=== PATIENT | female | born 1975 | race African-American/Black ===

== ENCOUNTER → 2017-01-02 | Day surgery (SDC) | payer OTHER ==
[2016-12-30 13:19] VITALS: BMI 48.7
[~2017-01-02] MED LIST: ALBUTEROL SO4 0.083% IH SOL 2.5 MG/3 ML VIAL.NEB. NEB ONE; DEXAMETHASONE SOD PHOSPHATE/PF 10 MG/ML SDV ONE; EPINEPHrine 1:1,000 1 MG/1 ML - 30ML VIAL (INJECTION) ONE; MIDAZOLAM HCL 2 MG/2 ML SINGLE DOSE VIAL ONE; ONDANSETRON 4 MG/2 ML VIAL IVPUSH PRN; PROPOFOL 20 ML ONE; ROPIVACAINE HCL 0.5% 30ML VIAL ONE
[2017-01-02 16:50] VITALS: BP 145/84; PULSE 85; TEMP 98.9
--- NOTE | 2017-01-04 23:04 | OP ---
DATE OF OPERATION: 01/02/2017 SURGEON: Jose Julien M.D. DEVELOPMENT DIRECTOR: Medhat Gómez PREOPERATIVE DIAGNOSIS: 1. Left shoulder impingement. 2. Left shoulder acromioclavicular joint disease. 3. Superior labral to anterior posterior synovitis. POSTOPERATIVE DIAGNOSIS: 1. Left shoulder impingement. 2. Left shoulder acromioclavicular joint disease. 3. Superior labral to anterior posterior synovitis. PROCEDURE: Attempted left shoulder arthroscopy cancelled due to medical complications. Patient had block performed in the preoperative area, and during the prepping and draping while patient was in the beach chair position, started having vomiting. Due to the amount of vomiting and the concern of medical complications, consultation with the anesthesiologist, it was determined that the surgery would have to be cancelled. Please note that no incision was made. Patient was in beach chair position and prepping was started when this occurred, but no incision was made. Patient was transferred to the recovery room and discharged the same day. JOSE JULIEN M.D. OZZIE/[id number]
== END | disposition home or self-care (01) ==
LOC: FASU 06:33
PROVIDERS: ATTEND Orthopaedic Surgery
PROC: 0RBK4ZZ Excision of Left Shoulder Joint, Percutaneous Endoscopic Approach (ICD-10-PCS; principal; 2017-01-02)
DX: M75.42 Impingement syndrome of left shoulder (principal); M65.812 Other synovitis and tenosynovitis, left shoulder; M19.019 Primary osteoarthritis, unspecified shoulder; Z53.09 Procedure and treatment not carried out because of other contraindication; R11.10 Vomiting, unspecified
CPT/HCPCS: 84703

== ENCOUNTER 2020-03-21 01:00 | Inpatient (IN) | payer OTHER ==
[2020-03-21 01:33] VITALS: BMI 42.1
--- NOTE | 2020-03-21 01:55 | PDOC ---
*Physical Exam - Vital Signs Last Vital Signs Temp Pulse Resp BP Pulse Ox 98.6 F 84 18 162/90 96 03/21/20 01:28 03/21/20 01:28 03/21/20 01:28 03/21/20 01:28 03/21/20 01:28 Medical Decision Making - Medical Decision Making 03/21/20 01:55 Patient seen by the advanced practice provider under my supervision. Ancillary testing reviewed as necessary. I agree with plan as outlined by the advanced practice provider. Discharge - Discharge Information Problems reviewed: Yes Clinical Impression/Diagnosis: Hyperglycemia Leg wound, left Qualifiers: Encounter type: initial encounter Qualified Code(s): S81.802A - Unspecified open wound, left lower leg, initial encounter Condition: Fair - Follow up/Referral Referrals: ON STAFF,NOT [Primary Care Provider] - - Patient Discharge Instructions - Post Discharge Activity
[2020-03-21] MEDS ORDERED: SODIUM CHLORIDE 1,000 ML IV STA (02:53)
[2020-03-21] MEDS ORDERED: morphine CARPU-JECT 2 MG/1 ML DISP.SYRIN IVPUSH ONE (02:55)
--- NOTE | 2020-03-21 03:09 | PDOC ---
History of Present Illness - General Chief Complaint: Weakness Stated Complaint: MUSCLE WEAKNESS Time Seen by Provider: 03/21/20 01:53 History Source: Patient - History of Present Illness Initial Comments: 03/21/20 03:00 44-year-old female reports that for the last 2 weeks she noticed a boil to the right lower leg which has become increasing Dariel painful with some pus drainage. Patient also reports that she has a she has been having generalized weakness and gets pain to her bilateral hands and feet. She has no incontinence of bowel or urine no saddle anesthesia. Patient was seen in [facility] last night and was treated for a UTI and hyperglycemia give one dose of macrobid. Patient reports that her pain and her weakness remain since discharge. Patient has a past medical history of insulin-dependent diabetes, Low back pain, sarcoidosis, left knee arthroscopy, asthma. 03/21/20 03:09 Past History - Medical History Allergies/Adverse Reactions: Allergies Allergy/AdvReac Type Severity Reaction Status Date / Time iodine Allergy Intermediate SWELLING Verified 03/21/20 01:33 INFLAMMATION OF MOUTH morphine Allergy Intermediate Verified 03/21/20 03:50 shellfish derived Allergy Intermediate SWELLING/INFLAMMATION Verified 03/21/20 01:33 MOUTH meperidine [From Demerol] Allergy Unknown Verified 03/21/20 03:50 nut Allergy Uncoded 03/24/20 13:59 Home Medications: Ambulatory Orders Insulin Lispro [Humalog] 18 unit SQ TID 12/30/16 Oxycodone HCl/Acetaminophen [Percocet 10-325 mg Tablet] 2 each PO Q8H PRN MDD 6 12/30/16 Albuterol Sulfate Inhaler - [Ventolin Hfa Inhaler -] 2 inh PO Q4H PRN 01/02/17 Alprazolam [Xanax] 0.25 mg PO DAILY 03/21/20 Atorvastatin Ca [Lipitor] 80 mg PO HS 03/21/20 Carvedilol [Coreg -] 25 mg PO BID 03/21/20 Clonidine HCl 0.1 mg PO BID 03/21/20 Cyclobenzaprine HCl [Flexeril -] 10 mg PO TID 03/21/20 Hydralazine HCl 100 mg PO TID 03/21/20 Insulin Glargine,Hum.rec.anlog [Basaglbigg Bravo U-100] 60 unit SQ DAILY 03/01 10/20 Insulin NPH Human Isophane [Humulin N] 14 unit SQ DAILY 03/21/20 Montelukast Sodium [Singulair] 10 mg PO HS 03/21/20 Prednisone 30 mg PO DAILY 03/21/20 Anemia: No (SICKLE CELL TRAIT) Asthma: Yes Cancer: No Cardiac Disorders: No CVA: No COPD: No CHF: No Dementia: No Diabetes: Yes (MAY 2000) GI Disorders: Yes (DIVERTICULITIS/GERD) Disorders: No HTN: Yes Hypercholesterolemia: Yes Liver Disease: No Seizures: No Thyroid Disease: No - Surgical History Abdominal Surgery: No Appendectomy: No Cardiac Surgery: No Cholecystectomy: No Lung Surgery: No Neurologic Surgery: No Orthopedic Surgery: Yes (LEFT THR 2003/LAMINECTOMY 2014) - Psycho-Social/Smoking History Smoking History: Never smoked Have you smoked in the past 12 months: Yes Number of Cigarettes Smoked Daily: 15 - Substance Abuse Hx (Audit-C & DAST Scrn) How often the patient has a drink containing alcohol: Never Score: In Men: 4 or > Positive; In Women: 3 or > Positive: 0 Screen Result (Pos requires Nsg. Audit-10AR): Negative In the last yr the pt used illegal drug/Rx for NonMed reason: No Score: Yes response is considered Positive: 0 Screen Result (Positive result requires Nsg. DAST-10): Negative Review of Systems - Review of Systems Able to Perform ROS?: Yes Is the patient limited Gambian proficient: No Constitutional: No: Symptoms Reported, See HPI, Chills, Diaphoresis, Fever, Loss of Appetite, Malaise, Night Sweats, Weakness, Weight Stable, Unintentional Wgt. Loss, Unexplained wgt Loss, Other Musculoskeletal: Yes: Muscle Weakness Integumentary: Yes: Erythema, Lesions *Physical Exam - Vital Signs Last Vital Signs Temp Pulse Resp BP Pulse Ox 98.6 F 84 18 162/90 96 03/21/20 01:03/21/20 01:28 03/21/20 01:03/21/20 01:03/21/20 01:28 - Physical Exam General Appearance: Yes: Appropriately Dressed Respiratory/Chest: positive: Lungs Clear, Normal Breath Sounds Gastrointestinal/Abdominal: positive: Normal Bowel Sounds, Soft. negative: Tender Musculoskeletal: positive: Normal Inspection Extremity: positive: Erythema, Other (orange sized to left paredes ulcerated wound with erythema , tender on palpation) Integumentary: positive: Normal Color, Dry, Warm, Erythema Neurologic: positive: care director rn II-XII NML intact, Fully Oriented, Alert, Normal Mood/Affect, Normal Response, Motor Strength 5/5. negative: Facial Droop, Sensory Deficit, Confused Heart Score/ECG Review - ECG Intrepretation Comment:: 03/21/20 06:41 sinus tachycardia with 1st degree AV block right BBB ED Treatment Course - LABORATORY CBC & Chemistry Diagram: 03/26/20 07:13 03/26/20 07:13 Medical Decision Making - Medical Decision Making A: hyperglycemia; UTI; infected leg wound P: cbc cmp beta hydroxy IVF insulin ceftriaxone 03/21/20 04:02 patient reports that she gets itchy with morphine not with dilaudid., patient is requesting dialudid or percocet for pain control. patient refused tylenol. will write for percocet. 03/21/20 06:17 patient admitted under hospitalist service 03/26/20 0700 patient pending official sign out to day team. Homa ramos PA to sign out to Day team. Discharge - Discharge Information Problems reviewed: Yes Clinical Impression/Diagnosis: Hyperglycemia Leg wound, left Qualifiers: Encounter type: initial encounter Qualified Code(s): S81.802A - Unspecified open wound, left lower leg, initial encounter UTI (urinary tract infection) Qualifiers: Urinary tract infection type: acute cystitis Hematuria presence: without hematuria Qualified Code(s): N30.00 - Acute cystitis without hematuria Condition: Fair - Admission Yes - Follow up/Referral - Patient Discharge Instructions - Post Discharge Activity
[2020-03-21] MEDS ORDERED: MORPHINE SULFATE 2 MG/ML VIAL ONE (03:15)
[2020-03-21 03:32] LABS: EPI CELLS >36 /uL (0-25.1); HYALINE CASTS 2 /uL (0-3.1); URINE APPEARANCE CLOUDY; URINE BACTERIA 1020 /uL (0-1359); URINE BILIRUBIN NEGATIVE (NEGATIVE); URINE COLOR YELLOW; URINE GLUCOSE (UA) 3+ (NEGATIVE); URINE KETONE NEGATIVE (NEGATIVE); URINE LEUK ESTERASE 1+ (NEGATIVE); URINE NITRITE NEGATIVE (NEGATIVE); URINE PROTEIN 3+ (NEGATIVE); URINE UROBILINOGEN 0.2 mg/dL (0.2-1.0); URINE WBC 183 /uL (0-25.8)
[2020-03-21] MEDS ORDERED: ACETAMINOPHEN 1000 MG/100 ML VIAL (NON FORMULARY) IVPB ONE (03:46)
[2020-03-21] MEDS ORDERED: ACETAMINOPHEN INJECTION 100 ML IVPB ONE (03:57)
[2020-03-21 04:00] LABS: VENOUS BASE EXCESS -3.4 mmol/L (-2-2); VENOUS O2 SATURATION 74.1 % (70-80); VENOUS PCO2 40.3 mmHg (38-52); VENOUS PH 7.352 (7.310-7.410)
[2020-03-21 04:07] LABS: INR 0.92 (0.83-1.09); PROTHROMBIN TIME (PATIENT) 10.8 SEC (9.7-13.0)
[2020-03-21 04:10] LABS: ACTIVATED PTT 27.8 SECONDS (25.2-36.5)
[2020-03-21 04:14] LABS: BASO % 0.5 % (0-2.0); EOS % 2.3 % (0-4.5); HEMATOCRIT 36.6 % (32.4-45.2); HEMOGLOBIN 11.9 GM/dL (10.7-15.3); LYMPH % 18.4 % (8-40); MCH 27.5 pg (25.7-33.7); MCHC 32.3 g/dl (32.0-36.0); MEAN CELL VOLUME 85.1 fl (80-96); MEAN PLT VOLUME 8.9 fl (7.5-11.1); MONO % 7.6 % (3.8-10.2); NEUT % 71.2 % (42.8-82.8); PLATELET COUNT 287 K/MM3 (134-434); WHITE BLOOD COUNT 9.1 K/mm3 (4.0-10.0)
[2020-03-21 04:25] LABS: ALBUMIN 2.2 g/dl (3.4-5.0); ALK PHOS 189 U/L (45-117); ANION GAP 9 MMOL/L (8-16); BILIRUBIN,TOTAL 0.3 mg/dL (0.2-1); BLOOD UREA NITROGEN 30.6 mg/dL (7-18); CALCIUM 9.1 mg/dL (8.5-10.1); CHLORIDE 102 mmol/L (98-107); CO2 24 mmol/L (21-32); CREATININE 2.4 mg/dL (0.55-1.3); SGOT/AST 19 U/L (15-37); SGPT/ALT 24 U/L (13-61); SODIUM 135 mmol/L (136-145); TOT PROT 6.5 g/dl (6.4-8.2)
[2020-03-21 04:44] LABS: URINE RBC 39.9 /uL (0-23.9)
[2020-03-21] MEDS ORDERED: CEFTRIAXONE 1,000 MG in DEXTROSE 5%-WATER - 50 ML IVPB ONE (04:50)
[2020-03-21 05:10] LABS: GLUCOSE,RANDOM 495 mg/dL (74-106)
[2020-03-21] MEDS ORDERED: INSULIN REGULAR HUMAN 100 UNITS/ML *VIAL IVPUSH ONE (05:11)
[2020-03-21] MEDS ORDERED: CEFTRIAXONE 1 GM/50 ML BAG ONE (05:25)
[2020-03-21] MEDS ORDERED: HEPARIN NA (PORCINE) 5,000 UNITS/ML 1ML VIAL SQ SCH (06:00)
--- NOTE | 2020-03-21 09:11 | HP ---
CHIEF COMPLAINT: left knee wound PCP: Dr. Norris HISTORY OF PRESENT ILLNESS: 44 y/o F, pmh of htn, IDDM, sarcoidosis (Lung, Liver) on prednisone, asthma, CKD, spinal surgery, left hip replacement and tibial surgery, presents to the ED after recent discharge from [facility] for uncontrolled and elevated hyperglycemia and increasing drainage of the left knee wound that has been persistent for the past two and has since worsened. Pt states that she has been compliant with her insulin and home meds, but recently her sugars have been elevated from her normal range which is around 130-160s. She was seen in [facility] 2 days ago for similar complaints and at the time treated for a UTI as well and sent home. She has history of sarcoidosis to the liver and lung, which she reports has been stable and she has not seen a physician since diagnosis in 09/19. Denies f/c/n/v/d/sob,chest pain, numbness or tingling. ER course was notable for: (1) UA 1+ LE, Terri >1000, one dose Rocephin (2) IVF (3) Recent Travel: none PAST MEDICAL HISTORY/PAST SURGICAL HISTORY: htn, IDDM, sarcoidosis (Lung, Liver) on prednisone, asthma, CKD, spinal surgery, left hip replacement and tibial surgery, Social History: Smoking: occasionally, once a week, 2 cigs Alcohol: denies Drugs: denies Allergies iodine Allergy (Intermediate, Verified 03/21/20 01:33) SWELLING INFLAMMATION OF MOUTH morphine Allergy (Intermediate, Verified 03/21/20 03:50) shellfish derived Allergy (Intermediate, Verified 03/21/20 01:33) SWELLING/INFLAMMATION MOUTH meperidine [From Demerol] Allergy (Unknown, Verified 03/21/20 03:50) HOME MEDICATIONS: Home Medications Medication Instructions Recorded Atorvastatin Calcium 20 mg PO HS 12/30/16 Insulin Glargine,Hum.rec.anlog 60 units SQ HS 12/30/16 [Lantus Solostar PEN (NF)] Insulin Lispro [Humalog] 18 unit SQ TID 12/30/16 Losartan/Hydrochlorothiazide 1 each PO DAILY 12/30/16 [Losartan-Hctz 50-12.5 mg Tab] Metoprolol Succinate [Toprol Xl] 50 mg PO DAILY 12/30/16 Oxycodone HCl/Acetaminophen 2 each PO Q8H PRN MDD 6 12/30/16 [Percocet 10-325 mg Tablet] Albuterol Sulfate Inhaler - 2 inh PO Q4H PRN 01/02/17 [Ventolin Hfa Inhaler -] Carvedilol [Coreg -] 25 mg PO BID 03/21/20 Hydralazine HCl 100 mg PO TID 03/21/20 Insulin Glargine,Hum.rec.anlog 60 unit SQ DAILY 03/21/20 [Basaglar Kwikpen U-100] Prednisone 30 mg PO DAILY 03/21/20 REVIEW OF SYSTEMS CONSTITUTIONAL: Absent: fever, chills, diaphoresis, generalized weakness HEENT: Absent: rhinorrhea, nasal congestion, throat pain, throat swelling CARDIOVASCULAR: Absent: chest pain, syncope, palpitations RESPIRATORY: Absent: cough, shortness of breath, dyspnea with exertion GASTROINTESTINAL: Absent: abdominal pain, abdominal distension, nausea, vomiting GENITOURINARY: Absent: dysuria, frequency, urgency, hesitancy PHYSICAL EXAMINATION Vital Signs - 24 hr 03/21/20 03/21/20 03/21/20 01:28 04:53 07:06 Temperature 98.6 F 99.2 F Pulse Rate 84 Pulse Rate [ 111 H Right Radial] Respiratory 18 18 Rate Blood Pressure 162/90 Blood Pressure 161/86 [Right Arm] O2 Sat by Pulse 96 97 97 Oximetry (%) GENERAL: Awake, alert, and fully oriented, in no acute distress. Obese female HEAD: Normal with no signs of trauma. Excessive hair growth under arm and under chin EYES: Pupils equal, round and reactive to light, extraocular movements intact EARS, NOSE, THROAT: Moist mucous membranes. LUNGS: Breath sounds equal, clear to auscultation bilaterally. No wheezes, and no crackles. HEART: Regular rate and rhythm, normal S1 and S2 without murmur, rub or gallop. ABDOMEN: Soft, nontender, not distended, normoactive bowel sounds, no guarding, no rebound, no masses. MUSCULOSKELETAL: Back pain but no tenderness LOWER EXTREMITIES: 2+ pulses, warm, well-perfused. No peripheral edema. Left leg externally rotated due to recent surgery, surgical scar 6 cm on the left inner tibial side. 4x4 left knee wound, with partial eschar and partially open, clean base, mild drainage, no surrounding erythema, no surrounding tenderness. NEUROLOGICAL: Normal speech. Normal gait. PSYCHIATRIC: Cooperative. Good eye contact. Appropriate mood and affect. SKIN: Warm, dry, normal turgor, Laboratory Results - last 24 hr 03/21/20 03/21/20 03/21/20 02:44 03:33 03:33 WBC RBC Hgb Hct MCV MCH MCHC RDW Plt Count MPV Absolute Neuts (auto) Neutrophils % Lymphocytes % Monocytes % Eosinophils % Basophils % Nucleated RBC % PT with INR 10.80 INR 0.92 PTT (Actin FS) 27.8 VBG pH POC VBG pCO2 POC VBG pO2 VBG HCO3 VBG O2 Sat (Jan) VBG Base Excess Sodium Potassium Chloride Carbon Dioxide Anion Gap BUN Creatinine Est GFR (CKD-EPI)AfAm Est GFR (CKD-EPI)NonAf POC Glucometer Random Glucose Calcium Total Bilirubin AST ALT Alkaline Phosphatase Creatine Kinase Troponin I Total Protein Albumin Beta-Hydroxybutyrate 1.6 Urine Color Yellow Urine Appearance Cloudy Urine pH 5.0 Ur Specific [place] 1.019 Urine Protein 3+ H Urine Glucose (UA) 3+ H Urine Ketones Negative Urine Blood Negative Urine Nitrite Negative Urine Bilirubin Negative Urine Urobilinogen 0.2 Ur Leukocyte Esterase 1+ H Urine WBC (Auto) 183 Urine RBC (Auto) 39.9 Urine Casts (Auto) 2 U Epithel Cells (Auto) >36 Urine Bacteria (Auto) 1020 ASSESSMENT/PLAN: 44 y/o F, pmh of htn, IDDM, sarcoidosis (Lung, Liver) on prednisone, asthma, CKD, spinal surgery, left hip replacement and tibial surgery, presents to the ED after recent discharge from [facility] for uncontrolled and elevated hyperglycemia and increasing drainage of the left knee wound that has been persistent for the past two and has since worsened admitted uncontrolled diabetes and new left knee wound likely 2/2 to diabetes #Uncontrolled Diabetes likely 2/2 to inadequate coverage vs chronic prednisone use on admission to ED Gluc>400 pt asymptomatic, no DKA now coming down Pt on 18 humalog, 14 humalin, [address] on ISS BGM- will monitor gluc Endo consulted for regimen adjustment for better control r/p EKG in morning to compare to todays EKG QTc 606, tachycardic #Left knee wound likely 2/2 to diabetic wound vs pressure ulcer does not appear infected, no surrounding tenderness or erythema will cont to monitor wbc and vitals left knee chronically externally rotated since surgery in december Will consult wound care pt has history of wounds on the foot, resolved #UTI 2/2 to incompletely tx UTI from [facility] discharge on bactrim UA positive LE +1, terri >1000 pt asymptomatic one dose rocephin given in ED pt took bactrim 2 days ago upon discharge from [facility] #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, since surgery stable sensation mildly reduced, strength 5/5 #Sarcoidosis to liver and lung, dx on an EGD/Colonoscopy at [facility] pt reports its stable and asymptomatic on Prednisone 30 since 09/19 r/p CXR in morning #HTN cont home [facility] of Hydralazine 100 TID Coreg 25 BID #Chronic back pain 2/2 to spinal surgery cont home pain regimen PT #DVT ppx Hep sq #FEN monitor lytes dm/sod diet Dispo: f/u endo, f/u wound care, pt can be followed up outpatient, will cont to monitor sugars Visit type - Emergency Visit Emergency Visit: Yes ED Registration Date: 03/21/20 Care time: The patient presented to the Emergency Department on the above date and was hospitalized for further evaluation of their emergent condition. - New Patient This patient is new to me today: Yes Date on this admission: 03/30/20 - Critical Care Critical Care patient: No ATTENDING PHYSICIAN STATEMENT I saw and evaluated the patient. I reviewed the resident's note and discussed the case with the resident. I agree with the resident's findings and plan as documented. SUBJECTIVE: OBJECTIVE: ASSESSMENT AND PLAN:
[2020-03-21] MEDS ORDERED: ALBUTEROL SO4 HFA INHALER IH PRN (09:15)
[2020-03-21] MEDS ORDERED: INSULIN SLIDING SCALE (NOVOLOG) 1 VIAL SQ SCH ×3 (11:00→22:00)
[2020-03-21] MEDS ORDERED: SODIUM CHLORIDE 0.45% 1,000 ML IV SCH (11:00)
[2020-03-21] MEDS: oxyCODONE HCL 5 MG TABLET PO PRN (11:03)
[2020-03-21] MEDS: ACETAMINOPHEN 325 MG TABLET (FP) PO PRN (11:04)
[2020-03-21] MEDS: CARVEDILOL 25 MG TABLET (FP) PO SCH ×2 (11:05→21:03)
[2020-03-21] MEDS: COLLAGENASE CLOSTRIDIUM HIST. 30 GRAMS TUBE TP SCH (11:12)
--- NOTE | 2020-03-21 11:39 | PN ---
Teaching Attending Note Name of Resident: Danny Redman ATTENDING PHYSICIAN STATEMENT I saw and evaluated the patient. I reviewed the resident's note and discussed the case with the resident. I agree with the resident's findings and plan as documented. SUBJECTIVE: 44 year old morbidly obese AAF with known history of sarcoidosis, insulin depe ndent diabetes mellitus, left knee arthroscopy, asthma, chronic low back pain, who was just at [facility] yesterday where she presented with UTI, hyperglycemia and left leg chronic wound, who again presents today with complaints of weakness and leg pains. She was found to have hyperglycemia, with an abnormal urinalysis. OBJECTIVE: General: morbidly obese AAF who appears appropriate for stated age; not in any distress HEENT: EOMI, no oral lesions, lip and tongue mucosa appear dry neck; short and thick no bruits to auscultation CVS: RRR, no murmurs abd; morbidly obese, soft hypoactive bowel sounds ext 3 x 4 cm wound at the distal third of the LLE. There is black eschar partially covering the wound; 1/3 of the wound is open with mild drainage. HEATING PLANT SUPERINTENDENT: no motor nor sensory deficit ASSESSMENT AND PLAN: 1. Leg pain secondary to chronic wound - surgery has seen patient and will unroof the wound (remove eschar) - will send wound culture 2. Uncontrolled DM 2 - SSI, long acting insulin; check A1c - lipid profile - will defer to nephrology re; CELINE/ARB as with AMBIKA on CKD 3. AMBIKA likely with underlying CKD in setting of IDDM, sarcodosis - volume management, further evaluation of AMBIKA per Dr Stern - requesting input re: steroid use, taper dose (if indicated) of prednisone 4. Chronic low back pain - will confirm/verify narcotic medications with pharmacy - cautious use of narcotics 5. Abnormal EKG - recheck in am - serial troponins - ASA DW Dr Danny Redman plans as above. Agree with his management and plans of care.
--- NOTE | 2020-03-21 11:47 | CONSULT ---
- Consultation REQUESTING PROVIDER: CONSULT REQUEST: We have been asked to surgically evaluate this patient for Left knee ulcer PCP:Tao Kyle MD HISTORY OF PRESENT ILLNESS: Vascular surgery was consulted to evaluate pt for Left knee ulcer. Pt states that the ulcer has been present for about 2 weeks. Pt does not see any wound doctors for the wound. Pt states she previously had a wound on her leg a couple years ago that she treated at home and healed on her own. Pt was just discharged from [facility] yesterday for her leg wound and uncontrolled DM. Pt currently admitted today for hyperglycemia. PMHx: htn, IDDM, sarcoidosis (Lung, Liver) on prednisone, asthma, CKD, PSHx: spinal surgery, left hip replacement and tibial surgery Home Medications Medication Instructions Recorded Insulin Lispro [Humalog] 18 unit SQ TID 12/30/16 Oxycodone HCl/Acetaminophen 2 each PO Q8H PRN MDD 6 12/30/16 [Percocet 10-325 mg Tablet] Albuterol Sulfate Inhaler - 2 inh PO Q4H PRN 01/02/17 [Ventolin Hfa Inhaler -] Atorvastatin Ca [Lipitor] 80 mg PO HS 03/21/20 Carvedilol [Coreg -] 25 mg PO BID 03/21/20 Clonidine HCl 0.1 mg PO BID 03/21/20 Cyclobenzaprine HCl [Flexeril -] 10 mg PO TID 03/21/20 Hydralazine HCl 100 mg PO TID 03/21/20 Insulin Glargine,Hum.rec.anlog 60 unit SQ DAILY 03/21/20 [Basaglar Kwikpen U-100] Insulin NPH Human Isophane 14 unit SQ DAILY 03/21/20 [Humulin N] Montelukast Sodium [Singulair] 10 mg PO HS 03/21/20 Prednisone 30 mg PO DAILY 03/21/20 Allergies Allergy/AdvReac Type Severity Reaction Status Date / Time iodine Allergy Intermediate SWELLING Verified 03/21/20 01:33 INFLAMMATION OF MOUTH morphine Allergy Intermediate Verified 03/21/20 03:50 shellfish derived Allergy Intermediate SWELLING/INFLAMMATION Verified 03/21/20 01:33 MOUTH meperidine [From Demerol] Allergy Unknown Verified 03/21/20 03:50 PHYSICAL EXAM: GENERAL: Awake, alert, and fully oriented, in no acute distress. HEAD: Normal with no signs of trauma. EYES: PERRL, sclera anicteric, conjunctiva clear. NECK: Normal ROM, supple without lymphadenopathy, JVD, or masses. LUNGS: breathing comfortably No accessory muscle use. HEART: Regular rate and rhythm. LOWER EXTREMITIES: warm, well-perfused. No calf tenderness. +1 edema, 4cm x 3 cm ulcer on Left lateral knee, with eschar present, no erythema, serous dischage. NEUROLOGICAL: Normal speech, gait not observed. PSYCH: Cooperative. Good eye contact. Appropriate mood and affect. SKIN: Warm, dry, normal turgor, no rashes or lesions noted. Vital Signs Temperature 98 F 03/21/20 09:07 Pulse Rate 94 H 03/21/20 09:07 Respiratory Rate 18 03/21/20 09:07 Blood Pressure 142/85 03/21/20 09:07 O2 Sat by Pulse Oximetry (%) 98 03/21/20 09:07 Lab Results WBC 9.1 K/mm3 (4.0-10.0) 03/21/20 03:33 RBC 4.30 M/mm3 (3.60-5.2) 03/21/20 03:33 Hgb 11.9 GM/dL (10.7-15.3) 03/21/20 03:33 Hct 36.6 % (32.4-45.2) 03/21/20 03:33 MCV 85.1 fl (80-96) 03/21/20 03:33 MCHC 32.3 g/dl (32.0-36.0) 03/21/20 03:33 RDW 15.0 % (11.6-15.6) 03/21/20 03:33 Plt Count 287 K/MM3 (134-434) 03/21/20 03:33 INR 0.92 (0.83-1.09) 03/21/20 03:33 Sodium 135 mmol/L (136-145) L 03/21/20 03:33 Potassium 4.0 mmol/L (3.5-5.1) 03/21/20 03:33 Chloride 102 mmol/L (98-107) 03/21/20 03:33 Carbon Dioxide 24 mmol/L (21-32) 03/21/20 03:33 Anion Gap 9 MMOL/L (8-16) 03/21/20 03:33 BUN 30.6 mg/dL (7-18) H 03/21/20 03:33 Creatinine 2.4 mg/dL (0.55-1.3) H 03/21/20 03:33 Random Glucose 495 mg/dL (74-106) H* 03/21/20 03:33 Calcium 9.1 mg/dL (8.5-10.1) 03/21/20 03:33 Problem List - Problems (1) Leg wound, left Assessment/Plan: Plan -eschar on Leg wound was debrided at bedside without incident -recommend compression dressing with Santyl -pt should follow up with Dr. Bingham in wound care clinic next week as outpatient Pt discussed with Dr. Bingham who agrees with plan. Code(s): S81.802A - UNSPECIFIED OPEN WOUND, LEFT LOWER LEG, INITIAL ENCOUNTER Qualifiers: Encounter type: initial encounter Qualified Code(s): S81.802A - Unspecified open wound, left lower leg, initial encounter Visit type - Case Type Case Type: ED Admission - Emergency Emergency Visit: Yes ED Registration Date: 03/21/20 Care time: The patient presented to the Emergency Department on the above date and was hospitalized for further evaluation of their emergent condition. - New patient This patient is new to me today: Yes Date on this admission: 03/21/20 - Critical Care Critical Care patient: No
--- NOTE | 2020-03-21 12:22 | CONSULT ---
Consult Consult Specialty:: Nephrology Reason for Consultation:: CKD - History of Present Illness Chief Complaint: hyperglycemia History of Present Illness: Pt is a 44 year old female with pmhx of ckd, sarcoid involving the lungs and liver, asthma, left hip replacement, hypercalcemia who persents to the ER with elevated blood sugar. She says she as in [facility] but did not get along with the doctors. She says that her quote clerk ranges between 1.9 and 2.4. She is on prednisone 30 mg daily since August and says she was started on it by endocrinology. She denies dysuria or hematuria. She has appetite. - History Source History Provided By: Patient, Medical Record - Past Medical History Cardio/Vascular: Yes: HTN, Hyperlipdemia Renal/: Yes: Renal Inusuff ...LMP: 12/25/16 Rheumatology: Yes: Sarcoidosis - Alcohol/Substance Use Hx Alcohol Use: No - Smoking History Smoking history: Never smoked Have you smoked in the past 12 months: Yes Aproximately how many cigarettes per day: 15 Home Medications - Allergies Allergies/Adverse Reactions: Allergies Allergy/AdvReac Type Severity Reaction Status Date / Time iodine Allergy Intermediate SWELLING Verified 03/21/20 01:33 INFLAMMATION OF MOUTH morphine Allergy Intermediate Verified 03/21/20 03:50 shellfish derived Allergy Intermediate SWELLING/INFLAMMATION Verified 03/21/20 01:33 MOUTH meperidine [From Demerol] Allergy Unknown Verified 03/21/20 03:50 - Home Medications Home Medications: Ambulatory Orders Insulin Lispro [Humalog] 18 unit SQ TID 12/30/16 Oxycodone HCl/Acetaminophen [Percocet 10-325 mg Tablet] 2 each PO Q8H PRN MDD 6 12/30/16 Albuterol Sulfate Inhaler - [Ventolin Hfa Inhaler -] 2 inh PO Q4H PRN 01/02/17 Atorvastatin Ca [Lipitor] 80 mg PO HS 03/21/20 Carvedilol [Coreg -] 25 mg PO BID 03/21/20 Clonidine HCl 0.1 mg PO BID 03/21/20 Cyclobenzaprine HCl [Flexeril -] 10 mg PO TID 03/21/20 Hydralazine HCl 100 mg PO TID 03/21/20 Insulin Glargine,Hum.rec.anlog [Basaglar Kwikpen U-100] 60 unit SQ DAILY 03/21/20 Insulin NPH Human Isophane [Humulin N] 14 unit SQ DAILY 03/21/20 Montelukast Sodium [Singulair] 10 mg PO HS 03/21/20 Prednisone 30 mg PO DAILY 03/21/20 Family Medical History Family History: Denies Review of Systems - Review of Systems Constitutional: reports: Malaise Eyes: reports: No Symptoms HENT: reports: No Symptoms Neck: reports: No Symptoms Cardiovascular: reports: No Symptoms Respiratory: reports: No Symptoms Gastrointestinal: reports: No Symptoms Genitourinary: reports: No Symptoms Musculoskeletal: reports: No Symptoms Integumentary: reports: No Symptoms Neurological: reports: No Symptoms Endocrine: reports: No Symptoms Hematology/Lymphatic: reports: No Symptoms Psychiatric: reports: No Symptoms Physical Exam Vital Signs: Vital Signs Temperature 98 F 03/21/20 09:07 Pulse Rate 94 H 03/21/20 09:07 Respiratory Rate 18 03/21/20 09:07 Blood Pressure 142/85 03/21/20 09:07 O2 Sat by Pulse Oximetry (%) 98 03/21/20 09:07 Constitutional: Yes: Calm Eyes: Yes: Conjunctiva Clear HENT: Yes: Atraumatic Neck: Yes: Supple Cardiovascular: Yes: S1, S2 Respiratory: Yes: CTA Bilaterally Gastrointestinal: Yes: Normal Bowel Sounds, Soft, Abdomen, Obese Renal/: Yes: WNL Musculoskeletal: Yes: WNL Edema: Yes Edema: LLE: Trace, RLE: Trace Neurological: Yes: Oriented Psychiatric: Yes: Oriented Labs: CBC, BMP 03/21/20 03:33 03/21/20 03:33 Imaging - Results Chest X-ray: Report Reviewed Problem List - Problems (1) CKD (chronic kidney disease) Code(s): N18.9 - CHRONIC KIDNEY DISEASE, UNSPECIFIED (2) Proteinuria Code(s): R80.9 - PROTEINURIA, UNSPECIFIED (3) Hyperglycemia Code(s): R73.9 - HYPERGLYCEMIA, UNSPECIFIED Assessment/Plan Current Medications Generic Name Dose Route Start Last Admin Trade Name Freq PRN Reason Stop Dose Admin Acetaminophen 325 mg 03/21/20 09:21 03/21/20 11:04 Tylenol - PO 325 mg Q8H PRN Administration PAIN 4-6 Albuterol Sulfate 2 puff 03/21/20 09:15 Ventolin Hfa Inhaler - IH Q4H PRN WHEEZING Atorvastatin Calcium 80 mg 03/21/20 22:00 Lipitor - PO HS MARIYA Carvedilol 25 mg 03/21/20 10:00 03/21/20 11:05 Coreg - PO 25 mg BID MARIYA Administration Collagenase 1 applic 03/21/20 10:45 03/21/20 11:12 Santyl - TP Not Given DAILY [facility] Protocol Cyclobenzaprine HCl 10 mg 03/21/20 14:00 Flexeril - PO TID MARIYA Heparin Sodium (Porcine) 5,000 unit 03/22/20 06:00 Heparin - SQ TID MARIYA Hydralazine HCl 100 mg 03/21/20 14:00 Apresoline - PO TID MARIYA Insulin Aspart 1 vial 03/21/20 16:30 Novolog Vial Sliding Scale - SQ ACHS [facility] Protocol Insulin Detemir 25 units 03/21/20 22:00 Levemir Vial SQ HS MARIYA Montelukast Sodium 10 mg 03/21/20 22:00 Singulair - PO HS MARIYA Oxycodone HCl 10 mg 03/21/20 09:19 03/21/20 11:03 Roxicodone - PO 10 mg Q8H PRN Administration PAIN 4-6 Prednisone 30 mg 03/21/20 10:00 Deltasone - PO DAILY [facility] Impression 1. CKD 2. sarcoidosis with lung and liver involvement 3. proteinuria 4. DM 5. hld 6. htn 7. hypercalcemia Plan - repeat labs in am - check prt to quote clerk ratio - check pth - endocrine eval, try to use lowest dose of steroids possible - can hold off fluids as she is tolerating diet - will need better glucose control - discussed with medical team - monitor calcium levels - check phos levels
[2020-03-21 12:42] LABS: CHOLESTEROL 276 mg/dL (50-200); HDL CHOLESTEROL 29 mg/dL (40-60); LDL CHOLESTEROL (ONLY SJRH) 199 mg/dL (5-100); TRIGLYCERIDES 326 mg/dL (0-150)
--- NOTE | 2020-03-21 12:52 | EKG ---
Test Reason : Blood Pressure : / mmHG Vent. Rate : 109 BPM Atrial Rate : 109 BPM P-R Int : 212 ms QRS Dur : 120 ms QT Int : 450 ms P-R-T Axes : 077 -69 072 degrees QTc Int : 606 ms POOR DATA QUALITY, INTERPRETATION MAY BE ADVERSELY AFFECTED SINUS TACHYCARDIA WITH 1ST DEGREE A-V BLOCK WITH FUSION COMPLEXES RIGHT BUNDLE BRANCH BLOCK LEFT ANTERIOR FASCICULAR BLOCK BIFASCICULAR BLOCK SEPTAL INFARCT , AGE UNDETERMINED ABNORMAL ECG NO PREVIOUS ECGS AVAILABLE Confirmed by MD JEANNETTE, ANDREA ([id number]) on 03/21/2020 12:51:56 PM Referred By: Confirmed By:ANDREA MACHADO MD
[2020-03-21] MEDS: predniSONE 10 MG TABLET (UD) PO SCH ×2 (13:04→14:04)
[2020-03-21] MEDS ORDERED: predniSONE 10 MG TABLET (UD) PO SCH (13:39)
[2020-03-21] MEDS: CYCLOBENZAPRINE HCL 10 MG TABLET (FP) PO SCH ×2 (14:05→21:03)
[2020-03-21] MEDS: hydrALAZINE HCL 50 MG TABLET (FP) PO SCH ×2 (14:05→21:02)
[2020-03-21] MEDS: INSULIN SLIDING SCALE (NOVOLOG) 1 VIAL SQ SCH ×3 (17:14→22:46)
[2020-03-21] MEDS ORDERED: ALPRAZolam 1 MG TABLET PO PRN (19:03)
[2020-03-21] MEDS ORDERED: ALPRAZolam 0.25 MG TABLET PO PRN (19:10)
[2020-03-21] MEDS: MONTELUKAST NA 10 MG TABLET PO SCH (21:02)
[2020-03-21] MEDS: ATORVASTATIN CA 80 MG TABLET (FP) PO SCH (21:03)
--- NOTE | 2020-03-21 21:59 | CONSULT ---
Consult Consult Specialty:: Endocrine Referred by:: Danny Redman Wreath Machine Operator Reason for Consultation:: dmt1 - History of Present Illness Chief Complaint: high sugars History of Present Illness: 44 y/o F, pmh of dmt1,, sarcoidosios (Lung, Liver) on prednisone, asthma, CKD, spinal surgery, left hip replacement and tibial surgery, presented with rle wound infection with high sugars weakness,pain and difficulty controlling blood sugars,with recurrent loss of sensation,pain and difficulty walking.she has been on prednisone 60mg in past yet this has changed since sugars have been elevated. - Past Medical History Cardio/Vascular: Yes: HTN, Hyperlipdemia Renal/: Yes: Renal Inusuff ...LMP: 12/25/16 ...: No Rheumatology: Yes: Sarcoidosis - Alcohol/Substance Use Hx Alcohol Use: No - Smoking History Smoking history: Former smoker Have you smoked in the past 12 months: Yes Aproximately how many cigarettes per day: 15 Home Medications - Allergies Allergies/Adverse Reactions: Allergies Allergy/AdvReac Type Severity Reaction Status Date / Time iodine Allergy Intermediate SWELLING Verified 03/21/20 01:33 INFLAMMATION OF MOUTH morphine Allergy Intermediate Verified 03/21/20 03:50 shellfish derived Allergy Intermediate SWELLING/INFLAMMATION Verified 03/21/20 01:33 MOUTH meperidine [From Demerol] Allergy Unknown Verified 03/21/20 03:50 - Home Medications Home Medications: Ambulatory Orders Insulin Lispro [Humalog] 18 unit SQ TID 12/30/16 Oxycodone HCl/Acetaminophen [Percocet 10-325 mg Tablet] 2 each PO Q8H PRN MDD 6 12/30/16 Albuterol Sulfate Inhaler - [Ventolin Hfa Inhaler -] 2 inh PO Q4H PRN 01/02/17 Alprazolam [Xanax] 0.25 mg PO DAILY 03/21/20 Atorvastatin Ca [Lipitor] 80 mg PO HS 03/21/20 Carvedilol [Coreg -] 25 mg PO BID 03/21/20 Clonidine HCl 0.1 mg PO BID 03/21/20 Cyclobenzaprine HCl [Flexeril -] 10 mg PO TID 03/21/20 Hydralazine HCl 100 mg PO TID 03/21/20 Insulin Glargine,Hum.rec.anlog [Basaglar Kwikpen U-100] 60 unit SQ DAILY 03/21/20 Insulin NPH Human Isophane [Humulin N] 14 unit SQ DAILY 03/21/20 Montelukast Sodium [Singulair] 10 mg PO HS 03/21/20 Prednisone 30 mg PO DAILY 03/21/20 Review of Systems - Review of Systems Constitutional: reports: Lethargy, Malaise Eyes: reports: Blurred Vision HENT: reports: No Symptoms Neck: reports: No Symptoms Cardiovascular: reports: Edema, Shortness of Breath Respiratory: reports: Exercise Intolerance, SOB, SOB on Exertion Gastrointestinal: reports: Bloating, Nausea Genitourinary: reports: Frequency, Incontinence Musculoskeletal: reports: Extremity Pain, Joint Swelling, Muscle Pain, Muscle Cramps, Muscle Weakness Integumentary: reports: Blister, Lesions Physical Exam Vital Signs: Vital Signs Temperature 98.8 F 03/21/20 18:20 Pulse Rate 91 H 03/21/20 18:20 Respiratory Rate 18 03/21/20 18:20 Blood Pressure 142/72 03/21/20 18:20 O2 Sat by Pulse Oximetry (%) 97 03/21/20 18:20 Labs: CBC, BMP 03/21/20 03:33 03/21/20 03:33 Problem List - Problems (1) 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 Code(s): E10.620 - TYPE 1 DIABETES MELLITUS WITH DIABETIC DERMATITIS (2) CKD (chronic kidney disease) Code(s): N18.9 - CHRONIC KIDNEY DISEASE, UNSPECIFIED (3) Hyperglycemia Code(s): R73.9 - HYPERGLYCEMIA, UNSPECIFIED (4) Leg wound, left Code(s): S81.802A - UNSPECIFIED OPEN WOUND, LEFT LOWER LEG, INITIAL ENCOUNTER Qualifiers: Encounter type: initial encounter Qualified Code(s): S81.802A - Unspecified open wound, left lower leg, initial encounter (5) Proteinuria Code(s): R80.9 - PROTEINURIA, UNSPECIFIED (6) UTI (urinary tract infection) Code(s): N39.0 - URINARY TRACT INFECTION, SITE NOT SPECIFIED Qualifiers: Urinary tract infection type: acute cystitis Hematuria presence: without hematuria Qualified Code(s): N30.00 - Acute cystitis without hematuria Assessment/Plan Current Active Problems CKD (chronic kidney disease) (Acute) Hyperglycemia (Acute) Leg wound, left (Acute) Proteinuria (Acute) UTI (urinary tract infection) (Acute) Abnormal Lab Results 03/21/20 03/21/20 03/21/20 02:44 03:33 03:33 VBG HCO3 21.8 L VBG Base Excess -3.4 L Sodium 135 L BUN 30.6 H Creatinine 2.4 H Random Glucose 495 H* Alkaline Phosphatase 189 H Albumin 2.2 L Triglycerides 326 H Cholesterol 276 H Total LDL Cholesterol 199 H HDL Cholesterol 29 L Urine Protein 3+ H Urine Glucose (UA) 3+ H Ur Leukocyte Esterase 1+ H Laboratory Results - last 24 hr 03/21/20 03/21/20 03/21/20 02:44 03:33 03:33 WBC RBC Hgb Hct MCV MCH MCHC RDW Plt Count MPV Absolute Neuts (auto) Neutrophils % Lymphocytes % Monocytes % Eosinophils % Basophils % Nucleated RBC % PT with INR 10.80 INR 0.92 PTT (Actin FS) 27.8 VBG pH POC VBG pCO2 POC VBG pO2 VBG HCO3 VBG O2 Sat (Jan) VBG Base Excess Sodium Potassium Chloride Carbon Dioxide Anion Gap BUN Creatinine Est GFR (CKD-EPI)AfAm Est GFR (CKD-EPI)NonAf POC Glucometer Random Glucose Calcium Total Bilirubin AST ALT Alkaline Phosphatase Creatine Kinase Troponin I Total Protein Albumin Triglycerides Cholesterol Total LDL Cholesterol HDL Cholesterol Beta-Hydroxybutyrate 1.6 Urine Color Yellow Urine Appearance Cloudy Urine pH 5.0 Ur Specific [place] 1.019 Urine Protein 3+ H Urine Glucose (UA) 3+ H Urine Ketones Negative Urine Blood Negative Urine Nitrite Negative Urine Bilirubin Negative Urine Urobilinogen 0.2 Ur Leukocyte Esterase 1+ H Urine WBC (Auto) 183 Urine RBC (Auto) 39.9 Urine Casts (Auto) 2 U Epithel Cells (Auto) >36 Urine Bacteria (Auto) 1020 03/21/20 03/21/20 03/21/20 03:33 03:33 03:33 WBC 9.1 RBC 4.30 Hgb 11.9 Hct 36.6 MCV 85.1 MCH 27.5 MCHC 32.3 RDW 15.0 Plt Count 287 MPV 8.9 Absolute Neuts (auto) 6.5 Neutrophils % 71.2 Lymphocytes % 18.4 Monocytes % 7.6 Eosinophils % 2.3 Basophils % 0.5 Nucleated RBC % 0 PT with INR INR PTT (Actin FS) VBG pH 7.352 POC VBG pCO2 40.3 POC VBG pO2 41.0 VBG HCO3 21.8 L VBG O2 Sat (Jan) 74.1 VBG Base Excess -3.4 L Sodium 135 L Potassium 4.0 Chloride 102 Carbon Dioxide 24 Anion Gap 9 BUN 30.6 H Creatinine 2.4 H Est GFR (CKD-EPI)AfAm 27.53 Est GFR (CKD-EPI)NonAf 23.76 POC Glucometer Random Glucose 495 H* Calcium 9.1 Total Bilirubin 0.3 AST 19 ALT 24 Alkaline Phosphatase 189 H Creatine Kinase 106 Troponin I < 0.02 Total Protein 6.5 Albumin 2.2 L Triglycerides 326 H Cholesterol 276 H Total LDL Cholesterol 199 H HDL Cholesterol 29 L Beta-Hydroxybutyrate Urine Color Urine Appearance Urine pH Ur Specific [place] Urine Protein Urine Glucose (UA) Urine Ketones Urine Blood Urine Nitrite Urine Bilirubin Urine Urobilinogen Ur Leukocyte Esterase Urine WBC (Auto) Urine RBC (Auto) Urine Casts (Auto) U Epithel Cells (Auto) Urine Bacteria (Auto) 03/21/20 03/21/20 03/21/20 08:02 11:28 16:36 WBC RBC Hgb Hct MCV MCH MCHC RDW Plt Count MPV Absolute Neuts (auto) Neutrophils % Lymphocytes % Monocytes % Eosinophils % Basophils % Nucleated RBC % PT with INR INR PTT (Actin FS) VBG pH POC VBG pCO2 POC VBG pO2 VBG HCO3 VBG O2 Sat (Jan) VBG Base Excess Sodium Potassium Chloride Carbon Dioxide Anion Gap BUN Creatinine Est GFR (CKD-EPI)AfAm Est GFR (CKD-EPI)NonAf POC Glucometer 396 407 333 Random Glucose Calcium Total Bilirubin AST ALT Alkaline Phosphatase Creatine Kinase Troponin I Total Protein Albumin Triglycerides Cholesterol Total LDL Cholesterol HDL Cholesterol Beta-Hydroxybutyrate Urine Color Urine Appearance Urine pH Ur Specific [place] Urine Protein Urine Glucose (UA) Urine Ketones Urine Blood Urine Nitrite Urine Bilirubin Urine Urobilinogen Ur Leukocyte Esterase Urine WBC (Auto) Urine RBC (Auto) Urine Casts (Auto) U Epithel Cells (Auto) Urine Bacteria (Auto) plan: bgm achs novolog scale levemir doses hb a1c titrate dose of prednisone per need for nephropathy
[2020-03-21] MEDS ORDERED: INSULIN (LEVEMIR) 100 UNITS/ML UNITS SQ SCH ×2 (22:00)
[2020-03-22] MEDS: hydrALAZINE HCL 50 MG TABLET (FP) PO SCH ×3 (05:51→21:54)
[2020-03-22] MEDS: CYCLOBENZAPRINE HCL 10 MG TABLET (FP) PO SCH ×3 (05:51→21:54)
[2020-03-22] MEDS: HEPARIN NA (PORCINE) 5,000 UNITS/ML 1ML VIAL SQ SCH ×3 (05:51→21:54)
[2020-03-22] MEDS: INSULIN SLIDING SCALE (NOVOLOG) 1 VIAL SQ SCH ×4 (06:18→21:55)
--- NOTE | 2020-03-22 06:44 | EKG ---
Test Reason : Blood Pressure : / mmHG Vent. Rate : 093 BPM Atrial Rate : 093 BPM P-R Int : 224 ms QRS Dur : 132 ms QT Int : 410 ms P-R-T Axes : 075 -57 075 degrees QTc Int : 509 ms SINUS RHYTHM WITH 1ST DEGREE A-V BLOCK POSSIBLE LEFT ATRIAL ENLARGEMENT LEFT AXIS DEVIATION RIGHT BUNDLE BRANCH BLOCK ANTEROSEPTAL INFARCT (CITED ON OR BEFORE 21-MAR-2020) ABNORMAL ECG Confirmed by MD LINDA, MELBA ([id number]) on 03/21/2020 2:38:25 PM Referred By: Confirmed By:MELBA MCKEON MD
[2020-03-22] MEDS ORDERED: INSULIN (LEVEMIR) 100 UNITS/ML UNITS SQ SCH (07:00)
[2020-03-22 08:30] LABS: HEMATOCRIT 33.6 % (32.4-45.2); MCH 27.3 pg (25.7-33.7); MCHC 32.6 g/dl (32.0-36.0); MEAN CELL VOLUME 83.9 fl (80-96); MEAN PLT VOLUME 8.5 fl (7.5-11.1); PLATELET COUNT 289 K/MM3 (134-434); RBC 4.01 M/mm3 (3.60-5.2); RDW 14.7 % (11.6-15.6)
--- NOTE | 2020-03-22 08:58 | PN ---
Progress Note (short form) - Note Progress Note: Pt seen and examined. States she is doing "okay". no issues overnight. Ambulating and tolerating po. Pain controlled. Denies n/v/d. Vital Signs Temp 98.4 F 03/22/20 06:00 Pulse 91 H 03/22/20 06:00 Resp 20 03/22/20 06:00 BP 125/83 03/22/20 06:00 Pulse Ox 99 03/22/20 06:00 Intake & Output 03/21/20 03/21/20 03/22/20 11:59 23:59 11:59 Intake Total 40 Balance 40 Weight 269 lb 269 lb Intake: IV 40 saline lock 40 Other: Voiding Method Toilet Toilet # Unmeasured Voids Void 1 1 Bowel Movement Yes # Bowel Movements 1 Height 5 ft 7 in 5 ft 7 in Body Mass Index (BMI) 42.1 42.1 Weight Measurement Method Stated by Caregiver Weight Measurement Method Est/Stated by Patient CBC, BMP 03/22/20 07:55 Gen: awake alert, nad Resp: unlabored on RA Ext: LLE with approx 3.5x3.5x1.5 cm ulcer at lateral aspect of knee, moderate fibrinous exudate, scant serous drainage no erythema. + ttp. No palpable fluid collection. A/P: 44 y/o F, w/ PMHx htn, IDDM, sarcoidosis (Lung, Liver) on prednisone, asthma, CKD, spinal surgery, left hip replacement and tibial surgery, a/w worsening left knee wound. afebrile, vss no leukocytosis -local wound care with santyl (cover with damp to dry 4x4s and kerlix), change bid -pain control -oob as tolerated dChanaw attending Dr Bingham
[2020-03-22 09:05] LABS: ALBUMIN 2.1 g/dl (3.4-5.0); BILIRUBIN,TOTAL 0.6 mg/dL (0.2-1); CALCIUM 9.3 mg/dL (8.5-10.1); CREATININE 2.4 mg/dL (0.55-1.3); POTASSIUM 3.8 mmol/L (3.5-5.1)
[2020-03-22] MEDS: CARVEDILOL 25 MG TABLET (FP) PO SCH ×2 (09:36→21:54)
[2020-03-22] MEDS: COLLAGENASE CLOSTRIDIUM HIST. 30 GRAMS TUBE TP SCH (09:37)
--- NOTE | 2020-03-22 11:13 | CON.ID ---
Consult Consult Specialty:: infectious diseases Referred by:: Reason for Consultation:: infected wounds - History of Present Illness Chief Complaint: non healing wounds of the legs History of Present Illness: 4 y/o F, pmh of htn, IDDM, sarcoidosis (Lung, Liver) on prednisone, asthma, CKD, spinal surgery, left hip replacement and tibial surgery, presents to the ED after recent discharge from [facility] for uncontrolled and elevated hyperglycemia and increasing drainage of the left knee wound that has been pe rsistent for the past two and has since worsened. Pt states that she has been compliant with her insulin and home meds, but recently her sugars have been elevated from her normal range which is around 130-160s. She was seen in [facility] 2 days ago for similar complaints and at the time treated for a UTI as well and sent home. She has history of sarcoidosis to the liver and lung, which she reports has been stable and she has not seen a physician since diagnosis in 09/19. patient was worked up and the wound was debrided and cx were send her cx are growing multiple organisms including mrsa patient not compliant wiht her medicine - History Source History Provided By: Patient Limitations to Obtaining History: No Limitations - Past Medical History Cardio/Vascular: Yes: HTN, Hyperlipdemia Renal/: Yes: Renal Inusuff ...LMP: 12/25/16 ...: No Rheumatology: Yes: Sarcoidosis - Alcohol/Substance Use Hx Alcohol Use: No - Smoking History Smoking history: Former smoker Have you smoked in the past 12 months: Yes Aproximately how many cigarettes per day: 15 Home Medications - Allergies Allergies/Adverse Reactions: Allergies Allergy/AdvReac Type Severity Reaction Status Date / Time iodine Allergy Intermediate SWELLING Verified 03/21/20 01:33 INFLAMMATION OF MOUTH morphine Allergy Intermediate Verified 03/21/20 03:50 shellfish derived Allergy Intermediate SWELLING/INFLAMMATION Verified 03/21/20 01:33 MOUTH meperidine [From Demerol] Allergy Unknown Verified 03/21/20 03:50 - Home Medications Home Medications: Ambulatory Orders Insulin Lispro [Humalog] 18 unit SQ TID 12/30/16 Oxycodone HCl/Acetaminophen [Percocet 10-325 mg Tablet] 2 each PO Q8H PRN MDD 6 12/30/16 Albuterol Sulfate Inhaler - [Ventolin Hfa Inhaler -] 2 inh PO Q4H PRN 01/02/17 Alprazolam [Xanax] 0.25 mg PO DAILY 03/21/20 Atorvastatin Ca [Lipitor] 80 mg PO HS 03/21/20 Carvedilol [Coreg -] 25 mg PO BID 03/21/20 Clonidine HCl 0.1 mg PO BID 03/21/20 Cyclobenzaprine HCl [Flexeril -] 10 mg PO TID 03/21/20 Hydralazine HCl 100 mg PO TID 03/21/20 Insulin Glargine,Hum.rec.anlog [Basaglar Kwikpen U-100] 60 unit SQ DAILY 0 Insulin NPH Human Isophane [Humulin N] 14 unit SQ DAILY 03/21/20 Montelukast Sodium [Singulair] 10 mg PO HS 03/21/20 Prednisone 30 mg PO DAILY 03/21/20 Review of Systems - Review of Systems Constitutional: reports: Other Eyes: reports: No Symptoms HENT: reports: No Symptoms Neck: reports: No Symptoms Cardiovascular: reports: No Symptoms Respiratory: reports: No Symptoms Gastrointestinal: reports: No Symptoms Genitourinary: reports: No Symptoms Musculoskeletal: reports: Other Integumentary: reports: Wound Neurological: reports: No Symptoms Endocrine: reports: No Symptoms Hematology/Lymphatic: reports: No Symptoms Psychiatric: reports: No Symptoms Physical Exam Vital Signs: Vital Signs Temperature 99.2 F 03/22/20 10:00 Pulse Rate 91 H 03/22/20 10:00 Respiratory Rate 03/22/20 10:00 Blood Pressure 126/59 L 03/22/20 10:00 O2 Sat by Pulse Oximetry (%) 99 03/22/20 10:00 Constitutional: Yes: Well Nourished, No Distress, Calm, Obese Eyes: Yes: Conjunctiva Clear, EOM Intact HENT: Yes: Atraumatic, Normocephalic Cardiovascular: Yes: Regular Rate and Rhythm Respiratory: Yes: Regular, CTA Bilaterally Gastrointestinal: Yes: Normal Bowel Sounds, Soft Musculoskeletal: Yes: WNL Extremities: Yes: Other Integumentary: Yes: Other Wound/Incision: Yes: Dressing Dry and Intact Neurological: Yes: Alert, Oriented Psychiatric: Yes: Alert, Oriented Labs: CBC, BMP 03/22/20 07:55 03/22/20 07:55 Imaging - Results Chest X-ray: Report Reviewed, Image Reviewed Ultrasound: Report Reviewed, Image Reviewed Assessment/Plan this patient with multiple medical issues comign wiht wounds which are infected will give her vanco one dose and start on zosyn await for finalization of cx wound care rest as per the team monitor kevin pruett
[2020-03-22] MEDS ORDERED: VANCOMYCIN 1 GRAM (PRE-DOCKED) 1,000 MG/250 ML BAG IVPB ONE (11:25)
[2020-03-22] MEDS ORDERED: NYSTATIN POWDER 100,000 UNITS/GM - 15 GM TOPICAL POWDER TP SCH (13:45)
[2020-03-22 14:34] LABS: EPI CELLS >36 /uL (0-25.1); HYALINE CASTS 2 /uL (0-3.1); URINE APPEARANCE CLOUDY; URINE BACTERIA 100 /uL (0-1359); URINE BILIRUBIN NEGATIVE (NEGATIVE); URINE COLOR YELLOW; URINE GLUCOSE (UA) 1+ (NEGATIVE); URINE KETONE NEGATIVE (NEGATIVE); URINE LEUK ESTERASE TRACE (NEGATIVE); URINE NITRITE NEGATIVE (NEGATIVE); URINE PROTEIN 3+ (NEGATIVE); URINE WBC 45 /uL (0-25.8)
--- NOTE | 2020-03-22 14:36 | PN ---
Teaching Attending Note Name of Resident: Tavon Lo ATTENDING PHYSICIAN STATEMENT I saw and evaluated the patient. I reviewed the resident's note and discussed the case with the resident. I agree with the resident's findings and plan as documented. SUBJECTIVE: Seen and examined at bedside. Patient is reporting itching and discharge a ssociated with a yeast infection. Blood sugar better controlled Current Medications Generic Name Dose Route Start Last Admin Trade Name Freq PRN Reason Stop Dose Admin Acetaminophen 325 mg 03/21/20 09:21 03/21/20 11:04 Tylenol - PO 325 mg Q8H PRN Administration PAIN 4-6 Albuterol Sulfate 2 puff 03/21/20 09:15 Ventolin Hfa Inhaler - IH Q4H PRN WHEEZING Alprazolam 0.25 mg 03/21/20 19:10 03/21/20 21:01 Xanax - PO 0.25 mg ONCE PRN Administration ANXIETY Atorvastatin Calcium 80 mg 03/21/20 22:00 03/21/20 21:03 Lipitor - PO 80 mg HS MARIYA Administration Carvedilol 25 mg 03/21/20 10:00 03/22/20 09:36 Coreg - PO 25 mg BID MARIYA Administration Collagenase 1 applic 03/21/20 10:45 03/22/20 09:37 Santyl - TP 1 applic DAILY MARIYA Administration Protocol Cyclobenzaprine HCl 10 mg 03/21/20 14:00 03/22/20 13:44 Flexeril - PO 10 mg TID MARIYA Administration Heparin Sodium (Porcine) 5,000 unit 03/22/20 06:00 03/22/20 13:45 Heparin - SQ 5,000 unit TID MARIYA Administration Hydralazine HCl 100 mg 03/21/20 14:00 03/22/20 13:44 Apresoline - PO 100 mg TID MARIYA Administration Piperacillin Sod/Tazobactam 50 mls @ 100 mls/hr 03/22/20 11:30 Sod 2.25 gm/ Dextrose IVPB Q8H-IV MARIYA Protocol Insulin Aspart 1 vial 03/21/20 22:00 03/22/20 11:58 Novolog Vial Sliding Scale - SQ 4 units ACHS MARIYA Administration Protocol Insulin Detemir 40 units 03/21/20 22:00 03/21/20 22:45 Levemir Vial SQ 40 units HS MARIYA Administration Insulin Detemir 30 units 03/22/20 07:00 03/22/20 06:20 Levemir Vial SQ 30 units AM MARIYA Administration Montelukast Sodium 10 mg 03/21/20 22:00 03/21/20 21:02 Singulair - PO 10 mg HS MARIYA Administration Nystatin 1 applic 03/22/20 13:45 Nystop Powder - TP DAILY MARIYA Oxycodone HCl 10 mg 03/21/20 09:19 03/21/20 11:03 Roxicodone - PO 10 mg Q8H PRN Administration PAIN 4-6 Prednisone 25 mg 03/21/20 13:39 03/22/20 09:37 Deltasone - PO 25 mg DAILY MARIYA Administration OBJECTIVE: Last Vital Signs Temp Pulse Resp BP Pulse Ox 99.2 F 91 H 20 126/59 L 99 03/22/20 10:00 03/22/20 10:00 03/22/20 10:00 03/22/20 10:00 03/22/20 10:00 PE: per resident note Labs/Imaging: reviewed ASSESSMENT AND PLAN: 44 y/o F, pmh of htn, IDDM, sarcoidosis (Lung, Liver) on prednisone, asthma, CKD, spinal surgery, left hip replacement and tibial surgery, presents to the ED after recent discharge from [facility] for uncontrolled DM and L knee wound #Uncontrolled Diabetes: improving A1C: 14.7 Endo on board; appreciate recs -Levemir 30U AM, 40U PM -trend surgars #Left knee wound: wound culture polymicrobial and + for MRSA Vascular on board: appreciate recs ID on board; Pending recs -wound care on board -currently on zosyn -start doxycycline for now #+ UA -UA at [facility] and here contaminated -repeat UA/urine cx with straight cath one dose rocephin given in ED pt took bactrim 2 days ago upon discharge from [facility] #Yeast infection -nystatin cream #Sarcoidosis to liver and lung, dx on an EGD/Colonoscopy at [facility] pt reports its stable and asymptomatic on Prednisone 30 since 09/19: currently on 25mg -will discuss case with PCP/it intern Dr. Saray Dickerson #HTN -cont home [facility] of Hydralazine 100 TID -Coreg 25 BID #DVT ppx Hep sq
--- NOTE | 2020-03-22 15:16 | PN ---
Physical Exam: SUBJECTIVE: Patient seen and examined at bedside. Patient was mildly irritated but cooperative. She does not endorse any acute events overnight. Patient does complain of intense itching in her groin and attributes the symptoms to an active yeast infection, right quadrant fullness and discomfort likely due to sarcoidosis, and mild constipation. Patient denies shortness of breath, chest pain, nausea, vomiting, or diarrhea. OBJECTIVE: Vital Signs Period Temp Pulse Resp BP Sys/Albert Pulse Ox Last 24 Hr 98 F-99.2 F 91-100 18-20 125-149/59-83 97-99 GENERAL: The patient is awake, alert, and fully oriented, in no acute distress. HEAD: Normal with no signs of trauma. LUNGS: Breath sounds diminished due to body habitus HEART: Regular rate and rhythm, S1, S2 without murmur, rub or gallop. ABDOMEN: Soft, normoactive bowel sounds, no guarding, no rebound, + hepatosplenomegaly. Laboratory Results - last 24 hr 03/21/20 03/21/20 03/21/20 03:33 16:36 22:44 WBC RBC Hgb Hct MCV MCH MCHC RDW Plt Count MPV Sodium Potassium Chloride Carbon Dioxide Anion Gap BUN Creatinine Est GFR (CKD-EPI)AfAm Est GFR (CKD-EPI)NonAf POC Glucometer 333 272 Random Glucose Hemoglobin A1c % Calcium Phosphorus Magnesium Total Bilirubin AST ALT Alkaline Phosphatase Troponin I Total Protein Albumin Urine Color Urine Appearance Urine pH Ur Specific Bradford Urine Protein Urine Glucose (UA) Urine Ketones Urine Blood Urine Nitrite Urine Bilirubin Urine Urobilinogen Ur Leukocyte Esterase Urine WBC (Auto) Urine Casts (Auto) U Epithel Cells (Auto) Urine Bacteria (Auto) Ur Random Creatinine U Random Total Protein Protein/Creatinin Ratio COVID-19 (LUCY) Not detected 03/22/20 03/22/20 03/22/20 05:55 07:55 07:55 WBC 10.0 RBC 4.01 Hgb 11.0 Hct 33.6 MCV 83.9 MCH 27.3 MCHC 32.6 RDW 14.7 Plt Count 289 MPV 8.5 Sodium 139 Potassium 3.8 Chloride 108 H Carbon Dioxide 24 Anion Gap 7 L BUN 40.0 H Creatinine 2.4 H Est GFR (CKD-EPI)AfAm 27.53 Est GFR (CKD-EPI)NonAf 23.76 POC Glucometer 164 Random Glucose 135 H Hemoglobin A1c % Calcium 9.3 Phosphorus 4.0 Magnesium 2.0 Total Bilirubin 0.6 AST 18 ALT 23 Alkaline Phosphatase 168 H Troponin I Total Protein 6.0 L Albumin 2.1 L Urine Color Urine Appearance Urine pH Ur Specific Bradford Urine Protein Urine Glucose (UA) Urine Ketones Urine Blood Urine Nitrite Urine Bilirubin Urine Urobilinogen Ur Leukocyte Esterase Urine WBC (Auto) Urine Casts (Auto) U Epithel Cells (Auto) Urine Bacteria (Auto) Ur Random Creatinine U Random Total Protein Protein/Creatinin Ratio COVID-19 (LUCY) 03/22/20 03/22/20 03/22/20 07:55 11:54 13:00 WBC RBC Hgb Hct MCV MCH MCHC RDW Plt Count MPV Sodium Potassium Chloride Carbon Dioxide Anion Gap BUN Creatinine Est GFR (CKD-EPI)AfAm Est GFR (CKD-EPI)NonAf POC Glucometer 186 Random Glucose Hemoglobin A1c % 14.7 H Calcium Phosphorus Magnesium Total Bilirubin AST ALT Alkaline Phosphatase Troponin I Total Protein Albumin Urine Color Urine Appearance Urine pH Ur Specific Bradford Urine Protein Urine Glucose (UA) Urine Ketones Urine Blood Urine Nitrite Urine Bilirubin Urine Urobilinogen Ur Leukocyte Esterase Urine WBC (Auto) Urine Casts (Auto) U Epithel Cells (Auto) Urine Bacteria (Auto) Ur Random Creatinine 107.0 U Random Total Protein 175.0 H Protein/Creatinin Ratio 1.6 COVID-19 (LUCY) 03/22/20 03/22/20 13:00 13:30 WBC RBC Hgb Hct MCV MCH MCHC RDW Plt Count MPV Sodium Potassium Chloride Carbon Dioxide Anion Gap BUN Creatinine Est GFR (CKD-EPI)AfAm Est GFR (CKD-EPI)NonAf POC Glucometer Random Glucose Hemoglobin A1c % Calcium Phosphorus Magnesium Total Bilirubin AST ALT Alkaline Phosphatase Troponin I < 0.02 Total Protein Albumin Urine Color Yellow Urine Appearance Cloudy Urine pH 5.0 Ur Specific Bradford 1.013 Urine Protein 3+ H Urine Glucose (UA) 1+ H Urine Ketones Negative Urine Blood Negative Urine Nitrite Negative Urine Bilirubin Negative Urine Urobilinogen 1.0 Ur Leukocyte Esterase Trace Urine WBC (Auto) 45 Urine Casts (Auto) 2 U Epithel Cells (Auto) >36 Urine Bacteria (Auto) 100 Ur Random Creatinine U Random Total Protein Protein/Creatinin Ratio COVID-19 (LUCY) Active Medications Generic Name Dose Route Start Last Admin Trade Name Freq PRN Reason Stop Dose Admin Acetaminophen 325 mg 07/22/20 09:21 03/21/20 11:04 Tylenol - PO 325 mg Q8H PRN Administration PAIN 4-6 Albuterol Sulfate 2 puff 03/21/20 09:15 Ventolin Hfa Inhaler - IH Q4H PRN WHEEZING Alprazolam 0.25 mg 03/21/20 19:10 03/21/20 21:01 Xanax - PO 0.25 mg ONCE PRN Administration ANXIETY Atorvastatin Calcium 80 mg 03/21/20 22:00 03/21/20 21:03 Lipitor - PO 80 mg HS MARIYA Administration Carvedilol 25 mg 03/21/20 10:00 03/22/20 09:36 Coreg - PO 25 mg BID MARIYA Administration Collagenase 1 applic 03/21/20 10:45 03/22/20 09:37 Santyl - TP 1 applic DAILY MARIYA Administration Protocol Cyclobenzaprine HCl 10 mg 03/21/20 14:00 03/22/20 13:44 Flexeril - PO 10 mg TID MARIYA Administration Heparin Sodium (Porcine) 5,000 unit 03/22/20 06:00 03/22/20 13:45 Heparin - SQ 5,000 unit TID MARIYA Administration Hydralazine HCl 100 mg 03/21/20 14:00 03/22/20 13:44 Apresoline - PO 100 mg TID MARIYA Administration Piperacillin Sod/Tazobactam 50 mls @ 100 mls/hr 03/22/20 11:30 Sod 2.25 gm/ Dextrose IVPB Q8H-IV MARIYA Protocol Insulin Aspart 1 vial 03/21/20 22:00 03/22/20 11:58 Novolog Vial Sliding Scale - SQ 4 units ACHS MARIYA Administration Protocol Insulin Detemir 40 units 03/21/20 22:00 03/21/20 22:45 Levemir Vial SQ 40 units HS MARIYA Administration Insulin Detemir 30 units 03/22/20 07:00 03/22/20 06:20 Levemir Vial SQ 30 units AM MARIYA Administration Montelukast Sodium 10 mg 03/21/20 22:00 03/21/20 21:02 Singulair - PO 10 mg HS MARIYA Administration Nystatin 1 applic 03/22/20 13:45 Nystop Powder - TP DAILY MARIYA Oxycodone HCl 10 mg 03/21/20 09:19 03/21/20 11:03 Roxicodone - PO 10 mg Q8H PRN Administration PAIN 4-6 Prednisone 25 mg 03/21/20 13:39 03/22/20 09:37 Deltasone - PO 25 mg DAILY MARIYA Administration ASSESSMENT/PLAN: Jamaal is a 44 year old AA female with a h/o sarcoidosis stage 4 (liver, lung, and lymph nodes) on 30mg of prednisone, CKD, asthma, IDDM, HTN, with an extensive surgical history of spinal, tibial, and hip replacement. Patient presented to the ED for elevated blood glucose and L lateral leg wound. # DM2 - patient placed on 70 units of levamir due to insulin resistance from predn isone - Blood glucose - 186 down from 450 - Dr. Lo (endo) - morning dose will be changed to 40 in AM and 30 PM - A1C - 14.7 #MRSA probable Leg wound - Vascular surgery PA debrided wound at bedside - Cultures positive for MRSA - ID consulted (Dr. Cannon) - will see patient in AM - Started on zosyn and doxycycline #skin fold - fungal infection - Nystatin cream #sarcoidosis of liver, lungs, and lymphnodes - prednisone taper down to 25 - pulmonolgy at [facility] consulted #HTN - continue home dose #DVT prophylaxis - Heparin sub q 5000 #COVID-19 LUCY - undetected Visit type - Emergency Visit Emergency Visit: Yes ED Registration Date: 03/21/20 Care time: The patient presented to the Emergency Department on the above date and was hospitalized for further evaluation of their emergent condition. - New Patient This patient is new to me today: Yes Date on this admission: 03/22/20 - Critical Care Critical Care patient: No - Discharge Referral Referred to [facility] Med P.C.: No ATTENDING PHYSICIAN STATEMENT I saw and evaluated the patient. I reviewed the resident's note and discussed the case with the resident. I agree with the resident's findings and plan as documented. SUBJECTIVE: OBJECTIVE: ASSESSMENT AND PLAN:
--- NOTE | 2020-03-22 15:17 | PN ---
Progress Note, Physician History of Present Illness: Pt seen and examined at bedside. She feels a little better than yesterday. - Current Medication List Current Medications: Active Medications Acetaminophen (Tylenol -) 325 mg PO Q8H PRN PRN Reason: PAIN 4-6 Last Admin: 03/21/20 11:04 Dose: 325 mg Documented by: Albuterol Sulfate (Ventolin Hfa Inhaler -) 2 puff IH Q4H PRN PRN Reason: WHEEZING Alprazolam (Xanax -) 0.25 mg PO ONCE PRN PRN Reason: ANXIETY Last Admin: 03/21/20 21:01 Dose: 0.25 mg Documented by: Atorvastatin Calcium (Lipitor -) 80 mg PO [facility] Last Admin: 03/21/20 21:03 Dose: 80 mg Documented by: Carvedilol (Coreg -) 25 mg PO BID [facility] Last Admin: 03/22/20 09:36 Dose: 25 mg Documented by: Collagenase (Santyl -) 1 applic TP DAILY [facility]; Protocol Last Admin: 03/22/20 09:37 Dose: 1 applic Documented by: Cyclobenzaprine HCl (Flexeril -) 10 mg PO TID [facility] Last Admin: 03/22/20 13:44 Dose: 10 mg Documented by: Heparin Sodium (Porcine) (Heparin -) 5,000 unit SQ TID [facility] Last Admin: 03/22/20 13:45 Dose: 5,000 unit Documented by: Hydralazine HCl (Apresoline -) 100 mg PO TID [facility] Last Admin: 03/22/20 13:44 Dose: 100 mg Documented by: Piperacillin Sod/Tazobactam (Sod 2.25 gm/ Dextrose) 50 mls @ 100 mls/hr IVPB Q8H-IV [facility]; Protocol Insulin Aspart (Novolog Vial Sliding Scale -) 1 vial SQ [facility]; Protocol Last Admin: 03/22/20 11:58 Dose: 4 units Documented by: Insulin Detemir (Levemir Vial) 40 units SQ [facility] Last Admin: 03/21/20 22:45 Dose: 40 units Documented by: Insulin Detemir (Levemir Vial) 30 units SQ AM [facility] Last Admin: 03/22/20 06:20 Dose: 30 units Documented by: Montelukast Sodium (Singulair -) 10 mg PO [facility] Last Admin: 03/21/20 21:02 Dose: 10 mg Documented by: Nystatin (Nystop Powder -) 1 applic TP DAILY [facility] Oxycodone HCl (Roxicodone -) 10 mg PO Q8H PRN PRN Reason: PAIN 4-6 Last Admin: 03/21/20 11:03 Dose: 10 mg Documented by: Prednisone (Deltasone -) 25 mg PO DAILY [facility] Last Admin: 03/22/20 09:37 Dose: 25 mg Documented by: - Objective Vital Signs: Vital Signs Temperature 98.4 F 03/22/20 15:05 Pulse Rate 91 H 03/22/20 15:05 Respiratory Rate 19 03/22/20 15:05 Blood Pressure 134/63 03/22/20 15:05 O2 Sat by Pulse Oximetry (%) 99 03/22/20 15:05 Constitutional: Yes: Calm Eyes: Yes: Conjunctiva Clear HENT: Yes: Atraumatic Neck: Yes: Supple Cardiovascular: Yes: S1, S2 Respiratory: Yes: CTA Bilaterally Gastrointestinal: Yes: Normal Bowel Sounds, Soft Genitourinary: Yes: WNL Musculoskeletal: Yes: WNL Edema: Yes Edema: LLE: Trace, RLE: Trace Wound/Incision: Yes: Dressing Dry and Intact Neurological: Yes: Oriented Psychiatric: Yes: Oriented Labs: CBC, BMP 03/22/20 07:55 03/22/20 07:55 INR, PTT INR 0.92 (0.83-1.09) 03/21/20 03:33 Problem List - Problems (1) CKD (chronic kidney disease) Code(s): N18.9 - CHRONIC KIDNEY DISEASE, UNSPECIFIED (2) Proteinuria Code(s): R80.9 - PROTEINURIA, UNSPECIFIED (3) Hyperglycemia Code(s): R73.9 - HYPERGLYCEMIA, UNSPECIFIED Assessment/Plan Current Medications Generic Name Dose Route Start Last Admin Trade Name Freq PRN Reason Stop Dose Admin Acetaminophen 325 mg 03/21/20 09:21 03/21/20 11:04 Tylenol - PO 325 mg Q8H PRN Administration PAIN 4-6 Albuterol Sulfate 2 puff 03/21/20 09:15 Ventolin Hfa Inhaler - IH Q4H PRN WHEEZING Alprazolam 0.25 mg 03/21/20 19:10 03/21/20 21:01 Xanax - PO 0.25 mg ONCE PRN Administration ANXIETY Atorvastatin Calcium 80 mg 03/21/20 22:00 03/21/20 21:03 Lipitor - PO 80 mg HS MARIYA Administration Carvedilol 25 mg 03/21/20 10:00 03/22/20 09:36 Coreg - PO 25 mg BID MARIYA Administration Collagenase 1 applic 03/21/20 10:45 03/22/20 09:37 Santyl - TP 1 applic DAILY MARIYA Administration Protocol Cyclobenzaprine HCl 10 mg 03/21/20 14:00 03/22/20 13:44 Flexeril - PO 10 mg TID MARIYA Administration Heparin Sodium (Porcine) 5,000 unit 03/22/20 06:00 03/22/20 13:45 Heparin - SQ 5,000 unit TID MARIYA Administration Hydralazine HCl 100 mg 03/21/20 14:00 03/22/20 13:44 Apresoline - PO 100 mg TID MARIYA Administration Piperacillin Sod/Tazobactam 50 mls @ 100 mls/hr 03/22/20 11:30 Sod 2.25 gm/ Dextrose IVPB Q8H-IV [facility] Protocol Insulin Aspart 1 vial 03/21/20 22:00 03/22/20 11:58 Novolog Vial Sliding Scale - SQ 4 units ACHS [facility] Administration Protocol Insulin Detemir 40 units 03/21/20 22:00 03/21/20 22:45 Levemir Vial SQ 40 units HS [facility] Administration Insulin Detemir 30 units 03/22/20 07:00 03/22/20 06:20 Levemir Vial SQ 30 units AM MARIYA Administration Montelukast Sodium 10 mg 03/21/20 22:00 03/21/20 21:02 Singulair - PO 10 mg HS MARIYA Administration Nystatin 1 applic 03/22/20 13:45 Nystop Powder - TP DAILY MARIYA Oxycodone HCl 10 mg 03/21/20 09:19 03/21/20 11:03 Roxicodone - PO 10 mg Q8H PRN Administration PAIN 4-6 Prednisone 25 mg 03/21/20 13:39 03/22/20 09:37 Deltasone - PO 25 mg DAILY MARIYA Administration Laboratory Tests 03/21/20 03/21/20 03/21/20 02:44 03:33 03:33 WBC Sodium 135 L Potassium 4.0 Chloride 102 Carbon Dioxide 24 Anion Gap 9 BUN 30.6 H Creatinine 2.4 H POC Glucometer Random Glucose 495 H* Hemoglobin A1c % Calcium 9.1 AST ALT Albumin 2.2 L Urine Protein 3+ H Urine Blood Negative Protein/Creatinin Ratio COVID-19 (LUCY) Pending 03/21/20 03/21/20 03/21/20 03:33 08:02 11:28 WBC 9.1 Sodium Potassium Chloride Carbon Dioxide Anion Gap BUN Creatinine POC Glucometer 396 407 Random Glucose Hemoglobin A1c % Calcium AST ALT Albumin Urine Protein Urine Blood Protein/Creatinin Ratio COVID-19 (LUCY) 03/22/20 03/22/20 03/22/20 07:55 07:55 07:55 WBC Sodium Potassium Chloride Carbon Dioxide Anion Gap BUN Creatinine 2.4 H POC Glucometer Random Glucose Hemoglobin A1c % 14.7 H Calcium 9.3 Pending AST 18 ALT 23 Albumin Urine Protein Urine Blood Protein/Creatinin Ratio COVID-19 (LUCY) 03/22/20 03/22/20 13:00 13:00 WBC Sodium Potassium Chloride Carbon Dioxide Anion Gap BUN Creatinine POC Glucometer Random Glucose Hemoglobin A1c % Calcium AST ALT Albumin Urine Protein 3+ H Urine Blood Protein/Creatinin Ratio 1.6 COVID-19 (LUCY) Impression 1. CKD 2. sarcoidosis with lung and liver involvement 3. proteinuria 4. DM 5. hld 6. htn 7. hypercalcemia Plan - cont to monitor renal function, no change from yesterday - monitor calcium, was 14 in the past per pt - pt was on prednisone 30 mg, dose decreased to 25, pulmarquez eval - pt says she was not on methotrexate as she had liver disease - follow pth - monitor calcium level
[2020-03-22] MEDS ORDERED: VANCOMYCIN 500 MG in DEXTROSE 5%-WATER - 100 ML IVPB ONE (15:54)
[2020-03-22] MEDS: PIPERACILLIN/TAZOB 2.25 GM 2.25 GM in DEXTROSE 5%-WATER - 50 ML IVPB SCH ×2 (15:57→17:06)
[2020-03-22] MEDS: ATORVASTATIN CA 80 MG TABLET (FP) PO SCH (21:54)
[2020-03-22] MEDS: MONTELUKAST NA 10 MG TABLET PO SCH (21:54)
[2020-03-22] MEDS: INSULIN (LEVEMIR) 100 UNITS/ML UNITS SQ SCH (21:55)
[2020-03-22] MEDS: NYSTATIN POWDER 100,000 UNITS/GM - 15 GM TOPICAL POWDER TP SCH (21:56)
[2020-03-22] MEDS ORDERED: MICONAZOLE NITRATE 2% VAGINAL CREAM 45 GM TUBE PV SCH (22:00)
[2020-03-22] MEDS ORDERED: MICONAZOLE NITRATE 100 MG SUPP SUPP.VAG PV SCH (22:00)
[2020-03-22] MEDS ORDERED: INSULIN (NOVOLOG) ASPART 100 UNITS/ML 10ML VIAL SQ ONE (23:42)
[2020-03-23] MEDS: PIPERACILLIN/TAZOB 2.25 GM 2.25 GM in DEXTROSE 5%-WATER - 50 ML IVPB SCH ×3 (01:28→18:32)
[2020-03-23] MEDS: hydrALAZINE HCL 50 MG TABLET (FP) PO SCH ×3 (06:49→21:02)
[2020-03-23] MEDS: HEPARIN NA (PORCINE) 5,000 UNITS/ML 1ML VIAL SQ SCH ×3 (06:49→21:03)
[2020-03-23] MEDS: CYCLOBENZAPRINE HCL 10 MG TABLET (FP) PO SCH ×3 (06:49→21:03)
[2020-03-23] MEDS: INSULIN (LEVEMIR) 100 UNITS/ML UNITS SQ SCH ×2 (06:50→21:14)
[2020-03-23] MEDS: INSULIN SLIDING SCALE (NOVOLOG) 1 VIAL SQ SCH ×4 (06:51→21:12)
[2020-03-23 07:51] LABS: BASO % 0.4 % (0-2.0); EOS % 1.4 % (0-4.5); HEMATOCRIT 33.8 % (32.4-45.2); HEMOGLOBIN 10.9 GM/dL (10.7-15.3); LYMPH % 19.5 % (8-40); MCHC 32.3 g/dl (32.0-36.0); MEAN CELL VOLUME 83.4 fl (80-96); MEAN PLT VOLUME 8.3 fl (7.5-11.1); MONO % 8.1 % (3.8-10.2); NEUT % 70.6 % (42.8-82.8); PLATELET COUNT 294 K/MM3 (134-434); RBC 4.06 M/mm3 (3.60-5.2); WHITE BLOOD COUNT 9.5 K/mm3 (4.0-10.0)
[2020-03-23 08:14] LABS: BILIRUBIN,TOTAL 0.4 mg/dL (0.2-1); BLOOD UREA NITROGEN 42.3 mg/dL (7-18); CALCIUM 9.4 mg/dL (8.5-10.1); CREATININE 2.6 mg/dL (0.55-1.3); MAGNESIUM 2.2 mg/dL (1.8-2.4); PHOSPHOROUS 4.3 mg/dL (2.5-4.9); POTASSIUM 4.2 mmol/L (3.5-5.1); TOT PROT 6.2 g/dl (6.4-8.2)
[2020-03-23] MEDS ORDERED: PIPERACILLIN/TAZOBACTAM 2.25 GM VIAL IVPB ONE (08:52)
[2020-03-23] MEDS ORDERED: DEXTROSE 5%-WATER - 50 ML IVPB ONE (08:52)
[2020-03-23] MEDS ORDERED: NYSTATIN POWDER 100,000 UNITS/GM - 15 GM TOPICAL POWDER TP SCH (10:00)
[2020-03-23] MEDS: CARVEDILOL 25 MG TABLET (FP) PO SCH ×2 (10:05→21:03)
[2020-03-23] MEDS: NYSTATIN POWDER 100,000 UNITS/GM - 15 GM TOPICAL POWDER TP SCH ×3 (10:14→22:40)
[2020-03-23] MEDS: COLLAGENASE CLOSTRIDIUM HIST. 30 GRAMS TUBE TP SCH (10:55)
--- NOTE | 2020-03-23 11:01 | CON.PULM ---
Consult Consult Specialty:: PULMONARY Referred by:: MANI Reason for Consultation:: SARCOID - History of Present Illness Chief Complaint: SARCOID ON STEROIDS History of Present Illness: ASKED TO EVAL SARCOID ON CHRONIC STEROIDS WITH LIVER INVOLVEMENT BIOPSY POVEN IN 2017. PATIENT HAS BEEN OFF AND ON STEROIDS. PATIENT HAS HYPERCALCEMIA LIKELY FROM SARCOIDOSIS. HER DIABETES IS POORLY CONTROLLED ON STEROIDS. SHE STATES SHE IS AT HER BASELINE FAR BREATHING IS CONCERNED. I HAVE BEEN ASKED TO EVALUATE HER STEROID DOSE. HER LOCATE TECHNICIAN WAS DR REINA BREWER [phone] - History Source History Provided By: Patient, Medical Record Limitations to Obtaining History: No Limitations - Past Medical History CHANGE MANAGEMENT SPECIALIST: No: Alzheimer's Cardio/Vascular: Yes: HTN, Hyperlipdemia. No: AFIB Pulmonary: Yes: Asthma, Other (SARCOID) Gastrointestinal: No: Ascites Hepatobiliary: No: Cirrhosis Renal/: Yes: Renal Inusuff ...LMP: 12/25/16 ...: No Heme/Onc: Yes: Other (HYPERCALCEMIA) Rheumatology: Yes: Sarcoidosis Endocrine: Yes: Diabetes Mellitus - Past Surgical History Past Surgical History: Yes: Joint Replacement (SPINAL SURG DETAILS NOT CLEAR) - Alcohol/Substance Use Hx Alcohol Use: No - Smoking History Smoking history: Former smoker Have you smoked in the past 12 months: Yes Aproximately how many cigarettes per day: 15 Home Medications - Allergies Allergies/Adverse Reactions: Allergies Allergy/AdvReac Type Severity Reaction Status Date / Time iodine Allergy Intermediate SWELLING Verified 03/21/20 01:33 INFLAMMATION OF MOUTH morphine Allergy Intermediate Verified 03/21/20 03:50 shellfish derived Allergy Intermediate SWELLING/INFLAMMATION Verified 03/21/20 01:33 MOUTH meperidine [From Demerol] Allergy Unknown Verified 03/21/20 03:50 - Home Medications Home Medications: Ambulatory Orders Insulin Lispro [Humalog] 18 unit SQ TID 12/30/16 Oxycodone HCl/Acetaminophen [Percocet 10-325 mg Tablet] 2 each PO Q8H PRN MDD 6 12/30/16 Albuterol Sulfate Inhaler - [Ventolin Hfa Inhaler -] 2 inh PO Q4H PRN 01/02/17 Alprazolam [Xanax] 0.25 mg PO DAILY 03/21/20 Atorvastatin Ca [Lipitor] 80 mg PO HS 03/21/20 Carvedilol [Coreg -] 25 mg PO BID 03/21/20 Clonidine HCl 0.1 mg PO BID 03/21/20 Cyclobenzaprine HCl [Flexeril -] 10 mg PO TID 03/21/20 Hydralazine HCl 100 mg PO TID 03/21/20 Insulin Glargine,Hum.rec.anlog [Basaglar Kwikpen U-100] 60 unit SQ DAILY 03/21 Insulin NPH Human Isophane [Humulin N] 14 unit SQ DAILY 03/21/20 Montelukast Sodium [Singulair] 10 mg PO HS 03/21/20 Prednisone 30 mg PO DAILY 03/21/20 Family Medical History Family History: Unremarkable Review of Systems - Review of Systems Constitutional: denies: Fever Eyes: denies: Blurred Vision HENT: denies: Difficult Swallowing Neck: denies: Decreased ROM Cardiovascular: denies: Chest Pain Respiratory: reports: Exercise Intolerance, SOB on Exertion Gastrointestinal: denies: Abdominal Pain Genitourinary: reports: Burning, Discharge Breasts: reports: No Symptoms Reported Musculoskeletal: reports: No Symptoms Integumentary: reports: Wound Neurological: reports: No Symptoms Endocrine: reports: Unexplained Weight Gain Psychiatric: reports: No Symptoms Physical Exam Vital Sings: Vital Signs Temperature 98.0 F 03/23/20 09:45 Pulse Rate 73 03/23/20 09:45 Respiratory Rate 18 03/23/20 09:45 Blood Pressure 161/84 03/23/20 09:45 O2 Sat by Pulse Oximetry (%) 98 03/23/20 10:02 Constitutional: Yes: Calm Eyes: Yes: EOM Intact HENT: Yes: Normocephalic Neck: Yes: Trachea Midline Cardiovascular: Yes: Regular Rate and Rhythm, S1, S2 Respiratory: Yes: Diminished Gastrointestinal: Yes: Abdomen, Obese, Hepatomegaly Renal/: Yes: WNL Extremities: Yes: Other (LEFT KNEE WOUND) Labs: CBC, BMP 03/23/20 07:30 03/23/20 07:30 REST REVIEWED Imaging - Results Chest X-ray: Report Reviewed, Image Reviewed Problem List - Problems (1) Sarcoidosis with granulomatous hepatitis Code(s): D86.9 - SARCOIDOSIS, UNSPECIFIED (2) Sarcoidosis of lymph nodes Code(s): D86.1 - SARCOIDOSIS OF LYMPH NODES (3) CKD (chronic kidney disease) Code(s): N18.9 - CHRONIC KIDNEY DISEASE, UNSPECIFIED (4) Hyperglycemia Code(s): R73.9 - HYPERGLYCEMIA, UNSPECIFIED (5) Leg wound, left Code(s): S81.802A - UNSPECIFIED OPEN WOUND, LEFT LOWER LEG, INITIAL ENCOUNTER Qualifiers: Encounter type: initial encounter Qualified Code(s): S81.802A - Unspecified open wound, left lower leg, initial encounter (6) 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 HER DIABETES IS POORLY CONTROLLED LIKELY DUE TO STEROIDS WOULD BE RELUCTANT TO START TAPERING UNTIL WE CAN TOUCH BASE WITH HER LOCATE TECHNICIAN HOWEVER, TAPERING WOULD HAVE TO BE IN SMALL INCREMENTS OVER A PERIOD OF TIME WITH CLOSE FOLLOW UP OF HER CALCIUM LEVEL AND HER RESP SYMPTOMS ALONG WITH LFT'S. WILL FOLLOW Prakash MOYER MD
--- NOTE | 2020-03-23 11:07 | PN ---
Progress Note (short form) - Note Progress Note: ID consult dictated 44 yo female with dm, sarcoid on chronic steroids, s/p fracture of patella and left tibial plateau fracture 01/16 after fall admitted with two week history of blister on LLE prior history of left hip replacement, back surgery (lumbar) she has had multiple prior imples on her forehead and gron in the past she was seen in ER at [facility] before she came to [facility] ED on 03/21 and given a dose of macrobid for UTI she apparently had an eschar along the lateral aspect of the left LLE that was debrided yesterday no fevers or chills wound culture is polymicrobial with MRSA-sensitivities have been requested on exam has an wound 3 by 3 cm along the incision of her LLE-fibrinous base no exposed bone noted full ROM of her left knee noted suggest continue zosyn, add vanco until cultures are back-would follow vanco levels given ckd, given vancomycin overnight and yesterday check level in am before redosing xray the left leg as well- no signs of deep tissue/bone involvement will d/w pumonary whether she needs PCP prophylaxis given chronic steroid use - poorly controlled DM- hgb a1c CKD Problem List - Problems (1) Leg wound, left Code(s): S81.802A - UNSPECIFIED OPEN WOUND, LEFT LOWER LEG, INITIAL ENCOUNTER Qualifiers: Encounter type: initial encounter Qualified Code(s): S81.802A - Unspecified open wound, left lower leg, initial encounter (2) Sarcoidosis with granulomatous hepatitis Code(s): D86.9 - SARCOIDOSIS, UNSPECIFIED (3) Diabetes Code(s): E11.9 - TYPE 2 DIABETES MELLITUS WITHOUT COMPLICATIONS (4) CKD (chronic kidney disease) Code(s): N18.9 - CHRONIC KIDNEY DISEASE, UNSPECIFIED
--- NOTE | 2020-03-23 14:01 | PN ---
Teaching Attending Note Name of Resident: Tavon Lo ATTENDING PHYSICIAN STATEMENT I saw and evaluated the patient. I reviewed the resident's note and discussed the case with the resident. I agree with the resident's findings and plan as documented. SUBJECTIVE:Seen and examined at bedside. Blood sugars remain very elevated. Nursing informed me that family has been bringing in cakes and other sweets for the patient to eat. OBJECTIVE Last Vital Signs Temp Pulse Resp BP Pulse Ox 98.0 F 86 18 142/97 98 03/23/20 09:45 03/23/20 13:30 03/23/20 09:45 03/23/20 13:30 03/23/20 10:02 PE: per resident note Labs/Imaging: reviewed ASSESSMENT AND PLAN: 44 y/o F, pmh of htn, IDDM, sarcoidosis (Lung, Liver) on prednisone, asthma, CKD, spinal surgery, left hip replacement and tibial surgery, presents to the ED after recent [facility] for uncontrolled DM and L knee wound #Uncontrolled Diabetes: improving A1C: 14.7 Endo on board; appreciate recs -Levemir 30U AM, 40U PM -trend surgars #Left knee wound: wound culture polymicrobial and + for MRSA Vascular on board: appreciate recs ID on board; appreciate recs -f/u vanc trough levels in AM -xray images of leg: pt has hardware near area of wound -wound care on board -currently on zosyn #UTI -on vanc/zosyn -f/u urine cx #Yeast infection -nystatin cream #Sarcoidosis to liver and lung, dx on an EGD/Colonoscopy at [facility] pt reports its stable and asymptomatic on Prednisone 30 since 09/19: currently on 25mg -will discuss case with PCP/principal examiner Dr. Saray Dickerson #HTN -cont home [facility] of Hydralazine 100 TID -Coreg 25 BID #DVT ppx Hep sq
--- NOTE | 2020-03-23 14:51 | PN ---
Physical Exam: SUBJECTIVE: Patient seen and examined Patient seen and examined at bedside. Patient was mildly irritated but cooperative. She does not endorse any acute events overnight. OBJECTIVE: Vital Signs Period Temp Pulse Resp BP Sys/Albert Pulse Ox Last 24 Hr 98.0 F-98.4 F 73-94 18-20 134-162/63-98 95-99 GENERAL: The patient is awake, alert, and fully oriented, in no acute distress. HEAD: Normal with no signs of trauma. LUNGS: Breath sounds diminished due to body habitus HEART: Regular rate and rhythm, S1, S2 without murmur, rub or gallop. ABDOMEN: Soft, normoactive bowel sounds, no guarding, no rebound, + hepatomegaly. Laboratory Results - last 24 hr 03/22/20 03/22/20 03/22/20 16:57 19:30 21:50 WBC RBC Hgb Hct MCV MCH MCHC RDW Plt Count MPV Absolute Neuts (auto) Neutrophils % Lymphocytes % Monocytes % Eosinophils % Basophils % Nucleated RBC % Sodium Potassium Chloride Carbon Dioxide Anion Gap BUN Creatinine Est GFR (CKD-EPI)AfAm Est GFR (CKD-EPI)NonAf POC Glucometer 363 458 Random Glucose Calcium Phosphorus Magnesium Total Bilirubin AST ALT Alkaline Phosphatase Troponin I < 0.02 Total Protein Albumin 03/22/20 03/23/20 03/23/20 23:29 06:47 07:30 WBC 9.5 RBC 4.06 Hgb 10.9 Hct 33.8 MCV 83.4 MCH 27.0 MCHC 32.3 RDW 15.0 Plt Count 294 MPV 8.3 Absolute Neuts (auto) 6.7 Neutrophils % 70.6 Lymphocytes % 19.5 Monocytes % 8.1 Eosinophils % 1.4 Basophils % 0.4 Nucleated RBC % 0 Sodium Potassium Chloride Carbon Dioxide Anion Gap BUN Creatinine Est GFR (CKD-EPI)AfAm Est GFR (CKD-EPI)NonAf POC Glucometer 466 378 Random Glucose Calcium Phosphorus Magnesium Total Bilirubin AST ALT Alkaline Phosphatase Troponin I Total Protein Albumin 03/23/20 03/23/20 07:30 11:35 WBC RBC Hgb Hct MCV MCH MCHC RDW Plt Count MPV Absolute Neuts (auto) Neutrophils % Lymphocytes % Monocytes % Eosinophils % Basophils % Nucleated RBC % Sodium 140 Potassium 4.2 Chloride 107 Carbon Dioxide 22 Anion Gap 11 BUN 42.3 H Creatinine 2.6 H Est GFR (CKD-EPI)AfAm 24.99 Est GFR (CKD-EPI)NonAf 21.56 POC Glucometer 243 Random Glucose 411 H* Calcium 9.4 Phosphorus 4.3 Magnesium 2.2 Total Bilirubin 0.4 AST 16 ALT 27 Alkaline Phosphatase 212 H Troponin I Total Protein 6.2 L Albumin 2.0 L Active Medications Generic Name Dose Route Start Last Admin Trade Name Freq PRN Reason Stop Dose Admin Acetaminophen 325 mg 03/21/20 09:21 03/21/20 11:04 Tylenol - PO 325 mg Q8H PRN Administration PAIN 4-6 Albuterol Sulfate 2 puff 03/21/20 09:15 Ventolin Hfa Inhaler - IH Q4H PRN WHEEZING Alprazolam 0.25 mg 03/21/20 19:10 03/21/20 21:01 Xanax - PO 0.25 mg ONCE PRN Administration ANXIETY Atorvastatin Calcium 80 mg 03/21/20 22:00 03/22/20 21:54 Lipitor - PO 80 mg HS MARIYA Administration Carvedilol 25 mg 03/21/20 10:00 03/23/20 10:05 Coreg - PO 25 mg BID MRAIYA Administration Collagenase 1 applic 03/21/20 10:45 03/23/20 10:55 Santyl - TP 1 applic DAILY MARIYA Administration Protocol Cyclobenzaprine HCl 10 mg 03/21/20 14:00 03/23/20 13:35 Flexeril - PO 10 mg TID MARIYA Administration Heparin Sodium (Porcine) 5,000 unit 03/22/20 06:00 03/23/20 13:35 Heparin - SQ 5,000 unit TID MARIYA Administration Hydralazine HCl 100 mg 03/21/20 14:00 03/23/20 13:34 Apresoline - PO 100 mg TID MARIYA Administration Piperacillin Sod/Tazobactam 50 mls @ 100 mls/hr 03/22/20 11:30 03/23/20 10:05 Sod 2.25 gm/ Dextrose IVPB 100 mls/hr Q8H-IV MARIYA Administration Protocol Insulin Aspart 1 vial 03/21/20 22:00 03/23/20 12:12 Novolog Vial Sliding Scale - SQ 5 units ACHS MARIYA Administration Protocol Insulin Detemir 40 units 03/23/20 07:00 03/23/20 06:50 Levemir Vial SQ 40 units AM MARIYA Administration Insulin Detemir 30 units 03/22/20 22:00 03/22/20 21:55 Levemir Vial SQ 30 units HS MARIYA Administration Montelukast Sodium 10 mg 03/21/20 22:00 03/22/20 21:54 Singulair - PO 10 mg HS MARIYA Administration Nystatin 1 applic 03/22/20 22:00 03/23/20 11:00 Nystop Powder - TP 1 applic BID MARIAY Administration Oxycodone HCl 10 mg 03/21/20 09:19 03/21/20 11:03 Roxicodone - PO 10 mg Q8H PRN Administration PAIN 4-6 Prednisone 20 mg/ Prednisone 5 25 mg 03/23/20 10:00 03/23/20 10:04 mg PO 25 mg DAILY MARIYA Administration ASSESSMENT/PLAN: Jamaal is a 44 year old AA female with a h/o sarcoidosis stage 4 (liver, lung, and lymph nodes) on 30mg of prednisone, CKD, asthma, IDDM, HTN, with an extensive surgical history of spinal, tibial, and hip replacement. Patient presented to the ED for elevated blood glucose and L lateral leg wound. # DM2 - patient placed on 70 units of levamir due to insulin resistance from prednisone - Blood glucose - 186 down from 450 - Dr. Lo (endo) - morning dose will be changed to 50 in AM and 30 PM - Endo suggests 70 % NPH 30% short acting - A1C - 14.7 #MRSA probable Leg wound - ID consulted (Dr. Cannon) - suggests to continue the zosyn with vanco. -Follow vancomycin levels in the setting of CKD #skin fold - fungal infection - Nystatin cream #sarcoidosis of liver, lungs, and lymphnodes - prednisone taper down to 25 - pulmonolgy at [facility] consulted #HTN - continue home dose #DVT prophylaxis - Heparin sub q 5000 #COVID-19 LUCY - undetected Visit type - Emergency Visit Emergency Visit: Yes ED Registration Date: 03/21/20 Care time: The patient presented to the Emergency Department on the above date and was hospitalized for further evaluation of their emergent condition. - New Patient This patient is new to me today: No - Critical Care Critical Care patient: No - Discharge Referral Referred to [facility] No ATTENDING PHYSICIAN STATEMENT I saw and evaluated the patient. I reviewed the resident's note and discussed the case with the resident. I agree with the resident's findings and plan as documented. SUBJECTIVE: OBJECTIVE: ASSESSMENT AND PLAN:
--- NOTE | 2020-03-23 15:48 | PN ---
Progress Note, Physician History of Present Illness: Pt seen and examined at bedside. She is awake and alert. She denies shortness of breath. - Current Medication List Current Medications: Active Medications Acetaminophen (Tylenol -) 325 mg PO Q8H PRN PRN Reason: PAIN 4-6 Last Admin: 03/21/20 11:04 Dose: 325 mg Documented by: Albuterol Sulfate (Ventolin Hfa Inhaler -) 2 puff IH Q4H PRN PRN Reason: WHEEZING Alprazolam (Xanax -) 0.25 mg PO ONCE PRN PRN Reason: ANXIETY Last Admin: 03/21/20 21:01 Dose: 0.25 mg Documented by: Atorvastatin Calcium (Lipitor -) 80 mg PO HS [facility] Last Admin: 03/22/20 21:54 Dose: 80 mg Documented by: Carvedilol (Coreg -) 25 mg PO BID [facility] Last Admin: 03/23/20 10:05 Dose: 25 mg Documented by: Collagenase (Santyl -) 1 applic TP DAILY [facility]; Protocol Last Admin: 03/23/20 10:55 Dose: 1 applic Documented by: Cyclobenzaprine HCl (Flexeril -) 10 mg PO TID [facility] Last Admin: 03/23/20 13:35 Dose: 10 mg Documented by: Heparin Sodium (Porcine) (Heparin -) 5,000 unit SQ TID [facility] Last Admin: 03/23/20 13:35 Dose: 5,000 unit Documented by: Hydralazine HCl (Apresoline -) 100 mg PO TID [facility] Last Admin: 03/23/20 13:34 Dose: 100 mg Documented by: Piperacillin Sod/Tazobactam (Sod 2.25 gm/ Dextrose) 50 mls @ 100 mls/hr IVPB Q8H-IV MARIYA; Protocol Last Admin: 03/23/20 10:05 Dose: 100 mls/hr Documented by: Insulin Aspart (Novolog Vial Sliding Scale -) 1 vial SQ ACHS [facility]; Protocol Last Admin: 03/23/20 12:12 Dose: 5 units Documented by: Insulin Detemir (Levemir Vial) 40 units SQ AM [facility] Last Admin: 03/23/20 06:50 Dose: 40 units Documented by: Insulin Detemir (Levemir Vial) 30 units SQ HS [facility] Last Admin: 03/22/20 21:55 Dose: 30 units Documented by: Montelukast Sodium (Singulair -) 10 mg PO HS [facility] Last Admin: 03/22/20 21:54 Dose: 10 mg Documented by: Nystatin (Nystop Powder -) 1 applic TP BID [facility] Last Admin: 03/23/20 11:00 Dose: 1 applic Documented by: Oxycodone HCl (Roxicodone -) 10 mg PO Q8H PRN PRN Reason: PAIN 4-6 Last Admin: 03/21/20 11:03 Dose: 10 mg Documented by: Prednisone 20 mg/ Prednisone 5 (mg) 25 mg PO DAILY [facility] Last Admin: 03/23/20 10:04 Dose: 25 mg Documented by: - Objective Vital Signs: Vital Signs Temperature 98.0 F 03/23/20 09:45 Pulse Rate 86 03/23/20 13:30 Respiratory Rate 18 03/23/20 09:45 Blood Pressure 142/97 03/23/20 13:30 O2 Sat by Pulse Oximetry (%) 98 03/23/20 10:02 Constitutional: Yes: Calm Eyes: Yes: Conjunctiva Clear HENT: Yes: Atraumatic Neck: Yes: Supple Cardiovascular: Yes: S1, S2 Respiratory: Yes: CTA Bilaterally Gastrointestinal: Yes: Soft Genitourinary: Yes: WNL Musculoskeletal: Yes: WNL Edema: No Neurological: Yes: Oriented Psychiatric: Yes: Oriented Labs: CBC, BMP 03/23/20 07:30 03/23/20 07:30 INR, PTT INR 0.92 (0.83-1.09) 03/21/20 03:33 Problem List - Problems (1) CKD (chronic kidney disease) Code(s): N18.9 - CHRONIC KIDNEY DISEASE, UNSPECIFIED (2) Proteinuria Code(s): R80.9 - PROTEINURIA, UNSPECIFIED (3) Hyperglycemia Code(s): R73.9 - HYPERGLYCEMIA, UNSPECIFIED Assessment/Plan Current Medications Generic Name Dose Route Start Last Admin Trade Name Freq PRN Reason Stop Dose Admin Acetaminophen 325 mg 03/21/20 09:21 03/21/20 11:04 Tylenol - PO 325 mg Q8H PRN Administration PAIN 4-6 Albuterol Sulfate 2 puff 03/21/20 09:15 Ventolin Hfa Inhaler - IH Q4H PRN WHEEZING Alprazolam 0.25 mg 03/21/20 19:10 03/21/20 21:01 Xanax - PO 0.25 mg ONCE PRN Administration ANXIETY Atorvastatin Calcium 80 mg 03/21/20 22:00 03/22/20 21:54 Lipitor - PO 80 mg HS MARIYA Administration Carvedilol 25 mg 03/21/20 10:00 03/23/20 10:05 Coreg - PO 25 mg BID MARIYA Administration Collagenase 1 applic 03/21/20 10:45 03/23/20 10:55 Santyl - TP 1 applic DAILY MARIYA Administration Protocol Cyclobenzaprine HCl 10 mg 03/21/20 14:00 03/23/20 13:35 Flexeril - PO 10 mg TID MARIYA Administration Heparin Sodium (Porcine) 5,000 unit 03/22/20 06:00 03/23/20 13:35 Heparin - SQ 5,000 unit TID MARIYA Administration Hydralazine HCl 100 mg 03/21/20 14:00 03/23/20 13:34 Apresoline - PO 100 mg TID MARIYA Administration Piperacillin Sod/Tazobactam 50 mls @ 100 mls/hr 03/22/20 11:30 03/23/20 10:05 Sod 2.25 gm/ Dextrose IVPB 100 mls/hr Q8H-IV MARIYA Administration Protocol Insulin Aspart 1 vial 03/21/20 22:00 03/23/20 12:12 Novolog Vial Sliding Scale - SQ 5 units ACHS MARIYA Administration Protocol Insulin Detemir 40 units 03/23/20 07:00 03/23/20 06:50 Levemir Vial SQ 40 units AM MARIYA Administration Insulin Detemir 30 units 03/22/20 22:00 03/22/20 21:55 Levemir Vial SQ 30 units HS MARIYA Administration Montelukast Sodium 10 mg 03/21/20 22:00 03/22/20 21:54 Singulair - PO 10 mg HS MARIYA Administration Nystatin 1 applic 03/22/20 22:00 03/23/20 11:00 Nystop Powder - TP 1 applic BID MARIYA Administration Oxycodone HCl 10 mg 03/21/20 09:19 03/21/20 11:03 Roxicodone - PO 10 mg Q8H PRN Administration PAIN 4-6 Prednisone 20 mg/ Prednisone 5 25 mg 03/23/20 10:00 03/23/20 10:04 mg PO 25 mg DAILY MARIYA Administration Impression 1. CKD 2. sarcoidosis with lung and liver involvement 3. proteinuria 4. DM 5. hld 6. htn 7. hypercalcemia Plan - cont to monitor renal function - tire classifier is rising - will need better glucose control - cont to monitor calcium - follow pth
[2020-03-23] MEDS: INSULIN (NOVOLOG MIX 70/30) 100 UNITS/ML MDV SQ SCH (17:48)
[2020-03-23] MEDS: ATORVASTATIN CA 80 MG TABLET (FP) PO SCH (21:03)
[2020-03-23] MEDS: MONTELUKAST NA 10 MG TABLET PO SCH (21:04)
[2020-03-23] MEDS ORDERED: Insulin (LOG) Aspart 100 UNITS/ML VIAL SQ ONE (23:35)
[2020-03-24] MEDS: oxyCODONE HCL 5 MG TABLET PO PRN (00:07)
[2020-03-24] MEDS: PIPERACILLIN/TAZOB 2.25 GM 2.25 GM in DEXTROSE 5%-WATER - 50 ML IVPB SCH ×2 (02:37→10:11)
[2020-03-24] MEDS: CYCLOBENZAPRINE HCL 10 MG TABLET (FP) PO SCH ×3 (05:46→21:10)
[2020-03-24] MEDS: hydrALAZINE HCL 50 MG TABLET (FP) PO SCH ×3 (05:46→21:10)
[2020-03-24] MEDS: HEPARIN NA (PORCINE) 5,000 UNITS/ML 1ML VIAL SQ SCH ×3 (05:46→21:09)
[2020-03-24] MEDS: ACETAMINOPHEN 325 MG TABLET (FP) PO PRN ×2 (05:54→21:21)
[2020-03-24] MEDS: INSULIN (LEVEMIR) 100 UNITS/ML UNITS SQ SCH (06:11)
[2020-03-24] MEDS: INSULIN SLIDING SCALE (NOVOLOG) 1 VIAL SQ SCH ×4 (06:12→21:18)
[2020-03-24] MEDS: INSULIN (NOVOLOG MIX 70/30) 100 UNITS/ML MDV SQ SCH ×2 (08:05→16:58)
[2020-03-24 08:06] LABS: HEMATOCRIT 31.8 % (32.4-45.2); HEMOGLOBIN 10.3 GM/dL (10.7-15.3); MCH 26.9 pg (25.7-33.7); MCHC 32.3 g/dl (32.0-36.0); MEAN CELL VOLUME 83.2 fl (80-96); MEAN PLT VOLUME 8.4 fl (7.5-11.1); PLATELET COUNT 310 K/MM3 (134-434); RBC 3.82 M/mm3 (3.60-5.2); RDW 14.9 % (11.6-15.6); WHITE BLOOD COUNT 10.8 K/mm3 (4.0-10.0)
[2020-03-24] MEDS ORDERED: INSULIN (LEVEMIR) 100 UNITS/ML UNITS SQ SCH (08:38)
[2020-03-24 08:51] LABS: BLOOD UREA NITROGEN 46.7 mg/dL (7-18); CALCIUM 9.3 mg/dL (8.5-10.1); CREATININE 2.3 mg/dL (0.55-1.3); MAGNESIUM 2.2 mg/dL (1.8-2.4); PHOSPHOROUS 4.2 mg/dL (2.5-4.9); POTASSIUM 4.1 mmol/L (3.5-5.1)
[2020-03-24] MEDS: COLLAGENASE CLOSTRIDIUM HIST. 30 GRAMS TUBE TP SCH (10:12)
[2020-03-24] MEDS: NYSTATIN POWDER 100,000 UNITS/GM - 15 GM TOPICAL POWDER TP SCH ×2 (10:12→21:11)
[2020-03-24] MEDS: CARVEDILOL 25 MG TABLET (FP) PO SCH ×2 (10:12→21:10)
--- NOTE | 2020-03-24 11:53 | PN ---
Progress Note (short form) - Note Progress Note: PULMONARY NO SIGNIFICANT CHANGE IN EXAM VSS/AFEBRILE ANICTERIC DIMINISHED BREATH SOUNDS S1S2 OBESE SOFT NONTENDER KNEE WOUND LABS/MEDS/NOTES/IMAGES REVIEWED WILL REDUCE PREDNISONE TO 20 MG CONTINUE TO MONITOR CALCIUM/LFTS CXR HAVE DISCUSSED CASE WITH DR JOHAN MOYER MD Problem List - Problems (1) Sarcoidosis with granulomatous hepatitis Code(s): D86.9 - SARCOIDOSIS, UNSPECIFIED (2) Sarcoidosis of lymph nodes Code(s): D86.1 - SARCOIDOSIS OF LYMPH NODES (3) CKD (chronic kidney disease) Code(s): N18.9 - CHRONIC KIDNEY DISEASE, UNSPECIFIED (4) Hyperglycemia Code(s): R73.9 - HYPERGLYCEMIA, UNSPECIFIED (5) Leg wound, left Code(s): S81.802A - UNSPECIFIED OPEN WOUND, LEFT LOWER LEG, INITIAL ENCOUNTER Qualifiers: Encounter type: initial encounter Qualified Code(s): S81.802A - Unspecified open wound, left lower leg, initial encounter (6) 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
--- NOTE | 2020-03-24 12:27 | PN ---
Progress Note (short form) - Note Progress Note: SUBJECTIVE:Seen and examined at bedside. Blood sugar control improving. Prednisone decreased to 20mg by pulmononology. Vanc level low. Pt given 1 dose of 1.5g vancomycin pending ID for half-way dosing. OBJECTIVE Last Vital Signs Temp Pulse Resp BP Pulse Ox 97.7 F 85 20 139/72 98 03/24/20 10:00 03/24/20 10:00 03/24/20 10:00 03/24/20 10:00 03/24/20 10:00 PE: per resident note Labs/Imaging: reviewed ASSESSMENT AND PLAN: 44 y/o F, pmh of htn, IDDM, sarcoidosis (Lung, Liver) on prednisone, asthma, CKD, spinal surgery, left hip replacement and tibial surgery, presents to the ED after recent discharge from [facility] for uncontrolled DM and L knee wound #Uncontrolled Diabetes: improving A1C: 14.7 Endo on board; appreciate recs -Levemir 30U AM, 40U PM -trend surgars #Left knee wound: wound culture polymicrobial and + for MRSA Vascular on board: appreciate recs ID on board; appreciate recs -Vanc level low. Pt given 1 dose of 1.5g vancomycin pending ID for half-way dosing. -xray images of leg: pt has hardware near area of wound -wound care on board -currently on zosyn #UTI -on vanc/zosyn -f/u urine cx #Yeast infection -nystatin cream #Sarcoidosis to liver and lung, dx on an EGD/Colonoscopy at [facility] pt reports its stable and asymptomatic on Prednisone 30 since 09/19: currently on 20mg -will discuss case with PCP/director of employee development Dr. Saray Dickerson #HTN -cont home [facility] of Hydralazine 100 TID -Coreg 25 BID #DVT ppx Hep sq Visit type - Emergency Visit Emergency Visit: Yes ED Registration Date: 03/21/20 Care time: The patient presented to the Emergency Department on the above date and was hospitalized for further evaluation of their emergent condition. - New Patient This patient is new to me today: No - Critical Care Critical Care patient: No - Discharge Referral Referred to [facility] No
[2020-03-24] MEDS ORDERED: VANCOMYCIN HCL 1,500 MG in DEXTROSE 5%-WATER - 500 ML IVPB ONE (13:00)
--- NOTE | 2020-03-24 13:47 | PN ---
Progress Note (short form) - Note Progress Note: doing well no compaints Vital Signs Period Temp Pulse Resp BP Sys/Albert Pulse Ox Last 24 Hr 97.7 F-98.3 F 79-87 20-20 118-160/72-103 97-98 wund on lateral aspect of LLE with some yellow exudate, no erythema noted CBC, BMP 03/24/20 07:41 03/24/20 07:41 Microbiology 03/22/20 13:00 Urine - Urine Clean Catch Urine Culture - Final Enterococcus Faecalis 03/21/20 04:32 Leg - Left Knee Gram Stain - Final 03/21/20 04:32 Leg - Left Knee Wound Culture - Preliminary Proteus Species Enterobacter Cloacae Klebsiella Pneumoniae Mr S Aureus a/p LLE wound- no signs of deep tissue/bone involvement-continue vanco/zosyn with her poorly controlled diabetes would consider further imaging of her leg- either MRI or CT scan- hardware was placed one year ago at [facility] will d/w josr whether she needs PCP prophylaxis given chronic steroid use for her sarcoid poorly controlled DM- hgb a1c CKD-improving
--- NOTE | 2020-03-24 14:29 | PN ---
Progress Note, Physician History of Present Illness: Pt seen and examined at bedside. She denies shortness of breath. SHe denies chest pain. She denies dysuria. - Current Medication List Current Medications: Active Medications Acetaminophen (Tylenol -) 325 mg PO Q8H PRN PRN Reason: PAIN 4-6 Last Admin: 03/24/20 05:54 Dose: 325 mg Documented by: Albuterol Sulfate (Ventolin Hfa Inhaler -) 2 puff IH Q4H PRN PRN Reason: WHEEZING Alprazolam (Xanax -) 0.25 mg PO ONCE PRN PRN Reason: ANXIETY Last Admin: 03/21/20 21:01 Dose: 0.25 mg Documented by: Atorvastatin Calcium (Lipitor -) 80 mg PO HS [facility] Last Admin: 03/23/20 21:03 Dose: 80 mg Documented by: Carvedilol (Coreg -) 25 mg PO BID [facility] Last Admin: 03/24/20 10:12 Dose: 25 mg Documented by: Collagenase (Santyl -) 1 applic TP DAILY [facility]; Protocol Last Admin: 03/24/20 10:12 Dose: 1 applic Documented by: Cyclobenzaprine HCl (Flexeril -) 10 mg PO TID [facility] Last Admin: 03/24/20 05:46 Dose: 10 mg Documented by: Heparin Sodium (Porcine) (Heparin -) 5,000 unit SQ TID [facility]IYA Last Admin: 03/24/20 05:46 Dose: 5,000 unit Documented by: Hydralazine HCl (Apresoline -) 100 mg PO TID [facility] Last Admin: 03/24/20 05:46 Dose: 100 mg Documented by: Vancomycin HCl 1,500 mg/ (Dextrose) 500 mls @ 250 mls/hr IVPB ONCE ONE; Protoco l Stop: 03/24/20 14:59 Last Admin: 03/24/20 13:38 Dose: 250 mls/hr Documented by: Piperacillin Sod/Tazobactam (Sod 3.375 gm/ Dextrose) 50 mls @ 100 mls/hr IVPB Q8H-IV MARIYA; Protocol Insulin Aspart (Novolog Vial Sliding Scale -) 1 vial SQ ACHS [facility]; Protocol Last Admin: 03/24/20 11:38 Dose: 7 unit Documented by: Insulin Aspart (Novolog Mix 70/30 Vial) 15 units SQ BIDAC [facility] Last Admin: 03/24/20 08:05 Dose: 15 unit Documented by: Insulin Detemir (Levemir Vial) 40 units SQ AM [facility] Last Admin: 03/24/20 06:11 Dose: 40 units Documented by: Insulin Detemir (Levemir Vial) 40 units SQ HS [facility] Montelukast Sodium (Singulair -) 10 mg PO HS [facility] Last Admin: 03/23/20 21:04 Dose: 10 mg Documented by: Nystatin (Nystop Powder -) 1 applic TP BID [facility] Last Admin: 03/24/20 10:12 Dose: 1 applic Documented by: Prednisone (Deltasone -) 20 mg PO DAILY [facility] - Objective Vital Signs: Vital Signs Temperature 97.7 F 03/24/20 10:00 Pulse Rate 85 03/24/20 10:00 Respiratory Rate 20 03/24/20 10:00 Blood Pressure 139/72 03/24/20 10:00 O2 Sat by Pulse Oximetry (%) 98 03/24/20 10:00 Constitutional: Yes: Calm Eyes: Yes: Conjunctiva Clear HENT: Yes: Atraumatic Neck: Yes: Supple Cardiovascular: Yes: S1, S2 Respiratory: Yes: CTA Bilaterally Gastrointestinal: Yes: Soft, Abdomen, Obese Genitourinary: Yes: WNL Musculoskeletal: Yes: WNL Edema: Yes Edema: LLE: Trace, RLE: Trace Wound/Incision: Yes: Dressing Dry and Intact Neurological: Yes: Oriented Psychiatric: Yes: Oriented Labs: CBC, BMP 03/24/20 07:41 03/24/20 07:41 INR, PTT INR 0.92 (0.83-1.09) 03/21/20 03:33 Problem List - Problems (1) CKD (chronic kidney disease) Code(s): N18.9 - CHRONIC KIDNEY DISEASE, UNSPECIFIED (2) Proteinuria Code(s): R80.9 - PROTEINURIA, UNSPECIFIED (3) Hyperglycemia Code(s): R73.9 - HYPERGLYCEMIA, UNSPECIFIED Assessment/Plan Current Medications Generic Name Dose Route Start Last Admin Trade Name Freq PRN Reason Stop Dose Admin Acetaminophen 325 mg 03/21/20 09:21 03/24/20 05:54 Tylenol - PO 325 mg Q8H PRN Administration PAIN 4-6 Albuterol Sulfate 2 puff 03/21/20 09:15 Ventolin Hfa Inhaler - IH Q4H PRN WHEEZING Alprazolam 0.25 mg 03/21/20 19:10 03/21/20 21:01 Xanax - PO 0.25 mg ONCE PRN Administration ANXIETY Atorvastatin Calcium 80 mg 03/21/20 22:00 03/23/20 21:03 Lipitor - PO 80 mg HS MARIYA Administration Carvedilol 25 mg 03/21/20 10:00 03/24/20 10:12 Coreg - PO 25 mg BID MARIYA Administration Collagenase 1 applic 03/21/20 10:45 03/24/20 10:12 Santyl - TP 1 applic DAILY MARIYA Administration Protocol Cyclobenzaprine HCl 10 mg 03/21/20 14:00 03/24/20 05:46 Flexeril - PO 10 mg TID MARIYA Administration Heparin Sodium (Porcine) 5,000 unit 03/22/20 06:00 03/24/20 05:46 Heparin - SQ 5,000 unit TID MARIYA Administration Hydralazine HCl 100 mg 03/21/20 14:00 03/24/20 05:46 Apresoline - PO 100 mg TID MARIYA Administration Vancomycin HCl 1,500 mg/ 500 mls @ 250 mls/hr 03/24/20 13:00 03/24/20 13:38 Dextrose IVPB 03/24/20 14:59 250 mls/hr ONCE ONE Administration Protocol Piperacillin Sod/Tazobactam 50 mls @ 100 mls/hr 03/24/20 18:00 Sod 3.375 gm/ Dextrose IVPB Q8H-IV MARIYA Protocol Insulin Aspart 1 vial 03/23/20 16:30 03/24/20 11:38 Novolog Vial Sliding Scale - SQ 7 unit ACHS [facility] Administration Protocol Insulin Aspart 15 units 03/23/20 16:30 03/24/20 08:05 Novolog Mix 70/30 Vial SQ 15 unit BIDAC MARIYA Administration Insulin Detemir 40 units 03/23/20 07:00 03/24/20 06:11 Levemir Vial SQ 40 units AM MARIYA Administration Insulin Detemir 40 units 03/24/20 08:38 Levemir Vial SQ HS [facility] Montelukast Sodium 10 mg 03/21/20 22:00 03/23/20 21:04 Singulair - PO 10 mg HS MARIYA Administration Nystatin 1 applic 03/22/20 22:00 03/24/20 10:12 Nystop Powder - TP 1 applic BID MARIYA Administration Prednisone 20 mg 03/24/20 11:49 Deltasone - PO DAILY [facility] Laboratory Tests 03/22/20 07:55 PTH Intact 20 Impression 1. CKD 2. sarcoidosis with lung and liver involvement 3. proteinuria 4. DM 5. hld 6. htn 7. hypercalcemia Plan - supervisor mails improved today - monitor blood sugar, improving - monitor calcium - pt on 25 of prednisone - cont wound care - pth appropriately on the low side
[2020-03-24] MEDS ORDERED: predniSONE 20 MG TABLET (UD) PO ONE (14:52)
[2020-03-24] MEDS: PIPERACILLIN/TAZOB 3.375 GM 3.375 GM in DEXTROSE 5%-WATER - 50 ML IVPB SCH (17:37)
[2020-03-24] MEDS: ATORVASTATIN CA 80 MG TABLET (FP) PO SCH (21:10)
[2020-03-24] MEDS: MONTELUKAST NA 10 MG TABLET PO SCH (21:11)
[2020-03-25] MEDS: PIPERACILLIN/TAZOB 3.375 GM 3.375 GM in DEXTROSE 5%-WATER - 50 ML IVPB SCH ×3 (01:31→17:55)
[2020-03-25] MEDS: HEPARIN NA (PORCINE) 5,000 UNITS/ML 1ML VIAL SQ SCH ×3 (06:32→21:01)
[2020-03-25] MEDS: hydrALAZINE HCL 50 MG TABLET (FP) PO SCH ×3 (06:33→21:01)
[2020-03-25] MEDS: INSULIN (LEVEMIR) 100 UNITS/ML UNITS SQ SCH ×2 (06:33→21:03)
[2020-03-25] MEDS: CYCLOBENZAPRINE HCL 10 MG TABLET (FP) PO SCH ×3 (06:33→21:00)
[2020-03-25] MEDS: INSULIN SLIDING SCALE (NOVOLOG) 1 VIAL SQ SCH ×4 (06:34→21:02)
[2020-03-25] MEDS: INSULIN (NOVOLOG MIX 70/30) 100 UNITS/ML MDV SQ SCH ×2 (06:38→16:49)
[2020-03-25 07:51] LABS: BLOOD UREA NITROGEN 48.9 mg/dL (7-18); CALCIUM 9.2 mg/dL (8.5-10.1); CREATININE 2.3 mg/dL (0.55-1.3); POTASSIUM 4.4 mmol/L (3.5-5.1)
[2020-03-25 07:54] LABS: BASO % 0.4 % (0-2.0); EOS % 0.2 % (0-4.5); HEMATOCRIT 32.5 % (32.4-45.2); HEMOGLOBIN 10.7 GM/dL (10.7-15.3); LYMPH % 13.5 % (8-40); MCH 27.4 pg (25.7-33.7); MCHC 32.9 g/dl (32.0-36.0); MEAN CELL VOLUME 83.6 fl (80-96); MEAN PLT VOLUME 8.7 fl (7.5-11.1); MONO % 7.6 % (3.8-10.2); NEUT % 78.3 % (42.8-82.8); PLATELET COUNT 315 K/MM3 (134-434); RBC 3.89 M/mm3 (3.60-5.2); RDW 15.3 % (11.6-15.6)
[2020-03-25] MEDS ORDERED: INSULIN (LEVEMIR) 100 UNITS/ML UNITS SQ SCH (08:31)
[2020-03-25] MEDS: CARVEDILOL 25 MG TABLET (FP) PO SCH ×2 (09:32→21:01)
[2020-03-25] MEDS: predniSONE 20 MG TABLET (UD) PO SCH (09:32)
[2020-03-25] MEDS: COLLAGENASE CLOSTRIDIUM HIST. 30 GRAMS TUBE TP SCH (09:33)
[2020-03-25] MEDS: NYSTATIN POWDER 100,000 UNITS/GM - 15 GM TOPICAL POWDER TP SCH ×2 (09:33→21:04)
[2020-03-25] MEDS ORDERED: VANCOMYCIN 1 GRAM (PRE-DOCKED) 1,000 MG/250 ML BAG IVPB ONE (09:45)
[2020-03-25] MEDS ORDERED: VANCOMYCIN 1 GM in D5W (PRE-DOCKED) 1,000 MG/250 ML IVPB ONE (11:21)
--- NOTE | 2020-03-25 11:31 | PN ---
Progress Note (short form) - Note Progress Note: PULMONARY NO SIGNIFICANT CHANGE IN EXAM VSS/AFEBRILE ANICTERIC DIMINISHED BREATH SOUNDS S1S2 OBESE SOFT NONTENDER KNEE WOUND WRAPPED ID EVAL REVIEWED LABS/MEDS/NOTES/IMAGES REVIEWED HAVE REDUCED PREDNISONE TO 20 MG CONTINUE TO MONITOR CALCIUM/LFTS CXR/GLUCOSE HOPEFULLY WE CAN FOLLOW AN OUTPATIENT/MAY CONSIDER ALTERNATE TREATMENTS FOR SARCOID HER MAINTENANCE DOSE OF PRENISONE AN OUTPATIENT WAS APPROX 10 MG Prakash MOYER MD Problem List - Problems (1) Sarcoidosis with granulomatous hepatitis Code(s): D86.9 - SARCOIDOSIS, UNSPECIFIED (2) Sarcoidosis of lymph nodes Code(s): D86.1 - SARCOIDOSIS OF LYMPH NODES (3) CKD (chronic kidney disease) Code(s): N18.9 - CHRONIC KIDNEY DISEASE, UNSPECIFIED (4) Hyperglycemia Code(s): R73.9 - HYPERGLYCEMIA, UNSPECIFIED (5) Leg wound, left Code(s): S81.802A - UNSPECIFIED OPEN WOUND, LEFT LOWER LEG, INITIAL ENCOUNTER Qualifiers: Encounter type: initial encounter Qualified Code(s): S81.802A - Unspecified open wound, left lower leg, initial encounter (6) 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
--- NOTE | 2020-03-25 12:22 | PN ---
Physical Exam: SUBJECTIVE: Patient seen and examined OBJECTIVE: Vital Signs Period Temp Pulse Resp BP Sys/Albert Pulse Ox Last 24 Hr 97.8 F-98.5 F 86-87 18-20 144-176/81-92 97-99 GENERAL: Awake, alert, and fully oriented, in no acute distress. Obese female HEAD: Normal with no signs of trauma. Excessive hair growth under arm and under chin EYES: Pupils equal, round and reactive to light, extraocular movements intact EARS, NOSE, THROAT: Moist mucous membranes. LUNGS: Breath sounds equal, clear to auscultation bilaterally. No wheezes, and no crackles. HEART: Regular rate and rhythm, normal S1 and S2 without murmur, rub or gallop. ABDOMEN: Soft, nontender, not distended, normoactive bowel sounds, no guarding, no rebound, no masses. MUSCULOSKELETAL: Back pain but no tenderness LOWER EXTREMITIES: 2+ pulses, warm, well-perfused. No peripheral edema. Left leg externally rotated due to recent surgery, wound wrapped and dressed. Clean and intact NEUROLOGICAL: Normal speech. Normal gait. PSYCHIATRIC: Cooperative. Good eye contact. Appropriate mood and affect. SKIN: Warm, dry, normal turgor, Laboratory Results - last 24 hr 03/24/20 03/24/20 03/24/20 16:56 21:06 22:11 WBC RBC Hgb Hct MCV MCH MCHC RDW Plt Count MPV Absolute Neuts (auto) Neutrophils % Lymphocytes % Monocytes % Eosinophils % Basophils % Nucleated RBC % Sodium Potassium Chloride Carbon Dioxide Anion Gap BUN Creatinine Est GFR (CKD-EPI)AfAm Est GFR (CKD-EPI)NonAf POC Glucometer 207 408 417 Random Glucose Calcium 03/25/20 03/25/20 03/25/20 06:31 07:00 07:00 WBC 12.0 H RBC 3.89 Hgb 10.7 Hct 32.5 MCV 83.6 MCH 27.4 MCHC 32.9 RDW 15.3 Plt Count 315 MPV 8.7 Absolute Neuts (auto) 9.4 H Neutrophils % 78.3 Lymphocytes % 13.5 D Monocytes % 7.6 Eosinophils % 0.2 D Basophils % 0.4 Nucleated RBC % 0 Sodium 140 Potassium 4.4 Chloride 109 H Carbon Dioxide 22 Anion Gap 10 BUN 48.9 H Creatinine 2.3 H Est GFR (CKD-EPI)AfAm 28.99 Est GFR (CKD-EPI)NonAf 25.01 POC Glucometer 239 Random Glucose 244 H Calcium 9.2 03/25/20 11:37 WBC RBC Hgb Hct MCV MCH MCHC RDW Plt Count MPV Absolute Neuts (auto) Neutrophils % Lymphocytes % Monocytes % Eosinophils % Basophils % Nucleated RBC % Sodium Potassium Chloride Carbon Dioxide Anion Gap BUN Creatinine Est GFR (CKD-EPI)AfAm Est GFR (CKD-EPI)NonAf POC Glucometer 191 Random Glucose Calcium Active Medications Generic Name Dose Route Start Last Admin Trade Name Freq PRN Reason Stop Dose Admin Acetaminophen 325 mg 03/21/20 09:21 03/24/20 21:21 Tylenol - PO 325 mg Q8H PRN Administration PAIN 4-6 Albuterol Sulfate 2 puff 03/21/20 09:15 Ventolin Hfa Inhaler - IH Q4H PRN WHEEZING Alprazolam 0.25 mg 03/21/20 19:10 03/21/20 21:01 Xanax - PO 0.25 mg ONCE PRN Administration ANXIETY Atorvastatin Calcium 80 mg 03/21/20 22:00 03/24/20 21:10 Lipitor - PO 80 mg HS MARIYA Administration Carvedilol 25 mg 03/21/20 10:00 03/25/20 09:32 Coreg - PO 25 mg BID MARIYA Administration Collagenase 1 applic 03/21/20 10:45 03/25/20 09:33 Santyl - TP 1 applic DAILY MARIYA Administration Protocol Cyclobenzaprine HCl 10 mg 03/21/20 14:00 03/25/20 06:33 Flexeril - PO 10 mg TID MARIYA Administration Heparin Sodium (Porcine) 5,000 unit 03/22/20 06:00 03/25/20 06:32 Heparin - SQ 5,000 unit TID MARIYA Administration Hydralazine HCl 100 mg 03/21/20 14:00 03/25/20 06:33 Apresoline - PO 100 mg TID MARIYA Administration Piperacillin Sod/Tazobactam 50 mls @ 100 mls/hr 03/24/20 18:00 03/25/20 09:33 Sod 3.375 gm/ Dextrose IVPB 100 mls/hr Q8H-IV MARIAY Administration Protocol Insulin Aspart 1 vial 03/23/20 16:30 03/25/20 11:43 Novolog Vial Sliding Scale - SQ 7 unit ACHS MARIYA Administration Protocol Insulin Aspart 25 units 03/25/20 08:31 Novolog Mix 70/30 Vial SQ BIDAC MARIYA Insulin Detemir 50 units 03/25/20 08:31 Levemir Vial SQ AM MARIYA Insulin Detemir 50 units 03/25/20 08:32 Levemir Vial SQ HS MARIYA Montelukast Sodium 10 mg 03/21/20 22:00 03/24/20 21:11 Singulair - PO 10 mg HS MARIYA Administration Nystatin 1 applic 03/22/20 22:00 03/25/20 09:33 Nystop Powder - TP 1 applic BID MARIYA Administration Prednisone 20 mg 03/24/20 11:49 03/25/20 09:32 Deltasone - PO 20 mg DAILY MARIYA Administration ASSESSMENT/PLAN: 44 y/o F, pmh of htn, IDDM, sarcoidosis (Lung, Liver) on prednisone, asthma, CKD, spinal surgery, left hip replacement and tibial surgery, presents to the ED after recent discharge from [facility] for uncontrolled and elevated hyperglycemia and increasing drainage of the left knee wound that has been persistent for the past two and has since worsened admitted uncontrolled diabetes and new left knee wound likely 2/2 to diabetes #Uncontrolled Diabetes likely 2/2 to inadequate coverage vs chronic prednisone use Pt on 18 humalog, 14 humalin, 60 basaglar at home Insulin regimen inpatient: Levemir 50PM and 50PM Novolog 70/30 25 U BID standing ISS BGM- will monitor gluc QTc 606> 509 #Left knee wound likely 2/2 to diabetic wound vs pressure ulcer s/p debridement vascular following left knee chronically externally rotated since surgery in december Will consult wound care pt has history of wounds on the foot, resolved Cont Vanc and Zosyn ID following #UTI 2/2 to incompletely tx UTI from [facility] discharge on bactrim UA positive LE +1, suzan >1000 pt asymptomatic UCx growing enterococcus fecalis Vanc/Zosyn mild leukocytosis noted #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, since surgery stable sensation mildly reduced, strength 5/5 #Sarcoidosis to liver and lung, dx on an EGD/Colonoscopy at [place] pt reports its stable and asymptomatic on Prednisone 30 since 09/19, reduced to Pred 20mg as per pulm, will need to titrate down over weeks/months Will will need maintenance dose of 10 mg pred as per pulm #HTN cont home blackwell of Hydralazine 100 TID Coreg 25 BID #Chronic back pain 2/2 to spinal surgery cont home pain regimen PT #DVT ppx Hep sq #FEN monitor lytes dm/sod diet Dispo: pt needs coordinated care from physicians upon discharge, patient will need to be educated on the importance of follow up Visit type - Emergency Visit Emergency Visit: Yes ED Registration Date: 03/21/20 Care time: The patient presented to the Emergency Department on the above date and was hospitalized for further evaluation of their emergent condition. - New Patient This patient is new to me today: Yes Date on this admission: 03/29/20 - Critical Care Critical Care patient: No - Discharge Referral Referred to [facility] No ATTENDING PHYSICIAN STATEMENT I saw and evaluated the patient. I reviewed the resident's note and discussed the case with the resident. I agree with the resident's findings and plan as documented. SUBJECTIVE: OBJECTIVE: ASSESSMENT AND PLAN:
--- NOTE | 2020-03-25 13:33 | PN ---
Teaching Attending Note Name of Resident: Danny Redman ATTENDING PHYSICIAN STATEMENT I saw and evaluated the patient. I reviewed the resident's note and discussed the case with the resident. I agree with the resident's findings and plan as documented. SUBJECTIVE:Seen and examined at bedside. Remains hyperglycemic. Insulin dosing increased. OBJECTIVE Last Vital Signs Temp Pulse Resp BP Pulse Ox 97.8 F 87 20 176/92 H 99 03/25/20 09:40 03/25/20 09:40 03/25/20 09:40 03/25/20 09:40 03/25/20 09:40 PE: per resident note Labs/Imaging: reviewed ASSESSMENT AND PLAN: 44 y/o F, pmh of htn, IDDM, sarcoidosis (Lung, Liver) on prednisone, asthma, CKD, spinal surgery, left hip replacement and tibial surgery, presents to the ED after recent discharge from [facility] for uncontrolled DM and L knee wound #Uncontrolled Diabetes: improving A1C: 14.7 Endo on board; appreciate recs -Levemir 30U AM, 40U PM -trend surgars #Left knee wound: wound culture polymicrobial and + for MRSA Vascular on board: appreciate recs ID on board; appreciate recs -give 1g vanc today -f/u vanc levol tomorrow -pt has hardware near area of wound: CT LLE ordered -wound care on board -currently on zosyn #UTI -on vanc/zosyn -f/u urine cx #Yeast infection -nystatin cream #Sarcoidosis to liver and lung, dx on an EGD/Colonoscopy at [place] pt reports its stable and asymptomatic on Prednisone 30 since 09/19: currently on 20mg -will discuss case with PCP/veterinary technician assistant Dr. Saray Dickerson #HTN -cont home blackwell of Hydralazine 100 TID -Coreg 25 BID #DVT ppx Hep sq
--- NOTE | 2020-03-25 15:21 | PN ---
Progress Note, Physician History of Present Illness: Pt seen and examined at bedside. SHe is awake and alert. - Current Medication List Current Medications: Active Medications Acetaminophen (Tylenol -) 325 mg PO Q8H PRN PRN Reason: PAIN 4-6 Last Admin: 03/24/20 21:21 Dose: 325 mg Documented by: Albuterol Sulfate (Ventolin Hfa Inhaler -) 2 puff IH Q4H PRN PRN Reason: WHEEZING Alprazolam (Xanax -) 0.25 mg PO ONCE PRN PRN Reason: ANXIETY Last Admin: 03/21/20 21:01 Dose: 0.25 mg Documented by: Atorvastatin Calcium (Lipitor -) 80 mg PO HS [facility] Last Admin: 03/24/20 21:10 Dose: 80 mg Documented by: Carvedilol (Coreg -) 25 mg PO BID [facility] Last Admin: 03/25/20 09:32 Dose: 25 mg Documented by: Collagenase (Santyl -) 1 applic TP DAILY [facility]; Protocol Last Admin: 03/25/20 09:33 Dose: 1 applic Documented by: Cyclobenzaprine HCl (Flexeril -) 10 mg PO TID [facility] Last Admin: 03/25/20 14:11 Dose: 10 mg Documented by: Heparin Sodium (Porcine) (Heparin -) 5,000 unit SQ TID [facility] Last Admin: 03/25/20 14:10 Dose: 5,000 unit Documented by: Hydralazine HCl (Apresoline -) 100 mg PO TID [facility] Last Admin: 03/25/20 14:10 Dose: 100 mg Documented by: Piperacillin Sod/Tazobactam (Sod 3.375 gm/ Dextrose) 50 mls @ 100 mls/hr IVPB Q8H-IV [facility]; Protocol Last Admin: 03/25/20 09:33 Dose: 100 mls/hr Documented by: Insulin Aspart (Novolog Vial Sliding Scale -) 1 vial SQ ACHS [facility]; Protocol Last Admin: 03/25/20 11:43 Dose: 7 unit Documented by: Insulin Aspart (Novolog Mix 70/30 Vial) 25 units SQ BIDAC MARIYA Insulin Detemir (Levemir Vial) 50 units SQ AM MARIYA Insulin Detemir (Levemir Vial) 50 units SQ HS MARIYA Montelukast Sodium (Singulair -) 10 mg PO HS [facility] Last Admin: 03/24/20 21:11 Dose: 10 mg Documented by: Nystatin (Nystop Powder -) 1 applic TP BID [facility] Last Admin: 03/25/20 09:33 Dose: 1 applic Documented by: Prednisone (Deltasone -) 20 mg PO DAILY [facility] Last Admin: 03/25/20 09:32 Dose: 20 mg Documented by: - Objective Vital Signs: Vital Signs Temperature 98.2 F 03/25/20 14:00 Pulse Rate 81 03/25/20 14:00 Respiratory Rate 20 03/25/20 14:00 Blood Pressure 150/93 03/25/20 14:00 O2 Sat by Pulse Oximetry (%) 98 03/25/20 14:00 Constitutional: Yes: Calm Eyes: Yes: Conjunctiva Clear HENT: Yes: Atraumatic Neck: Yes: Supple Cardiovascular: Yes: S1, S2 Respiratory: Yes: CTA Bilaterally Gastrointestinal: Yes: Soft, Abdomen, Obese Musculoskeletal: Yes: WNL Edema: No Wound/Incision: Yes: Dressing Dry and Intact Neurological: Yes: Oriented Psychiatric: Yes: Oriented Labs: CBC, BMP 03/25/20 07:00 03/25/20 07:00 INR, PTT INR 0.92 (0.83-1.09) 03/21/20 03:33 Problem List - Problems (1) CKD (chronic kidney disease) Code(s): N18.9 - CHRONIC KIDNEY DISEASE, UNSPECIFIED (2) Proteinuria Code(s): R80.9 - PROTEINURIA, UNSPECIFIED (3) Hyperglycemia Code(s): R73.9 - HYPERGLYCEMIA, UNSPECIFIED Assessment/Plan Current Medications Generic Name Dose Route Start Last Admin Trade Name Courtney PRN Reason Stop Dose Admin Acetaminophen 325 mg 03/21/20 09:21 03/24/20 21:21 Tylenol - PO 325 mg Q8H PRN Administration PAIN 4-6 Albuterol Sulfate 2 puff 03/21/20 09:15 Ventolin Hfa Inhaler - IH Q4H PRN WHEEZING Alprazolam 0.25 mg 03/21/20 19:10 03/21/20 21:01 Xanax - PO 0.25 mg ONCE PRN Administration ANXIETY Atorvastatin Calcium 80 mg 03/21/20 22:00 03/24/20 21:10 Lipitor - PO 80 mg HS MARIYA Administration Carvedilol 25 mg 03/21/20 10:00 03/25/20 09:32 Coreg - PO 25 mg BID MARIYA Administration Collagenase 1 applic 03/21/20 10:45 03/25/20 09:33 Santyl - TP 1 applic DAILY MARIYA Administration Protocol Cyclobenzaprine HCl 10 mg 03/21/20 14:00 03/25/20 14:11 Flexeril - PO 10 mg TID MARIYA Administration Heparin Sodium (Porcine) 5,000 unit 03/22/20 06:00 03/25/20 14:10 Heparin - SQ 5,000 unit TID MARIYA Administration Hydralazine HCl 100 mg 03/21/20 14:00 03/25/20 14:10 Apresoline - PO 100 mg TID MARIYA Administration Piperacillin Sod/Tazobactam 50 mls @ 100 mls/hr 03/24/20 18:00 03/25/20 09:33 Sod 3.375 gm/ Dextrose IVPB 100 mls/hr Q8H-IV MARIYA Administration Protocol Insulin Aspart 1 vial 03/23/20 16:30 03/25/20 11:43 Novolog Vial Sliding Scale - SQ 7 unit ACHS MARIYA Administration Protocol Insulin Aspart 25 units 03/25/20 08:31 Novolog Mix 70/30 Vial SQ BIDAC MARIYA Insulin Detemir 50 units 03/25/20 08:31 Levemir Vial SQ AM MARIYA Insulin Detemir 50 units 03/25/20 08:32 Levemir Vial SQ HS MAIRYA Montelukast Sodium 10 mg 03/21/20 22:00 03/24/20 21:11 Singulair - PO 10 mg HS MARIYA Administration Nystatin 1 applic 03/22/20 22:00 03/25/20 09:33 Nystop Powder - TP 1 applic BID MARIYA Administration Prednisone 20 mg 03/24/20 11:49 03/25/20 09:32 Deltasone - PO 20 mg DAILY MARIYA Administration Impression 1. CKD 2. sarcoidosis with lung and liver involvement 3. proteinuria 4. DM 5. hld 6. htn 7. hypercalcemia Plan - cont to monitor renal function - will need better glucose control - pt on prednisone - wound care to leg - ID input appreciated - monitor calcium
[2020-03-25] MEDS: ACETAMINOPHEN 325 MG TABLET (FP) PO PRN (21:00)
[2020-03-25] MEDS: MONTELUKAST NA 10 MG TABLET PO SCH (21:01)
[2020-03-25] MEDS: ATORVASTATIN CA 80 MG TABLET (FP) PO SCH (21:01)
[2020-03-26] MEDS: PIPERACILLIN/TAZOB 3.375 GM 3.375 GM in DEXTROSE 5%-WATER - 50 ML IVPB SCH ×3 (01:52→17:05)
[2020-03-26] MEDS: hydrALAZINE HCL 50 MG TABLET (FP) PO SCH ×3 (06:11→22:01)
[2020-03-26] MEDS: HEPARIN NA (PORCINE) 5,000 UNITS/ML 1ML VIAL SQ SCH ×3 (06:11→22:01)
[2020-03-26] MEDS: CYCLOBENZAPRINE HCL 10 MG TABLET (FP) PO SCH ×3 (06:11→22:01)
[2020-03-26] MEDS: INSULIN (NOVOLOG MIX 70/30) 100 UNITS/ML MDV SQ SCH (06:15)
[2020-03-26] MEDS: INSULIN SLIDING SCALE (NOVOLOG) 1 VIAL SQ SCH ×4 (06:15→22:07)
[2020-03-26] MEDS ORDERED: SIMETHICONE 80 MG TAB.CHEW (FP) PO ONE (06:50)
[2020-03-26 07:43] LABS: HEMATOCRIT 33.9 % (32.4-45.2); HEMOGLOBIN 10.9 GM/dL (10.7-15.3); MCHC 32.2 g/dl (32.0-36.0); MEAN PLT VOLUME 9.4 fl (7.5-11.1); PLATELET COUNT 262 K/MM3 (134-434); RBC 4.03 M/mm3 (3.60-5.2); RDW 15.3 % (11.6-15.6); WHITE BLOOD COUNT 11.7 K/mm3 (4.0-10.0)
[2020-03-26 07:59] LABS: BLOOD UREA NITROGEN 50.1 mg/dL (7-18); CALCIUM 9.7 mg/dL (8.5-10.1); CREATININE 2.4 mg/dL (0.55-1.3); POTASSIUM 3.9 mmol/L (3.5-5.1)
[2020-03-26] MEDS: ACETAMINOPHEN 325 MG TABLET (FP) PO PRN (10:13)
[2020-03-26] MEDS: NYSTATIN POWDER 100,000 UNITS/GM - 15 GM TOPICAL POWDER TP SCH ×2 (10:15→22:07)
[2020-03-26] MEDS: predniSONE 20 MG TABLET (UD) PO SCH (10:15)
[2020-03-26] MEDS: CARVEDILOL 25 MG TABLET (FP) PO SCH ×2 (10:15→22:00)
--- NOTE | 2020-03-26 10:27 | PN ---
Progress Note (short form) - Note Progress Note: PULMONARY Denies shortness of breath, cough or wheezing. No fevers. Vital Signs Period Temp Pulse Resp BP Sys/Albert Pulse Ox Last 24 Hr 98.0 F-98.4 F 81-97 19-20 129-164/60-94 97-100 Gen: NAD at rest Heart: RRR Lung: distant breath sounds Abd: soft, nontender Ext: no edema CBC, BMP 03/26/20 07:13 03/26/20 07:13 Active Medications Acetaminophen (Tylenol -) 325 mg PO Q8H PRN PRN Reason: PAIN 4-6 Last Admin: 03/26/20 10:13 Dose: 325 mg Documented by: Albuterol Sulfate (Ventolin Hfa Inhaler -) 2 puff IH Q4H PRN PRN Reason: WHEEZING Alprazolam (Xanax -) 0.25 mg PO ONCE PRN PRN Reason: ANXIETY Last Admin: 03/21/20 21:01 Dose: 0.25 mg Documented by: Atorvastatin Calcium (Lipitor -) 80 mg PO HS [facility] Last Admin: 03/25/20 21:01 Dose: 80 mg Documented by: Carvedilol (Coreg -) 25 mg PO BID [facility] Last Admin: 03/26/20 10:15 Dose: 25 mg Documented by: Collagenase (Santyl -) 1 applic TP DAILY [facility]; Protocol Last Admin: 03/25/20 09:33 Dose: 1 applic Documented by: Cyclobenzaprine HCl (Flexeril -) 10 mg PO TID [facility] Last Admin: 03/26/20 06:11 Dose: 10 mg Documented by: Heparin Sodium (Porcine) (Heparin -) 5,000 unit SQ TID [facility] Last Admin: 03/26/20 06:11 Dose: 5,000 unit Documented by: Hydralazine HCl (Apresoline -) 100 mg PO TID [facility] Last Admin: 03/26/20 06:11 Dose: 100 mg Documented by: Piperacillin Sod/Tazobactam (Sod 3.375 gm/ Dextrose) 50 mls @ 100 mls/hr IVPB Q8H-IV [facility]; Protocol Last Admin: 03/26/20 10:13 Dose: 100 mls/hr Documented by: Insulin Aspart (Novolog Vial Sliding Scale -) 1 vial SQ ACHS [facility]; Protocol Last Admin: 03/26/20 06:15 Dose: 9 unit Documented by: Insulin Aspart (Novolog Mix 70/30 Vial) 25 units SQ BIDAC [facility] Last Admin: 03/26/20 06:15 Dose: 25 units Documented by: Insulin Detemir (Levemir Vial) 50 units SQ AM [facility] Last Admin: 03/26/20 06:14 Dose: 50 units Documented by: Insulin Detemir (Levemir Vial) 50 units SQ HS [facility] Last Admin: 03/25/20 21:03 Dose: 50 units Documented by: Montelukast Sodium (Singulair -) 10 mg PO HS [facility] Last Admin: 03/25/20 21:01 Dose: 10 mg Documented by: Nystatin (Nystop Powder -) 1 applic TP BID [facility] Last Admin: 03/26/20 10:15 Dose: 1 applic Documented by: Prednisone (Deltasone -) 20 mg PO DAILY [facility] Last Admin: 03/26/20 10:15 Dose: 20 mg Documented by: A/P L Knee Wound Infection UTI Uncontrolled DM Sarcoidosis Asthma CKD - continue antibiotics per ID - can taper prednisone down to 10mg for better glucose control - outpt PFTs - DVT prophylaxis
[2020-03-26] MEDS ORDERED: INSULIN SLIDING SCALE (NOVOLOG) 1 VIAL SQ ONE (12:09)
[2020-03-26] MEDS: COLLAGENASE CLOSTRIDIUM HIST. 30 GRAMS TUBE TP SCH (12:17)
--- NOTE | 2020-03-26 12:25 | PN ---
Progress Note (short form) - Note Progress Note: doing well prednisone being tapered Vital Signs Period Temp Pulse Resp BP Sys/Albert Pulse Ox Last 24 Hr 98.0 F-98.4 F 81-97 19-20 129-164/60-94 97-100 cor-rrr lungs clear abd soft,nt ext wound unchanged, some slough at the base, no erythema noted ct scan no signs absces CBC, BMP 03/26/20 07:13 03/26/20 07:13 vanco trough 18 Microbiology 03/22/20 13:00 Urine - Urine Clean Catch Urine Culture - Final Enterococcus Faecalis 03/21/20 04:32 Leg - Left Knee Gram Stain - Final 03/21/20 04:32 Leg - Left Knee Wound Culture - Preliminary Proteus Species Enterobacter Cloacae Klebsiella Pneumoniae Mr S Aureus a/p LLE wound- no signs of deep tissue/bone involvement-continue vanco/zosyn-redose vanco 500mg today, check level in am with her poorly controlled diabetes would consider further imaging of her leg- either MRI or CT scan- hardware was placed one year ago at [facility] suggest finishing 7 days iv antibiotics- now day #5, then home on po she should f/u with her ortho at [place]-she is aware also with wound care- I can see her at wound care as well when she schedules f/u appt there not sure how to use inflammatory markers in this case given sarcoid and DM-but will get baseline to follow as outpt-will be difficult in the setting of steroid taper as well sarcoid- will d/w pulmonary pcp prophylaxis -will add mepron, can check g6pd if negative can switch to dapsone, would not use bactrim due to her CKD poorly controlled DM- hgb a1c elevated at 14.7- eating cake and ordering out CKD-noted ct scan reviewed with radiologist d/w hospitalist
[2020-03-26] MEDS ORDERED: VANCOMYCIN 500 MG in DEXTROSE 5%-WATER - 100 ML IVPB ONE (13:00)
--- NOTE | 2020-03-26 13:10 | PN ---
Teaching Attending Note Name of Resident: Tavon Lo ATTENDING PHYSICIAN STATEMENT I saw and evaluated the patient. I reviewed the resident's note and discussed the case with the resident. I agree with the resident's findings and plan as documented. SUBJECTIVE:Seen and examined at bedside. Remains hyperglycemic. Insulin dosing increased. OBJECTIVE Last Vital Signs Temp Pulse Resp BP Pulse Ox 98.4 F 91 H 19 129/60 100 03/26/20 10:12 03/26/20 10:12 03/26/20 10:12 03/26/20 10:12 03/26/20 10:12 PE: per resident note Labs/Imaging: reviewed ASSESSMENT AND PLAN: 44 y/o F, pmh of htn, IDDM, sarcoidosis (Lung, Liver) on prednisone, asthma, CKD, spinal surgery, left hip replacement and tibial surgery, presents to the ED after recent discharge from [facility] for uncontrolled DM and L knee wound #Uncontrolled Diabetes with hyperglycemia: improving A1C: 14.7 Endo on board; appreciate recs -Levemir 50U BID -novolog 70/30 25 BID -trend surgars -pt will f/u with Dr. Lo for endocrine as an outpatient ##Sarcoidosis to liver and lung, dx on an EGD/Colonoscopy at [place] pt reports its stable and asymptomatic Has been on high dose prednisone for 1-3 years. On prednisone 30 on admission now on prednisone 20mg -given [employer] steroid use should not be tapered at a greater rate than 5mg per week -Pt will f/u as outpatient with Dr. Gilbert #complications of [employer] steroid use -pt has cushingoid appearance, severe insulin resistance w/hyperglycemia, obesity, pathologic fractures, skin thinning -pt must be slowly tapered off steroids ~5mg/week #Left knee wound: wound culture polymicrobial and + for MRSA Vascular on board: appreciate recs --wound care on board -currently on vanc/zosyn -CT does not show osteo or deep infection (near site of hardware from prior fx) -will f/u with Dr. Cannon as outpatient #UTI: enterococcus fecalis -on vanc/zosyn #Yeast infection -nystatin cream #HTN -cont home blackwell of Hydralazine 100 TID -Coreg 25 BID Dispo:Patient has been doctor shopping for over a year leading to repeated prescriptions for steroids resulting in numerous complications. Patient needs to be discharged with a coordinated care team who can manage her tapering of steroids and resultant complications, as well as her sarcoidosis. She should be referred to Dr. Yee for pulmonology, Dr. Lo for endocrine, Dr. Cannon her on for wound care/ID, and will need a new PCP who can coordinate with these doctors. She has agreed to this plan.
--- NOTE | 2020-03-26 13:24 | PN ---
Physical Exam: SUBJECTIVE: Patient seen and examined at bedside. Home food was seen at bedside. Patient does not endorse acute overnight events. OBJECTIVE: Vital Signs Period Temp Pulse Resp BP Sys/Albert Pulse Ox Last 24 Hr 98.0 F-98.4 F 81-97 19-20 129-164/60-94 97-100 GENERAL: The patient is awake, alert, and fully oriented, in no acute distress. LUNGS: Breath sounds equal, clear to auscultation bilaterally, no wheezes, no crackles, no accessory muscle use. HEART: Regular rate and rhythm, S1, S2 without murmur, rub or gallop. EXTREMITIES: 2+ pulses, warm, well-perfused, no edema. PSYCH: Normal mood, normal affect. Laboratory Results - last 24 hr 03/25/20 03/25/20 03/26/20 16:45 20:54 06:00 WBC RBC Hgb Hct MCV MCH MCHC RDW Plt Count MPV Sodium Potassium Chloride Carbon Dioxide Anion Gap BUN Creatinine Est GFR (CKD-EPI)AfAm Est GFR (CKD-EPI)NonAf POC Glucometer 298 411 Random Glucose Calcium Random Vancomycin 18.3 03/26/20 03/26/20 03/26/20 06:07 07:13 07:13 WBC 11.7 H RBC 4.03 Hgb 10.9 Hct 33.9 MCV 84.0 MCH 27.0 MCHC 32.2 RDW 15.3 Plt Count 262 MPV 9.4 Sodium 139 Potassium 3.9 Chloride 109 H Carbon Dioxide 21 Anion Gap 9 BUN 50.1 H Creatinine 2.4 H Est GFR (CKD-EPI)AfAm 27.53 Est GFR (CKD-EPI)NonAf 23.76 POC Glucometer 285 Random Glucose 244 H Calcium 9.7 Random Vancomycin 03/26/20 12:13 WBC RBC Hgb Hct MCV MCH MCHC RDW Plt Count MPV Sodium Potassium Chloride Carbon Dioxide Anion Gap BUN Creatinine Est GFR (CKD-EPI)AfAm Est GFR (CKD-EPI)NonAf POC Glucometer 161 Random Glucose Calcium Random Vancomycin Active Medications Generic Name Dose Route Start Last Admin Trade Name Freq PRN Reason Stop Dose Admin Acetaminophen 325 mg 03/21/20 09:21 03/26/20 10:13 Tylenol - PO 325 mg Q8H PRN Administration PAIN 4-6 Albuterol Sulfate 2 puff 03/21/20 09:15 Ventolin Hfa Inhaler - IH Q4H PRN WHEEZING Alprazolam 0.25 mg 03/21/20 19:10 03/21/20 21:01 Xanax - PO 0.25 mg ONCE PRN Administration ANXIETY Atorvastatin Calcium 80 mg 03/21/20 22:00 03/25/20 21:01 Lipitor - PO 80 mg HS MARIYA Administration Carvedilol 25 mg 03/21/20 10:00 03/26/20 10:15 Coreg - PO 25 mg BID MARIYA Administration Collagenase 1 applic 03/21/20 10:45 03/26/20 12:17 Santyl - TP 1 applic DAILY MARIYA Administration Protocol Cyclobenzaprine HCl 10 mg 03/21/20 14:00 03/26/20 06:11 Flexeril - PO 10 mg TID MARIYA Administration Heparin Sodium (Porcine) 5,000 unit 03/22/20 06:00 03/26/20 06:11 Heparin - SQ 5,000 unit TID MARIYA Administration Hydralazine HCl 100 mg 03/21/20 14:00 03/26/20 06:11 Apresoline - PO 100 mg TID MARIYA Administration Piperacillin Sod/Tazobactam 50 mls @ 100 mls/hr 03/24/20 18:00 03/26/20 10:13 Sod 3.375 gm/ Dextrose IVPB 100 mls/hr Q8H-IV MARIYA Administration Protocol Vancomycin HCl 500 mg/ 100 mls @ 100 mls/hr 03/26/20 13:00 Dextrose IVPB 03/26/20 13:59 ONCE ONE Protocol Insulin Aspart 1 vial 03/23/20 16:30 03/26/20 12:17 Novolog Vial Sliding Scale - SQ 7 unit ACHS MARIYA Administration Protocol Insulin Aspart 25 units 03/25/20 08:31 03/26/20 06:15 Novolog Mix 70/30 Vial SQ 25 units BIDAC MARIYA Administration Insulin Detemir 50 units 03/25/20 08:31 03/26/20 06:14 Levemir Vial SQ 50 units AM MARIYA Administration Insulin Detemir 50 units 03/25/20 08:32 03/25/20 21:03 Levemir Vial SQ 50 units HS MARIYA Administration Montelukast Sodium 10 mg 03/21/20 22:00 03/25/20 21:01 Singulair - PO 10 mg HS MARIYA Administration Nystatin 1 applic 03/22/20 22:00 03/26/20 10:15 Nystop Powder - TP 1 applic BID MARIYA Administration Prednisone 20 mg 03/24/20 11:49 03/26/20 10:15 Deltasone - PO 20 mg DAILY MARIYA Administration ASSESSMENT/PLAN: Ms. Hinton is a 44F w a h/o sarcoidosis stage 4 (lymph lungs liver) was on 30mg PO prednisone, IDDM, cks, asthma, htn, with an extensive surgical hixtory of hip replacement, spinal and tibial repair. Patient presented to the ED for abnormally elevated blood glucose levels, and a LEFT LATERAL LEG wound found to be positive for klebsiella and MRSA. #Left Lateral Leg wound - MRSA, Klebsiella, Providencia, Enterobacter positive - patient is day 5 of IV abx - Random vancomycin level of - 18.3% (normal theraputic values range from 17- 21%) #Poorly controlled IDDM - A1C - 14 - Random glucose 244 - Dr. Lo consulted - Levemir 2x a day (60am and 50pm) with converage of novolog; DC 70/30 novolog #Sarcoidosis Stage 4 - Prednisone taper currently on 20mg - Will follow up with Dr. Chase outpatient for Pulmonary Function tests #HTN - Home dose of antihypertensive medication #DVT - Heparin Sq Visit type - Emergency Visit Emergency Visit: Yes ED Registration Date: 03/21/20 Care time: The patient presented to the Emergency Department on the above date and was hospitalized for further evaluation of their emergent condition. - New Patient This patient is new to me today: No - Critical Care Critical Care patient: No - Discharge Referral Referred to [facility] No ATTENDING PHYSICIAN STATEMENT I saw and evaluated the patient. I reviewed the resident's note and discussed the case with the resident. I agree with the resident's findings and plan as documented. SUBJECTIVE: OBJECTIVE: ASSESSMENT AND PLAN:
--- NOTE | 2020-03-26 13:59 | PN ---
Progress Note, Physician Chief Complaint: as discussed will need dose titration insulin for resistant diabetic illness steroids as well infection and lack of activity Abnormal Lab Results 03/26/20 03/26/20 07:13 07:13 WBC 11.7 H Chloride 109 H BUN 50.1 H Creatinine 2.4 H Random Glucose 244 H - Current Medication List Current Medications: Active Medications Acetaminophen (Tylenol -) 325 mg PO Q8H PRN PRN Reason: PAIN 4-6 Last Admin: 03/26/20 10:13 Dose: 325 mg Documented by: Albuterol Sulfate (Ventolin Hfa Inhaler -) 2 puff IH Q4H PRN PRN Reason: WHEEZING Alprazolam (Xanax -) 0.25 mg PO ONCE PRN PRN Reason: ANXIETY Last Admin: 03/21/20 21:01 Dose: 0.25 mg Documented by: Atorvastatin Calcium (Lipitor -) 80 mg PO HS [facility] Last Admin: 03/25/20 21:01 Dose: 80 mg Documented by: Carvedilol (Coreg -) 25 mg PO BID [facility] Last Admin: 03/26/20 10:15 Dose: 25 mg Documented by: Collagenase (Santyl -) 1 applic TP DAILY [facility]; Protocol Last Admin: 03/26/20 12:17 Dose: 1 applic Documented by: Cyclobenzaprine HCl (Flexeril -) 10 mg PO TID [facility] Last Admin: 03/26/20 06:11 Dose: 10 mg Documented by: Heparin Sodium (Porcine) (Heparin -) 5,000 unit SQ TID [facility] Last Admin: 03/26/20 06:11 Dose: 5,000 unit Documented by: Hydralazine HCl (Apresoline -) 100 mg PO TID [facility] Last Admin: 03/26/20 06:11 Dose: 100 mg Documented by: Piperacillin Sod/Tazobactam (Sod 3.375 gm/ Dextrose) 50 mls @ 100 mls/hr IVPB Q8H-IV [facility]; Protocol Last Admin: 03/26/20 10:13 Dose: 100 mls/hr Documented by: Vancomycin HCl 500 mg/ (Dextrose) 100 mls @ 100 mls/hr IVPB ONCE ONE; Protocol Stop: 03/26/20 13:59 Insulin Aspart (Novolog Vial Sliding Scale -) 1 vial SQ ACHS [facility]; Protocol Last Admin: 03/26/20 12:17 Dose: 7 unit Documented by: Insulin Detemir (Levemir Vial) 50 units SQ AM [facility] Last Admin: 03/26/20 06:14 Dose: 50 units Documented by: Insulin Detemir (Levemir Vial) 50 units SQ HS [facility] Last Admin: 03/25/20 21:03 Dose: 50 units Documented by: Montelukast Sodium (Singulair -) 10 mg PO HS [facility] Last Admin: 03/25/20 21:01 Dose: 10 mg Documented by: Nystatin (Nystop Powder -) 1 applic TP BID [facility] Last Admin: 03/26/20 10:15 Dose: 1 applic Documented by: Prednisone (Deltasone -) 20 mg PO DAILY [facility] Last Admin: 03/26/20 10:15 Dose: 20 mg Documented by: - Objective Vital Signs: Vital Signs Temperature 98.4 F 03/26/20 10:12 Pulse Rate 91 H 03/26/20 10:12 Respiratory Rate 19 03/26/20 10:12 Blood Pressure 129/60 03/26/20 10:12 O2 Sat by Pulse Oximetry (%) 100 03/26/20 10:12 Constitutional: Yes: Anxious Labs: CBC, BMP 03/26/20 07:13 03/26/20 07:13 INR, PTT INR 0.92 (0.83-1.09) 03/21/20 03:33 Problem List - Problems (1) 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 Code(s): E10.620 - TYPE 1 DIABETES MELLITUS WITH DIABETIC DERMATITIS (2) CKD (chronic kidney disease) Code(s): N18.9 - CHRONIC KIDNEY DISEASE, UNSPECIFIED (3) Hyperglycemia Code(s): R73.9 - HYPERGLYCEMIA, UNSPECIFIED (4) Leg wound, left Code(s): S81.802A - UNSPECIFIED OPEN WOUND, LEFT LOWER LEG, INITIAL ENCOUNTER Qualifiers: Encounter type: initial encounter Qualified Code(s): S81.802A - Unspecified open wound, left lower leg, initial encounter (5) Proteinuria Code(s): R80.9 - PROTEINURIA, UNSPECIFIED (6) UTI (urinary tract infection) Code(s): N39.0 - URINARY TRACT INFECTION, SITE NOT SPECIFIED Qualifiers: Urinary tract infection type: acute cystitis Hematuria presence: without hematuria Qualified Code(s): N30.00 - Acute cystitis without hematuria Assessment/Plan Current Active Problems CKD (chronic kidney disease) (Acute) Hypercalcemia due to sarcoidosis (Acute) Hyperglycemia (Acute) Leg wound, left (Acute) Proteinuria (Acute) Sarcoidosis of lymph nodes (Acute) Sarcoidosis with granulomatous hepatitis (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
--- NOTE | 2020-03-26 15:42 | PN ---
Progress Note (short form) - Note Progress Note: VASCULAR 44yo F h/o LLE knee wound, pt denies worsening pain. Denies fever, chills, n/v. Last Vital Signs Temp Pulse Resp BP Pulse Ox 98.1 F 85 19 126/60 97 03/26/20 13:41 03/26/20 13:41 03/26/20 13:41 03/26/20 13:41 03/26/20 13:41 CBC, BMP 03/26/20 07:13 03/26/20 07:13 PE: Gen: A&O x3 Resp: breathing comfortably LLE: 3cm x 3cm ulcer with clean base, serous drainage. No erythema. Problem List - Problems (1) Leg wound, left Assessment/Plan: Plan -Continue antibiotics per ID/medical team -Elevate the lower extremity above the level of the heart at all times while at rest -LLE compression with jermaine wraps (wrap from metacarpal heads to below knee) -Domeboro soaks QD (astringent for pruritus) -Apply Lac hydrin daily (for dry scaly skin) -recommend compression dressing with Santyl -pt should follow up with Dr. Bingham in wound care clinic next week as outpatient Pt discussed with Dr. Bingham who agrees with plan. Code(s): S81.802A - UNSPECIFIED OPEN WOUND, LEFT LOWER LEG, INITIAL ENCOUNTER Qualifiers: Encounter type: initial encounter Qualified Code(s): S81.802A - Unspecified open wound, left lower leg, initial encounter
[2020-03-26] MEDS ORDERED: DEXTROSE 5%-WATER - 50 ML IVPB ONE (16:57)
[2020-03-26] MEDS ORDERED: PIPERACILLIN/TAZOBACTAM 3.375 GM VIAL IVPB ONE (16:57)
--- NOTE | 2020-03-26 17:34 | PN ---
Progress Note, Physician History of Present Illness: Pt seen and examined at bedside. She is awake and alert. - Current Medication List Current Medications: Active Medications Acetaminophen (Tylenol -) 325 mg PO Q8H PRN PRN Reason: PAIN 4-6 Last Admin: 03/26/20 10:13 Dose: 325 mg Documented by: Albuterol Sulfate (Ventolin Hfa Inhaler -) 2 puff IH Q4H PRN PRN Reason: WHEEZING Alprazolam (Xanax -) 0.25 mg PO ONCE PRN PRN Reason: ANXIETY Last Admin: 03/21/20 21:01 Dose: 0.25 mg Documented by: Atorvastatin Calcium (Lipitor -) 80 mg PO HS [facility] Last Admin: 03/25/20 21:01 Dose: 80 mg Documented by: Carvedilol (Coreg -) 25 mg PO BID [facility] Last Admin: 03/26/20 10:15 Dose: 25 mg Documented by: Collagenase (Santyl -) 1 applic TP DAILY [facility]; Protocol Last Admin: 03/26/20 12:17 Dose: 1 applic Documented by: Cyclobenzaprine HCl (Flexeril -) 10 mg PO TID [facility] Last Admin: 03/26/20 14:01 Dose: 10 mg Documented by: Heparin Sodium (Porcine) (Heparin -) 5,000 unit SQ TID [facility] Last Admin: 03/26/20 14:01 Dose: 5,000 unit Documented by: Hydralazine HCl (Apresoline -) 100 mg PO TID [facility] Last Admin: 03/26/20 14:01 Dose: 100 mg Documented by: Piperacillin Sod/Tazobactam (Sod 3.375 gm/ Dextrose) 50 mls @ 100 mls/hr IVPB Q8H-IV [facility]; Protocol Last Admin: 03/26/20 17:05 Dose: 100 mls/hr Documented by: Insulin Aspart (Novolog Vial Sliding Scale -) 1 vial SQ [facility]; Protocol Last Admin: 03/26/20 17:05 Dose: 10 unit Documented by: Insulin Detemir (Levemir Vial) 50 units SQ [facility] Last Admin: 03/25/20 21:03 Dose: 50 units Documented by: Insulin Detemir (Levemir Vial) 60 units SQ AM [facility] Montelukast Sodium (Singulair -) 10 mg PO [facility] Last Admin: 03/25/20 21:01 Dose: 10 mg Documented by: Nystatin (Nystop Powder -) 1 applic TP BID [facility] Last Admin: 03/26/20 10:15 Dose: 1 applic Documented by: Prednisone (Deltasone -) 20 mg PO DAILY [facility] Last Admin: 03/26/20 10:15 Dose: 20 mg Documented by: - Objective Vital Signs: Vital Signs Temperature 98.1 F 03/26/20 13:41 Pulse Rate 85 03/26/20 13:41 Respiratory Rate 19 03/26/20 13:41 Blood Pressure 126/60 03/26/20 13:41 O2 Sat by Pulse Oximetry (%) 97 03/26/20 13:41 Constitutional: Yes: Calm Eyes: Yes: Conjunctiva Clear HENT: Yes: Atraumatic Neck: Yes: Supple Cardiovascular: Yes: S1, S2 Respiratory: Yes: CTA Bilaterally Gastrointestinal: Yes: Soft Genitourinary: Yes: WNL Musculoskeletal: Yes: WNL Edema: No Neurological: Yes: Oriented Psychiatric: Yes: Oriented Labs: CBC, BMP 03/26/20 07:13 03/26/20 07:13 INR, PTT INR 0.92 (0.83-1.09) 03/21/20 03:33 Problem List - Problems (1) CKD (chronic kidney disease) Code(s): N18.9 - CHRONIC KIDNEY DISEASE, UNSPECIFIED (2) Proteinuria Code(s): R80.9 - PROTEINURIA, UNSPECIFIED (3) Hyperglycemia Code(s): R73.9 - HYPERGLYCEMIA, UNSPECIFIED Assessment/Plan Current Medications Generic Name Dose Route Start Last Admin Trade Name Robertoq PRN Reason Stop Dose Admin Acetaminophen 325 mg 03/21/20 09:21 03/26/20 10:13 Tylenol - PO 325 mg Q8H PRN Administration PAIN 4-6 Albuterol Sulfate 2 puff 03/21/20 09:15 Ventolin Hfa Inhaler - IH Q4H PRN WHEEZING Alprazolam 0.25 mg 03/21/20 19:10 03/21/20 21:01 Xanax - PO 0.25 mg ONCE PRN Administration ANXIETY Atorvastatin Calcium 80 mg 03/21/20 22:00 03/25/20 21:01 Lipitor - PO 80 mg HS MARIYA Administration Carvedilol 25 mg 03/21/20 10:00 03/26/20 10:15 Coreg - PO 25 mg BID MARIYA Administration Collagenase 1 applic 03/21/20 10:45 03/26/20 12:17 Santyl - TP 1 applic DAILY MARIYA Administration Protocol Cyclobenzaprine HCl 10 mg 03/21/20 14:00 03/26/20 14:01 Flexeril - PO 10 mg TID MARIYA Administration Heparin Sodium (Porcine) 5,000 unit 03/22/20 06:00 03/26/20 14:01 Heparin - SQ 5,000 unit TID MARIYA Administration Hydralazine HCl 100 mg 03/21/20 14:00 03/26/20 14:01 Apresoline - PO 100 mg TID MARIYA Administration Piperacillin Sod/Tazobactam 50 mls @ 100 mls/hr 03/24/20 18:00 03/26/20 17:05 Sod 3.375 gm/ Dextrose IVPB 100 mls/hr Q8H-IV MARIYA Administration Protocol Insulin Aspart 1 vial 03/26/20 16:30 03/26/20 17:05 Novolog Vial Sliding Scale - SQ 10 unit ACHS MARIYA Administration Protocol Insulin Detemir 50 units 03/25/20 08:32 03/25/20 21:03 Levemir Vial SQ 50 units HS MARIYA Administration Insulin Detemir 60 units 03/26/20 15:16 Levemir Vial SQ AM MARIYA Montelukast Sodium 10 mg 03/21/20 22:00 03/25/20 21:01 Singulair - PO 10 mg HS MARIYA Administration Nystatin 1 applic 03/22/20 22:00 03/26/20 10:15 Nystop Powder - TP 1 applic BID MARIYA Administration Prednisone 20 mg 03/24/20 11:49 03/26/20 10:15 Deltasone - PO 20 mg DAILY MARIYA Administration Impression 1. CKD 2. sarcoidosis with lung and liver involvement 3. proteinuria 4. DM 5. hld 6. htn 7. 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
[2020-03-26] MEDS ORDERED: INSULIN (NOVOLOG) ASPART 100 UNITS/ML 10ML VIAL ONE ×2 (17:37→22:04)
[2020-03-26] MEDS: INSULIN (LEVEMIR) 100 UNITS/ML UNITS SQ SCH (22:00)
[2020-03-26] MEDS: MONTELUKAST NA 10 MG TABLET PO SCH (22:00)
[2020-03-26] MEDS: ATORVASTATIN CA 80 MG TABLET (FP) PO SCH (22:02)
[2020-03-27] MEDS ORDERED: PIPERACILLIN/TAZOBACTAM 3.375 GM VIAL IVPB ONE ×3 (00:42→16:33)
[2020-03-27] MEDS ORDERED: DEXTROSE 5%-WATER - 50 ML IVPB ONE ×3 (00:42→16:33)
[2020-03-27] MEDS: PIPERACILLIN/TAZOB 3.375 GM 3.375 GM in DEXTROSE 5%-WATER - 50 ML IVPB SCH ×3 (01:05→16:59)
[2020-03-27] MEDS: HEPARIN NA (PORCINE) 5,000 UNITS/ML 1ML VIAL SQ SCH ×3 (06:05→21:44)
[2020-03-27] MEDS: INSULIN SLIDING SCALE (NOVOLOG) 1 VIAL SQ SCH ×4 (06:05→21:50)
[2020-03-27] MEDS: hydrALAZINE HCL 50 MG TABLET (FP) PO SCH ×3 (06:05→21:44)
[2020-03-27] MEDS: CYCLOBENZAPRINE HCL 10 MG TABLET (FP) PO SCH ×3 (06:05→21:44)
[2020-03-27] MEDS ORDERED: INSULIN (NOVOLOG) ASPART 100 UNITS/ML 10ML VIAL ONE ×3 (06:12→22:04)
[2020-03-27 07:24] LABS: HEMATOCRIT 32.6 % (32.4-45.2); HEMOGLOBIN 10.5 GM/dL (10.7-15.3); MCH 26.8 pg (25.7-33.7); MCHC 32.1 g/dl (32.0-36.0); MEAN CELL VOLUME 83.3 fl (80-96); MEAN PLT VOLUME 8.9 fl (7.5-11.1); PLATELET COUNT 315 K/MM3 (134-434); RBC 3.91 M/mm3 (3.60-5.2); RDW 15.4 % (11.6-15.6); WHITE BLOOD COUNT 12.4 K/mm3 (4.0-10.0)
[2020-03-27 07:56] LABS: CALCIUM 9.3 mg/dL (8.5-10.1); CREATININE 2.2 mg/dL (0.55-1.3); PHOSPHOROUS 4.2 mg/dL (2.5-4.9); POTASSIUM 4.2 mmol/L (3.5-5.1)
[2020-03-27] MEDS: CARVEDILOL 25 MG TABLET (FP) PO SCH ×2 (09:05→21:44)
[2020-03-27] MEDS: predniSONE 20 MG TABLET (UD) PO SCH (09:05)
[2020-03-27] MEDS: COLLAGENASE CLOSTRIDIUM HIST. 30 GRAMS TUBE TP SCH (09:09)
[2020-03-27] MEDS: NYSTATIN POWDER 100,000 UNITS/GM - 15 GM TOPICAL POWDER TP SCH ×2 (09:09→21:55)
--- NOTE | 2020-03-27 10:04 | PN ---
Progress Note (short form) - Note Progress Note: PULMONARY No overnight events. Denies shortness of breath, cough or wheezing. No fevers. Vital Signs Period Temp Pulse Resp BP Sys/Albert Pulse Ox Last 24 Hr 98.1 F-99.1 F 85-102 19-20 126-151/60-88 97-100 Gen: NAD at rest Heart: RRR Lung: distant breath sounds Abd: soft, nontender Ext: no edema CBC, BMP 03/27/20 06:45 03/27/20 06:45 Active Medications Acetaminophen (Tylenol -) 325 mg PO Q8H PRN PRN Reason: PAIN 4-6 Last Admin: 03/26/20 10:13 Dose: 325 mg Documented by: Albuterol Sulfate (Ventolin Hfa Inhaler -) 2 puff IH Q4H PRN PRN Reason: WHEEZING Alprazolam (Xanax -) 0.25 mg PO ONCE PRN PRN Reason: ANXIETY Last Admin: 03/21/20 21:01 Dose: 0.25 mg Documented by: Atorvastatin Calcium (Lipitor -) 80 mg PO HS [facility] Last Admin: 03/26/20 22:02 Dose: 80 mg Documented by: Carvedilol (Coreg -) 25 mg PO BID [facility] Last Admin: 03/27/20 09:05 Dose: 25 mg Documented by: Collagenase (Santyl -) 1 applic TP DAILY [facility]; Protocol Last Admin: 03/27/20 09:09 Dose: 1 applic Documented by: Cyclobenzaprine HCl (Flexeril -) 10 mg PO TID [facility] Last Admin: 03/27/20 06:05 Dose: 10 mg Documented by: Heparin Sodium (Porcine) (Heparin -) 5,000 unit SQ TID [facility] Last Admin: 03/27/20 06:05 Dose: 5,000 unit Documented by: Hydralazine HCl (Apresoline -) 100 mg PO TID [facility] Last Admin: 03/27/20 06:05 Dose: 100 mg Documented by: Piperacillin Sod/Tazobactam (Sod 3.375 gm/ Dextrose) 50 mls @ 100 mls/hr IVPB Q8H-IV [facility]; Protocol Last Admin: 03/27/20 09:05 Dose: 100 mls/hr Documented by: Insulin Aspart (Novolog Vial Sliding Scale -) 1 vial SQ ACHS [facility]; Protocol Last Admin: 03/27/20 06:05 Dose: 9 unit Documented by: Insulin Detemir (Levemir Vial) 50 units SQ HS [facility] Last Admin: 03/26/20 22:00 Dose: 50 units Documented by: Insulin Detemir (Levemir Vial) 60 units SQ AM [facility] Montelukast Sodium (Singulair -) 10 mg PO HS [facility] Last Admin: 03/26/20 22:00 Dose: 10 mg Documented by: Nystatin (Nystop Powder -) 1 applic TP BID [facility] Last Admin: 03/27/20 09:09 Dose: 1 applic Documented by: Prednisone (Deltasone -) 20 mg PO DAILY [facility] Last Admin: 03/27/20 09:05 Dose: 20 mg Documented by: A/P L Knee Wound Infection UTI Uncontrolled DM Sarcoidosis Asthma CKD - continue antibiotics per ID - taper off prednisone - outpt PFTs and f/u - DVT prophylaxis
[2020-03-27] MEDS ORDERED: VANCOMYCIN 500 MG in DEXTROSE 5%-WATER - 100 ML IVPB ONE (15:51)
--- NOTE | 2020-03-27 15:52 | PN ---
Progress Note (short form) - Note Progress Note: doing well prednisone being tapered Vital Signs Period Temp Pulse Resp BP Sys/Albert Pulse Ox Last 24 Hr 98.2 F-99.1 F 86-102 20-20 126-151/67-88 97-99 cor-rrr lungs clear wound is much waste cotton cleaner Microbiology 03/21/20 04:32 Leg - Left Knee Gram Stain - Final 03/21/20 04:32 Leg - Left Knee Wound Culture - Final Providencia Rettgeri Enterobacter Cloacae Klebsiella Pneumoniae Mr S Aureus 03/22/20 13:00 Urine - Urine Clean Catch Urine Culture - Final Enterococcus Faecalis ct scan no signs abscess CBC, BMP 03/27/20 06:45 03/27/20 06:45 vanco trough 16 Microbiology 03/22/20 13:00 Urine - Urine Clean Catch Urine Culture - Final Enterococcus Faecalis 03/21/20 04:32 Leg - Left Knee Gram Stain - Final 03/21/20 04:32 Leg - Left Knee Wound Culture - Preliminary Proteus Species Enterobacter Cloacae Klebsiella Pneumoniae Mr S Aureus crp 1.1 a/p LLE wound- no signs of deep tissue/bone involvement-continue vanco/zosyn-redose vanco 500mg today, check level in am with her poorly controlled diabetes would consider further imaging of her leg- either MRI or CT scan- hardware was placed one year ago at [facility] suggest finishing 7 days iv antibiotics- now day #6, then home on po clindamycin 300 tid for another week she should f/u with her ortho at [place]-she is aware also with wound care- I can see her at wound care as well when she schedules f/u appt there sarcoid- -will add mepron, can check g6pd if negative can switch to dapsone, would not use bactrim due to her CKD poorly controlled DM- hgb a1c elevated at 14.7- llikes white bread! diet discussed and need for glucose control reviewed CKD-noted
--- NOTE | 2020-03-27 17:22 | PN ---
Progress Note, Physician History of Present Illness: Pt seen and examined at bedside. She is awake and appears comfortable. She denies dysuria or hematuria. - Current Medication List Current Medications: Active Medications Acetaminophen (Tylenol -) 325 mg PO Q8H PRN PRN Reason: PAIN 4-6 Last Admin: 03/26/20 10:13 Dose: 325 mg Documented by: Albuterol Sulfate (Ventolin Hfa Inhaler -) 2 puff IH Q4H PRN PRN Reason: WHEEZING Alprazolam (Xanax -) 0.25 mg PO ONCE PRN PRN Reason: ANXIETY Last Admin: 03/21/20 21:01 Dose: 0.25 mg Documented by: Atorvastatin Calcium (Lipitor -) 80 mg PO HS [facility] Last Admin: 03/26/20 22:02 Dose: 80 mg Documented by: Atovaquone (Mepron -) 1,500 mg PO DAILY@0800 [facility] Carvedilol (Coreg -) 25 mg PO BID [facility] Last Admin: 03/27/20 09:05 Dose: 25 mg Documented by: Collagenase (Santyl -) 1 applic TP DAILY [facility]; Protocol Last Admin: 03/27/20 09:09 Dose: 1 applic Documented by: Cyclobenzaprine HCl (Flexeril -) 10 mg PO TID [facility] Last Admin: 03/27/20 13:07 Dose: 10 mg Documented by: Heparin Sodium (Porcine) (Heparin -) 5,000 unit SQ TID [facility] Last Admin: 03/27/20 13:07 Dose: 5,000 unit Documented by: Hydralazine HCl (Apresoline -) 100 mg PO TID [facility] Last Admin: 03/27/20 13:07 Dose: 100 mg Documented by: Piperacillin Sod/Tazobactam (Sod 3.375 gm/ Dextrose) 50 mls @ 100 mls/hr IVPB Q8H-IV [facility]; Protocol Last Admin: 03/27/20 16:59 Dose: 100 mls/hr Documented by: Insulin Aspart (Novolog Vial Sliding Scale -) 1 vial SQ [facility]; Protocol Last Admin: 03/27/20 16:19 Dose: 10 unit Documented by: Insulin Detemir (Levemir Vial) 50 units SQ [facility] Last Admin: 03/26/20 22:00 Dose: 50 units Documented by: Insulin Detemir (Levemir Vial) 60 units SQ AM [facility] Montelukast Sodium (Singulair -) 10 mg PO HS [facility] Last Admin: 03/26/20 22:00 Dose: 10 mg Documented by: Nystatin (Nystop Powder -) 1 applic TP BID [facility] Last Admin: 03/27/20 09:09 Dose: 1 applic Documented by: Prednisone (Deltasone -) 20 mg PO DAILY [facility] Last Admin: 03/27/20 09:05 Dose: 20 mg Documented by: - Objective Vital Signs: Vital Signs Temperature 98.7 F 03/27/20 14:16 Pulse Rate 89 03/27/20 14:16 Respiratory Rate 03/27/20 14:16 Blood Pressure 126/67 03/27/20 14:16 O2 Sat by Pulse Oximetry (%) 97 03/27/20 09:00 Constitutional: Yes: Calm Eyes: Yes: Conjunctiva Clear HENT: Yes: Atraumatic Neck: Yes: Supple Cardiovascular: Yes: S1, S2 Respiratory: Yes: CTA Bilaterally Gastrointestinal: Yes: Soft, Abdomen, Obese Genitourinary: Yes: WNL Musculoskeletal: Yes: WNL Edema: No Wound/Incision: Yes: Dressing Dry and Intact Neurological: Yes: Oriented Psychiatric: Yes: Oriented Labs: CBC, BMP 03/27/20 06:45 03/27/20 06:45 INR, PTT INR 0.92 (0.83-1.09) 03/21/20 03:33 Problem List - Problems (1) CKD (chronic kidney disease) Code(s): N18.9 - CHRONIC KIDNEY DISEASE, UNSPECIFIED (2) Proteinuria Code(s): R80.9 - PROTEINURIA, UNSPECIFIED (3) Hyperglycemia Code(s): R73.9 - HYPERGLYCEMIA, UNSPECIFIED Assessment/Plan Current Medications Generic Name Dose Route Start Last Admin Trade Name Freq PRN Reason Stop Dose Admin Acetaminophen 325 mg 03/21/20 09:21 03/26/20 10:13 Tylenol - PO 325 mg Q8H PRN Administration PAIN 4-6 Albuterol Sulfate 2 puff 03/21/20 09:15 Ventolin Hfa Inhaler - IH Q4H PRN WHEEZING Alprazolam 0.25 mg 03/21/20 19:10 03/21/20 21:01 Xanax - PO 0.25 mg ONCE PRN Administration ANXIETY Atorvastatin Calcium 80 mg 03/21/20 22:00 03/25/20 21:01 Lipitor - PO 80 mg HS [facility] Administration Carvedilol 25 mg 03/21/20 10:00 03/26/20 10:15 Coreg - PO 25 mg BID [facility] Administration Collagenase 1 applic 03/21/20 10:45 03/26/20 12:17 Santyl - TP 1 applic DAILY [facility] Administration Protocol Cyclobenzaprine HCl 10 mg 03/21/20 14:00 03/26/20 14:01 Flexeril - PO 10 mg TID [facility] Administration Heparin Sodium (Porcine) 5,000 unit 03/22/20 06:00 03/26/20 14:01 Heparin - SQ 5,000 unit TID [facility] Administration Hydralazine HCl 100 mg 03/21/20 14:00 03/26/20 14:01 Apresoline - PO 100 mg TID [facility] Administration Piperacillin Sod/Tazobactam 50 mls @ 100 mls/hr 03/24/20 18:00 03/26/20 17:05 Sod 3.375 gm/ Dextrose IVPB 100 mls/hr Q8H-IV [facility] Administration Protocol Insulin Aspart 1 vial 03/26/20 16:30 03/26/20 17:05 Novolog Vial Sliding Scale - SQ 10 unit ACHS [facility] Administration Protocol Insulin Detemir 50 units 03/25/20 08:32 03/25/20 21:03 Levemir Vial SQ 50 units HS [facility] Administration Insulin Detemir 60 units 03/26/20 15:16 Levemir Vial SQ AM [facility] Montelukast Sodium 10 mg 03/21/20 22:00 03/25/20 21:01 Singulair - PO 10 mg HS [facility] Administration Nystatin 1 applic 03/22/20 22:00 03/26/20 10:15 Nystop Powder - TP 1 applic BID [facility] Administration Prednisone 20 mg 03/24/20 11:49 03/26/20 10:15 Deltasone - PO 20 mg DAILY [facility] Administration Impression 1. CKD 2. sarcoidosis with lung and liver involvement 3. proteinuria 4. DM 5. hld 6. htn 7. hypercalcemia Plan - renal function close to baseline - monitor calcium - prednisone dose per pulm - cont wound care - monitor glucose
--- NOTE | 2020-03-27 17:34 | PN ---
Physical Exam: SUBJECTIVE: Patient seen and examined at bedside. Patient does not endorse acute events overnight. OBJECTIVE: Vital Signs Period Temp Pulse Resp BP Sys/Albert Pulse Ox Last 24 Hr 98.2 F-99.1 F 86-102 20-20 126-151/67-88 97-99 GENERAL: The patient is awake, alert, and fully oriented, in no acute distress. HEAD: Normal with no signs of trauma. LUNGS: Breath sounds equal, clear to auscultation bilaterally, no wheezes, no crackles, no accessory muscle use. HEART: Regular rate and rhythm, S1, S2 without murmur, rub or gallop. EXTREMITIES: 2+ pulses, warm, well-perfused, no edema. Laboratory Results - last 24 hr 03/26/20 03/27/20 03/27/20 21:59 06:02 06:45 WBC RBC Hgb Hct MCV MCH MCHC RDW Plt Count MPV ESR Sodium Potassium Chloride Carbon Dioxide Anion Gap BUN Creatinine Est GFR (CKD-EPI)AfAm Est GFR (CKD-EPI)NonAf POC Glucometer 270 215 Random Glucose Calcium Phosphorus Magnesium C-Reactive Protein Random Vancomycin 16.2 03/27/20 03/27/20 03/27/20 06:45 06:45 06:45 WBC 12.4 H RBC 3.91 Hgb 10.5 L Hct 32.6 MCV 83.3 MCH 26.8 MCHC 32.1 RDW 15.4 Plt Count 315 D MPV 8.9 ESR 79 H Sodium 141 Potassium 4.2 Chloride 110 H Carbon Dioxide 21 Anion Gap 9 BUN 48.0 H Creatinine 2.2 H Est GFR (CKD-EPI)AfAm 30.59 Est GFR (CKD-EPI)NonAf 26.39 POC Glucometer Random Glucose 195 H Calcium 9.3 Phosphorus 4.2 Magnesium 2.0 C-Reactive Protein 1.1 H Random Vancomycin 03/27/20 03/27/20 11:18 16:14 WBC RBC Hgb Hct MCV MCH MCHC RDW Plt Count MPV ESR Sodium Potassium Chloride Carbon Dioxide Anion Gap BUN Creatinine Est GFR (CKD-EPI)AfAm Est GFR (CKD-EPI)NonAf POC Glucometer 157 300 Random Glucose Calcium Phosphorus Magnesium C-Reactive Protein Random Vancomycin Active Medications Generic Name Dose Route Start Last Admin Trade Name Freq PRN Reason Stop Dose Admin Acetaminophen 325 mg 03/21/20 09:21 03/26/20 10:13 Tylenol - PO 325 mg Q8H PRN Administration PAIN 4-6 Albuterol Sulfate 2 puff 03/21/20 09:15 Ventolin Hfa Inhaler - IH Q4H PRN WHEEZING Alprazolam 0.25 mg 03/21/20 19:10 03/21/20 21:01 Xanax - PO 0.25 mg ONCE PRN Administration ANXIETY Atorvastatin Calcium 80 mg 03/21/20 22:00 03/26/20 22:02 Lipitor - PO 80 mg HS [facility] Administration Atovaquone 1,500 mg 03/28/20 08:00 Mepron - PO DAILY@0800 [facility] Carvedilol 25 mg 03/21/20 10:00 03/27/20 09:05 Coreg - PO 25 mg BID [facility] Administration Collagenase 1 applic 03/21/20 10:45 03/27/20 09:09 Santyl - TP 1 applic DAILY [facility] Administration Protocol Cyclobenzaprine HCl 10 mg 03/21/20 14:00 03/27/20 13:07 Flexeril - PO 10 mg TID [facility] Administration Heparin Sodium (Porcine) 5,000 unit 03/22/20 06:00 03/27/20 13:07 Heparin - SQ 5,000 unit TID [facility] Administration Hydralazine HCl 100 mg 03/21/20 14:00 03/27/20 13:07 Apresoline - PO 100 mg TID [facility] Administration Piperacillin Sod/Tazobactam 50 mls @ 100 mls/hr 03/24/20 18:00 03/27/20 16:59 Sod 3.375 gm/ Dextrose IVPB 100 mls/hr Q8H-IV [facility] Administration Protocol Insulin Aspart 1 vial 03/26/20 16:30 03/27/20 16:19 Novolog Vial Sliding Scale - SQ 10 unit ACHS [facility] Administration Protocol Insulin Detemir 50 units 03/25/20 08:32 03/26/20 22:00 Levemir Vial SQ 50 units HS [facility] Administration Insulin Detemir 60 units 03/26/20 15:16 Levemir Vial SQ AM [facility] Montelukast Sodium 10 mg 03/21/20 22:00 03/26/20 22:00 Singulair - PO 10 mg HS [facility] Administration Nystatin 1 applic 03/22/20 22:00 03/27/20 09:09 Nystop Powder - TP 1 applic BID [facility] Administration Prednisone 20 mg 03/24/20 11:49 03/27/20 09:05 Deltasone - PO 20 mg DAILY [facility] Administration ASSESSMENT/PLAN: Ms. Hinton is a 44F w a h/o sarcoidosis stage 4 (lymph lungs liver) was on 30mg PO prednisone, IDDM, cks, asthma, htn, with an extensive surgical hixtory of hip replacement, spinal and tibial repair. Patient presented to the ED for abnormally elevated blood glucose levels, and a LEFT LATERAL LEG wound found to be positive for klebsiella and MRSA. #Left Lateral Leg wound - MRSA, Klebsiella, Providencia, Enterobacter positive - patient is day 6/ of IV abx - Random vancomycin level of - 16% - CT scan of leg negative for bone involvement #AMBIKA - Cr trending down 2.2 - Spoke to Dr. Dickerson from [facility] - reports bl Cr circa 2019 was ~1.4 - Urine Na - Kidney ultrasound - Nephro consulted #Poorly controlled IDDM - A1C - 14 - Random glucose 244 - Dr. Lo consulted - Levemir 2x a day (60am and 50pm) with converage of novolog; DC 70/30 novolog #Sarcoidosis Stage 4 - Prednisone taper currently on 20mg - Will follow up with Dr. Chase outpatient for Pulmonary Function tests #HTN - Home dose of antihypertensive medication #DVT - Heparin Sq Visit type - Emergency Visit Emergency Visit: Yes ED Registration Date: 03/21/20 Care time: The patient presented to the Emergency Department on the above date and was hospitalized for further evaluation of their emergent condition. - New Patient This patient is new to me today: No - Critical Care Critical Care patient: No - Discharge Referral Referred to [facility] Med P.C.: No ATTENDING PHYSICIAN STATEMENT I saw and evaluated the patient. I reviewed the resident's note and discussed the case with the resident. I agree with the resident's findings and plan as documented. SUBJECTIVE: OBJECTIVE: ASSESSMENT AND PLAN:
--- NOTE | 2020-03-27 18:52 | PN ---
Teaching Attending Note Name of Resident: Tavon Lo ATTENDING PHYSICIAN STATEMENT I saw and evaluated the patient. I reviewed the resident's note and discussed the case with the resident. I agree with the resident's findings and plan as documented. SUBJECTIVE: Feeling well, no complaints. LLE discomfort improving. OBJECTIVE: Afebrile, Hemodynamically Stable. Last Vital Signs Temp Pulse Resp BP Pulse Ox 98.7 F 89 20 126/67 97 03/27/20 14:16 03/27/20 14:16 03/27/20 14:16 03/27/20 14:16 03/27/20 09:00 HEENT - Atraumatic, normocephalic. Heart - S1, S2, RRR Lungs - clear to auscultation Abdomen - High BMI, soft, non-tender. Bowel Sounds normal. Extremities - LLE lateral ulcer distal to knee with purulence. No calf tenderness. Neuro - AAO x 3. Tone/Power normal all extremities. Laboratory Results - last 24 hr 03/26/20 03/27/20 03/27/20 21:59 06:02 06:45 WBC RBC Hgb Hct MCV MCH MCHC RDW Plt Count MPV ESR Sodium Potassium Chloride Carbon Dioxide Anion Gap BUN Creatinine Est GFR (CKD-EPI)AfAm Est GFR (CKD-EPI)NonAf POC Glucometer 270 215 Random Glucose Calcium Phosphorus Magnesium C-Reactive Protein Random Vancomycin 16.2 03/27/20 03/27/20 03/27/20 06:45 06:45 06:45 WBC 12.4 H RBC 3.91 Hgb 10.5 L Hct 32.6 MCV 83.3 MCH 26.8 MCHC 32.1 RDW 15.4 Plt Count 315 D MPV 8.9 ESR 79 H Sodium 141 Potassium 4.2 Chloride 110 H Carbon Dioxide 21 Anion Gap 9 BUN 48.0 H Creatinine 2.2 H Est GFR (CKD-EPI)AfAm 30.59 Est GFR (CKD-EPI)NonAf 26.39 POC Glucometer Random Glucose 195 H Calcium 9.3 Phosphorus 4.2 Magnesium 2.0 C-Reactive Protein 1.1 H Random Vancomycin 03/27/20 03/27/20 11:18 16:14 WBC RBC Hgb Hct MCV MCH MCHC RDW Plt Count MPV ESR Sodium Potassium Chloride Carbon Dioxide Anion Gap BUN Creatinine Est GFR (CKD-EPI)AfAm Est GFR (CKD-EPI)NonAf POC Glucometer 157 300 Random Glucose Calcium Phosphorus Magnesium C-Reactive Protein Random Vancomycin Current Medications Generic Name Dose Route Start Last Admin Trade Name Courtney PRN Reason Stop Dose Admin Acetaminophen 325 mg 03/21/20 09:21 03/26/20 10:13 Tylenol - PO 325 mg Q8H PRN Administration PAIN 4-6 Albuterol Sulfate 2 puff 03/21/20 09:15 Ventolin Hfa Inhaler - IH Q4H PRN WHEEZING Alprazolam 0.25 mg 03/21/20 19:10 03/21/20 21:01 Xanax - PO 0.25 mg ONCE PRN Administration ANXIETY Atorvastatin Calcium 80 mg 03/21/20 22:00 03/26/20 22:02 Lipitor - PO 80 mg HS [facility] Administration Atovaquone 1,500 mg 03/28/20 08:00 Mepron - PO DAILY@0800 [facility] Carvedilol 25 mg 03/21/20 10:00 03/27/20 09:05 Coreg - PO 25 mg BID [facility] Administration Collagenase 1 applic 03/21/20 10:45 03/27/20 09:09 Santyl - TP 1 applic DAILY [facility] Administration Protocol Cyclobenzaprine HCl 10 mg 03/21/20 14:00 03/27/20 13:07 Flexeril - PO 10 mg TID [facility] Administration Heparin Sodium (Porcine) 5,000 unit 03/22/20 06:00 03/27/20 13:07 Heparin - SQ 5,000 unit TID [facility] Administration Hydralazine HCl 100 mg 03/21/20 14:00 03/27/20 13:07 Apresoline - PO 100 mg TID [facility] Administration Piperacillin Sod/Tazobactam 50 mls @ 100 mls/hr 03/24/20 18:00 03/27/20 16:59 Sod 3.375 gm/ Dextrose IVPB 100 mls/hr Q8H-IV [facility] Administration Protocol Insulin Aspart 1 vial 03/26/20 16:30 03/27/20 16:19 Novolog Vial Sliding Scale - SQ 10 unit ACHS [facility] Administration Protocol Insulin Detemir 50 units 03/25/20 08:32 03/26/20 22:00 Levemir Vial SQ 50 units HS [facility] Administration Insulin Detemir 60 units 03/28/20 07:00 Levemir Vial SQ AM [facility] Montelukast Sodium 10 mg 03/21/20 22:00 03/26/20 22:00 Singulair - PO 10 mg HS [facility] Administration Nystatin 1 applic 03/22/20 22:00 03/27/20 09:09 Nystop Powder - TP 1 applic BID [facility] Administration Prednisone 20 mg 03/24/20 11:49 03/27/20 09:05 Deltasone - PO 20 mg DAILY [facility] Administration Home Medications Medication Instructions Recorded Insulin Lispro [Humalog] 18 unit SQ TID 12/30/16 Oxycodone HCl/Acetaminophen 2 each PO Q8H PRN MDD 6 12/30/16 [Percocet 10-325 mg Tablet] Albuterol Sulfate Inhaler - 2 inh PO Q4H PRN 01/02/17 [Ventolin Hfa Inhaler -] Alprazolam [Xanax] 0.25 mg PO DAILY 03/21/20 Atorvastatin Ca [Lipitor] 80 mg PO HS 03/21/20 Carvedilol [Coreg -] 25 mg PO BID 03/21/20 Clonidine HCl 0.1 mg PO BID 03/21/20 Cyclobenzaprine HCl [Flexeril -] 10 mg PO TID 03/21/20 Hydralazine HCl 100 mg PO TID 03/21/20 Insulin Glargine,Hum.rec.anlog 60 unit SQ DAILY 03/21/20 [Basaglar Kwikpen U-100] Insulin NPH Human Isophane 14 unit SQ DAILY 03/21/20 [Humulin N] Montelukast Sodium [Singulair] 10 mg PO HS 03/21/20 Prednisone 30 mg PO DAILY 03/21/20 ASSESSMENT AND PLAN: 44 year old female with history of HTN, DM 2, Sarcoidosis (Lung, Liver) on chronic prednisone, Asthma, Anxiety, CKD 3, s/p spinal surgery, s/p left hip replacement, s/p ORIF for tibial plateau fracture, presents with L lateral knee ulcer. 1. L Lateral Knee Ulcer infection/cellulitis - MRSA +ve Polymicrobial - Klebsiella, MRSA, Enterococcus, Providencia. IV Zosyn/Vanco as per ID for 7 days with transition to PO Clindamycin CT LLE - shows superficial 3x3cm ulcer, cellulitis, no hardware involvement/abscess. For follow up with patient's Orthopedic Surgeon as out-patient. Wound Care recommendations appreciated - CELINE-I, Lac Hydrin, Santyl dressings. 2. DM 2 - uncontrolled. A1C 14.7 Evaluated by Endocrinology - recommend Levemir 60AM/50PM For out-patient follow up and transition to Insulin Pump. 3. Sarcoidosis, stable Evaluated by Pulm For slow Prednisone taper and out-patient Pulm follow up for PFTs. Mepron recommended by ID. For G6PD level and change to Dapsone depending on result. 4. UTI - entrococcus Continue Zosayn (Day 6) 5. HTN - Continue Hydralazine, Coreg. Clonidine held. 6. CKD 3 - Stable. Nephrology following. 7. HLD - continue Lipitor. 8. Anxiety - continue Xanax PRN. DVT Px - Heparin SQ
[2020-03-27] MEDS: ATORVASTATIN CA 80 MG TABLET (FP) PO SCH (21:44)
[2020-03-27] MEDS: MONTELUKAST NA 10 MG TABLET PO SCH (21:44)
[2020-03-27] MEDS: INSULIN (LEVEMIR) 100 UNITS/ML UNITS SQ SCH (21:49)
[2020-03-27] MEDS ORDERED: PT OWN MED DRAWER 7, Y5N ONE (22:04)
[2020-03-27] MEDS ORDERED: INSULIN (LEVEMIR) 100 UNITS/ML UNITS SQ ONE (22:04)
[2020-03-28] MEDS ORDERED: DEXTROSE 5%-WATER - 50 ML IVPB ONE ×2 (01:12→09:56)
[2020-03-28] MEDS ORDERED: PIPERACILLIN/TAZOBACTAM 3.375 GM VIAL IVPB ONE ×2 (01:12→09:56)
[2020-03-28] MEDS: PIPERACILLIN/TAZOB 3.375 GM 3.375 GM in DEXTROSE 5%-WATER - 50 ML IVPB SCH ×2 (01:36→10:10)
[2020-03-28] MEDS ORDERED: INSULIN (NOVOLOG) ASPART 100 UNITS/ML 10ML VIAL ONE ×4 (05:44→17:46)
[2020-03-28] MEDS ORDERED: INSULIN (LEVEMIR) 100 UNITS/ML UNITS SQ ONE ×2 (05:47→06:08)
[2020-03-28] MEDS: HEPARIN NA (PORCINE) 5,000 UNITS/ML 1ML VIAL SQ SCH ×2 (05:52→14:30)
[2020-03-28] MEDS: hydrALAZINE HCL 50 MG TABLET (FP) PO SCH ×2 (05:52→14:30)
[2020-03-28] MEDS: CYCLOBENZAPRINE HCL 10 MG TABLET (FP) PO SCH ×2 (05:52→14:30)
[2020-03-28] MEDS: INSULIN SLIDING SCALE (NOVOLOG) 1 VIAL SQ SCH ×3 (06:05→16:57)
[2020-03-28] MEDS ORDERED: INSULIN (LEVEMIR) 100 UNITS/ML UNITS SQ SCH ×4 (07:00→22:00)
[2020-03-28 07:24] LABS: HEMATOCRIT 31.2 % (32.4-45.2); HEMOGLOBIN 10.3 GM/dL (10.7-15.3); MCH 27.7 pg (25.7-33.7); MCHC 33.1 g/dl (32.0-36.0); MEAN CELL VOLUME 83.7 fl (80-96); MEAN PLT VOLUME 8.9 fl (7.5-11.1); PLATELET COUNT 291 K/MM3 (134-434); RBC 3.73 M/mm3 (3.60-5.2); RDW 15.2 % (11.6-15.6); WHITE BLOOD COUNT 11.2 K/mm3 (4.0-10.0)
[2020-03-28 07:35] LABS: CALCIUM 8.9 mg/dL (8.5-10.1); CREATININE 2.4 mg/dL (0.55-1.3); MAGNESIUM 1.9 mg/dL (1.8-2.4); PHOSPHOROUS 4.6 mg/dL (2.5-4.9); POTASSIUM 4.3 mmol/L (3.5-5.1)
[2020-03-28] MEDS ORDERED: ATOVAQUONE 750 MG/5 ML (UNIT-DOSE PACKAGING) PO SCH (08:00)
[2020-03-28] MEDS: predniSONE 20 MG TABLET (UD) PO SCH (10:10)
[2020-03-28] MEDS: CARVEDILOL 25 MG TABLET (FP) PO SCH (10:10)
[2020-03-28] MEDS: NYSTATIN POWDER 100,000 UNITS/GM - 15 GM TOPICAL POWDER TP SCH (10:11)
--- NOTE | 2020-03-28 10:39 | PN ---
Progress Note, Physician History of Present Illness: pulmonary alert,comfortable at rest ,+ blackwell,-cp,-cough - Current Medication List Current Medications: Active Medications Acetaminophen (Tylenol -) 325 mg PO Q8H PRN PRN Reason: PAIN 4-6 Last Admin: 03/26/20 10:13 Dose: 325 mg Documented by: Albuterol Sulfate (Ventolin Hfa Inhaler -) 2 puff IH Q4H PRN PRN Reason: WHEEZING Alprazolam (Xanax -) 0.25 mg PO ONCE PRN PRN Reason: ANXIETY Last Admin: 03/21/20 21:01 Dose: 0.25 mg Documented by: Atorvastatin Calcium (Lipitor -) 80 mg PO HS [facility] Last Admin: 03/27/20 21:44 Dose: 80 mg Documented by: Atovaquone (Mepron -) 1,500 mg PO DAILY@0800 [facility] Carvedilol (Coreg -) 25 mg PO BID [facility] Last Admin: 03/28/20 10:10 Dose: 25 mg Documented by: Collagenase (Santyl -) 1 applic TP DAILY [facility]; Protocol Last Admin: 03/27/20 09:09 Dose: 1 applic Documented by: Cyclobenzaprine HCl (Flexeril -) 10 mg PO TID [facility] Last Admin: 03/28/20 05:52 Dose: 10 mg Documented by: Heparin Sodium (Porcine) (Heparin -) 5,000 unit SQ TID [facility] Last Admin: 03/28/20 05:52 Dose: 5,000 unit Documented by: Hydralazine HCl (Apresoline -) 100 mg PO TID [facility] Last Admin: 03/28/20 05:52 Dose: 100 mg Documented by: Piperacillin Sod/Tazobactam (Sod 3.375 gm/ Dextrose) 50 mls @ 100 mls/hr IVPB Q8H-IV [facility]; Protocol Last Admin: 03/28/20 10:10 Dose: 100 mls/hr Documented by: Insulin Aspart (Novolog Vial Sliding Scale -) 1 vial SQ [facility]; Protocol Last Admin: 03/28/20 06:05 Dose: 9 unit Documented by: Insulin Detemir (Levemir Vial) 50 units SQ [facility] Last Admin: 03/27/20 21:49 Dose: 50 units Documented by: Insulin Detemir (Levemir Vial) 60 units SQ AM [facility] Last Admin: 03/28/20 06:06 Dose: 60 units Documented by: Montelukast Sodium (Singulair -) 10 mg PO HS [facility] Last Admin: 03/27/20 21:44 Dose: 10 mg Documented by: Nystatin (Nystop Powder -) 1 applic TP BID [facility] Last Admin: 03/28/20 10:11 Dose: 1 applic Documented by: Prednisone (Deltasone -) 20 mg PO DAILY [facility] Last Admin: 03/28/20 10:10 Dose: 20 mg Documented by: - Objective Vital Signs: Vital Signs Temperature 98.4 F 03/28/20 10:00 Pulse Rate 96 H 03/28/20 10:00 Respiratory Rate 18 03/28/20 10:00 Blood Pressure 144/82 03/28/20 10:00 O2 Sat by Pulse Oximetry (%) 100 03/28/20 10:00 Constitutional: Yes: Calm, Obese Eyes: Yes: WNL HENT: Yes: WNL Neck: Yes: WNL Cardiovascular: Yes: Regular Rate and Rhythm, S1, S2 Respiratory: Yes: Diminished Gastrointestinal: Yes: Normal Bowel Sounds, Soft Extremities: Yes: WNL Edema: No Labs: CBC, BMP 03/28/20 06:26 03/28/20 06:26 INR, PTT INR 0.92 (0.83-1.09) 03/21/20 03:33 Problem List - Problems (1) CKD (chronic kidney disease) Code(s): N18.9 - CHRONIC KIDNEY DISEASE, UNSPECIFIED (2) Sarcoidosis of lymph nodes Code(s): D86.1 - SARCOIDOSIS OF LYMPH NODES (3) Hyperglycemia Code(s): R73.9 - HYPERGLYCEMIA, UNSPECIFIED (4) Sarcoidosis with granulomatous hepatitis Code(s): D86.9 - SARCOIDOSIS, UNSPECIFIED Assessment/Plan A/P L Knee Wound Infection UTI Uncontrolled DM Sarcoidosis Asthma CKD Suspected concha - antibiotics per ID - taper prednisone - outpt PFTs and f/u - DVT prophylaxis - sleep screen DR BUSTILLOS
--- NOTE | 2020-03-28 12:37 | PN ---
Progress Note, Physician History of Present Illness: Pt seen and examined at bedside. She is awake and alert. - Current Medication List Current Medications: Active Medications Acetaminophen (Tylenol -) 325 mg PO Q8H PRN PRN Reason: PAIN 4-6 Last Admin: 03/26/20 10:13 Dose: 325 mg Documented by: Albuterol Sulfate (Ventolin Hfa Inhaler -) 2 puff IH Q4H PRN PRN Reason: WHEEZING Alprazolam (Xanax -) 0.25 mg PO ONCE PRN PRN Reason: ANXIETY Last Admin: 03/21/20 21:01 Dose: 0.25 mg Documented by: Atorvastatin Calcium (Lipitor -) 80 mg PO HS [facility] Last Admin: 03/27/20 21:44 Dose: 80 mg Documented by: Atovaquone (Mepron -) 1,500 mg PO DAILY@0800 [facility] Last Admin: 03/28/20 12:02 Dose: 1,500 mg Documented by: Carvedilol (Coreg -) 25 mg PO BID [facility] Last Admin: 03/28/20 10:10 Dose: 25 mg Documented by: Collagenase (Santyl -) 1 applic TP DAILY [facility]; Protocol Last Admin: 03/27/20 09:09 Dose: 1 applic Documented by: Cyclobenzaprine HCl (Flexeril -) 10 mg PO TID [facility] Last Admin: 03/28/20 05:52 Dose: 10 mg Documented by: Heparin Sodium (Porcine) (Heparin -) 5,000 unit SQ TID [facility] Last Admin: 03/28/20 05:52 Dose: 5,000 unit Documented by: Hydralazine HCl (Apresoline -) 100 mg PO TID [facility] Last Admin: 03/28/20 05:52 Dose: 100 mg Documented by: Piperacillin Sod/Tazobactam (Sod 3.375 gm/ Dextrose) 50 mls @ 100 mls/hr IVPB Q8H-IV [facility]; Protocol Last Admin: 03/28/20 10:10 Dose: 100 mls/hr Documented by: Vancomycin HCl 500 mg/ (Dextrose) 100 mls @ 100 mls/hr IVPB ONCE ONE; Protocol Stop: 03/28/20 17:59 Insulin Aspart (Novolog Vial Sliding Scale -) 1 vial SQ ACHS [facility]; Protocol Last Admin: 03/28/20 11:04 Dose: 9 unit Documented by: Insulin Detemir (Levemir Vial) 50 units SQ HS [facility] Last Admin: 03/27/20 21:49 Dose: 50 units Documented by: Insulin Detemir (Levemir Vial) 60 units SQ AM [facility] Last Admin: 03/28/20 06:06 Dose: 60 units Documented by: Montelukast Sodium (Singulair -) 10 mg PO HS [facility] Last Admin: 03/27/20 21:44 Dose: 10 mg Documented by: Nystatin (Nystop Powder -) 1 applic TP BID [facility] Last Admin: 03/28/20 10:11 Dose: 1 applic Documented by: Prednisone (Deltasone -) 20 mg PO DAILY [facility] Last Admin: 03/28/20 10:10 Dose: 20 mg Documented by: - Objective Vital Signs: Vital Signs Temperature 98.4 F 03/28/20 10:00 Pulse Rate 96 H 03/28/20 10:00 Respiratory Rate 18 03/28/20 10:00 Blood Pressure 144/82 03/28/20 10:00 O2 Sat by Pulse Oximetry (%) 100 03/28/20 10:00 Constitutional: Yes: Calm Eyes: Yes: Conjunctiva Clear HENT: Yes: Atraumatic Neck: Yes: Supple Cardiovascular: Yes: S1, S2 Respiratory: Yes: CTA Bilaterally Gastrointestinal: Yes: Soft, Abdomen, Obese Genitourinary: Yes: WNL Musculoskeletal: Yes: WNL Edema: No Wound/Incision: Yes: Dressing Dry and Intact Neurological: Yes: Oriented Psychiatric: Yes: Oriented Labs: CBC, BMP 03/28/20 06:26 03/28/20 06:26 INR, PTT INR 0.92 (0.83-1.09) 03/21/20 03:33 Problem List - Problems (1) CKD (chronic kidney disease) Code(s): N18.9 - CHRONIC KIDNEY DISEASE, UNSPECIFIED (2) Proteinuria Code(s): R80.9 - PROTEINURIA, UNSPECIFIED (3) Hyperglycemia Code(s): R73.9 - HYPERGLYCEMIA, UNSPECIFIED Assessment/Plan Current Medications Generic Name Dose Route Start Last Admin Trade Name Freq PRN Reason Stop Dose Admin Acetaminophen 325 mg 03/21/20 09:21 03/26/20 10:13 Tylenol - PO 325 mg Q8H PRN Administration PAIN 4-6 Albuterol Sulfate 2 puff 03/21/20 09:15 Ventolin Hfa Inhaler - IH Q4H PRN WHEEZING Alprazolam 0.25 mg 03/21/20 19:10 03/21/20 21:01 Xanax - PO 0.25 mg ONCE PRN Administration ANXIETY Atorvastatin Calcium 80 mg 03/21/20 22:00 03/27/20 21:44 Lipitor - PO 80 mg HS MARIYA Administration Atovaquone 1,500 mg 03/28/20 08:00 03/28/20 12:02 Mepron - PO 1,500 mg DAILY@0800 MARIYA Administration Carvedilol 25 mg 03/21/20 10:00 03/28/20 10:10 Coreg - PO 25 mg BID MARIYA Administration Collagenase 1 applic 03/21/20 10:45 03/27/20 09:09 Santyl - TP 1 applic DAILY MARIYA Administration Protocol Cyclobenzaprine HCl 10 mg 03/21/20 14:00 03/28/20 05:52 Flexeril - PO 10 mg TID MARIYA Administration Heparin Sodium (Porcine) 5,000 unit 03/22/20 06:00 03/28/20 05:52 Heparin - SQ 5,000 unit TID MARIYA Administration Hydralazine HCl 100 mg 03/21/20 14:00 03/28/20 05:52 Apresoline - PO 100 mg TID MARIYA Administration Piperacillin Sod/Tazobactam 50 mls @ 100 mls/hr 03/24/20 18:00 03/28/20 10:10 Sod 3.375 gm/ Dextrose IVPB 100 mls/hr Q8H-IV MARIYA Administration Protocol Vancomycin HCl 500 mg/ 100 mls @ 100 mls/hr 03/28/20 17:00 Dextrose IVPB 03/28/20 17:59 ONCE ONE Protocol Insulin Aspart 1 vial 03/26/20 16:30 03/28/20 11:04 Novolog Vial Sliding Scale - SQ 9 unit ACHS MARIYA Administration Protocol Insulin Detemir 50 units 03/25/20 08:32 03/27/20 21:49 Levemir Vial SQ 50 units HS MARIYA Administration Insulin Detemir 60 units 03/28/20 07:00 03/28/20 06:06 Levemir Vial SQ 60 units AM MARIYA Administration Montelukast Sodium 10 mg 03/21/20 22:00 03/27/20 21:44 Singulair - PO 10 mg HS MARIYA Administration Nystatin 1 applic 03/22/20 22:00 03/28/20 10:11 Nystop Powder - TP 1 applic BID MARIYA Administration Prednisone 20 mg 03/24/20 11:49 03/28/20 10:10 Deltasone - PO 20 mg DAILY MARIYA Administration Impression 1. CKD 2. sarcoidosis with lung and liver involvement 3. proteinuria 4. DM 5. hld 6. htn 7. hypercalcemia Plan - cont to monitor renal function - monitor calcum - prednisone dose per pulm - cont wound care - monitor glucose
[2020-03-28] MEDS: COLLAGENASE CLOSTRIDIUM HIST. 30 GRAMS TUBE TP SCH (14:30)
--- NOTE | 2020-03-28 14:54 | PN ---
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) Abnormal Lab Results 03/28/20 03/28/20 06:26 06:26 WBC 11.2 H Hgb 10.3 L Hct 31.2 L Chloride 108 H BUN 48.0 H Creatinine 2.4 H Random Glucose 230 H ckd diabetic nephropathy insulin resistant steroid sensitive diet required follow up with nutrition at [facility] plan: levemir 60iu am and @hs hold ifsugar below 150mg/dl Problem List - Problems (1) 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 Code(s): E10.620 - TYPE 1 DIABETES MELLITUS WITH DIABETIC DERMATITIS (2) CKD (chronic kidney disease) Code(s): N18.9 - CHRONIC KIDNEY DISEASE, UNSPECIFIED (3) Hyperglycemia Code(s): R73.9 - HYPERGLYCEMIA, UNSPECIFIED (4) Leg wound, left Code(s): S81.802A - UNSPECIFIED OPEN WOUND, LEFT LOWER LEG, INITIAL ENCOUNTER Qualifiers: Encounter type: initial encounter Qualified Code(s): S81.802A - Unspecified open wound, left lower leg, initial encounter (5) Proteinuria Code(s): R80.9 - PROTEINURIA, UNSPECIFIED (6) UTI (urinary tract infection) Code(s): N39.0 - URINARY TRACT INFECTION, SITE NOT SPECIFIED Qualifiers: Urinary tract infection type: acute cystitis Hematuria presence: without hematuria Qualified Code(s): N30.00 - Acute cystitis without hematuria
[2020-03-28 15:19] VITALS: BP 148/79; PULSE 95; TEMP 98.3
--- NOTE | 2020-03-28 16:34 | PN ---
Teaching Attending Note Name of Resident: Tavon Lo ATTENDING PHYSICIAN STATEMENT I saw and evaluated the patient. I reviewed the resident's note and discussed the case with the resident. I agree with the resident's findings and plan as documented. SUBJECTIVE: Feeling well, no complaints. LLE discomfort improving. OBJECTIVE: Afebrile, Hemodynamically Stable. Last Vital Signs Temp Pulse Resp BP Pulse Ox 98.3 F 95 H 18 148/79 100 03/28/20 15:17 03/28/20 15:17 03/28/20 15:17 03/28/20 15:17 03/28/20 10:00 Heart - S1, S2, RRR Lungs - clear to auscultation Abdomen - High BMI, soft, non-tender. Bowel Sounds normal. Extremities - LLE lateral ulcer distal to knee with purulence. No calf tenderness. Neuro - AAO x 3. Tone/Power normal all extremities. Laboratory Results - last 24 hr 03/27/20 03/28/20 03/28/20 21:41 05:39 06:26 WBC 11.2 H RBC 3.73 Hgb 10.3 L Hct 31.2 L MCV 83.7 MCH 27.7 MCHC 33.1 RDW 15.2 Plt Count 291 MPV 8.9 Sodium Potassium Chloride Carbon Dioxide Anion Gap BUN Creatinine Est GFR (CKD-EPI)AfAm Est GFR (CKD-EPI)NonAf POC Glucometer 398 228 Random Glucose Calcium Phosphorus Magnesium 03/28/20 03/28/20 03/28/20 06:26 10:53 16:14 WBC RBC Hgb Hct MCV MCH MCHC RDW Plt Count MPV Sodium 140 Potassium 4.3 Chloride 108 H Carbon Dioxide 22 Anion Gap 9 BUN 48.0 H Creatinine 2.4 H Est GFR (CKD-EPI)AfAm 27.53 Est GFR (CKD-EPI)NonAf 23.76 POC Glucometer 207 301 Random Glucose 230 H Calcium 8.9 Phosphorus 4.6 Magnesium 1.9 Current Medications Generic Name Dose Route Start Last Admin Trade Name Freq PRN Reason Stop Dose Admin Acetaminophen 325 mg 03/21/20 09:21 03/26/20 10:13 Tylenol - PO 325 mg Q8H PRN Administration PAIN 4-6 Albuterol Sulfate 2 puff 03/21/20 09:15 Ventolin Hfa Inhaler - IH Q4H PRN WHEEZING Alprazolam 0.25 mg 03/21/20 19:10 03/21/20 21:01 Xanax - PO 0.25 mg ONCE PRN Administration ANXIETY Atorvastatin Calcium 80 mg 03/21/20 22:00 03/27/20 21:44 Lipitor - PO 80 mg HS MARIYA Administration Atovaquone 1,500 mg 03/28/20 08:00 03/28/20 12:02 Mepron - PO 1,500 mg DAILY@0800 MARIYA Administration Carvedilol 25 mg 03/21/20 10:00 03/28/20 10:10 Coreg - PO 25 mg BID MARIYA Administration Collagenase 1 applic 03/21/20 10:45 03/28/20 14:30 Santyl - TP 1 applic DAILY MARIYA Administration Protocol Cyclobenzaprine HCl 10 mg 03/21/20 14:00 03/28/20 14:30 Flexeril - PO 10 mg TID MARIYA Administration Heparin Sodium (Porcine) 5,000 unit 03/22/20 06:00 03/28/20 14:30 Heparin - SQ 5,000 unit TID MARIYA Administration Hydralazine HCl 100 mg 03/21/20 14:00 03/28/20 14:30 Apresoline - PO 100 mg TID MARIYA Administration Piperacillin Sod/Tazobactam 50 mls @ 100 mls/hr 03/24/20 18:00 03/28/20 10:10 Sod 3.375 gm/ Dextrose IVPB 100 mls/hr Q8H-IV MARIYA Administration Protocol Vancomycin HCl 500 mg/ 100 mls @ 100 mls/hr 03/28/20 17:00 Dextrose IVPB 03/28/20 17:59 ONCE ONE Protocol Insulin Aspart 1 vial 03/26/20 16:30 03/28/20 11:04 Novolog Vial Sliding Scale - SQ 9 unit ACHS MARIYA Administration Protocol Insulin Detemir 60 units 03/28/20 14:47 Levemir Vial SQ AM [facility]IYA Insulin Detemir 60 units 03/28/20 22:00 Levemir Vial SQ HS MARIYA Montelukast Sodium 10 mg 03/21/20 22:00 03/27/20 21:44 Singulair - PO 10 mg HS MARIYA Administration Nystatin 1 applic 03/22/20 22:00 03/28/20 10:11 Nystop Powder - TP 1 applic BID MARIYA Administration Prednisone 20 mg 03/24/20 11:49 03/28/20 10:10 Deltasone - PO 20 mg DAILY MARIYA Administration Home Medications Medication Instructions Recorded Insulin Lispro [Humalog] 15 unit SQ TID 12/30/16 Oxycodone HCl/Acetaminophen 2 each PO Q8H PRN MDD 6 12/30/16 [Percocet 10-325 mg Tablet] Albuterol Sulfate Inhaler - 2 inh PO Q4H PRN 01/02/17 [Ventolin Hfa Inhaler -] Alprazolam [Xanax] 0.25 mg PO DAILY 03/21/20 Atorvastatin Ca [Lipitor] 80 mg PO HS 03/21/20 Carvedilol [Coreg -] 25 mg PO BID 03/21/20 Clonidine HCl 0.1 mg PO BID 03/21/20 Cyclobenzaprine HCl [Flexeril -] 10 mg PO TID 03/21/20 Hydralazine HCl 100 mg PO TID 03/21/20 Insulin Glargine,Hum.rec.anlog 60 unit SQ DAILY 03/21/20 [Basaglar Kwikpen U-100] Montelukast Sodium [Singulair] 10 mg PO HS 03/21/20 Prednisone 30 mg PO DAILY 03/21/20 ASSESSMENT AND PLAN: 44 year old female with history of HTN, DM 2, Sarcoidosis (Lung, Liver) on chronic prednisone, Asthma, Anxiety, CKD 3, s/p spinal surgery, s/p left hip replacement, s/p ORIF for tibial plateau fracture, presents with L lateral knee ulcer. 1. L Lateral Knee Ulcer infection/cellulitis - MRSA +ve Polymicrobial - Klebsiella, MRSA, Enterococcus, Providencia. Completed IV Zosyn/Vanco as per ID for 7 days - for transition to PO Doxycycline for another week (choice of Doxy due to adverse reaction to Clindamycin) CT LLE - shows superficial 3x3cm ulcer, cellulitis, no hardware involvement/abscess. For follow up with patient's Orthopedic Surgeon as out-patient - Dr. Amanda. Wound Care recommendations appreciated - CELINE-I, Lac Hydrin, Santyl dressings. 2. DM 2 - uncontrolled. A1C 14.7 Evaluated by Endocrinology - recommend Levemir 60AM/60PM, Novolog sliding scale For out-patient follow up and transition to Insulin Pump. 3. Sarcoidosis, stable Evaluated by Pulm For slow Prednisone taper and out-patient Pulm follow up for PFTs. Will discharge on 20mg daily - Pulm to taper as out-patient. Mepron recommended by ID. G6PD level pending - change to Dapsone by ID or Pulm as out-patient depending on result. 4. UTI - entrococcus Completed 7 days IV Zosyn 5. HTN - Continue Hydralazine, Coreg, Clonidine. 6. CKD 3 - Stable. Nephrology follow up. 7. HLD - continue Lipitor. 8. Anxiety - continue Xanax PRN. Medically stable for discharge to SNF.
[2020-03-28] MEDS ORDERED: PT OWN MED DRAWER 7, Y5N ONE (16:52)
--- NOTE | 2020-03-28 16:54 | DS ---
Physical Exam: SUBJECTIVE: Patient seen and examined at bedside. Patient does not endorse any acute overnight events. OBJECTIVE: Vital Signs Period Temp Pulse Resp BP Sys/Albert Pulse Ox Last 24 Hr 98.2 F-98.8 F 95-96 18-20 144-148/79-85 97-100 PHYSICAL EXAM GENERAL: The patient is awake, alert, and fully oriented, in no acute distress. LUNGS: Breath sounds equal, clear to auscultation bilaterally, no wheezes, no crackles, no accessory muscle use. HEART: Regular rate and rhythm, S1, S2 without murmur, rub or gallop. ABDOMEN: Soft, nontender, EXTREMITIES: 2+ pulses, warm, well-perfused, no edema. PSYCH: Normal mood, normal affect. LABS Laboratory Results - last 24 hr 03/27/20 03/28/20 03/28/20 21:41 05:39 06:26 WBC 11.2 H RBC 3.73 Hgb 10.3 L Hct 31.2 L MCV 83.7 MCH 27.7 MCHC 33.1 RDW 15.2 Plt Count 291 MPV 8.9 Sodium Potassium Chloride Carbon Dioxide Anion Gap BUN Creatinine Est GFR (CKD-EPI)AfAm Est GFR (CKD-EPI)NonAf POC Glucometer 398 228 Random Glucose Calcium Phosphorus Magnesium 03/28/20 03/28/20 03/28/20 06:26 10:53 16:14 WBC RBC Hgb Hct MCV MCH MCHC RDW Plt Count MPV Sodium 140 Potassium 4.3 Chloride 108 H Carbon Dioxide 22 Anion Gap 9 BUN 48.0 H Creatinine 2.4 H Est GFR (CKD-EPI)AfAm 27.53 Est GFR (CKD-EPI)NonAf 23.76 POC Glucometer 207 301 Random Glucose 230 H Calcium 8.9 Phosphorus 4.6 Magnesium 1.9 HOSPITAL COURSE: Date of Admission:03/21/20 Jamaal is a 44 year old AA female with a h/o sarcoidosis stage 4 (liver, lung, and lymph nodes) on 30mg of prednisone, CKD, asthma, IDDM, HTN, with an extensive surgical history of spinal, tibial, and hip replacement. Patient presented to the ED for elevated blood glucose and L lateral leg wound that has been persistently draining. She was admitted to med/surg and was treated for her uncontrolled diabetes (A1C 14.7) left knee wound, and tapering her dose of home prednisone (30mg) that she has been on for 1-3 years. She was seen by endocrinology for her uncontrolled sugars. Infectious disease had come on board to treat her infected left leg wound. Pulmonology was consulted for prednisone taper of 5mg decrease per week. CT and X-ray imaging had been ordered for wound infection. Imaging revealed revealed proximal hardware near the site of infection. CT scan revealed no involvement of osteomelitis or deep infection. The wound culture was positive for MRSA, Klebsiella, and enterococcus. The patient was treated with vancomycin and her vancomycin levels were monitored for 7 days. Wound care was consulted for CELINE-I, Lac Hydrin, and santyl dressings. The patient was discharged on PO Doxy for continued management of the leg wound and will follow up with the orthopedic surgeon for left leg hardware evaluation (Dr. Amanda). The patient will continue to follow up outpatient for endocrinology (Dr. Lo) for her insulin pump and with pulmonology (Dr. Phelan) for prednisone taper. 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 A CT scan of your leg was preformed and it was determined that your wound was less likely to be a deep infection. While you were here you were found to have superficial yeast infection that was treated with ointment. During your stay you were evaluated with: - lab work - blood work - urine analysis and urine culture - wound culture - x-ray of your chest, and knee - ultrasound of your kidneys - CAT scan of your lower extremities You were evaluated by a Trail[employer] Maintenance Worker for your impaired kidney function. We found that your kidney labwork was near your baseline. Your electrolytes were monitored on a daily basis. Likely your steroid medication and diet has contributed to your elevated blood sugars. We have decided to slowly lower your steroid medication on a weekly basis. An reserve officer (Dr. Lo) was consulted to manage your blood sugar levels. You will need to follow up with the nursing consultant at his office to make sure you are taking the proper dosage of prednisone for the week. We cultured your wound and you were found to have an infection. You were visited by wound care team to look at your leg wound. They applied dressings to your wound and will follow up with you after discharge. Wound care suggests to elevate the lower extremity above the level of the heart at all times while at rest. We also analyzed and cultured your urine and it was found that you had an active infection. You should follow up with the infectious disease specialist Dr. Cannon who treated you with antibiotics for your UTI, and leg infection. She will evaluate you in the Wound Clinic. You were treated with fluids and nutrients to help you recover. We also are giving you antibiotics to take while you are home for your left leg wound. CARE: We advise you to maintain hydration, diet, and proper hygiene. MEDICATIONS: Please STOP taking Lantus Please STOP taking Glargine Please START taking levemir 60 units in the morning and 60 units before bed. Do not continue taking insulin if your sugars are below 150 Please START taking NOVOLOG with meals, the dosing will depend on your fingerstick glucose measurement SUGAR UNITS OF INSULIN 150-200 - 8 units 201-250 - 9 units 251-300 - 10 units 301-350 - 14 units 351-400 - 15 units > 400 - 16 units AND CALL MD Please START 100mg of doxycycline twice a day for 7 days. Please continue to take 20mg of prednisone for 1 week. Please START taking [place] soaks four times a day for itching near your wound. Please START applying lac Hydrin every day for dry scaly skin near your wound. Please START wearing compression dressings with santyl Please START taking MEPRON until follow up with Dr. Cannon Please continue taking all of your medications as prescribed WOUND CARE: -Elevate the lower extremity above the level of the heart at all times while at rest -Leg Lower Leg compression with celine wraps(wrap from metacarpal heads to below knee) -[place] soaks QD (astringent for pruritus) -Apply Lac Hydrin daily (for dry scaly skin) -Recommend compression dressing with Santyl -Follow up with Dr. Bingham in wound care clinic next week as outpatient FOLLOW UP: Please follow up with your primary care physician Please follow up with your infectious disease physician (Dr. Cannon) within 1 week of discharge Please follow up with wound care (Dr. Bingham) within 1-2 week of discharge Please follow up with pulmonology () within 1-2 week of discharge Please follow up with Dr. Kervin Amanda within 1-2 week of discharge to examine your previous leg surgery. Please follow up with your reserve officer (Dr. Alex Lo) within 1 week of discharge to manage your insulin regimen. Dr. Lo is currently taking phone/video calls for visits to ADDITIONAL INFORMATION: You are being discharged to [facility] nursing [facility]. Please return to the emergency department if you are experiencing any leg pain, fatigue, numbness or tingling in your legs or feet, fever, chills, shortness of breath, chest pain, new or concerning symptoms. Referrals: Cisco Phelan MD [Staff Physician] - (Evaluation of inpatient admission for sarcoidosis with mets to lung. Tapering predinsone dose originally 30mg currently taking 20mg.) Kervin Amanda MD [Non Staff, Medical] - 1 Week (Follow up of recent left tibial plateu fracture surgery with superficial ulcer at surgical site. ) Aracelis Cannon MD [Staff Physician] - 1 Week (Recent inpatient consult for infected ulcer of LLE. Patient placed on mepron on your rec, G6PD levels pending. ) Adonis Lo MD [Staff Physician] - 1 Week (Referring for uncontrolled diabetes melitus and proper glucose management. S/p inpatient consult) ON STAFF,NOT [Primary Care Provider] - 1 Week Salvador Bingham DO [Staff Physician] - 1 Week (Wound care dressing evaluation after recent admission or infected cellulitis. ) Disposition: LONG-TERM FACILITY - Home Medications Comprehensive Discharge Medication List: Ambulatory Orders Oxycodone HCl/Acetaminophen [Percocet 10-325 mg Tablet] 2 each PO Q8H PRN MDD 6 12/30/16 Albuterol Sulfate Inhaler - [Ventolin HFA Inhaler -] 2 inh PO Q4H PRN 01/02/17 Alprazolam [Xanax] 0.25 mg PO DAILY PRN 03/21/20 Atorvastatin Ca [Lipitor] 80 mg PO HS 03/21/20 Carvedilol [Coreg -] 25 mg PO BID 03/21/20 Clonidine HCl 0.1 mg PO BID 03/21/20 Cyclobenzaprine HCl [Flexeril -] 10 mg PO TID 03/21/20 Hydralazine HCl 100 mg PO TID 03/21/20 Montelukast Sodium [Singulair] 10 mg PO HS 03/21/20 Atovaquone [Mepron Oral Solution -] 1,500 mg PO DAILY@0800 ud 03/28/20 Collagenase Clostridium Hist. [Santyl -] 1 applic TP DAILY tube 03/28/20 Insulin (Levemir) [Levemir Vial] 60 units SQ AM units 03/28/20 Insulin (Levemir) [Levemir Vial] 60 units SQ HS units 03/28/20 Insulin Sliding Scale [Novolog Vial Sliding Scale -] 1 vial SQ ACHS units 03/28/20 predniSONE [Deltasone -] 20 mg PO DAILY tablet 03/28/20 This patient is new to me today: No Emergency Visit: Yes ED Registration Date: 03/21/20 Care time: The patient presented to the Emergency Department on the above date and was hospitalized for further evaluation of their emergent condition. Critical Care patient: No - Discharge Referral Referred to [facility] No ATTENDING PHYSICIAN STATEMENT I saw and evaluated the patient. I reviewed the resident's note and discussed the case with the resident. I agree with the resident's findings and plan as documented. SUBJECTIVE: OBJECTIVE: ASSESSMENT AND PLAN:
[2020-03-28] MEDS ORDERED: VANCOMYCIN 500 MG in DEXTROSE 5%-WATER - 100 ML IVPB ONE (17:00)
--- NOTE | 2020-06-08 16:32 | CONS ---
DATE OF CONSULTATION: 03/23/2020 INFECTIOUS DISEASE CONSULTATION REQUESTING PHYSICIAN: Hospitalist Service CONSULTING PHYSICIAN: Zach Mccauley MD. HISTORY OF PRESENT ILLNESS: This is a 44-year-old woman with diabetes, sarcoid, on chronic steroids. She is status post fracture of her patella and left tibial plateau in December 2018 after a fall. She is admitted with a 2-week history of a blister on her left lower extremity. She has a past medical history as well for multiple pimples on her forehead and groin in the past. She was seen in the ER [facility] on March 21 and given a dose of Macrobid for UTI. She has had an eschar along the lateral aspect of the left lower extremity that was debrided yesterday. I am asked to see her for further evaluation. She denies any fevers or chills. She is on chronic steroids for her sarcoid. Wound culture is polymicrobial with MRSA sensitivities have been requested. PAST MEDICAL HISTORY: Extensive. As stated before, she has a history of hypertension, diabetes, sarcoid of the lung and liver. She is on chronic prednisone, asthma, chronic kidney disease. She has a history of left hip replacement. She has had back surgery, and most recently with the fracture of her tibia in December 2018. She has not seen a physician for several months now. She was in rehabilitation and then she was finally discharged home. ALLERGIES: She is allergic to IODINE, MORPHINE, SHELLFISH, and DEMEROL. MEDICATIONS AT HOME: Include: 1. Insulin. 2. Losartan. 3. Hydrochlorothiazide. 4. Metoprolol. 5. Coreg. 6. Hydralazine. 7. Insulin. 8. Prednisone 30 mg a day. 9. She is on Coreg as well. SOCIAL HISTORY: Occasional cigarettes, 2 a week. No alcohol or substance use. REVIEW OF SYSTEMS: As per HPI. PHYSICAL EXAMINATION: General: She is awake and alert. She has no fevers. Vital Signs: Her temperature is 98, pulse is 73, blood pressure 161/84, respiratory rate 18. She is saturating 98%. HEENT: Normocephalic. Eyes are anicteric. She has no thrush. Heart: Regular rate and rhythm. Lungs: Diminished breath sounds at the bases. Abdomen: Obese. Extremities: Notable for a wound 3 x 3 cm along the incision of her left lower extremity. Prior wound has a fibrinous base. There is no exposed bone. She has full range of motion of her left knee. LABORATORY: Notable for a white count of 9.5, hemoglobin 10.9, platelets 294. Her chemistries are notable for BUN and creatinine of 42 and 2.6 with a glucose of 411. Alkaline phosphatase of 212, and a calcium of 9.4. Wound cultures polymicrobial including MRSA . She had x-rays of her chest that are notable for a large heart, fullness of the right paratracheal soft tissue, prominent hilar markings. IMPRESSION: In summary, this is a 44-year-old woman with history of sarcoid on chronic steroids with a left lower extremity wound. It looks quite shallow. No signs of deep tissue or bone involvement. Wound continue Zosyn that has been ordered. Would add vancomycin until the cultures are back. Would follow vancomycin levels, given her CKD. She was given vancomycin yesterday overnight, so would check a level before resuming. Will discuss with pulmonary whether she needs PCP prophylaxis given the chronic steroid use. Lastly, poorly controlled diabetes, most likely due to diet and prednisone. Hemoglobin A1c has been requested. She has chronic kidney disease as well. Further recommendations to follow. ZACH MCCAULEY M.D. [facility]/[id number]
== END 2020-03-28 20:29 | DRG 361 ==
LOC: JER 01:00 → JERBED 05:26 → J6WEST-2 09:45 → J7W 03-26 13:02
PROVIDERS: ADMIT Internal Medicine
PROC: 0HBLXZZ Excision of Left Lower Leg Skin, External Approach (ICD-10-PCS; principal; 2020-03-21)
DX: E11.622 Type 2 diabetes mellitus with other skin ulcer (principal); E11.65 Type 2 diabetes mellitus with hyperglycemia; D57.3 Sickle-cell trait; K21.9 Gastro-esophageal reflux disease without esophagitis; Z96.641 Presence of right artificial hip joint; D86.0 Sarcoidosis of lung; D86.89 Sarcoidosis of other sites; E78.5 Hyperlipidemia, unspecified; E83.52 Hypercalcemia; R80.9 Proteinuria, unspecified; R00.0 Tachycardia, unspecified; L03.116 Cellulitis of left lower limb; E66.9 Obesity, unspecified; Z68.41 Body mass index [BMI] 40.0-44.9, adult; E11.620 Type 2 diabetes mellitus with diabetic dermatitis; I12.9 Hypertensive chronic kidney disease with stage 1 through stage 4 chronic kidney disease, or unspecified chronic kidney disease; E11.22 Type 2 diabetes mellitus with diabetic chronic kidney disease; N18.3 Chronic kidney disease, stage 3 (moderate); M21.372 Foot drop, left foot; B37.9 Candidiasis, unspecified; N39.0 Urinary tract infection, site not specified; N17.9 Acute kidney failure, unspecified; M54.5 Low back pain; R94.31 Abnormal electrocardiogram [ECG] [EKG]; J45.909 Unspecified asthma, uncomplicated; S81.802A Unspecified open wound, left lower leg, initial encounter; B95.2 Enterococcus as the cause of diseases classified elsewhere; F41.9 Anxiety disorder, unspecified; L97.828 Non-pressure chronic ulcer of other part of left lower leg with other specified severity; B96.1 Klebsiella pneumoniae [K. pneumoniae] as the cause of diseases classified elsewhere; B95.62 Methicillin resistant Staphylococcus aureus infection as the cause of diseases classified elsewhere
CPT/HCPCS: 36415; 71045-TC-FY; 73560-TC-LT-FY; 73700-TC-RT; 76775-TC; 80048; 80053; 80061; 81003; 82010; 82310; 82550; 82565; 82803; 82955; 82962; 83036; 83721; 83735; 83970; 84100; 84156; 84484; 85025; 85027; 85041; 85610; 85651; 85730; 86140; 87070; 87086; 87186; 87205; 93005; 93010; 97116-GP; 97162-GP; 99285-25; G0480; J0131; J1644; U0003

== ENCOUNTER 2020-11-14 14:45 | Inpatient (IN) | payer OTHER ==
[2020-11-14] MEDS ORDERED: MAG HYDROX/AL HYDROX/SIMETH -MYLANTA- ORAL SUSPENSION PO ONE (15:50)
[2020-11-14] MEDS ORDERED: FAMOTIDINE 20 MG/50 ML IVPB 20 MG/50 ML MG IVPB ONE ×2 (15:50→15:59)
[2020-11-14] MEDS ORDERED: SODIUM CHLORIDE 0.9% 500 ML INFUS.BAG IV ONE ×2 (15:50→16:59)
[2020-11-14] MEDS ORDERED: ONDANSETRON 4 MG/2 ML VIAL IVPUSH ONE (15:53)
[2020-11-14] MEDS ORDERED: ONDANSETRON 4 MG/2 ML VIAL ONE (15:59)
[2020-11-14 16:26] LABS: BASO % 0.2 % (0-2.0); EOS % 1.3 % (0-4.5); HEMATOCRIT 28.1 % (32.4-45.2); HEMOGLOBIN 8.8 GM/dL (10.7-15.3); LYMPH % 6.6 % (8-40); MCH 25.4 pg (25.7-33.7); MCHC 31.2 g/dl (32.0-36.0); MEAN CELL VOLUME 81.4 fl (80-96); MEAN PLT VOLUME 6.9 fl (7.5-11.1); MONO % 7.3 % (3.8-10.2); NEUT % 84.6 % (42.8-82.8); PLATELET COUNT 281 K/MM3 (134-434); RBC 3.45 M/mm3 (3.60-5.2); RDW 21.4 % (11.6-15.6); WHITE BLOOD COUNT 12.6 K/mm3 (4.0-10.0)
[2020-11-14] MEDS ORDERED: HYDROmorphone HCL CARPU-JECT 2 MG/1 ML DISP.SYRIN IVPUSH ONE (16:42)
[2020-11-14 16:43] LABS: ALBUMIN 2.3 g/dl (3.4-5.0); BLOOD UREA NITROGEN 61.5 mg/dL (7-18); CALCIUM 12.2 mg/dL (8.5-10.1)
[2020-11-14 16:46] LABS: CREATININE 3.7 mg/dL (0.55-1.3)
[2020-11-14] MEDS ORDERED: HYDROmorphone HCl 2 MG/ML VIAL ONE ×2 (16:46→21:51)
[2020-11-14 16:48] LABS: BILIRUBIN,TOTAL 0.3 mg/dL (0.2-1); TOT PROT 6.8 g/dl (6.4-8.2)
[2020-11-14 18:15] LABS: CHOLESTEROL 150 mg/dL (50-200); TRIGLYCERIDES 156 mg/dL (0-150)
[2020-11-14 18:16] LABS: LDL CHOLESTEROL (ONLY SJRH) 84 mg/dL (5-100)
[2020-11-14 18:18] LABS: HDL CHOLESTEROL 34 mg/dL (40-60)
[2020-11-14] MEDS ORDERED: LACTATED RINGERS SOLUTION 1,000 ML/1,000 ML INFUS.BAG IV SCH (18:30)
[2020-11-14] MEDS: HYDROmorphone HCL CARPU-JECT 2 MG/1 ML DISP.SYRIN IVPB PRN (22:01)
[2020-11-14 23:23] LABS: ANISOCYTOSIS 1+; MACROCYTOSIS 0; OVALOCYTE 1+; PLATELET ESTIMATE NORMAL; TEAR DROP CELLS 1+
[2020-11-15] MEDS ORDERED: ACETAMINOPHEN INJECTION 100 ML IVPB ONE (02:03)
[2020-11-15] MEDS: ACETAMINOPHEN 1000 MG/100 ML VIAL (NON FORMULARY) IVPB PRN ×2 (02:08→08:41)
[2020-11-15] MEDS ORDERED: ALPRAZolam 0.25 MG TABLET PO PRN (05:20)
[2020-11-15] MEDS ORDERED: HYDROmorphone HCl 2 MG/ML VIAL ONE (05:40)
[2020-11-15] MEDS: HYDROmorphone HCL CARPU-JECT 2 MG/1 ML DISP.SYRIN IVPB PRN (05:43)
[2020-11-15 06:19] LABS: BASO % 0.4 % (0-2.0); HEMATOCRIT 26.7 % (32.4-45.2); HEMOGLOBIN 8.7 GM/dL (10.7-15.3); LYMPH % 5.2 % (8-40); MCH 26.2 pg (25.7-33.7); MCHC 32.5 g/dl (32.0-36.0); MEAN CELL VOLUME 80.5 fl (80-96); MEAN PLT VOLUME 7.2 fl (7.5-11.1); MONO % 5.2 % (3.8-10.2); NEUT % 88.2 % (42.8-82.8); PLATELET COUNT 241 K/MM3 (134-434); RBC 3.32 M/mm3 (3.60-5.2); RDW 21.1 % (11.6-15.6); WHITE BLOOD COUNT 14.5 K/mm3 (4.0-10.0)
[2020-11-15] MEDS ORDERED: ALBUTEROL SO4 2.5/IPRATROPIUM 0.5 INH SOL 3 ML VIAL.NEB. NEB PRN (06:21)
[2020-11-15] MEDS: hydrALAZINE HCL 50 MG TABLET (FP) PO SCH ×4 (06:37→23:42)
[2020-11-15 06:43] LABS: CHLORIDE 111 mmol/L (98-107); SODIUM 141 mmol/L (136-145)
[2020-11-15 06:45] LABS: CALCIUM 11.9 mg/dL (8.5-10.1)
[2020-11-15 06:46] LABS: ALBUMIN 2.4 g/dl (3.4-5.0); ANION GAP 5 MMOL/L (8-16); BLOOD UREA NITROGEN 61.1 mg/dL (7-18); CO2 25 mmol/L (21-32)
[2020-11-15 06:49] LABS: CREATININE 3.6 mg/dL (0.55-1.3); SGOT/AST 13 U/L (15-37); SGPT/ALT 22 U/L (13-61)
[2020-11-15 06:51] LABS: BILIRUBIN,TOTAL 0.3 mg/dL (0.2-1); TOT PROT 6.8 g/dl (6.4-8.2)
[2020-11-15 06:52] LABS: ALK PHOS 227 U/L (45-117)
[2020-11-15 06:59] LABS: GLUCOSE,RANDOM 49 mg/dL (74-106)
[2020-11-15] MEDS ORDERED: DEXTROSE 50%-WATER - 25 GM/50 ML VIAL IVPUSH ONE (07:08)
[2020-11-15] MEDS ORDERED: DEXTROSE 50%-WATER 25 GM/50 ML DISP.SYRIN ONE (07:11)
[2020-11-15] MEDS ORDERED: D5-LR+20 MEQ KCL - 20 MEQ/1,000 ML INFUS.BAG IV SCH ×2 (09:45→13:55)
[2020-11-15] MEDS ORDERED: predniSONE 20 MG TABLET (UD) PO SCH (10:00)
[2020-11-15] MEDS ORDERED: predniSONE 20 MG, predniSONE 10 MG PO SCH (10:00)
[2020-11-15] MEDS ORDERED: CARVEDILOL 25 MG TABLET (FP) PO SCH (10:00)
[2020-11-15 10:12] LABS: URINE APPEARANCE CLOUDY; URINE BILIRUBIN NEGATIVE (NEGATIVE); URINE COLOR YELLOW; URINE GLUCOSE (UA) NEGATIVE (NEGATIVE)
[2020-11-15 10:13] LABS: EPI CELLS 13.8 /uL (0-25.1); HYALINE CASTS 1.6 /uL (0-3.1); PH,URINE 5.5 (5.0-8.0); URINE BACTERIA 55102.4 /uL (0-1359); URINE KETONE NEGATIVE (NEGATIVE); URINE LEUK ESTERASE 2+ (NEGATIVE); URINE NITRITE NEGATIVE (NEGATIVE); URINE PROTEIN TRACE (NEGATIVE); URINE RBC 16.1 /uL (0-23.9); URINE UROBILINOGEN 0.2 mg/dL (0.2-1.0); URINE WBC 299.6 /uL (0-25.8)
[2020-11-15 10:14] LABS: URINE CRYSTALS NON SEEN /hpf
[2020-11-15] MEDS ORDERED: CARVEDILOL 12.5 MG TABLET (FP) ONE ×2 (10:45→20:38)
[2020-11-15] MEDS ORDERED: CARVEDILOL 25 MG TABLET (FP) ONE ×2 (10:45→20:38)
[2020-11-15] MEDS ORDERED: PT OWN MED DRAWER 7, Y5N ONE (10:46)
[2020-11-15] MEDS: CARVEDILOL 25 MG, CARVEDILOL 12.5 MG PO SCH ×2 (10:50→21:06)
[2020-11-15] MEDS: NIFEdipine E.R. 90 MG TABLET PO SCH (10:51)
[2020-11-15] MEDS: PANTOPRAZOLE SODIUM 40 MG VIAL IVPUSH SCH (11:12)
[2020-11-15] MEDS ORDERED: HYDROmorphone HCl 2 MG/ML VIAL IVPB PRN (11:15)
[2020-11-15] MEDS ORDERED: ACETAMINOPHEN 1000 MG/100 ML VIAL (NON FORMULARY) IVPB PRN (12:06)
[2020-11-15] MEDS: DOXAZOSIN MESYLATE 2 MG TABLET PO SCH (12:06)
[2020-11-15 12:59] LABS: IRON SERUM 12 ug/dL (50-175); TOTAL IRON BINDING CAPACITY 227 ug/dL (250-450)
[2020-11-15] MEDS: D5-LR+20 MEQ KCL - 20 MEQ/1,000 ML INFUS.BAG IV SCH ×2 (15:40→21:02)
[2020-11-15] MEDS: HYDROmorphone HCl 2 MG/ML VIAL IVPB PRN ×2 (16:59→21:04)
[2020-11-15] MEDS ORDERED: INSULIN (NOVOLOG) ASPART 100 UNITS/ML 10ML VIAL ONE (19:38)
[2020-11-15] MEDS ORDERED: ATORVASTATIN CA 80 MG TABLET (FP) PO SCH (22:00)
[2020-11-15 22:12] LABS: EPI CELLS >36 /uL (0-25.1); HYALINE CASTS 23 /uL (0-3.1); PH,URINE 6.5 (5.0-8.0); URINE APPEARANCE TURBID; URINE BACTERIA >9,000 /uL (0-1359); URINE BILIRUBIN NEGATIVE (NEGATIVE); URINE COLOR YELLOW; URINE GLUCOSE (UA) 1+ (NEGATIVE); URINE KETONE NEGATIVE (NEGATIVE); URINE LEUK ESTERASE 3+ (NEGATIVE); URINE NITRITE NEGATIVE (NEGATIVE); URINE PROTEIN 2+ (NEGATIVE); URINE RBC 240 /uL (0-23.9); URINE UROBILINOGEN 0.2 mg/dL (0.2-1.0); URINE WBC 5750 /uL (0-25.8)
[2020-11-16] MEDS: HYDROmorphone HCl 2 MG/ML VIAL IVPB PRN ×5 (01:08→22:23)
[2020-11-16] MEDS: DEXTROSE 5%-LACTATED RINGERS 1,000 ML IV SCH ×4 (02:00→18:51)
[2020-11-16] MEDS ORDERED: TIZANIDINE HCL 2 MG TABLET PO ONE (02:15)
[2020-11-16] MEDS: hydrALAZINE HCL 50 MG TABLET (FP) PO SCH ×4 (05:23→23:27)
[2020-11-16 08:34] LABS: BASO % 0.2 % (0-2.0); EOS % 4.7 % (0-4.5); HEMATOCRIT 24.3 % (32.4-45.2); HEMOGLOBIN 7.9 GM/dL (10.7-15.3); LYMPH % 12.2 % (8-40); MCH 26.5 pg (25.7-33.7); MCHC 32.3 g/dl (32.0-36.0); MEAN PLT VOLUME 7.2 fl (7.5-11.1); MONO % 7.1 % (3.8-10.2); NEUT % 75.8 % (42.8-82.8); PLATELET COUNT 220 K/MM3 (134-434); RBC 2.97 M/mm3 (3.60-5.2); RDW 21.3 % (11.6-15.6); WHITE BLOOD COUNT 9.8 K/mm3 (4.0-10.0)
[2020-11-16 09:05] LABS: BLOOD UREA NITROGEN 50.1 mg/dL (7-18); CALCIUM 11.2 mg/dL (8.5-10.1)
[2020-11-16 09:08] LABS: CREATININE 3.3 mg/dL (0.55-1.3)
[2020-11-16 09:09] LABS: BILIRUBIN,TOTAL 0.3 mg/dL (0.2-1)
[2020-11-16] MEDS ORDERED: CARVEDILOL 25 MG TABLET (FP) ONE ×2 (09:51→20:27)
[2020-11-16] MEDS ORDERED: CARVEDILOL 12.5 MG TABLET (FP) ONE ×2 (09:52→20:28)
[2020-11-16] MEDS: CARVEDILOL 25 MG, CARVEDILOL 12.5 MG PO SCH ×2 (11:31→21:04)
[2020-11-16] MEDS: NIFEdipine E.R. 90 MG TABLET PO SCH (11:32)
[2020-11-16] MEDS: PANTOPRAZOLE SODIUM 40 MG VIAL IVPUSH SCH (11:32)
[2020-11-16] MEDS: DOXAZOSIN MESYLATE 2 MG TABLET PO SCH (13:22)
[2020-11-16] MEDS: LACTATED RINGERS SOLUTION 1,000 ML/1,000 ML INFUS.BAG IV SCH (18:21)
[2020-11-16] MEDS: MELATONIN 5 MG TABLETS PO PRN (22:24)
[2020-11-17] MEDS ORDERED: VANCOMYCIN 1 GRAM (PRE-DOCKED) 1,000 MG/250 ML BAG IVPB ONE (01:31)
[2020-11-17] MEDS: hydrALAZINE HCL 50 MG TABLET (FP) PO SCH ×4 (06:28→23:30)
[2020-11-17] MEDS ORDERED: PT OWN MED DRAWER 7, Y5N ONE (10:26)
[2020-11-17] MEDS ORDERED: CARVEDILOL 12.5 MG TABLET (FP) ONE ×2 (10:26→20:20)
[2020-11-17] MEDS ORDERED: CARVEDILOL 25 MG TABLET (FP) ONE ×2 (10:26→20:20)
[2020-11-17] MEDS: DOXAZOSIN MESYLATE 2 MG TABLET PO SCH (10:33)
[2020-11-17] MEDS: CARVEDILOL 25 MG, CARVEDILOL 12.5 MG PO SCH ×2 (10:33→21:14)
[2020-11-17] MEDS: NIFEdipine E.R. 90 MG TABLET PO SCH (10:33)
[2020-11-17] MEDS: PANTOPRAZOLE SODIUM 40 MG VIAL IVPUSH SCH (10:34)
[2020-11-17] MEDS: HYDROmorphone HCl 2 MG/ML VIAL IVPB PRN ×2 (10:44→21:13)
[2020-11-17] MEDS: LACTATED RINGERS SOLUTION 1,000 ML/1,000 ML INFUS.BAG IV SCH ×2 (13:53→21:14)
[2020-11-17 18:40] LABS: ALBUMIN 2.1 g/dl (3.4-5.0); BLOOD UREA NITROGEN 41.6 mg/dL (7-18); CALCIUM 10.9 mg/dL (8.5-10.1)
[2020-11-17 18:43] LABS: CREATININE 3.2 mg/dL (0.55-1.3)
[2020-11-17 18:45] LABS: BILIRUBIN,TOTAL 0.2 mg/dL (0.2-1); TOT PROT 6.2 g/dl (6.4-8.2)
[2020-11-17] MEDS: ACETAMINOPHEN 325 MG TABLET (FP) PO PRN (20:36)
[2020-11-17] MEDS: INSULIN SLIDING SCALE (NOVOLOG) 1 VIAL SQ SCH (21:20)
[2020-11-18] MEDS: LACTATED RINGERS SOLUTION 1,000 ML/1,000 ML INFUS.BAG IV SCH ×4 (00:31→20:20)
[2020-11-18] MEDS: ACETAMINOPHEN 325 MG TABLET (FP) PO PRN (03:50)
[2020-11-18] MEDS: hydrALAZINE HCL 50 MG TABLET (FP) PO SCH ×3 (05:54→17:47)
[2020-11-18] MEDS: HYDROmorphone HCl 2 MG/ML VIAL IVPB PRN ×2 (05:59→11:53)
[2020-11-18] MEDS: INSULIN SLIDING SCALE (NOVOLOG) 1 VIAL SQ SCH ×4 (06:04→21:54)
[2020-11-18 08:27] LABS: BASO % 0.5 % (0-2.0); EOS % 5.2 % (0-4.5); HEMATOCRIT 23.7 % (32.4-45.2); HEMOGLOBIN 7.8 GM/dL (10.7-15.3); LYMPH % 19.2 % (8-40); MCH 26.7 pg (25.7-33.7); MCHC 32.9 g/dl (32.0-36.0); MEAN CELL VOLUME 81.1 fl (80-96); MEAN PLT VOLUME 8.2 fl (7.5-11.1); NEUT % 64.1 % (42.8-82.8); PLATELET COUNT 202 K/MM3 (134-434); RBC 2.92 M/mm3 (3.60-5.2); RDW 20.3 % (11.6-15.6); WHITE BLOOD COUNT 7.6 K/mm3 (4.0-10.0)
[2020-11-18 08:55] LABS: ALBUMIN 2.1 g/dl (3.4-5.0); BLOOD UREA NITROGEN 38.4 mg/dL (7-18); CALCIUM 10.7 mg/dL (8.5-10.1)
[2020-11-18 08:58] LABS: CREATININE 3.1 mg/dL (0.55-1.3); MAGNESIUM 1.9 mg/dL (1.8-2.4)
[2020-11-18 08:59] LABS: PHOSPHOROUS 3.4 mg/dL (2.5-4.9)
[2020-11-18 09:00] LABS: BILIRUBIN,TOTAL 0.4 mg/dL (0.2-1); TOT PROT 6.1 g/dl (6.4-8.2)
[2020-11-18] MEDS ORDERED: CARVEDILOL 25 MG TABLET (FP) ONE ×2 (10:19→21:34)
[2020-11-18] MEDS ORDERED: CARVEDILOL 12.5 MG TABLET (FP) ONE ×2 (10:20→21:34)
[2020-11-18] MEDS ORDERED: PT OWN MED DRAWER 7, Y5N ONE (10:20)
[2020-11-18] MEDS: DOXAZOSIN MESYLATE 2 MG TABLET PO SCH (10:53)
[2020-11-18] MEDS: PANTOPRAZOLE SODIUM 40 MG VIAL IVPUSH SCH (10:53)
[2020-11-18] MEDS: CARVEDILOL 25 MG, CARVEDILOL 12.5 MG PO SCH ×2 (10:53→21:42)
[2020-11-18] MEDS: NIFEdipine E.R. 90 MG TABLET PO SCH (10:53)
[2020-11-18] MEDS ORDERED: VANCOMYCIN 500 MG in DEXTROSE 5%-WATER - 100 ML IVPB ONE (11:53)
[2020-11-18] MEDS ORDERED: HYDROmorphone HCl 2 MG/ML VIAL IVPB PRN (20:44)
[2020-11-19 00:06] LABS: PARATHYROID HORM INTACT 4 pg/mL (15-65)
[2020-11-19] MEDS: hydrALAZINE HCL 50 MG TABLET (FP) PO SCH ×5 (00:56→23:45)
[2020-11-19] MEDS: ACETAMINOPHEN 325 MG TABLET (FP) PO PRN ×2 (05:36→23:46)
[2020-11-19] MEDS: INSULIN SLIDING SCALE (NOVOLOG) 1 VIAL SQ SCH ×4 (06:16→22:36)
[2020-11-19] MEDS: LACTATED RINGERS SOLUTION 1,000 ML/1,000 ML INFUS.BAG IV SCH (07:14)
[2020-11-19 08:07] LABS: HEMATOCRIT 22.2 % (32.4-45.2); HEMOGLOBIN 7.4 GM/dL (10.7-15.3); MCH 26.8 pg (25.7-33.7); MCHC 33.3 g/dl (32.0-36.0); MEAN CELL VOLUME 80.4 fl (80-96); PLATELET COUNT 252 K/MM3 (134-434); RBC 2.76 M/mm3 (3.60-5.2); RDW 20.7 % (11.6-15.6); WHITE BLOOD COUNT 6.8 K/mm3 (4.0-10.0)
[2020-11-19 08:46] LABS: CALCIUM 10.1 mg/dL (8.5-10.1)
[2020-11-19 08:47] LABS: BLOOD UREA NITROGEN 32.6 mg/dL (7-18); MAGNESIUM 1.9 mg/dL (1.8-2.4)
[2020-11-19 08:50] LABS: CREATININE 3.2 mg/dL (0.55-1.3); PHOSPHOROUS 3.1 mg/dL (2.5-4.9)
[2020-11-19 08:51] LABS: BILIRUBIN,TOTAL 0.3 mg/dL (0.2-1)
[2020-11-19] MEDS ORDERED: CARVEDILOL 12.5 MG TABLET (FP) ONE ×2 (09:45→21:44)
[2020-11-19] MEDS ORDERED: CARVEDILOL 25 MG TABLET (FP) ONE ×2 (09:45→21:44)
[2020-11-19] MEDS: LIPASE/PROTEASE/AMYLASE 36,000 UNIT CAPSULE PO SCH ×3 (09:54→17:42)
[2020-11-19] MEDS: CARVEDILOL 25 MG, CARVEDILOL 12.5 MG PO SCH ×2 (09:55→22:38)
[2020-11-19] MEDS: NIFEdipine E.R. 90 MG TABLET PO SCH (09:56)
[2020-11-19] MEDS: PANTOPRAZOLE 40 MG TABLET PO SCH (09:56)
[2020-11-19] MEDS: DOXAZOSIN MESYLATE 2 MG TABLET PO SCH (12:33)
[2020-11-19 14:09] LABS: HEP B CORE AB, TOT Negative (Negative)
[2020-11-19] MEDS ORDERED: VANCOMYCIN 500 MG in DEXTROSE 5%-WATER 100 ML IVPB ONE (15:00)
[2020-11-19] MEDS ORDERED: PT OWN MED DRAWER 7, Y5N ONE ×2 (17:19→17:32)
[2020-11-19] MEDS: HYDROmorphone HCL 2 MG TABLET PO PRN (17:24)
[2020-11-19] MEDS: CYCLOBENZAPRINE HCL 5 MG TABLET PO SCH ×2 (17:24→22:38)
[2020-11-19] MEDS: FERROUS SO4 325 MG TABLET (FP) PO SCH (18:31)
[2020-11-19] MEDS: DOCUSATE SODIUM 100 MG CAPSULE (FP) PO SCH (22:38)
[2020-11-20] MEDS: hydrALAZINE HCL 50 MG TABLET (FP) PO SCH ×3 (06:48→17:25)
[2020-11-20] MEDS: INSULIN SLIDING SCALE (NOVOLOG) 1 VIAL SQ SCH ×4 (07:05→22:32)
[2020-11-20] MEDS: CYCLOBENZAPRINE HCL 5 MG TABLET PO SCH ×3 (07:40→22:33)
[2020-11-20 08:04] LABS: BASO % 0.6 % (0-2.0); EOS % 4.5 % (0-4.5); HEMATOCRIT 23.5 % (32.4-45.2); HEMOGLOBIN 7.6 GM/dL (10.7-15.3); LYMPH % 20.1 % (8-40); MCH 26.1 pg (25.7-33.7); MCHC 32.3 g/dl (32.0-36.0); MEAN CELL VOLUME 80.7 fl (80-96); MEAN PLT VOLUME 8.3 fl (7.5-11.1); MONO % 11.7 % (3.8-10.2); NEUT % 63.1 % (42.8-82.8); PLATELET COUNT 274 K/MM3 (134-434); RBC 2.91 M/mm3 (3.60-5.2); RDW 20.2 % (11.6-15.6); WHITE BLOOD COUNT 6.9 K/mm3 (4.0-10.0)
[2020-11-20] MEDS ORDERED: PT OWN MED DRAWER 7, Y5N ONE ×2 (08:37→08:57)
[2020-11-20] MEDS ORDERED: CARVEDILOL 25 MG TABLET (FP) ONE ×2 (08:56→20:45)
[2020-11-20] MEDS ORDERED: CARVEDILOL 12.5 MG TABLET (FP) ONE ×2 (08:56→20:45)
[2020-11-20] MEDS: LIPASE/PROTEASE/AMYLASE 36,000 UNIT CAPSULE PO SCH ×3 (09:02→17:19)
[2020-11-20] MEDS: CARVEDILOL 25 MG, CARVEDILOL 12.5 MG PO SCH ×2 (09:04→22:33)
[2020-11-20] MEDS: ESCITALOPRAM OXALATE 10 MG TABLET PO SCH (09:04)
[2020-11-20] MEDS: FERROUS SO4 325 MG TABLET (FP) PO SCH (09:04)
[2020-11-20] MEDS: PANTOPRAZOLE 40 MG TABLET PO SCH (09:04)
[2020-11-20] MEDS: NIFEdipine E.R. 90 MG TABLET PO SCH (09:04)
[2020-11-20] MEDS: HYDROmorphone HCL 2 MG TABLET PO PRN (09:06)
[2020-11-20] MEDS: DOXAZOSIN MESYLATE 2 MG TABLET PO SCH (11:52)
[2020-11-20 17:07] LABS: ATYPICAL pANCA <1:20 titer (Neg:<1:20); C-ANCA <1:20 titer (Neg:<1:20)
[2020-11-20 17:07] LABS: TOTAL PROTEIN, URINE 31.9 mg/dL (Not Estab.)
[2020-11-20] MEDS: SODIUM CHLORIDE IVPB SCH (17:25)
[2020-11-20] MEDS: DAPTOMYCIN IVPB SCH (17:25)
[2020-11-20] MEDS: DOCUSATE SODIUM 100 MG CAPSULE (FP) PO SCH (22:33)
[2020-11-20] MEDS: MELATONIN 5 MG TABLETS PO PRN (22:34)
[2020-11-21] MEDS: HYDROmorphone HCL 2 MG TABLET PO PRN ×2 (00:34→16:21)
[2020-11-21] MEDS: hydrALAZINE HCL 50 MG TABLET (FP) PO SCH ×5 (00:35→23:40)
[2020-11-21] MEDS ORDERED: ALPRAZolam 1 MG TABLET PO PRN (02:54)
[2020-11-21] MEDS ORDERED: ALPRAZolam 0.25 MG TABLET PO ONE (04:31)
[2020-11-21] MEDS: CYCLOBENZAPRINE HCL 5 MG TABLET PO SCH ×3 (06:25→21:26)
[2020-11-21] MEDS: INSULIN SLIDING SCALE (NOVOLOG) 1 VIAL SQ SCH ×4 (06:25→21:26)
[2020-11-21] MEDS ORDERED: LIDOCAINE VISCOUS 2% ORAL/TOP 20 ML UNIT-DOSE CUP ONE ×2 (09:57→10:34)
[2020-11-21] MEDS ORDERED: CARVEDILOL 12.5 MG TABLET (FP) ONE ×2 (10:09→20:11)
[2020-11-21] MEDS ORDERED: CARVEDILOL 25 MG TABLET (FP) ONE ×2 (10:09→20:10)
[2020-11-21] MEDS: CARVEDILOL 25 MG, CARVEDILOL 12.5 MG PO SCH ×2 (10:21→22:56)
[2020-11-21] MEDS: NIFEdipine E.R. 90 MG TABLET PO SCH (10:21)
[2020-11-21] MEDS: LIPASE/PROTEASE/AMYLASE 36,000 UNIT CAPSULE PO SCH ×3 (10:23→17:47)
[2020-11-21] MEDS: ESCITALOPRAM OXALATE 10 MG TABLET PO SCH (10:23)
[2020-11-21] MEDS: FERROUS SO4 325 MG TABLET (FP) PO SCH (10:23)
[2020-11-21] MEDS: DOXAZOSIN MESYLATE 2 MG TABLET PO SCH (10:24)
[2020-11-21] MEDS: PANTOPRAZOLE 40 MG TABLET PO SCH (10:24)
[2020-11-21] MEDS ORDERED: MIDAZOLAM HCL 2 MG/2 ML SINGLE DOSE VIAL ONE (11:13)
[2020-11-21] MEDS ORDERED: LIDOCAINE VISCOUS 2% ORAL/TOP 20 ML UNIT-DOSE CUP MM ONE (11:23)
[2020-11-21 12:08] LABS: BLOOD UREA NITROGEN 26.5 mg/dL (7-18); CALCIUM 10.6 mg/dL (8.5-10.1)
[2020-11-21 12:12] LABS: CREATININE 3.2 mg/dL (0.55-1.3)
[2020-11-21 12:13] LABS: BILIRUBIN,TOTAL 0.3 mg/dL (0.2-1); TOT PROT 6.2 g/dl (6.4-8.2)
[2020-11-21 14:18] VITALS: BMI 42.8
[2020-11-21 14:38] LABS: HEMATOCRIT 23.7 % (32.4-45.2); HEMOGLOBIN 7.8 GM/dL (10.7-15.3); MCH 26.4 pg (25.7-33.7); MCHC 32.7 g/dl (32.0-36.0); MEAN CELL VOLUME 80.5 fl (80-96); PLATELET COUNT 314 K/MM3 (134-434); RBC 2.94 M/mm3 (3.60-5.2); RDW 20.5 % (11.6-15.6); WHITE BLOOD COUNT 7.5 K/mm3 (4.0-10.0)
[2020-11-21 14:49] LABS: CALCIUM 10.3 mg/dL (8.5-10.1)
[2020-11-21 14:50] LABS: BLOOD UREA NITROGEN 24.6 mg/dL (7-18)
[2020-11-21 14:53] LABS: CREATININE 3.1 mg/dL (0.55-1.3)
[2020-11-21] MEDS ORDERED: PT OWN MED DRAWER 7, Y5N ONE ×2 (16:19→16:56)
[2020-11-21] MEDS ORDERED: FERRIC CARBOXYMALTOSE 750 MG in SODIUM CHLORIDE 250 ML IVPB ONE (16:30)
[2020-11-21] MEDS: SODIUM CHLORIDE IVPB SCH (18:00)
[2020-11-21] MEDS: DAPTOMYCIN IVPB SCH (18:00)
[2020-11-21] MEDS: DOCUSATE SODIUM 100 MG CAPSULE (FP) PO SCH (21:26)
[2020-11-21] MEDS: MELATONIN 5 MG TABLETS PO PRN (23:40)
[2020-11-21] MEDS: ACETAMINOPHEN 325 MG TABLET (FP) PO PRN (23:43)
[2020-11-22] MEDS: hydrALAZINE HCL 50 MG TABLET (FP) PO SCH ×4 (05:50→23:07)
[2020-11-22] MEDS: CYCLOBENZAPRINE HCL 5 MG TABLET PO SCH ×3 (05:50→21:47)
[2020-11-22] MEDS: INSULIN SLIDING SCALE (NOVOLOG) 1 VIAL SQ SCH ×4 (06:13→21:51)
[2020-11-22] MEDS ORDERED: PT OWN MED DRAWER 7, Y5N ONE ×6 (08:30→20:05)
[2020-11-22 08:34] LABS: BLOOD UREA NITROGEN 26.1 mg/dL (7-18); CALCIUM 10.7 mg/dL (8.5-10.1)
[2020-11-22] MEDS: LIPASE/PROTEASE/AMYLASE 36,000 UNIT CAPSULE PO SCH ×3 (08:37→17:23)
[2020-11-22 08:38] LABS: CREATININE 3.3 mg/dL (0.55-1.3)
[2020-11-22 09:08] LABS: HEMATOCRIT 22.5 % (32.4-45.2); HEMOGLOBIN 7.5 GM/dL (10.7-15.3); MCH 26.8 pg (25.7-33.7); MCHC 33.4 g/dl (32.0-36.0); MEAN CELL VOLUME 80.2 fl (80-96); MEAN PLT VOLUME 7.8 fl (7.5-11.1); PLATELET COUNT 208 K/MM3 (134-434); RBC 2.81 M/mm3 (3.60-5.2); RDW 20.4 % (11.6-15.6); WHITE BLOOD COUNT 7.5 K/mm3 (4.0-10.0)
[2020-11-22] MEDS ORDERED: CARVEDILOL 25 MG TABLET (FP) ONE ×2 (10:45→20:51)
[2020-11-22] MEDS ORDERED: CARVEDILOL 12.5 MG TABLET (FP) ONE ×2 (10:45→20:51)
[2020-11-22] MEDS: FERROUS SO4 325 MG TABLET (FP) PO SCH (10:49)
[2020-11-22] MEDS: CARVEDILOL 25 MG, CARVEDILOL 12.5 MG PO SCH ×2 (10:49→21:47)
[2020-11-22] MEDS: ESCITALOPRAM OXALATE 10 MG TABLET PO SCH (10:50)
[2020-11-22] MEDS: PANTOPRAZOLE 40 MG TABLET PO SCH (10:50)
[2020-11-22] MEDS: NIFEdipine E.R. 90 MG TABLET PO SCH (10:50)
[2020-11-22] MEDS: DOXAZOSIN MESYLATE 2 MG TABLET PO SCH (10:55)
[2020-11-22] MEDS: ONDANSETRON 4 MG/2 ML VIAL IVPUSH PRN (12:41)
[2020-11-22] MEDS: HYDROmorphone HCL 2 MG TABLET PO PRN (13:28)
[2020-11-22] MEDS: DAPTOMYCIN IVPB SCH (20:06)
[2020-11-22] MEDS: SODIUM CHLORIDE IVPB SCH (20:06)
[2020-11-22] MEDS: DOCUSATE SODIUM 100 MG CAPSULE (FP) PO SCH (21:47)
[2020-11-23] MEDS: HYDROmorphone HCL 2 MG TABLET PO PRN (01:03)
[2020-11-23] MEDS: MELATONIN 5 MG TABLETS PO PRN (01:03)
[2020-11-23] MEDS: CYCLOBENZAPRINE HCL 5 MG TABLET PO SCH ×3 (05:21→21:39)
[2020-11-23] MEDS: hydrALAZINE HCL 50 MG TABLET (FP) PO SCH ×3 (05:26→18:13)
[2020-11-23 05:38] LABS: BASO % 0.9 % (0-2.0); EOS % 4.1 % (0-4.5); HEMOGLOBIN 9.6 GM/dL (10.7-15.3); LYMPH % 21.3 % (8-40); MCH 28.2 pg (25.7-33.7); MCHC 34.4 g/dl (32.0-36.0); MEAN PLT VOLUME 7.7 fl (7.5-11.1); MONO % 9.9 % (3.8-10.2); NEUT % 63.8 % (42.8-82.8); PLATELET COUNT 262 K/MM3 (134-434); RBC 3.42 M/mm3 (3.60-5.2); RDW 18.9 % (11.6-15.6); WHITE BLOOD COUNT 9.1 K/mm3 (4.0-10.0)
[2020-11-23] MEDS: INSULIN SLIDING SCALE (NOVOLOG) 1 VIAL SQ SCH ×4 (06:25→21:41)
[2020-11-23] MEDS ORDERED: PT OWN MED DRAWER 7, Y5N ONE ×4 (08:50→18:10)
[2020-11-23] MEDS ORDERED: CARVEDILOL 25 MG TABLET (FP) ONE ×2 (09:20→21:09)
[2020-11-23] MEDS ORDERED: CARVEDILOL 12.5 MG TABLET (FP) ONE ×2 (09:21→21:09)
[2020-11-23] MEDS: LIPASE/PROTEASE/AMYLASE 36,000 UNIT CAPSULE PO SCH ×3 (09:28→18:13)
[2020-11-23] MEDS: FERROUS SO4 325 MG TABLET (FP) PO SCH (09:29)
[2020-11-23] MEDS: ESCITALOPRAM OXALATE 10 MG TABLET PO SCH (09:29)
[2020-11-23] MEDS: CARVEDILOL 25 MG, CARVEDILOL 12.5 MG PO SCH ×2 (09:29→21:39)
[2020-11-23] MEDS: PANTOPRAZOLE 40 MG TABLET PO SCH (09:29)
[2020-11-23] MEDS: NIFEdipine E.R. 90 MG TABLET PO SCH (09:29)
[2020-11-23] MEDS: DOXAZOSIN MESYLATE 2 MG TABLET PO SCH (09:29)
[2020-11-23] MEDS ORDERED: INSULIN (NOVOLOG) ASPART 100 UNITS/ML 10ML VIAL ONE (13:21)
[2020-11-23] MEDS: ACETAMINOPHEN 325 MG TABLET (FP) PO PRN ×2 (14:44→23:39)
[2020-11-23] MEDS: DAPTOMYCIN IVPB SCH (18:13)
[2020-11-23] MEDS: SODIUM CHLORIDE IVPB SCH (18:13)
[2020-11-23] MEDS: DOCUSATE SODIUM 100 MG CAPSULE (FP) PO SCH (21:39)
[2020-11-24] MEDS: hydrALAZINE HCL 50 MG TABLET (FP) PO SCH ×4 (00:09→18:05)
[2020-11-24] MEDS ORDERED: HYDROmorphone HCL 2 MG TABLET PO ONE (02:56)
[2020-11-24] MEDS: CYCLOBENZAPRINE HCL 5 MG TABLET PO SCH ×3 (05:30→22:14)
[2020-11-24] MEDS: INSULIN SLIDING SCALE (NOVOLOG) 1 VIAL SQ SCH ×4 (06:07→22:14)
[2020-11-24] MEDS ORDERED: CARVEDILOL 25 MG TABLET (FP) ONE ×2 (09:47→22:08)
[2020-11-24] MEDS ORDERED: CARVEDILOL 12.5 MG TABLET (FP) ONE ×2 (09:47→22:08)
[2020-11-24] MEDS ORDERED: PT OWN MED DRAWER 7, Y5N ONE ×3 (09:49→18:01)
[2020-11-24] MEDS: DOXAZOSIN MESYLATE 2 MG TABLET PO SCH (09:51)
[2020-11-24] MEDS: FERROUS SO4 325 MG TABLET (FP) PO SCH (09:51)
[2020-11-24] MEDS: PANTOPRAZOLE 40 MG TABLET PO SCH (09:51)
[2020-11-24] MEDS: ESCITALOPRAM OXALATE 10 MG TABLET PO SCH (09:51)
[2020-11-24] MEDS: CARVEDILOL 25 MG, CARVEDILOL 12.5 MG PO SCH ×2 (09:51→22:13)
[2020-11-24] MEDS: LIPASE/PROTEASE/AMYLASE 36,000 UNIT CAPSULE PO SCH ×3 (09:51→18:05)
[2020-11-24] MEDS: NIFEdipine E.R. 90 MG TABLET PO SCH (09:51)
[2020-11-24] MEDS: DAPTOMYCIN IVPB SCH (18:05)
[2020-11-24] MEDS: SODIUM CHLORIDE IVPB SCH (18:05)
[2020-11-24] MEDS ORDERED: diphenhydrAMINE HCL 25 MG CAPSULE (FP) PO ONE (19:25)
[2020-11-24] MEDS: DOCUSATE SODIUM 100 MG CAPSULE (FP) PO SCH (22:14)
[2020-11-24] MEDS: ACETAMINOPHEN 325 MG TABLET (FP) PO PRN (22:14)
[2020-11-25] MEDS: hydrALAZINE HCL 50 MG TABLET (FP) PO SCH ×4 (01:37→17:08)
[2020-11-25] MEDS: MELATONIN 5 MG TABLETS PO PRN (03:34)
[2020-11-25] MEDS: INSULIN SLIDING SCALE (NOVOLOG) 1 VIAL SQ SCH ×4 (06:50→22:03)
[2020-11-25] MEDS: CYCLOBENZAPRINE HCL 5 MG TABLET PO SCH ×3 (06:54→22:03)
[2020-11-25] MEDS ORDERED: PT OWN MED DRAWER 7, Y5N ONE ×4 (08:39→17:36)
[2020-11-25] MEDS ORDERED: CARVEDILOL 25 MG TABLET (FP) ONE ×2 (09:36→22:01)
[2020-11-25] MEDS ORDERED: CARVEDILOL 12.5 MG TABLET (FP) ONE ×2 (09:36→22:01)
[2020-11-25] MEDS: LIPASE/PROTEASE/AMYLASE 36,000 UNIT CAPSULE PO SCH ×3 (10:04→17:08)
[2020-11-25] MEDS: CARVEDILOL 25 MG, CARVEDILOL 12.5 MG PO SCH ×2 (10:04→22:03)
[2020-11-25] MEDS: DOXAZOSIN MESYLATE 2 MG TABLET PO SCH (10:04)
[2020-11-25] MEDS: FERROUS SO4 325 MG TABLET (FP) PO SCH (10:05)
[2020-11-25] MEDS: NIFEdipine E.R. 90 MG TABLET PO SCH (10:05)
[2020-11-25] MEDS: PANTOPRAZOLE 40 MG TABLET PO SCH (10:05)
[2020-11-25] MEDS: ESCITALOPRAM OXALATE 10 MG TABLET PO SCH (10:05)
[2020-11-25 10:23] LABS: BLOOD UREA NITROGEN 23.5 mg/dL (7-18); CALCIUM 10.7 mg/dL (8.5-10.1)
[2020-11-25 10:26] LABS: CREATININE 3.2 mg/dL (0.55-1.3)
[2020-11-25 10:27] LABS: BILIRUBIN,TOTAL 0.4 mg/dL (0.2-1); TOT PROT 6.3 g/dl (6.4-8.2)
[2020-11-25] MEDS: ONDANSETRON 4 MG/2 ML VIAL IVPUSH PRN (12:30)
[2020-11-25] MEDS ORDERED: POTASSIUM CHLORIDE TABS 20 MEQ TABLET.ER (FP) PO ONE (14:41)
[2020-11-25] MEDS: SODIUM CHLORIDE IVPB SCH (17:13)
[2020-11-25] MEDS: DAPTOMYCIN IVPB SCH (17:13)
[2020-11-25] MEDS: ACETAMINOPHEN 325 MG TABLET (FP) PO PRN (20:09)
[2020-11-25] MEDS: DOCUSATE SODIUM 100 MG CAPSULE (FP) PO SCH (22:02)
[2020-11-26] MEDS: hydrALAZINE HCL 50 MG TABLET (FP) PO SCH ×4 (00:45→18:21)
[2020-11-26] MEDS: MELATONIN 5 MG TABLETS PO PRN (00:47)
[2020-11-26] MEDS ORDERED: diphenhydrAMINE HCL 25 MG CAPSULE (FP) PO ONE (03:05)
[2020-11-26] MEDS: CYCLOBENZAPRINE HCL 5 MG TABLET PO SCH ×3 (05:26→23:00)
[2020-11-26] MEDS: ACETAMINOPHEN 325 MG TABLET (FP) PO PRN (05:26)
[2020-11-26] MEDS: INSULIN SLIDING SCALE (NOVOLOG) 1 VIAL SQ SCH ×4 (06:50→22:59)
[2020-11-26 09:13] LABS: EPI CELLS 15 /uL (0-25.1); HYALINE CASTS 0 /uL (0-3.1); URINE APPEARANCE TURBID; URINE BACTERIA >9,000 /uL (0-1359); URINE BILIRUBIN NEGATIVE (NEGATIVE); URINE COLOR YELLOW; URINE GLUCOSE (UA) TRACE (NEGATIVE); URINE KETONE NEGATIVE (NEGATIVE); URINE LEUK ESTERASE 3+ (NEGATIVE); URINE NITRITE NEGATIVE (NEGATIVE); URINE PROTEIN 2+ (NEGATIVE); URINE RBC 105 /uL (0-23.9); URINE UROBILINOGEN 0.2 mg/dL (0.2-1.0); URINE WBC 1534 /uL (0-25.8)
[2020-11-26 09:29] LABS: CALCIUM 10.7 mg/dL (8.5-10.1)
[2020-11-26 09:30] LABS: BLOOD UREA NITROGEN 20.4 mg/dL (7-18)
[2020-11-26 09:33] LABS: CREATININE 3.2 mg/dL (0.55-1.3)
[2020-11-26 09:39] LABS: HEMATOCRIT 30.3 % (32.4-45.2); HEMOGLOBIN 10.2 GM/dL (10.7-15.3); MCH 27.8 pg (25.7-33.7); MCHC 33.8 g/dl (32.0-36.0); MEAN CELL VOLUME 82.4 fl (80-96); MEAN PLT VOLUME 7.8 fl (7.5-11.1); PLATELET COUNT 168 K/MM3 (134-434); RBC 3.67 M/mm3 (3.60-5.2); WHITE BLOOD COUNT 8.3 K/mm3 (4.0-10.0)
[2020-11-26] MEDS ORDERED: CARVEDILOL 25 MG TABLET (FP) ONE ×2 (10:29→22:52)
[2020-11-26] MEDS ORDERED: CARVEDILOL 12.5 MG TABLET (FP) ONE ×2 (10:29→22:52)
[2020-11-26] MEDS ORDERED: PT OWN MED DRAWER 7, Y5N ONE ×2 (10:30→12:30)
[2020-11-26] MEDS: ESCITALOPRAM OXALATE 10 MG TABLET PO SCH (10:35)
[2020-11-26] MEDS: DOXAZOSIN MESYLATE 2 MG TABLET PO SCH (10:35)
[2020-11-26] MEDS: CARVEDILOL 25 MG, CARVEDILOL 12.5 MG PO SCH ×2 (10:35→23:00)
[2020-11-26] MEDS: FERROUS SO4 325 MG TABLET (FP) PO SCH (10:35)
[2020-11-26] MEDS: LIPASE/PROTEASE/AMYLASE 36,000 UNIT CAPSULE PO SCH ×3 (10:36→18:21)
[2020-11-26] MEDS: PANTOPRAZOLE 40 MG TABLET PO SCH (10:36)
[2020-11-26] MEDS: NIFEdipine E.R. 90 MG TABLET PO SCH (10:36)
[2020-11-26] MEDS ORDERED: traMADol HCL 50 MG TABLET PO ONE (11:45)
[2020-11-26] MEDS: SODIUM CHLORIDE IVPB SCH (15:57)
[2020-11-26] MEDS: DAPTOMYCIN IVPB SCH (15:57)
[2020-11-26] MEDS ORDERED: INSULIN (NOVOLOG) ASPART 100 UNITS/ML 10ML VIAL ONE ×2 (17:39→17:49)
[2020-11-26] MEDS: DOCUSATE SODIUM 100 MG CAPSULE (FP) PO SCH (23:00)
[2020-11-27] MEDS: hydrALAZINE HCL 50 MG TABLET (FP) PO SCH ×5 (00:03→23:15)
[2020-11-27] MEDS: ACETAMINOPHEN 325 MG TABLET (FP) PO PRN ×2 (04:34→21:13)
[2020-11-27] MEDS: CYCLOBENZAPRINE HCL 5 MG TABLET PO SCH ×3 (06:58→21:13)
[2020-11-27] MEDS: INSULIN SLIDING SCALE (NOVOLOG) 1 VIAL SQ SCH ×4 (06:58→22:02)
[2020-11-27] MEDS ORDERED: CARVEDILOL 25 MG TABLET (FP) ONE ×2 (09:52→20:27)
[2020-11-27] MEDS ORDERED: CARVEDILOL 12.5 MG TABLET (FP) ONE ×2 (09:52→20:27)
[2020-11-27] MEDS ORDERED: PT OWN MED DRAWER 7, Y5N ONE ×3 (09:53→17:38)
[2020-11-27] MEDS: ESCITALOPRAM OXALATE 10 MG TABLET PO SCH (10:00)
[2020-11-27] MEDS: NIFEdipine E.R. 90 MG TABLET PO SCH (10:00)
[2020-11-27] MEDS: PANTOPRAZOLE 40 MG TABLET PO SCH (10:00)
[2020-11-27] MEDS: CARVEDILOL 25 MG, CARVEDILOL 12.5 MG PO SCH ×2 (10:00→21:13)
[2020-11-27] MEDS: FERROUS SO4 325 MG TABLET (FP) PO SCH (10:00)
[2020-11-27] MEDS: LIPASE/PROTEASE/AMYLASE 36,000 UNIT CAPSULE PO SCH ×3 (10:00→17:52)
[2020-11-27] MEDS: DOXAZOSIN MESYLATE 2 MG TABLET PO SCH (13:17)
[2020-11-27] MEDS: traMADol HCL 50 MG TABLET PO PRN ×2 (13:26→22:53)
[2020-11-27] MEDS: ONDANSETRON 4 MG/2 ML VIAL IVPUSH PRN (13:26)
[2020-11-27 16:08] LABS: ATYPICAL pANCA <1:20 titer (Neg:<1:20); C-ANCA <1:20 titer (Neg:<1:20)
[2020-11-27] MEDS: SODIUM CHLORIDE IVPB SCH (18:58)
[2020-11-27] MEDS: DAPTOMYCIN IVPB SCH (18:58)
[2020-11-27] MEDS: DOCUSATE SODIUM 100 MG CAPSULE (FP) PO SCH (21:13)
[2020-11-28] MEDS ORDERED: LIDOCAINE 5% TOPICAL PATCH TP ONE (01:24)
[2020-11-28] MEDS: CYCLOBENZAPRINE HCL 5 MG TABLET PO SCH ×3 (06:08→21:11)
[2020-11-28] MEDS: hydrALAZINE HCL 50 MG TABLET (FP) PO SCH ×4 (06:08→23:17)
[2020-11-28] MEDS: INSULIN SLIDING SCALE (NOVOLOG) 1 VIAL SQ SCH ×4 (06:19→21:10)
[2020-11-28] MEDS ORDERED: PT OWN MED DRAWER 7, Y5N ONE ×4 (08:22→17:30)
[2020-11-28] MEDS: LIPASE/PROTEASE/AMYLASE 36,000 UNIT CAPSULE PO SCH ×3 (08:41→17:35)
[2020-11-28] MEDS ORDERED: CARVEDILOL 25 MG TABLET (FP) ONE ×2 (10:12→20:57)
[2020-11-28] MEDS ORDERED: CARVEDILOL 12.5 MG TABLET (FP) ONE ×2 (10:13→20:57)
[2020-11-28] MEDS: CARVEDILOL 25 MG, CARVEDILOL 12.5 MG PO SCH ×2 (10:17→21:10)
[2020-11-28] MEDS: FERROUS SO4 325 MG TABLET (FP) PO SCH (10:17)
[2020-11-28] MEDS: DOXAZOSIN MESYLATE 2 MG TABLET PO SCH (10:17)
[2020-11-28] MEDS: ESCITALOPRAM OXALATE 10 MG TABLET PO SCH (10:17)
[2020-11-28] MEDS: NIFEdipine E.R. 90 MG TABLET PO SCH (10:17)
[2020-11-28] MEDS: traMADol HCL 50 MG TABLET PO PRN (10:18)
[2020-11-28] MEDS: PANTOPRAZOLE 40 MG TABLET PO SCH (10:18)
[2020-11-28 11:30] LABS: INR 1.03 (0.83-1.09); PROTHROMBIN TIME (PATIENT) 12.7 SEC (9.7-13.0)
[2020-11-28 15:21] LABS: EPI CELLS 12 /uL (0-25.1); HYALINE CASTS 2 /uL (0-3.1); URINE APPEARANCE CLOUDY; URINE BACTERIA >9,000 /uL (0-1359); URINE BILIRUBIN NEGATIVE (NEGATIVE); URINE COLOR YELLOW; URINE GLUCOSE (UA) 2+ (NEGATIVE); URINE KETONE NEGATIVE (NEGATIVE); URINE LEUK ESTERASE 2+ (NEGATIVE); URINE NITRITE NEGATIVE (NEGATIVE); URINE PROTEIN 2+ (NEGATIVE); URINE UROBILINOGEN 0.2 mg/dL (0.2-1.0); URINE WBC 515 /uL (0-25.8)
[2020-11-28 15:42] LABS: URINE CRYSTALS NON SEEN /hpf; URINE RBC 45.3 /uL (0-23.9); YEAST NON SEEN (NEGATIVE)
[2020-11-28] MEDS: DAPTOMYCIN IVPB SCH (16:02)
[2020-11-28] MEDS: SODIUM CHLORIDE IVPB SCH (16:02)
[2020-11-28] MEDS ORDERED: INSULIN (NOVOLOG) ASPART 100 UNITS/ML 10ML VIAL ONE (19:07)
[2020-11-28] MEDS ORDERED: LIDOCAINE 5% TOPICAL PATCH TP SCH (20:30)
[2020-11-28] MEDS: LIDOCAINE 5% TOPICAL PATCH TP SCH (21:04)
[2020-11-28] MEDS: DOCUSATE SODIUM 100 MG CAPSULE (FP) PO SCH (21:10)
[2020-11-28] MEDS: MELATONIN 5 MG TABLETS PO PRN ×2 (21:11→23:22)
[2020-11-28 21:42] LABS: HEMATOCRIT 33.1 % (32.4-45.2); HEMOGLOBIN 10.9 GM/dL (10.7-15.3); MCH 27.4 pg (25.7-33.7); MCHC 33.1 g/dl (32.0-36.0); MEAN CELL VOLUME 82.9 fl (80-96); MEAN PLT VOLUME 7.2 fl (7.5-11.1); PLATELET COUNT 231 K/MM3 (134-434); RBC 3.99 M/mm3 (3.60-5.2); RDW 19.5 % (11.6-15.6); WHITE BLOOD COUNT 8.2 K/mm3 (4.0-10.0)
[2020-11-28] MEDS ORDERED: LIDOCAINE PATCH REMOVAL MC SCH (22:00)
[2020-11-28 22:09] LABS: BLOOD UREA NITROGEN 22.5 mg/dL (7-18); CALCIUM 11.1 mg/dL (8.5-10.1)
[2020-11-28 22:13] LABS: CREATININE 3.4 mg/dL (0.55-1.3)
[2020-11-28 22:14] LABS: BILIRUBIN,TOTAL 0.3 mg/dL (0.2-1); TOT PROT 6.5 g/dl (6.4-8.2)
[2020-11-28] MEDS: METHYL SALICYLATE/MENTHOL OINT 30 GM TUBE TP SCH (23:18)
[2020-11-28] MEDS: ACETAMINOPHEN 325 MG TABLET (FP) PO PRN (23:22)
[2020-11-29] MEDS: traMADol HCL 50 MG TABLET PO PRN ×2 (01:29→21:06)
[2020-11-29] MEDS: ONDANSETRON 4 MG/2 ML VIAL IVPUSH PRN (02:30)
[2020-11-29] MEDS: ACETAMINOPHEN 325 MG TABLET (FP) PO PRN (06:06)
[2020-11-29] MEDS: CYCLOBENZAPRINE HCL 5 MG TABLET PO SCH ×3 (06:06→21:04)
[2020-11-29] MEDS: hydrALAZINE HCL 50 MG TABLET (FP) PO SCH ×3 (06:06→17:43)
[2020-11-29] MEDS: INSULIN SLIDING SCALE (NOVOLOG) 1 VIAL SQ SCH ×4 (06:06→21:04)
[2020-11-29] MEDS ORDERED: LIDOCAINE PATCH REMOVAL MC SCH (08:30)
[2020-11-29] MEDS ORDERED: CARVEDILOL 25 MG TABLET (FP) ONE ×2 (11:38→20:14)
[2020-11-29] MEDS ORDERED: CARVEDILOL 12.5 MG TABLET (FP) ONE ×2 (11:39→20:14)
[2020-11-29] MEDS ORDERED: PT OWN MED DRAWER 7, Y5N ONE ×4 (11:40→21:14)
[2020-11-29] MEDS: CARVEDILOL 25 MG, CARVEDILOL 12.5 MG PO SCH ×2 (11:43→21:04)
[2020-11-29] MEDS: FERROUS SO4 325 MG TABLET (FP) PO SCH (11:44)
[2020-11-29] MEDS: ESCITALOPRAM OXALATE 10 MG TABLET PO SCH (11:44)
[2020-11-29] MEDS: NIFEdipine E.R. 90 MG TABLET PO SCH (11:44)
[2020-11-29] MEDS: PANTOPRAZOLE 40 MG TABLET PO SCH (11:44)
[2020-11-29] MEDS: LIDOCAINE PATCH REMOVAL MC SCH (11:45)
[2020-11-29] MEDS: LIPASE/PROTEASE/AMYLASE 36,000 UNIT CAPSULE PO SCH ×3 (11:49→17:45)
[2020-11-29] MEDS: METHYL SALICYLATE/MENTHOL OINT 30 GM TUBE TP SCH ×2 (11:49→21:04)
[2020-11-29] MEDS: DOXAZOSIN MESYLATE 2 MG TABLET PO SCH (11:50)
[2020-11-29 13:47] LABS: HEMATOCRIT 34.9 % (32.4-45.2); HEMOGLOBIN 11.7 GM/dL (10.7-15.3); MCH 27.6 pg (25.7-33.7); MCHC 33.5 g/dl (32.0-36.0); MEAN CELL VOLUME 82.5 fl (80-96); MEAN PLT VOLUME 7.6 fl (7.5-11.1); RBC 4.23 M/mm3 (3.60-5.2); RDW 19.5 % (11.6-15.6); WHITE BLOOD COUNT 8.3 K/mm3 (4.0-10.0)
[2020-11-29 14:07] LABS: CALCIUM 11.4 mg/dL (8.5-10.1)
[2020-11-29 14:08] LABS: BLOOD UREA NITROGEN 27.8 mg/dL (7-18)
[2020-11-29 14:11] LABS: CREATININE 3.6 mg/dL (0.55-1.3)
[2020-11-29] MEDS ORDERED: HYDROmorphone HCl 2 MG/ML VIAL IVPB ONE (15:15)
[2020-11-29] MEDS ORDERED: VANCOMYCIN 1 GRAM (PRE-DOCKED) 1,000 MG/250 ML BAG IVPB ONE (15:48)
[2020-11-29] MEDS: LIDOCAINE 5% TOPICAL PATCH TP SCH (21:04)
[2020-11-29] MEDS: DOCUSATE SODIUM 100 MG CAPSULE (FP) PO SCH (21:04)
[2020-11-29] MEDS: MELATONIN 5 MG TABLETS PO PRN (21:06)
[2020-11-29] MEDS: HYDROmorphone HCl 2 MG/ML VIAL IVPB PRN (23:55)
[2020-11-30] MEDS: hydrALAZINE HCL 50 MG TABLET (FP) PO SCH ×4 (00:21→18:11)
[2020-11-30] MEDS: SODIUM CHLORIDE 1,000 ML IV SCH ×4 (04:43→21:14)
[2020-11-30] MEDS ORDERED: PT OWN MED DRAWER 7, Y5N ONE ×5 (05:35→18:16)
[2020-11-30] MEDS: CYCLOBENZAPRINE HCL 5 MG TABLET PO SCH ×3 (05:48→21:16)
[2020-11-30] MEDS: INSULIN SLIDING SCALE (NOVOLOG) 1 VIAL SQ SCH ×4 (06:01→21:46)
[2020-11-30] MEDS: HYDROmorphone HCl 2 MG/ML VIAL IVPB PRN ×2 (06:58→14:56)
[2020-11-30] MEDS: LIPASE/PROTEASE/AMYLASE 36,000 UNIT CAPSULE PO SCH ×3 (08:44→18:11)
[2020-11-30 09:28] LABS: HEMATOCRIT 32.8 % (32.4-45.2); MCHC 33.5 g/dl (32.0-36.0); MEAN CELL VOLUME 83.4 fl (80-96); MEAN PLT VOLUME 7.7 fl (7.5-11.1); PLATELET COUNT 153 K/MM3 (134-434); RBC 3.94 M/mm3 (3.60-5.2); RDW 19.7 % (11.6-15.6); WHITE BLOOD COUNT 10.3 K/mm3 (4.0-10.0)
[2020-11-30 10:02] LABS: IRON SERUM 43 ug/dL (50-175)
[2020-11-30 10:05] LABS: TOTAL IRON BINDING CAPACITY 165 ug/dL (250-450)
[2020-11-30 10:18] LABS: ALBUMIN 1.9 g/dl (3.4-5.0)
[2020-11-30 10:19] LABS: BLOOD UREA NITROGEN 38.8 mg/dL (7-18); CALCIUM 11.5 mg/dL (8.5-10.1)
[2020-11-30 10:21] LABS: CREATININE 4.6 mg/dL (0.55-1.3)
[2020-11-30 10:22] LABS: BILIRUBIN,TOTAL 0.4 mg/dL (0.2-1); TOT PROT 6.5 g/dl (6.4-8.2)
[2020-11-30] MEDS ORDERED: CARVEDILOL 25 MG TABLET (FP) ONE ×2 (11:15→21:05)
[2020-11-30] MEDS ORDERED: CARVEDILOL 12.5 MG TABLET (FP) ONE ×2 (11:16→21:06)
[2020-11-30] MEDS: DOXAZOSIN MESYLATE 2 MG TABLET PO SCH (11:23)
[2020-11-30] MEDS: CARVEDILOL 25 MG, CARVEDILOL 12.5 MG PO SCH ×2 (11:23→21:16)
[2020-11-30] MEDS: ESCITALOPRAM OXALATE 10 MG TABLET PO SCH (11:24)
[2020-11-30] MEDS: FERROUS SO4 325 MG TABLET (FP) PO SCH (11:24)
[2020-11-30] MEDS: METHYL SALICYLATE/MENTHOL OINT 30 GM TUBE TP SCH ×2 (11:25→21:43)
[2020-11-30] MEDS: NIFEdipine E.R. 90 MG TABLET PO SCH (11:25)
[2020-11-30] MEDS: PANTOPRAZOLE 40 MG TABLET PO SCH (11:25)
[2020-11-30] MEDS: LIDOCAINE PATCH REMOVAL MC SCH (11:33)
[2020-11-30] MEDS: DOCUSATE SODIUM 100 MG CAPSULE (FP) PO SCH (21:15)
[2020-11-30] MEDS: traMADol HCL 50 MG TABLET PO PRN (21:16)
[2020-11-30] MEDS: ACETAMINOPHEN 325 MG TABLET (FP) PO PRN (21:20)
[2020-11-30] MEDS: LIDOCAINE 5% TOPICAL PATCH TP SCH (21:46)
[2020-12-01] MEDS: HYDROmorphone HCl 2 MG/ML VIAL IVPB PRN ×3 (00:22→18:13)
[2020-12-01] MEDS: hydrALAZINE HCL 50 MG TABLET (FP) PO SCH ×4 (00:24→17:53)
[2020-12-01] MEDS: SODIUM CHLORIDE 1,000 ML IV SCH ×2 (04:19→22:31)
[2020-12-01] MEDS: CYCLOBENZAPRINE HCL 5 MG TABLET PO SCH ×3 (06:00→22:30)
[2020-12-01] MEDS: INSULIN SLIDING SCALE (NOVOLOG) 1 VIAL SQ SCH ×4 (06:02→22:33)
[2020-12-01] MEDS ORDERED: PT OWN MED DRAWER 7, Y5N ONE ×5 (08:02→17:46)
[2020-12-01] MEDS ORDERED: CARVEDILOL 25 MG TABLET (FP) ONE ×2 (09:06→22:21)
[2020-12-01] MEDS ORDERED: CARVEDILOL 12.5 MG TABLET (FP) ONE ×2 (09:07→22:21)
[2020-12-01] MEDS: NIFEdipine E.R. 90 MG TABLET PO SCH (09:19)
[2020-12-01] MEDS: LIPASE/PROTEASE/AMYLASE 36,000 UNIT CAPSULE PO SCH ×4 (09:20→17:53)
[2020-12-01] MEDS: CARVEDILOL 25 MG, CARVEDILOL 12.5 MG PO SCH ×2 (09:20→22:30)
[2020-12-01] MEDS: FERROUS SO4 325 MG TABLET (FP) PO SCH (09:20)
[2020-12-01] MEDS: PANTOPRAZOLE 40 MG TABLET PO SCH (09:20)
[2020-12-01] MEDS: ESCITALOPRAM OXALATE 10 MG TABLET PO SCH (09:20)
[2020-12-01] MEDS: METHYL SALICYLATE/MENTHOL OINT 30 GM TUBE TP SCH ×2 (09:23→22:32)
[2020-12-01] MEDS: LIDOCAINE PATCH REMOVAL MC SCH (09:24)
[2020-12-01] MEDS: DOXAZOSIN MESYLATE 2 MG TABLET PO SCH (09:29)
[2020-12-01 09:54] LABS: BASO % 0.3 % (0-2.0); EOS % 3.1 % (0-4.5); HEMATOCRIT 30.5 % (32.4-45.2); HEMOGLOBIN 10.1 GM/dL (10.7-15.3); LYMPH % 10.4 % (8-40); MCH 27.9 pg (25.7-33.7); MCHC 33.2 g/dl (32.0-36.0); MEAN CELL VOLUME 83.9 fl (80-96); MEAN PLT VOLUME 7.6 fl (7.5-11.1); MONO % 5.4 % (3.8-10.2); NEUT % 80.8 % (42.8-82.8); PLATELET COUNT 166 K/MM3 (134-434); RBC 3.64 M/mm3 (3.60-5.2); RDW 19.3 % (11.6-15.6); WHITE BLOOD COUNT 9.5 K/mm3 (4.0-10.0)
[2020-12-01 10:11] LABS: CHLORIDE 101 mmol/L (98-107); SODIUM 133 mmol/L (136-145)
[2020-12-01 10:12] LABS: ANION GAP 9 MMOL/L (8-16); CO2 23 mmol/L (21-32)
[2020-12-01 10:13] LABS: CALCIUM 10.5 mg/dL (8.5-10.1)
[2020-12-01 10:14] LABS: ALBUMIN 1.7 g/dl (3.4-5.0); BLOOD UREA NITROGEN 48.3 mg/dL (7-18); GLUCOSE,RANDOM 131 mg/dL (74-106)
[2020-12-01 10:17] LABS: CREATININE 5.3 mg/dL (0.55-1.3); SGOT/AST 502 U/L (15-37); SGPT/ALT 196 U/L (13-61)
[2020-12-01 10:18] LABS: BILIRUBIN,TOTAL 0.5 mg/dL (0.2-1)
[2020-12-01 10:20] LABS: ALK PHOS 260 U/L (45-117)
[2020-12-01] MEDS ORDERED: INSULIN (NOVOLOG) ASPART 100 UNITS/ML 10ML VIAL ONE (22:21)
[2020-12-01] MEDS: DOCUSATE SODIUM 100 MG CAPSULE (FP) PO SCH (22:30)
[2020-12-01] MEDS: ACETAMINOPHEN 325 MG TABLET (FP) PO PRN (22:30)
[2020-12-01] MEDS: LIDOCAINE 5% TOPICAL PATCH TP SCH (22:32)
[2020-12-02] MEDS: HYDROmorphone HCl 2 MG/ML VIAL IVPB PRN ×4 (00:07→23:40)
[2020-12-02] MEDS: hydrALAZINE HCL 50 MG TABLET (FP) PO SCH ×5 (00:10→23:42)
[2020-12-02] MEDS: SODIUM CHLORIDE 1,000 ML IV SCH ×3 (01:47→21:23)
[2020-12-02] MEDS: INSULIN SLIDING SCALE (NOVOLOG) 1 VIAL SQ SCH ×4 (06:05→21:29)
[2020-12-02] MEDS: CYCLOBENZAPRINE HCL 5 MG TABLET PO SCH ×3 (06:18→21:29)
[2020-12-02] MEDS: ACETAMINOPHEN 325 MG TABLET (FP) PO PRN ×2 (06:22→21:27)
[2020-12-02] MEDS: LIPASE/PROTEASE/AMYLASE 36,000 UNIT CAPSULE PO SCH ×3 (08:00→17:12)
[2020-12-02] MEDS ORDERED: PT OWN MED DRAWER 7, Y5N ONE ×2 (08:01→10:42)
[2020-12-02 08:34] LABS: BASO % 0.3 % (0-2.0); EOS % 3.4 % (0-4.5); HEMATOCRIT 29.7 % (32.4-45.2); HEMOGLOBIN 9.9 GM/dL (10.7-15.3); LYMPH % 12.1 % (8-40); MCH 27.9 pg (25.7-33.7); MCHC 33.4 g/dl (32.0-36.0); MEAN CELL VOLUME 83.5 fl (80-96); MEAN PLT VOLUME 7.7 fl (7.5-11.1); MONO % 5.9 % (3.8-10.2); NEUT % 78.3 % (42.8-82.8); PLATELET COUNT 160 K/MM3 (134-434); RBC 3.56 M/mm3 (3.60-5.2); RDW 19.3 % (11.6-15.6)
[2020-12-02 08:53] LABS: CHLORIDE 103 mmol/L (98-107); SODIUM 131 mmol/L (136-145)
[2020-12-02 08:55] LABS: ANION GAP 11 MMOL/L (8-16); CO2 18 mmol/L (21-32)
[2020-12-02 09:09] LABS: ALBUMIN 1.6 g/dl (3.4-5.0); BLOOD UREA NITROGEN 60.3 mg/dL (7-18); CALCIUM 10.1 mg/dL (8.5-10.1); GLUCOSE,RANDOM 108 mg/dL (74-106)
[2020-12-02 09:12] LABS: CREATININE 6.1 mg/dL (0.55-1.3); SGOT/AST 447 U/L (15-37); SGPT/ALT 224 U/L (13-61)
[2020-12-02 09:13] LABS: LDH 639 U/L (84-246); TOT PROT 5.8 g/dl (6.4-8.2)
[2020-12-02 09:15] LABS: ALK PHOS 257 U/L (45-117); BILIRUBIN,TOTAL 0.4 mg/dL (0.2-1)
[2020-12-02] MEDS ORDERED: CARVEDILOL 25 MG TABLET (FP) ONE ×2 (10:40→20:48)
[2020-12-02] MEDS ORDERED: CARVEDILOL 12.5 MG TABLET (FP) ONE ×2 (10:40→20:48)
[2020-12-02] MEDS: FERROUS SO4 325 MG TABLET (FP) PO SCH (10:47)
[2020-12-02] MEDS: NIFEdipine E.R. 90 MG TABLET PO SCH (10:47)
[2020-12-02] MEDS: CARVEDILOL 25 MG, CARVEDILOL 12.5 MG PO SCH ×2 (10:47→21:28)
[2020-12-02] MEDS: PANTOPRAZOLE 40 MG TABLET PO SCH (10:48)
[2020-12-02] MEDS: DOXAZOSIN MESYLATE 2 MG TABLET PO SCH (10:48)
[2020-12-02] MEDS: ESCITALOPRAM OXALATE 10 MG TABLET PO SCH (10:48)
[2020-12-02] MEDS: METHYL SALICYLATE/MENTHOL OINT 30 GM TUBE TP SCH ×2 (10:49→21:57)
[2020-12-02] MEDS: LIDOCAINE PATCH REMOVAL MC SCH (11:22)
[2020-12-02] MEDS: DOCUSATE SODIUM 100 MG CAPSULE (FP) PO SCH (21:28)
[2020-12-02] MEDS: LIDOCAINE 5% TOPICAL PATCH TP SCH (21:29)
[2020-12-03] MEDS: CYCLOBENZAPRINE HCL 5 MG TABLET PO SCH ×3 (05:42→21:29)
[2020-12-03] MEDS: hydrALAZINE HCL 50 MG TABLET (FP) PO SCH ×3 (05:42→17:20)
[2020-12-03] MEDS: INSULIN SLIDING SCALE (NOVOLOG) 1 VIAL SQ SCH ×4 (06:40→21:43)
[2020-12-03] MEDS ORDERED: CARVEDILOL 12.5 MG TABLET (FP) ONE ×2 (08:34→21:08)
[2020-12-03] MEDS ORDERED: CARVEDILOL 25 MG TABLET (FP) ONE ×2 (08:34→21:08)
[2020-12-03] MEDS ORDERED: PT OWN MED DRAWER 7, Y5N ONE (08:35)
[2020-12-03] MEDS: CARVEDILOL 25 MG, CARVEDILOL 12.5 MG PO SCH ×2 (09:49→21:29)
[2020-12-03] MEDS: SODIUM CHLORIDE 1,000 ML IV SCH ×2 (09:49→12:54)
[2020-12-03] MEDS: NIFEdipine E.R. 90 MG TABLET PO SCH (09:49)
[2020-12-03] MEDS: LIPASE/PROTEASE/AMYLASE 36,000 UNIT CAPSULE PO SCH ×3 (09:49→17:21)
[2020-12-03] MEDS: PANTOPRAZOLE 40 MG TABLET PO SCH (09:49)
[2020-12-03] MEDS: FERROUS SO4 325 MG TABLET (FP) PO SCH (09:50)
[2020-12-03] MEDS: ESCITALOPRAM OXALATE 10 MG TABLET PO SCH (09:50)
[2020-12-03] MEDS: ACETAMINOPHEN 325 MG TABLET (FP) PO PRN (09:50)
[2020-12-03] MEDS: DOXAZOSIN MESYLATE 2 MG TABLET PO SCH (09:50)
[2020-12-03] MEDS: LIDOCAINE PATCH REMOVAL MC SCH (09:52)
[2020-12-03] MEDS: METHYL SALICYLATE/MENTHOL OINT 30 GM TUBE TP SCH ×2 (09:52→21:32)
[2020-12-03] MEDS ORDERED: INSULIN (NOVOLOG) ASPART 100 UNITS/ML 10ML VIAL ONE (11:49)
[2020-12-03 13:00] LABS: BASO % 0.5 % (0-2.0); EOS % 3.9 % (0-4.5); HEMATOCRIT 29.3 % (32.4-45.2); HEMOGLOBIN 9.8 GM/dL (10.7-15.3); LYMPH % 11.8 % (8-40); MCH 27.6 pg (25.7-33.7); MCHC 33.4 g/dl (32.0-36.0); MEAN CELL VOLUME 82.6 fl (80-96); MEAN PLT VOLUME 7.6 fl (7.5-11.1); MONO % 7.3 % (3.8-10.2); NEUT % 76.5 % (42.8-82.8); PLATELET COUNT 165 K/MM3 (134-434); RBC 3.54 M/mm3 (3.60-5.2); RDW 19.2 % (11.6-15.6)
[2020-12-03 13:19] LABS: ALBUMIN 1.5 g/dl (3.4-5.0); BLOOD UREA NITROGEN 67.2 mg/dL (7-18); CALCIUM 10.1 mg/dL (8.5-10.1)
[2020-12-03 13:22] LABS: CREATININE 6.6 mg/dL (0.55-1.3)
[2020-12-03 13:24] LABS: BILIRUBIN,TOTAL 0.3 mg/dL (0.2-1); TOT PROT 5.8 g/dl (6.4-8.2)
[2020-12-03] MEDS ORDERED: SODIUM CHLORIDE 1,000 ML IV SCH (14:52)
[2020-12-03] MEDS: SODIUM ZIRCONIUM CYCLOSILICATE (LOKELMA) 10 GM PACKET PO SCH (15:55)
[2020-12-03 18:20] LABS: EPI CELLS >36 /uL (0-25.1); HYALINE CASTS 233 /uL (0-3.1); URINE APPEARANCE TURBID; URINE BACTERIA >9,000 /uL (0-1359); URINE BILIRUBIN NEGATIVE (NEGATIVE); URINE COLOR ORANGE; URINE GLUCOSE (UA) NEGATIVE (NEGATIVE); URINE KETONE NEGATIVE (NEGATIVE); URINE LEUK ESTERASE 3+ (NEGATIVE); URINE NITRITE NEGATIVE (NEGATIVE); URINE PROTEIN 2+ (NEGATIVE); URINE UROBILINOGEN 0.2 mg/dL (0.2-1.0); URINE WBC 36554 /uL (0-25.8)
[2020-12-03] MEDS: HYDROmorphone HCl 2 MG/ML VIAL IVPB PRN (18:35)
[2020-12-03] MEDS: ERTAPENEM SODIUM 0.5 GM in SODIUM CHLORIDE 50 ML IVPB SCH (19:01)
[2020-12-03 19:48] LABS: URINE RBC 563.3 /uL (0-23.9); YEAST NEGATIVE (NEGATIVE)
[2020-12-03] MEDS: DOCUSATE SODIUM 100 MG CAPSULE (FP) PO SCH (21:29)
[2020-12-03] MEDS: LIDOCAINE 5% TOPICAL PATCH TP SCH (21:35)
[2020-12-04] MEDS: ACETAMINOPHEN 325 MG TABLET (FP) PO PRN (01:20)
[2020-12-04] MEDS: hydrALAZINE HCL 50 MG TABLET (FP) PO SCH ×5 (01:20→23:59)
[2020-12-04] MEDS: CYCLOBENZAPRINE HCL 5 MG TABLET PO SCH ×3 (06:18→22:28)
[2020-12-04] MEDS: INSULIN SLIDING SCALE (NOVOLOG) 1 VIAL SQ SCH ×4 (06:21→22:43)
[2020-12-04] MEDS ORDERED: CARVEDILOL 25 MG TABLET (FP) ONE ×2 (09:43→22:09)
[2020-12-04] MEDS ORDERED: CARVEDILOL 12.5 MG TABLET (FP) ONE ×2 (09:44→22:10)
[2020-12-04] MEDS ORDERED: PT OWN MED DRAWER 7, Y5N ONE ×3 (09:46→17:34)
[2020-12-04] MEDS: LIPASE/PROTEASE/AMYLASE 36,000 UNIT CAPSULE PO SCH ×3 (09:51→17:44)
[2020-12-04] MEDS: PANTOPRAZOLE 40 MG TABLET PO SCH (09:52)
[2020-12-04] MEDS: ONDANSETRON 4 MG/2 ML VIAL IVPUSH PRN (09:52)
[2020-12-04] MEDS: CARVEDILOL 25 MG, CARVEDILOL 12.5 MG PO SCH ×2 (09:52→22:28)
[2020-12-04] MEDS: ESCITALOPRAM OXALATE 10 MG TABLET PO SCH (09:52)
[2020-12-04] MEDS: FERROUS SO4 325 MG TABLET (FP) PO SCH (09:52)
[2020-12-04] MEDS: HYDROmorphone HCl 2 MG/ML VIAL IVPB PRN ×2 (09:52→18:40)
[2020-12-04] MEDS: NIFEdipine E.R. 90 MG TABLET PO SCH (09:52)
[2020-12-04] MEDS: BACITRACIN 15 GM TUBE TOPICAL OINTMENT TP SCH (09:54)
[2020-12-04] MEDS: METHYL SALICYLATE/MENTHOL OINT 30 GM TUBE TP SCH ×2 (09:54→22:26)
[2020-12-04] MEDS: LIDOCAINE PATCH REMOVAL MC SCH (09:54)
[2020-12-04] MEDS: SODIUM ZIRCONIUM CYCLOSILICATE (LOKELMA) 10 GM PACKET PO SCH (09:56)
[2020-12-04] MEDS: DOXAZOSIN MESYLATE 2 MG TABLET PO SCH (09:56)
[2020-12-04] MEDS: ERTAPENEM SODIUM 0.5 GM in SODIUM CHLORIDE 50 ML IVPB SCH (09:56)
[2020-12-04 10:01] LABS: BLOOD UREA NITROGEN 68.4 mg/dL (7-18)
[2020-12-04 10:02] LABS: ALBUMIN 1.6 g/dl (3.4-5.0); CALCIUM 9.4 mg/dL (8.5-10.1)
[2020-12-04 10:05] LABS: CREATININE 6.8 mg/dL (0.55-1.3)
[2020-12-04 10:06] LABS: BILIRUBIN,TOTAL 0.3 mg/dL (0.2-1); TOT PROT 5.6 g/dl (6.4-8.2)
[2020-12-04] MEDS: SODIUM CHLORIDE 1,000 ML IV SCH ×2 (11:15→20:00)
[2020-12-04] MEDS: SODIUM BICARBONATE 650 MG TABLET PO SCH ×2 (11:19→22:27)
[2020-12-04] MEDS ORDERED: INSULIN (NOVOLOG) ASPART 100 UNITS/ML 10ML VIAL ONE (12:04)
[2020-12-04] MEDS ORDERED: diphenhydrAMINE HCL 25 MG CAPSULE (FP) PO PRN (22:00)
[2020-12-04] MEDS: DOCUSATE SODIUM 100 MG CAPSULE (FP) PO SCH (22:27)
[2020-12-04] MEDS: LIDOCAINE 5% TOPICAL PATCH TP SCH ×2 (22:27→22:39)
[2020-12-05] MEDS: SODIUM CHLORIDE 1,000 ML IV SCH ×2 (04:00→13:35)
[2020-12-05] MEDS: HYDROmorphone HCl 2 MG/ML VIAL IVPB PRN ×2 (04:51→13:33)
[2020-12-05] MEDS: hydrALAZINE HCL 50 MG TABLET (FP) PO SCH ×4 (06:51→23:34)
[2020-12-05] MEDS: CYCLOBENZAPRINE HCL 5 MG TABLET PO SCH ×3 (06:51→22:07)
[2020-12-05] MEDS: INSULIN SLIDING SCALE (NOVOLOG) 1 VIAL SQ SCH ×4 (07:01→22:06)
[2020-12-05] MEDS ORDERED: CARVEDILOL 12.5 MG TABLET (FP) ONE ×2 (09:46→21:22)
[2020-12-05] MEDS ORDERED: CARVEDILOL 25 MG TABLET (FP) ONE ×2 (09:46→21:22)
[2020-12-05] MEDS: LIPASE/PROTEASE/AMYLASE 36,000 UNIT CAPSULE PO SCH ×3 (09:52→17:33)
[2020-12-05] MEDS: CARVEDILOL 25 MG, CARVEDILOL 12.5 MG PO SCH ×2 (09:53→22:07)
[2020-12-05] MEDS: DOXAZOSIN MESYLATE 2 MG TABLET PO SCH (09:53)
[2020-12-05] MEDS: NIFEdipine E.R. 90 MG TABLET PO SCH (09:53)
[2020-12-05] MEDS: ESCITALOPRAM OXALATE 10 MG TABLET PO SCH (09:53)
[2020-12-05] MEDS: SODIUM BICARBONATE 650 MG TABLET PO SCH ×2 (09:53→22:17)
[2020-12-05] MEDS: ERTAPENEM SODIUM 0.5 GM in SODIUM CHLORIDE 50 ML IVPB SCH (09:53)
[2020-12-05] MEDS: FERROUS SO4 325 MG TABLET (FP) PO SCH (09:53)
[2020-12-05] MEDS: PANTOPRAZOLE 40 MG TABLET PO SCH (09:53)
[2020-12-05] MEDS: SODIUM ZIRCONIUM CYCLOSILICATE (LOKELMA) 10 GM PACKET PO SCH (09:54)
[2020-12-05] MEDS: LIDOCAINE PATCH REMOVAL MC SCH (09:54)
[2020-12-05 11:09] LABS: CALCIUM 9.7 mg/dL (8.5-10.1)
[2020-12-05 11:10] LABS: ALBUMIN 1.6 g/dl (3.4-5.0); BLOOD UREA NITROGEN 69.3 mg/dL (7-18)
[2020-12-05 11:13] LABS: CREATININE 7.1 mg/dL (0.55-1.3)
[2020-12-05 11:14] LABS: BILIRUBIN,TOTAL 0.3 mg/dL (0.2-1); TOT PROT 5.6 g/dl (6.4-8.2)
[2020-12-05] MEDS: METHYL SALICYLATE/MENTHOL OINT 30 GM TUBE TP SCH ×2 (12:25→22:12)
[2020-12-05] MEDS: BACITRACIN 15 GM TUBE TOPICAL OINTMENT TP SCH (12:25)
[2020-12-05] MEDS: ONDANSETRON 4 MG/2 ML VIAL IVPUSH PRN (12:32)
[2020-12-05] MEDS: DOCUSATE SODIUM 100 MG CAPSULE (FP) PO SCH (22:07)
[2020-12-05] MEDS: LIDOCAINE 5% TOPICAL PATCH TP SCH (22:12)
[2020-12-05] MEDS: MELATONIN 5 MG TABLETS PO PRN (23:35)
[2020-12-05] MEDS: ACETAMINOPHEN 325 MG TABLET (FP) PO PRN (23:55)
[2020-12-06] MEDS: CYCLOBENZAPRINE HCL 5 MG TABLET PO SCH ×3 (06:40→22:04)
[2020-12-06] MEDS: hydrALAZINE HCL 50 MG TABLET (FP) PO SCH ×4 (06:40→23:55)
[2020-12-06] MEDS: INSULIN SLIDING SCALE (NOVOLOG) 1 VIAL SQ SCH ×4 (06:42→22:05)
[2020-12-06] MEDS ORDERED: PT OWN MED DRAWER 7, Y5N ONE ×3 (07:52→19:28)
[2020-12-06] MEDS: LIPASE/PROTEASE/AMYLASE 36,000 UNIT CAPSULE PO SCH ×3 (10:48→17:37)
[2020-12-06] MEDS ORDERED: CARVEDILOL 12.5 MG TABLET (FP) ONE ×2 (10:55→21:15)
[2020-12-06] MEDS ORDERED: CARVEDILOL 25 MG TABLET (FP) ONE ×2 (10:55→21:14)
[2020-12-06] MEDS: PANTOPRAZOLE 40 MG TABLET PO SCH (10:58)
[2020-12-06] MEDS: SODIUM BICARBONATE 650 MG TABLET PO SCH ×2 (10:58→22:04)
[2020-12-06] MEDS: DULoxetine HCL 20 MG CAPSULE.DR PO SCH (10:58)
[2020-12-06] MEDS: FERROUS SO4 325 MG TABLET (FP) PO SCH (10:58)
[2020-12-06] MEDS: CARVEDILOL 25 MG, CARVEDILOL 12.5 MG PO SCH ×2 (10:58→22:05)
[2020-12-06] MEDS: NIFEdipine E.R. 90 MG TABLET PO SCH (10:58)
[2020-12-06] MEDS: DOXAZOSIN MESYLATE 2 MG TABLET PO SCH (10:59)
[2020-12-06] MEDS: METHYL SALICYLATE/MENTHOL OINT 30 GM TUBE TP SCH ×2 (10:59→22:05)
[2020-12-06] MEDS: SODIUM ZIRCONIUM CYCLOSILICATE (LOKELMA) 10 GM PACKET PO SCH (11:00)
[2020-12-06] MEDS: LIDOCAINE PATCH REMOVAL MC SCH (11:02)
[2020-12-06] MEDS: BACITRACIN 15 GM TUBE TOPICAL OINTMENT TP SCH (11:10)
[2020-12-06] MEDS: ERTAPENEM SODIUM 0.5 GM in SODIUM CHLORIDE 50 ML IVPB SCH (11:14)
[2020-12-06] MEDS: predniSONE 10 MG TABLET (UD) PO SCH (11:54)
[2020-12-06 15:24] LABS: BASO % 0.7 % (0-2.0); EOS % 5.4 % (0-4.5); HEMATOCRIT 28.6 % (32.4-45.2); HEMOGLOBIN 9.4 GM/dL (10.7-15.3); MCH 27.4 pg (25.7-33.7); MCHC 32.8 g/dl (32.0-36.0); MEAN CELL VOLUME 83.6 fl (80-96); MEAN PLT VOLUME 7.6 fl (7.5-11.1); MONO % 5.3 % (3.8-10.2); NEUT % 76.6 % (42.8-82.8); PLATELET COUNT 215 K/MM3 (134-434); RBC 3.41 M/mm3 (3.60-5.2); RDW 19.2 % (11.6-15.6); WHITE BLOOD COUNT 7.1 K/mm3 (4.0-10.0)
[2020-12-06 15:47] LABS: ALBUMIN 1.6 g/dl (3.4-5.0); CALCIUM 9.8 mg/dL (8.5-10.1)
[2020-12-06 15:49] LABS: CREATININE 7.1 mg/dL (0.55-1.3)
[2020-12-06 15:52] LABS: BILIRUBIN,TOTAL 0.2 mg/dL (0.2-1); TOT PROT 5.6 g/dl (6.4-8.2)
[2020-12-06 15:53] LABS: BLOOD UREA NITROGEN 73.3 mg/dL (7-18)
[2020-12-06] MEDS ORDERED: FUROSEMIDE 40 MG/4 ML INJECTABLE VIAL IVPUSH ONE (17:36)
[2020-12-06] MEDS: ACETAMINOPHEN 325 MG TABLET (FP) PO PRN (18:05)
[2020-12-06] MEDS ORDERED: HYDROmorphone HCl 2 MG/ML VIAL IVPB ONE (21:10)
[2020-12-06] MEDS: DOCUSATE SODIUM 100 MG CAPSULE (FP) PO SCH (22:04)
[2020-12-06] MEDS: LIDOCAINE 5% TOPICAL PATCH TP SCH (22:05)
[2020-12-07] MEDS: CYCLOBENZAPRINE HCL 5 MG TABLET PO SCH ×3 (05:31→21:10)
[2020-12-07] MEDS: hydrALAZINE HCL 50 MG TABLET (FP) PO SCH ×3 (05:31→18:49)
[2020-12-07] MEDS: INSULIN SLIDING SCALE (NOVOLOG) 1 VIAL SQ SCH ×4 (06:01→21:25)
[2020-12-07] MEDS: LIPASE/PROTEASE/AMYLASE 36,000 UNIT CAPSULE PO SCH ×3 (08:37→18:49)
[2020-12-07 09:00] LABS: CHLORIDE 108 mmol/L (98-107); SODIUM 135 mmol/L (136-145)
[2020-12-07 09:15] LABS: ALBUMIN 1.7 g/dl (3.4-5.0); ANION GAP 11 MMOL/L (8-16); BLOOD UREA NITROGEN 77.2 mg/dL (7-18); CALCIUM 10.3 mg/dL (8.5-10.1); CO2 16 mmol/L (21-32); GLUCOSE,RANDOM 114 mg/dL (74-106)
[2020-12-07 09:18] LABS: SGPT/ALT 133 U/L (13-61)
[2020-12-07 09:19] LABS: SGOT/AST 49 U/L (15-37)
[2020-12-07 09:20] LABS: BILIRUBIN,TOTAL 0.2 mg/dL (0.2-1); TOT PROT 6.1 g/dl (6.4-8.2)
[2020-12-07 09:21] LABS: ALK PHOS 312 U/L (45-117)
[2020-12-07 10:08] LABS: CREATININE 7.6 mg/dL (0.55-1.3)
[2020-12-07] MEDS ORDERED: CARVEDILOL 25 MG TABLET (FP) ONE ×2 (11:30→21:06)
[2020-12-07] MEDS ORDERED: CARVEDILOL 12.5 MG TABLET (FP) ONE ×2 (11:30→21:06)
[2020-12-07] MEDS ORDERED: PT OWN MED DRAWER 7, Y5N ONE ×2 (11:32→18:55)
[2020-12-07] MEDS: SODIUM BICARBONATE 650 MG TABLET PO SCH ×2 (11:35→21:10)
[2020-12-07] MEDS: FERROUS SO4 325 MG TABLET (FP) PO SCH (11:35)
[2020-12-07] MEDS: PANTOPRAZOLE 40 MG TABLET PO SCH (11:35)
[2020-12-07] MEDS: CARVEDILOL 25 MG, CARVEDILOL 12.5 MG PO SCH ×2 (11:35→21:11)
[2020-12-07] MEDS: NIFEdipine E.R. 90 MG TABLET PO SCH (11:36)
[2020-12-07] MEDS: DULoxetine HCL 20 MG CAPSULE.DR PO SCH (11:36)
[2020-12-07] MEDS: METHYL SALICYLATE/MENTHOL OINT 30 GM TUBE TP SCH ×2 (11:37→21:24)
[2020-12-07] MEDS: BACITRACIN 15 GM TUBE TOPICAL OINTMENT TP SCH (11:37)
[2020-12-07] MEDS: predniSONE 10 MG TABLET (UD) PO SCH (11:38)
[2020-12-07] MEDS: DOXAZOSIN MESYLATE 2 MG TABLET PO SCH (11:38)
[2020-12-07] MEDS: LIDOCAINE PATCH REMOVAL MC SCH (11:38)
[2020-12-07] MEDS: SODIUM ZIRCONIUM CYCLOSILICATE (LOKELMA) 10 GM PACKET PO SCH ×2 (11:39→11:43)
[2020-12-07] MEDS: ERTAPENEM SODIUM 0.5 GM in SODIUM CHLORIDE 50 ML IVPB SCH (11:45)
[2020-12-07 16:17] VITALS: BP 138/73; PULSE 92; TEMP 97.7
[2020-12-07] MEDS: ACETAMINOPHEN 325 MG TABLET (FP) PO PRN (21:11)
[2020-12-07] MEDS: DOCUSATE SODIUM 100 MG CAPSULE (FP) PO SCH (21:11)
[2020-12-07] MEDS: LIDOCAINE 5% TOPICAL PATCH TP SCH (21:24)
== END 2020-12-07 21:20 | DRG 282 ==
LOC: JER 14:45 → JERBED 19:00 → J8W 11-15 08:16
PROVIDERS: ADMIT Internal Medicine; ATTEND Family Medicine
PROC: B246ZZ4 Ultrasonography of Right and Left Heart, Transesophageal (ICD-10-PCS; principal; 2020-11-21 12:00)
PROC: 02HV33Z Insertion of Infusion Device into Superior Vena Cava, Percutaneous Approach (ICD-10-PCS; 2020-11-23)
PROC: B548ZZA Ultrasonography of Superior Vena Cava, Guidance (ICD-10-PCS; 2020-11-23)
PROC: 0TB03ZX Excision of Right Kidney, Percutaneous Approach, Diagnostic (ICD-10-PCS; 2020-11-29)
DX: K85.90 Acute pancreatitis without necrosis or infection, unspecified (principal); I12.9 Hypertensive chronic kidney disease with stage 1 through stage 4 chronic kidney disease, or unspecified chronic kidney disease; E11.22 Type 2 diabetes mellitus with diabetic chronic kidney disease; N18.9 Chronic kidney disease, unspecified; D86.0 Sarcoidosis of lung; D86.1 Sarcoidosis of lymph nodes; D86.89 Sarcoidosis of other sites; D63.1 Anemia in chronic kidney disease; N17.9 Acute kidney failure, unspecified; F32.9 Major depressive disorder, single episode, unspecified; E83.52 Hypercalcemia; K21.9 Gastro-esophageal reflux disease without esophagitis; R78.81 Bacteremia; M54.5 Low back pain; G47.30 Sleep apnea, unspecified; M62.82 Rhabdomyolysis; D57.3 Sickle-cell trait; E66.01 Morbid (severe) obesity due to excess calories; E78.00 Pure hypercholesterolemia, unspecified; Z96.642 Presence of left artificial hip joint; Z20.822 Contact with and (suspected) exposure to COVID-19; Z68.41 Body mass index [BMI] 40.0-44.9, adult
CPT/HCPCS: 36415; 36430; 36558; 50200; 71045-TC-FY; 71250-TC; 73200-TC-RT; 74176-TC; 74181-TC; 76700-TC; 76705-TC; 76775-TC; 76856-TC; 77001-TC-FY; 80048; 80053; 80061; 80074; 81003; 82272; 82310; 82436; 82550; 82553; 82570; 82607; 82668; 82728; 82784; 82962; 83010; 83036; 83520; 83540; 83550; 83605; 83615; 83690; 83721; 83735; 83970; 84100; 84133; 84155; 84156; 84157; 84165; 84300; 84439; 84443; 84484; 84703; 85025; 85027; 85610; 85651; 86038; 86140; 86225; 86256; 86334; 86704; 86706; 86707; 86708; 86709; 86850; 86900; 86901; 86922; 87040; 87070; 87086; 87186; 87205; 87340; 87522; 88300-TC; 88329; 93005; 93010; 93306-TC; 93312; 93325; 93971; 94010; 97116-GP; 97161-GP; 99285-25; C1751; C9803; G0480; J0131; J0878; J1439; P9058; U0003; U0005

== ENCOUNTER → 2021-01-02 | Day surgery (SDC) | payer OTHER | END | disposition home or self-care (01) | LOC: JRADIR 11:39 | PROVIDERS: ATTEND Family Medicine | PROC: 02PY03Z Removal of Infusion Device from Great Vessel, Open Approach (ICD-10-PCS; principal; 2021-01-02) | DX: Z45.2 Encounter for adjustment and management of vascular access device (principal) | CPT/HCPCS: 36589 ==

== ENCOUNTER 2021-02-14 19:13 | Observation (INO) | payer OTHER ==
[2021-02-14 19:42] VITALS: BMI 47.1
[2021-02-14] MEDS ORDERED: ACETAMINOPHEN 1000 MG/100 ML VIAL (NON FORMULARY) IVPB ONE (20:00)
[2021-02-14] MEDS ORDERED: diazePAM 5 MG TABLET PO ONE (20:01)
[2021-02-14] MEDS ORDERED: ACETAMINOPHEN INJECTION 100 ML IVPB ONE (20:43)
[2021-02-14] MEDS ORDERED: diazePAM 5 MG TABLET ONE (20:43)
[2021-02-14 20:57] LABS: BASO % 0.2 % (0-2.0); EOS % 0.1 % (0-4.5); HEMATOCRIT 24.6 % (32.4-45.2); HEMOGLOBIN 8.2 GM/dL (10.7-15.3); LYMPH % 2.9 % (8-40); MCH 29.5 pg (25.7-33.7); MCHC 33.5 g/dl (32.0-36.0); MEAN CELL VOLUME 88.2 fl (80-96); MEAN PLT VOLUME 7.8 fl (7.5-11.1); MONO % 1.2 % (3.8-10.2); NEUT % 95.6 % (42.8-82.8); PLATELET COUNT 188 10^3/uL (134-434); RBC 2.78 M/mm3 (3.60-5.2); WHITE BLOOD COUNT 7.7 K/mm3 (4.0-10.0)
[2021-02-14 21:07] LABS: INR 1.01 (0.83-1.09); PROTHROMBIN TIME (PATIENT) 12.4 SEC (9.7-13.0)
[2021-02-14 21:10] LABS: ACTIVATED PTT 34.5 SECONDS (25.2-36.5)
[2021-02-14 21:17] LABS: CALCIUM 9.3 mg/dL (8.5-10.1); CHLORIDE 111 mmol/L (98-107); SODIUM 139 mmol/L (136-145)
[2021-02-14 21:18] LABS: ALBUMIN 3.1 g/dl (3.4-5.0); CO2 21 mmol/L (21-32)
[2021-02-14 21:19] LABS: MAGNESIUM 2.5 mg/dL (1.8-2.4)
[2021-02-14 21:21] LABS: CREATININE 4.2 mg/dL (0.55-1.3); SGOT/AST 25 U/L (15-37); SGPT/ALT 39 U/L (13-61)
[2021-02-14 21:23] LABS: BILIRUBIN,TOTAL 0.4 mg/dL (0.2-1); TOT PROT 7.6 g/dl (6.4-8.2)
[2021-02-14 21:24] LABS: ALK PHOS 253 U/L (45-117)
[2021-02-14 21:27] LABS: ANION GAP 7 MMOL/L (8-16); GLUCOSE,RANDOM 48 mg/dL (74-106); N-TERMINAL BNP 1911.4 pg/ml (5-125)
[2021-02-14] MEDS ORDERED: CALCIUM GLUCONATE 10% - 1,000 MG/10 ML VIAL IVPUSH ONE (21:29)
[2021-02-14] MEDS ORDERED: DEXTROSE 50%-WATER - 25 GM/50 ML VIAL IVPUSH ONE ×2 (21:29→22:52)
[2021-02-14] MEDS ORDERED: INSULIN REGULAR HUMAN 100 UNITS/ML *VIAL SQ ONE (21:29)
[2021-02-14] MEDS ORDERED: DEXTROSE 50%-WATER - 25 GM/50 ML VIAL ONE (21:36)
[2021-02-14] MEDS ORDERED: CALCIUM GLUCONATE 10% - 1,000 MG/10 ML VIAL ONE (21:36)
[2021-02-14] MEDS ORDERED: DEXTROSE 50%-WATER 25 GM/50 ML DISP.SYRIN ONE (21:39)
[2021-02-14 21:41] LABS: ANISOCYTOSIS 1+; MACROCYTOSIS 1+; PLATELET ESTIMATE NORMAL; ROULEAU 1+
[2021-02-14 23:49] LABS: EPI CELLS 22 /uL (0-25.1); HYALINE CASTS 2 /uL (0-3.1); URINE APPEARANCE TURBID; URINE BACTERIA >9,000 /uL (0-1359); URINE BILIRUBIN NEGATIVE (NEGATIVE); URINE COLOR YELLOW; URINE GLUCOSE (UA) NEGATIVE (NEGATIVE); URINE KETONE NEGATIVE (NEGATIVE); URINE LEUK ESTERASE 3+ (NEGATIVE); URINE NITRITE NEGATIVE (NEGATIVE); URINE PROTEIN 1+ (NEGATIVE); URINE RBC 36 /uL (0-23.9); URINE UROBILINOGEN 0.2 mg/dL (0.2-1.0); URINE WBC 4924 /uL (0-25.8)
[2021-02-15 00:41] LABS: CHLORIDE 111 mmol/L (98-107); SODIUM 139 mmol/L (136-145)
[2021-02-15 00:42] LABS: CALCIUM 9.2 mg/dL (8.5-10.1)
[2021-02-15 00:43] LABS: BLOOD UREA NITROGEN 82.4 mg/dL (7-18); CO2 21 mmol/L (21-32); GLUCOSE,RANDOM 83 mg/dL (74-106)
[2021-02-15 00:46] LABS: CREATININE 4.5 mg/dL (0.55-1.3)
[2021-02-15 01:15] LABS: ANION GAP 7 MMOL/L (8-16)
[2021-02-15] MEDS ORDERED: DEXTROSE 50%-WATER - 25 GM/50 ML VIAL IVPUSH ONE (01:20)
[2021-02-15] MEDS ORDERED: INSULIN REGULAR HUMAN 100 UNITS/ML *VIAL IVPUSH ONE (01:20)
[2021-02-15] MEDS ORDERED: SODIUM ZIRCONIUM CYCLOSILICATE (LOKELMA) 5 GM PACKET PO SCH ×2 (01:25→10:00)
[2021-02-15] MEDS ORDERED: SODIUM ZIRCONIUM CYCLOSILICATE (LOKELMA) 5 GM PACKET PO ONE (01:25)
[2021-02-15] MEDS ORDERED: SODIUM ZIRCONIUM CYCLOSILICATE (LOKELMA) 5 GM PACKET ONE (01:30)
[2021-02-15] MEDS ORDERED: CEFTRIAXONE 1 GM/50 ML BAG ONE (01:30)
[2021-02-15] MEDS ORDERED: DEXTROSE 50%-WATER 25 GM/50 ML DISP.SYRIN ONE (01:30)
[2021-02-15] MEDS: CEFTRIAXONE 1,000 MG in DEXTROSE 5%-WATER - 50 ML IVPB ONE ×2 (02:09→02:57)
[2021-02-15 05:18] LABS: YEAST NONE SEEN (NEGATIVE)
[2021-02-15] MEDS ORDERED: SODIUM ZIRCONIUM CYCLOSILICATE (LOKELMA) 5 GM PACKET PO STA (05:18)
[2021-02-15 06:50] LABS: MCH 29.6 pg (25.7-33.7); MCHC 33.3 g/dl (32.0-36.0); MEAN PLT VOLUME 8.1 fl (7.5-11.1); PLATELET COUNT 186 10^3/uL (134-434); RDW 18.5 % (11.6-15.6); WHITE BLOOD COUNT 5.6 K/mm3 (4.0-10.0)
[2021-02-15 07:17] LABS: CHLORIDE 111 mmol/L (98-107); SODIUM 139 mmol/L (136-145)
[2021-02-15 07:19] LABS: ALBUMIN 2.9 g/dl (3.4-5.0)
[2021-02-15 07:20] LABS: BLOOD UREA NITROGEN 86.2 mg/dL (7-18); CO2 20 mmol/L (21-32); GLUCOSE,RANDOM 150 mg/dL (74-106); MAGNESIUM 2.5 mg/dL (1.8-2.4)
[2021-02-15 07:23] LABS: CREATININE 4.6 mg/dL (0.55-1.3); SGOT/AST 22 U/L (15-37); SGPT/ALT 37 U/L (13-61)
[2021-02-15 07:24] LABS: BILIRUBIN,TOTAL 0.3 mg/dL (0.2-1); TOT PROT 7.4 g/dl (6.4-8.2)
[2021-02-15 07:25] LABS: ALK PHOS 239 U/L (45-117)
[2021-02-15 07:42] LABS: ANION GAP 7 MMOL/L (8-16)
[2021-02-15] MEDS ORDERED: SODIUM BICARBONATE 650 MG TABLET PO SCH (10:00)
[2021-02-15] MEDS: CARVEDILOL 25 MG TABLET (FP) PO SCH ×2 (10:11→22:16)
[2021-02-15] MEDS: predniSONE 10 MG TABLET (UD) PO SCH (10:11)
[2021-02-15] MEDS: FOLIC ACID 1 MG TABLET (FP) PO SCH (10:11)
[2021-02-15] MEDS: ACETAMINOPHEN 325 MG TABLET (FP) PO PRN ×2 (10:45→22:20)
[2021-02-15] MEDS: oxyCODONE HCL 5 MG TABLET PO PRN ×2 (10:47→22:17)
[2021-02-15] MEDS: ESCITALOPRAM OXALATE 20 MG TABLET PO SCH (10:49)
[2021-02-15] MEDS: NIFEdipine E.R. 90 MG TABLET PO SCH (10:49)
[2021-02-15] MEDS ORDERED: EPOETIN ALFA-EPBX 10,000 UNIT/ML VIAL SQ ONE (11:00)
[2021-02-15] MEDS ORDERED: METHOTREXATE 2.5 MG TABLET PO SCH (11:00)
[2021-02-15 11:08] LABS: BLOOD UREA NITROGEN 85.9 mg/dL (7-18); MAGNESIUM 2.6 mg/dL (1.8-2.4)
[2021-02-15 11:11] LABS: CREATININE 4.6 mg/dL (0.55-1.3)
[2021-02-15 11:12] LABS: PHOSPHOROUS 6.2 mg/dL (2.5-4.9)
[2021-02-15] MEDS: NYSTATIN 100,000 UNIT/GM TOPICAL CREAM 15 GM TUBE TP SCH ×2 (11:18→22:19)
[2021-02-15] MEDS: INSULIN SLIDING SCALE (NOVOLOG) 1 VIAL SQ SCH ×3 (11:29→22:19)
[2021-02-15] MEDS ORDERED: FUROSEMIDE 40 MG TABLET (FP) PO ONE (12:38)
[2021-02-15] MEDS ORDERED: SODIUM BICARBONATE 8.4% 50 MEQ/50 ML DISP.SYRIN IVPUSH ONE (12:39)
[2021-02-15] MEDS: SODIUM ZIRCONIUM CYCLOSILICATE (LOKELMA) 5 GM PACKET PO SCH ×2 (13:47→22:19)
[2021-02-15] MEDS: SODIUM BICARBONATE 650 MG TABLET PO SCH ×2 (13:47→22:18)
[2021-02-15] MEDS: hydrALAZINE HCL 25 MG TABLET (FP) PO SCH ×2 (13:48→22:16)
[2021-02-15] MEDS: SODIUM CHLORIDE 0.45% 1,000 ML IV SCH (13:50)
[2021-02-15] MEDS: DOXAZOSIN MESYLATE 4 MG TABLET PO SCH (14:02)
[2021-02-15] MEDS ORDERED: PT OWN MED DRAWER 7, Y5N ONE ×3 (19:18→22:23)
[2021-02-15] MEDS ORDERED: SENNOSIDES 8.6MG TABLET (FP) PO SCH (22:00)
[2021-02-15] MEDS ORDERED: MIRTAZAPINE 15 MG TABLET (FP) PO SCH (22:00)
[2021-02-15] MEDS ORDERED: INSULIN (LEVEMIR) 100 UNITS/ML UNITS SQ SCH (22:00)
[2021-02-15] MEDS ORDERED: DOCUSATE SODIUM 100 MG CAPSULE (FP) PO SCH (22:00)
[2021-02-15] MEDS ORDERED: ATORVASTATIN CA 80 MG TABLET (FP) PO SCH (22:00)
[2021-02-16 06:35] LABS: HEMATOCRIT 24.3 % (32.4-45.2); HEMOGLOBIN 7.8 GM/dL (10.7-15.3); MCH 28.9 pg (25.7-33.7); MCHC 32.2 g/dl (32.0-36.0); MEAN CELL VOLUME 89.7 fl (80-96); MEAN PLT VOLUME 7.7 fl (7.5-11.1); PLATELET COUNT 188 10^3/uL (134-434); RBC 2.71 M/mm3 (3.60-5.2); RDW 18.3 % (11.6-15.6); WHITE BLOOD COUNT 6.6 K/mm3 (4.0-10.0)
[2021-02-16] MEDS: SODIUM BICARBONATE 650 MG TABLET PO SCH ×2 (06:51→14:15)
[2021-02-16] MEDS: hydrALAZINE HCL 25 MG TABLET (FP) PO SCH ×2 (06:51→14:15)
[2021-02-16] MEDS: INSULIN SLIDING SCALE (NOVOLOG) 1 VIAL SQ SCH ×3 (06:51→17:02)
[2021-02-16 06:52] LABS: BLOOD UREA NITROGEN 97.5 mg/dL (7-18); CALCIUM 8.6 mg/dL (8.5-10.1)
[2021-02-16 06:53] LABS: MAGNESIUM 2.7 mg/dL (1.8-2.4)
[2021-02-16 06:56] LABS: CREATININE 4.4 mg/dL (0.55-1.3); PHOSPHOROUS 6.7 mg/dL (2.5-4.9)
[2021-02-16] MEDS: CARVEDILOL 25 MG TABLET (FP) PO SCH (09:57)
[2021-02-16] MEDS: ESCITALOPRAM OXALATE 20 MG TABLET PO SCH (09:57)
[2021-02-16] MEDS: predniSONE 10 MG TABLET (UD) PO SCH (09:57)
[2021-02-16] MEDS: SODIUM ZIRCONIUM CYCLOSILICATE (LOKELMA) 5 GM PACKET PO SCH (09:57)
[2021-02-16] MEDS: DOXAZOSIN MESYLATE 4 MG TABLET PO SCH (09:58)
[2021-02-16] MEDS: FOLIC ACID 1 MG TABLET (FP) PO SCH (09:58)
[2021-02-16] MEDS: NIFEdipine E.R. 90 MG TABLET PO SCH (09:58)
[2021-02-16] MEDS: NYSTATIN 100,000 UNIT/GM TOPICAL CREAM 15 GM TUBE TP SCH (09:58)
[2021-02-16] MEDS: SODIUM CHLORIDE 0.45% 1,000 ML IV SCH (12:46)
[2021-02-16 18:57] VITALS: BP 146/91; PULSE 77; TEMP 98
[2021-02-20] MEDS ORDERED: METHOTREXATE 2.5 MG TABLET PO SCH (12:06)
== END 2021-02-16 20:42 ==
LOC: JER 19:13 → INTOOBSV 22:56 → JERBED 22:56 → J2W 02-15 02:34
PROVIDERS: ADMIT Internal Medicine; ATTEND Family Medicine
PROC: 3E033VG Introduction of Insulin into Peripheral Vein, Percutaneous Approach (ICD-10-PCS; principal; 2021-02-14)
PROC: 3E013VG Introduction of Insulin into Subcutaneous Tissue, Percutaneous Approach (ICD-10-PCS; 2021-02-14)
PROC: 3E033GC Introduction of Other Therapeutic Substance into Peripheral Vein, Percutaneous Approach (ICD-10-PCS; 2021-02-14)
PROC: 3E013GC Introduction of Other Therapeutic Substance into Subcutaneous Tissue, Percutaneous Approach (ICD-10-PCS; 2021-02-14)
DX: M54.12 Radiculopathy, cervical region (principal); E78.5 Hyperlipidemia, unspecified; E11.65 Type 2 diabetes mellitus with hyperglycemia; R06.00 Dyspnea, unspecified; I12.9 Hypertensive chronic kidney disease with stage 1 through stage 4 chronic kidney disease, or unspecified chronic kidney disease; E11.22 Type 2 diabetes mellitus with diabetic chronic kidney disease; N18.9 Chronic kidney disease, unspecified; Z87.891 Personal history of nicotine dependence; Z79.4 Long term (current) use of insulin; Z91.013 Allergy to seafood; D57.3 Sickle-cell trait; D86.9 Sarcoidosis, unspecified; K21.9 Gastro-esophageal reflux disease without esophagitis; Z88.8 Allergy status to other drugs, medicaments and biological substances; D63.1 Anemia in chronic kidney disease; E66.01 Morbid (severe) obesity due to excess calories; Z68.42 Body mass index [BMI] 45.0-49.9, adult; M79.10 Myalgia, unspecified site; R80.9 Proteinuria, unspecified; E83.52 Hypercalcemia; N17.9 Acute kidney failure, unspecified
CPT/HCPCS: 36415; 71045-TC-FY; 80048; 80053; 80061; 81003; 82140; 82962; 83036; 83721; 83735; 83880; 84100; 84484; 84703; 85025; 85027; 85610; 85730; 87040; 87086; 87186; 93005; 93010; 96372; 96374; 96375; 96376; 99285-25; C9803; G0378; J0131; Q5106; U0003; U0005

== ENCOUNTER 2021-03-10 21:52 | Inpatient (IN) | payer OTHER ==
[2021-03-11] MEDS ORDERED: diazePAM CARPU-JECT 10 MG/2 ML DISP.SYRIN IVPUSH ONE (01:06)
[2021-03-11 01:33] LABS: BASO % 1.2 % (0-2.0); EOS % 0.7 % (0-4.5); HEMATOCRIT 21.5 % (32.4-45.2); HEMOGLOBIN 7.1 GM/dL (10.7-15.3); LYMPH % 8.6 % (8-40); MCH 29.2 pg (25.7-33.7); MCHC 33.1 g/dl (32.0-36.0); MEAN CELL VOLUME 88.1 fl (80-96); MONO % 8.4 % (3.8-10.2); NEUT % 81.1 % (42.8-82.8); RBC 2.45 M/mm3 (3.60-5.2); WHITE BLOOD COUNT 18.6 K/mm3 (4.0-10.0)
[2021-03-11 01:52] LABS: ALBUMIN 2.4 g/dl (3.4-5.0); BLOOD UREA NITROGEN 69.5 mg/dL (7-18); CALCIUM 9.1 mg/dL (8.5-10.1)
[2021-03-11 01:56] LABS: CREATININE 3.6 mg/dL (0.55-1.3)
[2021-03-11 01:57] LABS: BILIRUBIN,TOTAL 0.2 mg/dL (0.2-1)
[2021-03-11] MEDS ORDERED: diazePAM CARPU-JECT 10 MG/2 ML DISP.SYRIN ONE (02:07)
[2021-03-11] MEDS ORDERED: SODIUM CHLORIDE 0.9% 500 ML INFUS.BAG IV ONE (02:14)
[2021-03-11] MEDS ORDERED: VANCOMYCIN 1 GM in D5W (PRE-DOCKED) 1,000 MG/250 ML IVPB ONE (02:15)
[2021-03-11] MEDS ORDERED: LACTATED RINGERS SOLUTION 1000 ML INFUS.BAG IV ONE (02:19)
[2021-03-11 02:45] LABS: ANISOCYTOSIS 2+; MACROCYTOSIS 0; PLATELET ESTIMATE INCREASED
[2021-03-11] MEDS ORDERED: VANCOMYCIN 1 GRAM (PRE-DOCKED) 1,000 MG/250 ML BAG IVPB ONE (02:56)
[2021-03-11 03:06] LABS: MEAN PLT VOLUME 7.3 fl (7.5-11.1); PLATELET COUNT 832 10^3/uL (134-434)
[2021-03-11] MEDS ORDERED: AMPICILLIN NA/SULBACTAM NA 1.5 GM in SODIUM CHLORIDE 100 ML IVPB ONE (04:36)
[2021-03-11] MEDS ORDERED: ACETAMINOPHEN 1000 MG/100 ML VIAL (NON FORMULARY) IVPB ONE (06:15)
[2021-03-11] MEDS ORDERED: ACETAMINOPHEN INJECTION 100 ML IVPB ONE (06:19)
[2021-03-11] MEDS: INSULIN SLIDING SCALE (NOVOLOG) 1 VIAL SQ SCH ×4 (07:27→21:40)
[2021-03-11] MEDS ORDERED: DOXAZOSIN MESYLATE 2 MG TABLET PO SCH ×2 (07:45→10:00)
[2021-03-11] MEDS ORDERED: FERROUS SO4 325 MG TABLET (FP) ONE (08:50)
[2021-03-11] MEDS ORDERED: hydrALAZINE HCL 25 MG TABLET (FP) ONE (08:50)
[2021-03-11] MEDS ORDERED: oxyCODONE HCL 5 MG TABLET ONE (08:50)
[2021-03-11] MEDS ORDERED: ACETAMINOPHEN 325 MG TABLET (FP) ONE (08:50)
[2021-03-11] MEDS: hydrALAZINE HCL 25 MG TABLET (FP) PO SCH ×3 (09:00→21:39)
[2021-03-11] MEDS: oxyCODONE HCL 5 MG TABLET PO PRN ×2 (09:01→20:00)
[2021-03-11] MEDS: FERROUS SO4 325 MG TABLET (FP) PO SCH ×2 (09:01→17:22)
[2021-03-11] MEDS ORDERED: CARVEDILOL 12.5 MG TABLET (FP) ONE (09:53)
[2021-03-11] MEDS ORDERED: FOLIC ACID 1 MG TABLET (FP) ONE (09:54)
[2021-03-11] MEDS ORDERED: predniSONE 10 MG TABLET (UD) ONE (09:54)
[2021-03-11] MEDS: DOXAZOSIN MESYLATE 2 MG TABLET PO SCH ×2 (10:15→10:30)
[2021-03-11] MEDS: CARVEDILOL 12.5 MG TABLET (FP) PO SCH ×2 (10:15→21:37)
[2021-03-11] MEDS: LIPASE/PROTEASE/AMYLASE 36,000 UNIT CAPSULE PO SCH ×3 (10:15→18:03)
[2021-03-11] MEDS: predniSONE 10 MG TABLET (UD) PO SCH (10:15)
[2021-03-11] MEDS: NIFEdipine E.R. 90 MG TABLET PO SCH (10:16)
[2021-03-11] MEDS: NYSTATIN 100,000 UNIT/GM TOPICAL CREAM 15 GM TUBE TP SCH ×2 (10:16→21:44)
[2021-03-11] MEDS: FOLIC ACID 1 MG TABLET (FP) PO SCH (10:16)
[2021-03-11] MEDS ORDERED: INSULIN SLIDING SCALE (NOVOLOG) 1 VIAL SQ ONE (12:57)
[2021-03-11] MEDS: HEPARIN NA (PORCINE) 5,000 UNITS/ML 1ML VIAL SQ SCH ×2 (14:03→21:35)
[2021-03-11] MEDS: SODIUM BICARBONATE 650 MG TABLET PO SCH ×2 (14:03→21:36)
[2021-03-11] MEDS ORDERED: PT OWN MED DRAWER 7, Y5N ONE (16:16)
[2021-03-11] MEDS: diazePAM 2 MG TABLET PO PRN (17:26)
[2021-03-11] MEDS: ERTAPENEM SODIUM 0.5 GM in SODIUM CHLORIDE 50 ML IVPB SCH (18:03)
[2021-03-11] MEDS: DOCUSATE SODIUM 100 MG CAPSULE (FP) PO SCH ×2 (21:36→21:51)
[2021-03-11] MEDS: SENNOSIDES 8.6MG TABLET (FP) PO SCH ×2 (21:37→21:53)
[2021-03-11] MEDS: MIRTAZAPINE 15 MG TABLET (FP) PO SCH ×4 (21:38→21:53)
[2021-03-11] MEDS: ATORVASTATIN CA 80 MG TABLET (FP) PO SCH (21:39)
[2021-03-11] MEDS ORDERED: DOXAZOSIN MESYLATE 4 MG TABLET PO SCH (22:00)
[2021-03-12] MEDS: HEPARIN NA (PORCINE) 5,000 UNITS/ML 1ML VIAL SQ SCH ×3 (06:35→21:54)
[2021-03-12] MEDS: SODIUM BICARBONATE 650 MG TABLET PO SCH ×2 (06:35→14:25)
[2021-03-12] MEDS: INSULIN SLIDING SCALE (NOVOLOG) 1 VIAL SQ SCH ×4 (06:36→23:06)
[2021-03-12] MEDS: hydrALAZINE HCL 25 MG TABLET (FP) PO SCH ×3 (06:37→21:30)
[2021-03-12] MEDS ORDERED: PT OWN MED DRAWER 7, Y5N ONE ×2 (08:39→11:42)
[2021-03-12] MEDS: FERROUS SO4 325 MG TABLET (FP) PO SCH ×2 (08:41→16:54)
[2021-03-12] MEDS: LIPASE/PROTEASE/AMYLASE 36,000 UNIT CAPSULE PO SCH ×3 (08:41→16:55)
[2021-03-12] MEDS: NYSTATIN 100,000 UNIT/GM TOPICAL CREAM 15 GM TUBE TP SCH ×2 (09:16→22:08)
[2021-03-12] MEDS: FOLIC ACID 1 MG TABLET (FP) PO SCH (09:16)
[2021-03-12] MEDS: NIFEdipine E.R. 90 MG TABLET PO SCH (09:16)
[2021-03-12] MEDS: CARVEDILOL 12.5 MG TABLET (FP) PO SCH ×2 (09:16→21:29)
[2021-03-12] MEDS: predniSONE 10 MG TABLET (UD) PO SCH (09:16)
[2021-03-12 09:17] LABS: BASO % 0.7 % (0-2.0); EOS % 0.6 % (0-4.5); HEMATOCRIT 21.3 % (32.4-45.2); MCH 28.4 pg (25.7-33.7); MCHC 31.8 g/dl (32.0-36.0); MEAN CELL VOLUME 89.4 fl (80-96); MEAN PLT VOLUME 7.4 fl (7.5-11.1); MONO % 9.6 % (3.8-10.2); NEUT % 78.1 % (42.8-82.8); PLATELET COUNT 729 10^3/uL (134-434); RBC 2.39 M/mm3 (3.60-5.2); RDW 17.8 % (11.6-15.6); WHITE BLOOD COUNT 17.3 K/mm3 (4.0-10.0)
[2021-03-12] MEDS: ERTAPENEM SODIUM 0.5 GM in SODIUM CHLORIDE 50 ML IVPB SCH (09:25)
[2021-03-12 09:26] LABS: HEMOGLOBIN 6.8 GM/dL (10.7-15.3)
[2021-03-12 10:01] LABS: BLOOD UREA NITROGEN 61.2 mg/dL (7-18)
[2021-03-12 10:04] LABS: CREATININE 2.9 mg/dL (0.55-1.3)
[2021-03-12 10:20] LABS: ANISOCYTOSIS 1+; MACROCYTOSIS 0; PLATELET ESTIMATE INCREASED
[2021-03-12] MEDS: SODIUM ZIRCONIUM CYCLOSILICATE (LOKELMA) 5 GM PACKET PO SCH ×2 (10:57→11:51)
[2021-03-12] MEDS: DOXAZOSIN MESYLATE 2 MG TABLET PO SCH (11:45)
[2021-03-12] MEDS ORDERED: LIDOCAINE HCL 1%, 10 MG/ML (20ML VIAL) SQ ONE (12:55)
[2021-03-12] MEDS ORDERED: oxyCODONE HCL 5 MG TABLET PO ONE (13:18)
[2021-03-12] MEDS: oxyCODONE HCL 5 MG TABLET PO PRN ×2 (13:33→21:28)
[2021-03-12] MEDS ORDERED: HYDROmorphone HCl 2 MG/ML VIAL IVPB ONE (14:24)
[2021-03-12] MEDS ORDERED: VANCOMYCIN 1 GRAM (PRE-DOCKED) 1,000 MG/250 ML BAG IVPB ONE (14:59)
[2021-03-12] MEDS ORDERED: EPOETIN ALFA 10,000 UNIT/1 ML VIAL SQ ONE (16:00)
[2021-03-12] MEDS: DOCUSATE SODIUM 100 MG CAPSULE (FP) PO SCH (21:30)
[2021-03-12] MEDS: SENNOSIDES 8.6MG TABLET (FP) PO SCH (21:30)
[2021-03-12] MEDS: MIRTAZAPINE 15 MG TABLET (FP) PO SCH ×2 (21:30)
[2021-03-12] MEDS: ATORVASTATIN CA 80 MG TABLET (FP) PO SCH (22:08)
[2021-03-13] MEDS: HEPARIN NA (PORCINE) 5,000 UNITS/ML 1ML VIAL SQ SCH ×3 (06:43→22:13)
[2021-03-13] MEDS: hydrALAZINE HCL 25 MG TABLET (FP) PO SCH ×3 (06:43→22:13)
[2021-03-13] MEDS ORDERED: PT OWN MED DRAWER 7, Y5N ONE (09:26)
[2021-03-13] MEDS: FOLIC ACID 1 MG TABLET (FP) PO SCH (09:30)
[2021-03-13] MEDS: NIFEdipine E.R. 90 MG TABLET PO SCH (09:30)
[2021-03-13] MEDS: predniSONE 10 MG TABLET (UD) PO SCH (09:30)
[2021-03-13] MEDS: CARVEDILOL 12.5 MG TABLET (FP) PO SCH ×2 (09:30→22:12)
[2021-03-13] MEDS: FERROUS SO4 325 MG TABLET (FP) PO SCH ×2 (09:30→17:04)
[2021-03-13] MEDS: DOXAZOSIN MESYLATE 2 MG TABLET PO SCH (09:31)
[2021-03-13] MEDS: NYSTATIN 100,000 UNIT/GM TOPICAL CREAM 15 GM TUBE TP SCH ×2 (09:31→22:26)
[2021-03-13] MEDS: LIPASE/PROTEASE/AMYLASE 36,000 UNIT CAPSULE PO SCH ×3 (09:36→17:04)
[2021-03-13] MEDS: INSULIN SLIDING SCALE (NOVOLOG) 1 VIAL SQ SCH ×4 (09:48→22:26)
[2021-03-13] MEDS ORDERED: INSULIN (NOVOLOG) ASPART 100 UNITS/ML 10ML VIAL ONE (10:42)
[2021-03-13] MEDS: ERTAPENEM SODIUM 0.5 GM in SODIUM CHLORIDE 50 ML IVPB SCH (10:55)
[2021-03-13 11:50] LABS: HEMOGLOBIN 8.8 GM/dL (10.7-15.3); MCH 28.8 pg (25.7-33.7); MCHC 32.4 g/dl (32.0-36.0); MEAN CELL VOLUME 88.9 fl (80-96); MEAN PLT VOLUME 7.7 fl (7.5-11.1); PLATELET COUNT 621 10^3/uL (134-434); RBC 3.04 M/mm3 (3.60-5.2); RDW 16.5 % (11.6-15.6); WHITE BLOOD COUNT 18.7 K/mm3 (4.0-10.0)
[2021-03-13 12:17] LABS: CALCIUM 8.8 mg/dL (8.5-10.1)
[2021-03-13 12:18] LABS: BLOOD UREA NITROGEN 61.4 mg/dL (7-18)
[2021-03-13] MEDS: COLLAGENASE CLOSTRIDIUM HIST. 30 GRAMS TUBE TP SCH (12:19)
[2021-03-13 12:21] LABS: CREATININE 2.9 mg/dL (0.55-1.3)
[2021-03-13] MEDS: oxyCODONE HCL 5 MG TABLET PO PRN (13:31)
[2021-03-13] MEDS: ACETAMINOPHEN 325 MG TABLET (FP) PO PRN (13:32)
[2021-03-13 14:17] VITALS: BMI 45.7
[2021-03-13] MEDS: AMINO ACIDS/PROTEIN HYDROLYS 30 ML LIQUID.PKT PO SCH (17:04)
[2021-03-13] MEDS: MIRTAZAPINE 15 MG TABLET (FP) PO SCH ×2 (22:12)
[2021-03-13] MEDS: DOCUSATE SODIUM 100 MG CAPSULE (FP) PO SCH (22:12)
[2021-03-13] MEDS: ATORVASTATIN CA 80 MG TABLET (FP) PO SCH (22:13)
[2021-03-13] MEDS: SENNOSIDES 8.6MG TABLET (FP) PO SCH (22:13)
[2021-03-14] MEDS: hydrALAZINE HCL 25 MG TABLET (FP) PO SCH ×3 (05:42→21:24)
[2021-03-14] MEDS: HEPARIN NA (PORCINE) 5,000 UNITS/ML 1ML VIAL SQ SCH ×3 (05:42→21:21)
[2021-03-14] MEDS: INSULIN SLIDING SCALE (NOVOLOG) 1 VIAL SQ SCH ×5 (06:09→21:29)
[2021-03-14] MEDS ORDERED: PT OWN MED DRAWER 7, Y5N ONE ×3 (08:05→16:49)
[2021-03-14 08:07] LABS: HEMATOCRIT 26.9 % (32.4-45.2); HEMOGLOBIN 8.8 GM/dL (10.7-15.3); MCH 29.2 pg (25.7-33.7); MCHC 32.7 g/dl (32.0-36.0); MEAN CELL VOLUME 89.2 fl (80-96); PLATELET COUNT 544 10^3/uL (134-434); RBC 3.01 M/mm3 (3.60-5.2); RDW 16.6 % (11.6-15.6); WHITE BLOOD COUNT 23.6 K/mm3 (4.0-10.0)
[2021-03-14] MEDS: AMINO ACIDS/PROTEIN HYDROLYS 30 ML LIQUID.PKT PO SCH ×2 (08:10→16:42)
[2021-03-14] MEDS: FERROUS SO4 325 MG TABLET (FP) PO SCH ×2 (08:10→16:42)
[2021-03-14] MEDS: LIPASE/PROTEASE/AMYLASE 36,000 UNIT CAPSULE PO SCH ×3 (08:10→16:50)
[2021-03-14 08:28] LABS: BLOOD UREA NITROGEN 61.9 mg/dL (7-18); CALCIUM 8.4 mg/dL (8.5-10.1)
[2021-03-14 08:31] LABS: CREATININE 2.9 mg/dL (0.55-1.3)
[2021-03-14] MEDS: COLLAGENASE CLOSTRIDIUM HIST. 30 GRAMS TUBE TP SCH (12:08)
[2021-03-14] MEDS: NYSTATIN 100,000 UNIT/GM TOPICAL CREAM 15 GM TUBE TP SCH ×2 (12:08→21:24)
[2021-03-14] MEDS: DOXAZOSIN MESYLATE 2 MG TABLET PO SCH (12:18)
[2021-03-14] MEDS: CARVEDILOL 12.5 MG TABLET (FP) PO SCH ×2 (12:19→21:22)
[2021-03-14] MEDS: NIFEdipine E.R. 90 MG TABLET PO SCH (12:19)
[2021-03-14] MEDS: predniSONE 10 MG TABLET (UD) PO SCH (12:19)
[2021-03-14] MEDS: FOLIC ACID 1 MG TABLET (FP) PO SCH (12:20)
[2021-03-14] MEDS: ERTAPENEM SODIUM 0.5 GM in SODIUM CHLORIDE 50 ML IVPB SCH (12:20)
[2021-03-14] MEDS ORDERED: VANCOMYCIN 1 GRAM (PRE-DOCKED) 1,000 MG/250 ML BAG IVPB ONE (13:00)
[2021-03-14 18:27] LABS: PH,URINE 6.5 (5.0-8.0); URINE APPEARANCE CLEAR; URINE BILIRUBIN NEGATIVE (NEGATIVE); URINE COLOR YELLOW; URINE GLUCOSE (UA) 250 (NEGATIVE); URINE KETONE NEGATIVE (NEGATIVE); URINE PROTEIN 100 (NEGATIVE); URINE UROBILINOGEN 0.2 mg/dL (0.2-1.0)
[2021-03-14 18:28] LABS: URINE LEUK ESTERASE TRACE (NEGATIVE); URINE NITRITE NEGATIVE (NEGATIVE)
[2021-03-14 19:32] LABS: EPI CELLS 0-3 /HPF; URINE BACTERIA FEW /hpf (NEGATIVE); URINE RBC 0-3 /hpf (0-4)
[2021-03-14] MEDS ORDERED: INSULIN (NOVOLOG) ASPART 100 UNITS/ML 10ML VIAL ONE (20:41)
[2021-03-14] MEDS: MIRTAZAPINE 15 MG TABLET (FP) PO SCH ×2 (21:22→21:23)
[2021-03-14] MEDS: ATORVASTATIN CA 80 MG TABLET (FP) PO SCH (21:22)
[2021-03-14] MEDS: DOCUSATE SODIUM 100 MG CAPSULE (FP) PO SCH (21:22)
[2021-03-14] MEDS: SENNOSIDES 8.6MG TABLET (FP) PO SCH (21:22)
[2021-03-15] MEDS: oxyCODONE HCL 5 MG TABLET PO PRN (04:16)
[2021-03-15] MEDS: ACETAMINOPHEN 325 MG TABLET (FP) PO PRN (04:17)
[2021-03-15] MEDS: diazePAM 2 MG TABLET PO PRN (04:18)
[2021-03-15] MEDS: HEPARIN NA (PORCINE) 5,000 UNITS/ML 1ML VIAL SQ SCH ×3 (06:32→23:23)
[2021-03-15] MEDS: hydrALAZINE HCL 25 MG TABLET (FP) PO SCH ×3 (06:32→23:22)
[2021-03-15] MEDS: INSULIN SLIDING SCALE (NOVOLOG) 1 VIAL SQ SCH ×4 (06:34→23:22)
[2021-03-15 09:12] LABS: HEMOGLOBIN 8.8 GM/dL (10.7-15.3); MCHC 32.5 g/dl (32.0-36.0); MEAN CELL VOLUME 89.3 fl (80-96); MEAN PLT VOLUME 7.7 fl (7.5-11.1); PLATELET COUNT 420 10^3/uL (134-434); RBC 3.02 M/mm3 (3.60-5.2); RDW 16.7 % (11.6-15.6); WHITE BLOOD COUNT 28.2 K/mm3 (4.0-10.0)
[2021-03-15] MEDS: LIPASE/PROTEASE/AMYLASE 36,000 UNIT CAPSULE PO SCH ×3 (09:19→16:45)
[2021-03-15] MEDS: FERROUS SO4 325 MG TABLET (FP) PO SCH ×2 (09:19→16:45)
[2021-03-15] MEDS: AMINO ACIDS/PROTEIN HYDROLYS 30 ML LIQUID.PKT PO SCH ×2 (09:19→16:45)
[2021-03-15 09:31] LABS: CALCIUM 8.8 mg/dL (8.5-10.1)
[2021-03-15 09:34] LABS: CREATININE 3.1 mg/dL (0.55-1.3)
[2021-03-15] MEDS: COLLAGENASE CLOSTRIDIUM HIST. 30 GRAMS TUBE TP SCH (11:37)
[2021-03-15] MEDS: NYSTATIN 100,000 UNIT/GM TOPICAL CREAM 15 GM TUBE TP SCH ×2 (11:38→23:20)
[2021-03-15] MEDS: ERTAPENEM SODIUM 0.5 GM in SODIUM CHLORIDE 50 ML IVPB SCH (11:39)
[2021-03-15] MEDS ORDERED: PT OWN MED DRAWER 7, Y5N ONE ×3 (11:48→12:27)
[2021-03-15] MEDS: CARVEDILOL 12.5 MG TABLET (FP) PO SCH ×2 (11:52→23:21)
[2021-03-15] MEDS: FOLIC ACID 1 MG TABLET (FP) PO SCH (11:53)
[2021-03-15] MEDS: predniSONE 10 MG TABLET (UD) PO SCH (12:08)
[2021-03-15] MEDS: NIFEdipine E.R. 90 MG TABLET PO SCH (12:29)
[2021-03-15] MEDS: DOXAZOSIN MESYLATE 2 MG TABLET PO SCH (12:29)
[2021-03-15 18:54] LABS: BASO % 0.4 % (0-2.0); EOS % 0.1 % (0-4.5); HEMATOCRIT 28.7 % (32.4-45.2); HEMOGLOBIN 9.1 GM/dL (10.7-15.3); LYMPH % 3.5 % (8-40); MCH 28.6 pg (25.7-33.7); MCHC 31.9 g/dl (32.0-36.0); MEAN CELL VOLUME 89.7 fl (80-96); MEAN PLT VOLUME 7.8 fl (7.5-11.1); MONO % 7.4 % (3.8-10.2); NEUT % 88.6 % (42.8-82.8); PLATELET COUNT 394 10^3/uL (134-434)
[2021-03-15 18:56] LABS: WHITE BLOOD COUNT 34.7 K/mm3 (4.0-10.0)
[2021-03-15 20:26] LABS: ANISOCYTOSIS 2+; MACROCYTOSIS 1+; PLATELET ESTIMATE NORMAL
[2021-03-15] MEDS: MIRTAZAPINE 15 MG TABLET (FP) PO SCH ×2 (23:20)
[2021-03-15] MEDS: ATORVASTATIN CA 80 MG TABLET (FP) PO SCH (23:20)
[2021-03-15] MEDS: DOCUSATE SODIUM 100 MG CAPSULE (FP) PO SCH (23:20)
[2021-03-15] MEDS: SENNOSIDES 8.6MG TABLET (FP) PO SCH (23:21)
[2021-03-16] MEDS: VANCOMYCIN 250 MG/5 ML ORAL SOLUTION PO SCH ×4 (01:37→17:10)
[2021-03-16] MEDS: hydrALAZINE HCL 25 MG TABLET (FP) PO SCH ×3 (06:39→21:31)
[2021-03-16] MEDS: HEPARIN NA (PORCINE) 5,000 UNITS/ML 1ML VIAL SQ SCH ×3 (06:40→21:31)
[2021-03-16] MEDS: INSULIN SLIDING SCALE (NOVOLOG) 1 VIAL SQ SCH ×4 (06:47→21:45)
[2021-03-16] MEDS: FERROUS SO4 325 MG TABLET (FP) PO SCH ×2 (09:26→17:10)
[2021-03-16] MEDS: AMINO ACIDS/PROTEIN HYDROLYS 30 ML LIQUID.PKT PO SCH ×2 (09:26→17:10)
[2021-03-16] MEDS: LIPASE/PROTEASE/AMYLASE 36,000 UNIT CAPSULE PO SCH ×3 (09:26→17:11)
[2021-03-16] MEDS: FOLIC ACID 1 MG TABLET (FP) PO SCH (09:27)
[2021-03-16] MEDS: DOXAZOSIN MESYLATE 2 MG TABLET PO SCH (09:27)
[2021-03-16] MEDS: predniSONE 10 MG TABLET (UD) PO SCH (09:27)
[2021-03-16] MEDS: NIFEdipine E.R. 90 MG TABLET PO SCH (09:27)
[2021-03-16] MEDS: CARVEDILOL 12.5 MG TABLET (FP) PO SCH ×2 (09:27→21:31)
[2021-03-16] MEDS: COLLAGENASE CLOSTRIDIUM HIST. 30 GRAMS TUBE TP SCH (09:32)
[2021-03-16] MEDS: NYSTATIN 100,000 UNIT/GM TOPICAL CREAM 15 GM TUBE TP SCH (09:32)
[2021-03-16] MEDS ORDERED: VANCOMYCIN 1 GRAM (PRE-DOCKED) 1,000 MG/250 ML BAG IVPB ONE (09:51)
[2021-03-16] MEDS: LACTOBACILLUS ACIDOPHILUS 1 TABLET PO SCH (12:26)
[2021-03-16 12:48] LABS: BASO % 0.3 % (0-2.0); EOS % 0.5 % (0-4.5); HEMATOCRIT 26.9 % (32.4-45.2); HEMOGLOBIN 8.5 GM/dL (10.7-15.3); LYMPH % 6.6 % (8-40); MCH 28.5 pg (25.7-33.7); MCHC 31.7 g/dl (32.0-36.0); MEAN PLT VOLUME 7.7 fl (7.5-11.1); MONO % 6.9 % (3.8-10.2); NEUT % 85.7 % (42.8-82.8); PLATELET COUNT 327 10^3/uL (134-434); RBC 2.99 M/mm3 (3.60-5.2)
[2021-03-16 13:09] LABS: ALBUMIN 2.2 g/dl (3.4-5.0); BLOOD UREA NITROGEN 54.6 mg/dL (7-18); CALCIUM 9.1 mg/dL (8.5-10.1)
[2021-03-16 13:14] LABS: BILIRUBIN,TOTAL 0.2 mg/dL (0.2-1); TOT PROT 6.4 g/dl (6.4-8.2)
[2021-03-16 14:08] LABS: ANISOCYTOSIS 1+; MACROCYTOSIS 0; PLATELET ESTIMATE NORMAL
[2021-03-16] MEDS: MIRTAZAPINE 15 MG TABLET (FP) PO SCH ×2 (21:32)
[2021-03-16] MEDS: SENNOSIDES 8.6MG TABLET (FP) PO SCH (21:41)
[2021-03-16] MEDS: DOCUSATE SODIUM 100 MG CAPSULE (FP) PO SCH (21:42)
[2021-03-16] MEDS: ATORVASTATIN CA 80 MG TABLET (FP) PO SCH (21:43)
[2021-03-17] MEDS: NYSTATIN 100,000 UNIT/GM TOPICAL CREAM 15 GM TUBE TP SCH ×3 (00:45→21:51)
[2021-03-17] MEDS: VANCOMYCIN 250 MG/5 ML ORAL SOLUTION PO SCH ×4 (00:54→17:11)
[2021-03-17] MEDS: HEPARIN NA (PORCINE) 5,000 UNITS/ML 1ML VIAL SQ SCH ×3 (05:55→21:38)
[2021-03-17] MEDS: hydrALAZINE HCL 25 MG TABLET (FP) PO SCH ×3 (05:55→21:46)
[2021-03-17] MEDS: INSULIN SLIDING SCALE (NOVOLOG) 1 VIAL SQ SCH ×4 (06:04→21:50)
[2021-03-17] MEDS ORDERED: PT OWN MED DRAWER 7, Y5N ONE (09:10)
[2021-03-17] MEDS: AMINO ACIDS/PROTEIN HYDROLYS 30 ML LIQUID.PKT PO SCH ×3 (09:20→17:16)
[2021-03-17] MEDS: predniSONE 10 MG TABLET (UD) PO SCH (09:21)
[2021-03-17] MEDS: LIPASE/PROTEASE/AMYLASE 36,000 UNIT CAPSULE PO SCH ×3 (09:21→17:10)
[2021-03-17] MEDS: FERROUS SO4 325 MG TABLET (FP) PO SCH ×2 (09:21→17:10)
[2021-03-17] MEDS: LACTOBACILLUS ACIDOPHILUS 1 TABLET PO SCH (09:21)
[2021-03-17] MEDS: FOLIC ACID 1 MG TABLET (FP) PO SCH (09:21)
[2021-03-17] MEDS: CARVEDILOL 12.5 MG TABLET (FP) PO SCH ×2 (09:24→21:39)
[2021-03-17] MEDS: COLLAGENASE CLOSTRIDIUM HIST. 30 GRAMS TUBE TP SCH (09:25)
[2021-03-17] MEDS: DOXAZOSIN MESYLATE 2 MG TABLET PO SCH (09:25)
[2021-03-17] MEDS: NIFEdipine E.R. 90 MG TABLET PO SCH (09:25)
[2021-03-17 10:02] LABS: HEMATOCRIT 29.8 % (32.4-45.2); HEMOGLOBIN 9.4 GM/dL (10.7-15.3); MCH 28.7 pg (25.7-33.7); MCHC 31.4 g/dl (32.0-36.0); MEAN CELL VOLUME 91.2 fl (80-96); MEAN PLT VOLUME 8.5 fl (7.5-11.1); PLATELET COUNT 310 10^3/uL (134-434); RBC 3.27 M/mm3 (3.60-5.2)
[2021-03-17 10:24] LABS: BLOOD UREA NITROGEN 56.2 mg/dL (7-18); CALCIUM 9.2 mg/dL (8.5-10.1)
[2021-03-17 10:25] LABS: MAGNESIUM 2.2 mg/dL (1.8-2.4)
[2021-03-17 10:28] LABS: CREATININE 3.4 mg/dL (0.55-1.3); PHOSPHOROUS 4.7 mg/dL (2.5-4.9)
[2021-03-17] MEDS ORDERED: predniSONE 5 MG TABLET (UD) PO SCH (13:49)
[2021-03-17] MEDS ORDERED: METHOTREXATE 2.5 MG TABLET PO SCH (15:00)
[2021-03-17] MEDS ORDERED: VANCOMYCIN 1 GM in D5W (PRE-DOCKED) 1,000 MG/250 ML IVPB ONE (19:15)
[2021-03-17] MEDS: ATORVASTATIN CA 80 MG TABLET (FP) PO SCH (21:39)
[2021-03-17] MEDS: MIRTAZAPINE 15 MG TABLET (FP) PO SCH ×2 (21:39)
[2021-03-17] MEDS: SENNOSIDES 8.6MG TABLET (FP) PO SCH (21:41)
[2021-03-17] MEDS: DOCUSATE SODIUM 100 MG CAPSULE (FP) PO SCH (21:41)
[2021-03-18] MEDS: VANCOMYCIN 250 MG/5 ML ORAL SOLUTION PO SCH ×5 (01:20→23:09)
[2021-03-18] MEDS: HEPARIN NA (PORCINE) 5,000 UNITS/ML 1ML VIAL SQ SCH ×2 (06:21→06:32)
[2021-03-18] MEDS: hydrALAZINE HCL 25 MG TABLET (FP) PO SCH ×3 (06:22→21:07)
[2021-03-18] MEDS: INSULIN SLIDING SCALE (NOVOLOG) 1 VIAL SQ SCH ×4 (07:45→21:11)
[2021-03-18] MEDS: LIPASE/PROTEASE/AMYLASE 36,000 UNIT CAPSULE PO SCH ×3 (09:00→17:43)
[2021-03-18] MEDS ORDERED: PT OWN MED DRAWER 7, Y5N ONE ×3 (11:14→17:29)
[2021-03-18] MEDS: CARVEDILOL 12.5 MG TABLET (FP) PO SCH ×2 (11:22→21:08)
[2021-03-18] MEDS: FERROUS SO4 325 MG TABLET (FP) PO SCH ×2 (11:22→17:43)
[2021-03-18] MEDS: AMINO ACIDS/PROTEIN HYDROLYS 30 ML LIQUID.PKT PO SCH ×2 (11:22→17:42)
[2021-03-18] MEDS: LACTOBACILLUS ACIDOPHILUS 1 TABLET PO SCH (11:22)
[2021-03-18] MEDS: NIFEdipine E.R. 90 MG TABLET PO SCH (11:23)
[2021-03-18] MEDS: DOXAZOSIN MESYLATE 2 MG TABLET PO SCH (11:23)
[2021-03-18] MEDS: COLLAGENASE CLOSTRIDIUM HIST. 30 GRAMS TUBE TP SCH (11:25)
[2021-03-18] MEDS: FOLIC ACID 1 MG TABLET (FP) PO SCH (11:25)
[2021-03-18 13:16] LABS: HEMATOCRIT 30.1 % (32.4-45.2); HEMOGLOBIN 9.5 GM/dL (10.7-15.3); MCH 28.8 pg (25.7-33.7); MCHC 31.6 g/dl (32.0-36.0); MEAN CELL VOLUME 91.1 fl (80-96); MEAN PLT VOLUME 8.8 fl (7.5-11.1); RBC 3.31 M/mm3 (3.60-5.2); RDW 16.9 % (11.6-15.6)
[2021-03-18 13:37] LABS: BLOOD UREA NITROGEN 61.2 mg/dL (7-18); CALCIUM 9.1 mg/dL (8.5-10.1)
[2021-03-18 13:40] LABS: CREATININE 3.2 mg/dL (0.55-1.3)
[2021-03-18] MEDS: NYSTATIN 100,000 UNIT/GM TOPICAL CREAM 15 GM TUBE TP SCH ×2 (14:35→23:48)
[2021-03-18] MEDS ORDERED: EPOETIN ALFA-EPBX 10,000 UNIT/ML VIAL SQ ONE (19:30)
[2021-03-18] MEDS: MIRTAZAPINE 15 MG TABLET (FP) PO SCH ×2 (21:08→21:09)
[2021-03-18] MEDS: ATORVASTATIN CA 80 MG TABLET (FP) PO SCH (21:08)
[2021-03-18] MEDS: DOCUSATE SODIUM 100 MG CAPSULE (FP) PO SCH (21:11)
[2021-03-18] MEDS: SENNOSIDES 8.6MG TABLET (FP) PO SCH (21:12)
[2021-03-19 00:10] VITALS: BP 158/100; PULSE 86; TEMP 98.9
[2021-03-20 14:09] LABS: Hgb F 0
[2021-03-20 14:10] LABS: Hgb S 39.9
[2021-03-20 14:11] LABS: HGB SOLUBILITY Positive
[2021-03-24] MEDS ORDERED: METHOTREXATE 2.5 MG TABLET PO SCH (10:00)
== END 2021-03-19 00:16 | DRG 361 ==
LOC: JER 21:52 → JERBED 03-11 06:11 → J7W 03-11 13:32
PROVIDERS: ADMIT Hospitalist; ATTEND Family Medicine
PROC: 0HB6XZZ Excision of Back Skin, External Approach (ICD-10-PCS; principal; 2021-03-12)
PROC: 0H98XZX Drainage of Buttock Skin, External Approach, Diagnostic (ICD-10-PCS; 2021-03-12)
PROC: 30233N1 Transfusion of Nonautologous Red Blood Cells into Peripheral Vein, Percutaneous Approach (ICD-10-PCS; 2021-03-12)
DX: L02.31 Cutaneous abscess of buttock (principal); D86.9 Sarcoidosis, unspecified; N18.9 Chronic kidney disease, unspecified; J45.909 Unspecified asthma, uncomplicated; K21.9 Gastro-esophageal reflux disease without esophagitis; G47.33 Obstructive sleep apnea (adult) (pediatric); E66.01 Morbid (severe) obesity due to excess calories; I10 Essential (primary) hypertension; D63.1 Anemia in chronic kidney disease; A04.72 Enterocolitis due to Clostridium difficile, not specified as recurrent; Z68.42 Body mass index [BMI] 45.0-49.9, adult; N17.9 Acute kidney failure, unspecified; E10.620 Type 1 diabetes mellitus with diabetic dermatitis; E83.52 Hypercalcemia; E87.5 Hyperkalemia; E78.5 Hyperlipidemia, unspecified; D72.829 Elevated white blood cell count, unspecified
CPT/HCPCS: 36415; 36430; 36511; 72192-TC; 74176-TC; 76882-TC-RT-FY; 80048; 80053; 81003; 82272; 82607; 82728; 82747; 82962; 83021; 83540; 83550; 83605; 83735; 84100; 84439; 84443; 84703; 85014; 85025; 85027; 85660; 86850; 86900; 86901; 86922; 87040; 87070; 87086; 87186; 87205; 87324; 87449; 93005; 93010; 97116-GP; 97161-GP; 99285-25; C9803; G0480; J0131; J0885; J1644; J8610; P9038; P9058; Q5106; U0003; U0005

== ENCOUNTER 2021-04-02 17:01 | Inpatient (IN) | payer OTHER ==
[~2021-04-02 17:01] MED LIST changes: -ALBUTEROL SO4 0.083% IH SOL 2.5 MG/3 ML VIAL.NEB. NEB ONE; -DEXAMETHASONE SOD PHOSPHATE/PF 10 MG/ML SDV ONE; -EPINEPHrine 1:1,000 1 MG/1 ML - 30ML VIAL (INJECTION) ONE; -MIDAZOLAM HCL 2 MG/2 ML SINGLE DOSE VIAL ONE; -ONDANSETRON 4 MG/2 ML VIAL IVPUSH PRN; -PROPOFOL 20 ML ONE; -ROPIVACAINE HCL 0.5% 30ML VIAL ONE; +SODIUM ZIRCONIUM CYCLOSILICATE (LOKELMA) 5 GM PACKET PO ONE
[2021-04-02 18:11] LABS: BASO % 0.2 % (0-2.0); HEMATOCRIT 27.4 % (32.4-45.2); HEMOGLOBIN 9.2 GM/dL (10.7-15.3); MCH 29.7 pg (25.7-33.7); MCHC 33.5 g/dl (32.0-36.0); MEAN CELL VOLUME 88.6 fl (80-96); MEAN PLT VOLUME 7.9 fl (7.5-11.1); MONO % 2.3 % (3.8-10.2); NEUT % 94.5 % (42.8-82.8); PLATELET COUNT 445 10^3/uL (134-434); RBC 3.09 M/mm3 (3.60-5.2); RDW 16.9 % (11.6-15.6); WHITE BLOOD COUNT 13.8 K/mm3 (4.0-10.0)
[2021-04-02 18:30] LABS: CHLORIDE 96 mmol/L (98-107); SODIUM 128 mmol/L (136-145)
[2021-04-02 18:32] LABS: CO2 15 mmol/L (21-32); GLUCOSE,RANDOM 262 mg/dL (74-106)
[2021-04-02 18:35] LABS: SGOT/AST 34 U/L (15-37); SGPT/ALT 28 U/L (13-61)
[2021-04-02 18:37] LABS: BILIRUBIN,TOTAL 0.3 mg/dL (0.2-1); TOT PROT 7.1 g/dl (6.4-8.2)
[2021-04-02 18:38] LABS: ALK PHOS 163 U/L (45-117)
[2021-04-02 19:06] LABS: ANION GAP 17 MMOL/L (8-16); BLOOD UREA NITROGEN 115.5 mg/dL (7-18); CREATININE 8.2 mg/dL (0.55-1.3)
[2021-04-02] MEDS ORDERED: SODIUM CHLORIDE 0.9% 1000 ML INFUS.BAG IV ONE (19:17)
[2021-04-02 19:25] LABS: ANISOCYTOSIS 1+; MACROCYTOSIS 0; PLATELET ESTIMATE NORMAL
[2021-04-02 20:01] LABS: CHLORIDE 96 mmol/L (98-107); SODIUM 130 mmol/L (136-145)
[2021-04-02 20:03] LABS: CO2 16 mmol/L (21-32); GLUCOSE,RANDOM 277 mg/dL (74-106)
[2021-04-02 20:28] LABS: ANION GAP 19 MMOL/L (8-16); BLOOD UREA NITROGEN 116.5 mg/dL (7-18); CREATININE 8.3 mg/dL (0.55-1.3)
[2021-04-02] MEDS ORDERED: SODIUM BICARBONATE 8.4% 50 MEQ/50 ML DISP.SYRIN IVPUSH ONE (20:43)
[2021-04-02] MEDS ORDERED: INSULIN REGULAR HUMAN 100 UNITS/ML *VIAL IVPUSH ONE (20:43)
[2021-04-02] MEDS ORDERED: DEXTROSE 50%-WATER - 25 GM/50 ML VIAL IVPUSH ONE (20:43)
[2021-04-02] MEDS ORDERED: SODIUM CHLORIDE 1,000 ML IV SCH (20:45)
[2021-04-02] MEDS ORDERED: SODIUM ZIRCONIUM CYCLOSILICATE (LOKELMA) 5 GM PACKET ONE (20:50)
[2021-04-02] MEDS ORDERED: SODIUM BICARBONATE 8.4% 50 MEQ/50 ML VIAL ONE (20:50)
[2021-04-02] MEDS ORDERED: DEXTROSE 50%-WATER 25 GM/50 ML DISP.SYRIN ONE (20:50)
[2021-04-02] MEDS ORDERED: INSULIN REGULAR HUMAN 100 UNITS/ML *VIAL ONE (20:51)
[2021-04-02] MEDS ORDERED: SODIUM ZIRCONIUM CYCLOSILICATE (LOKELMA) 5 GM PACKET PO ONE (21:15)
[2021-04-02] MEDS ORDERED: INSULIN (NOVOLOG) ASPART 100 UNITS/ML 10ML VIAL SQ ONE (23:42)
[2021-04-03] MEDS ORDERED: SODIUM CHLORIDE 500 ML IV STA (02:12)
[2021-04-03] MEDS ORDERED: ACETAMINOPHEN 1000 MG/100 ML VIAL (NON FORMULARY) IVPB ONE (02:13)
[2021-04-03] MEDS ORDERED: ACETAMINOPHEN INJECTION 100 ML IVPB ONE (02:19)
[2021-04-03] MEDS ORDERED: SODIUM CHLORIDE 250 ML IV STA ×2 (05:37→12:42)
[2021-04-03 05:53] LABS: BASO % 0.5 % (0-2.0); HEMATOCRIT 28.6 % (32.4-45.2); HEMOGLOBIN 9.5 GM/dL (10.7-15.3); LYMPH % 3.1 % (8-40); MCH 29.8 pg (25.7-33.7); MCHC 33.3 g/dl (32.0-36.0); MEAN CELL VOLUME 89.5 fl (80-96); MEAN PLT VOLUME 7.9 fl (7.5-11.1); MONO % 2.9 % (3.8-10.2); NEUT % 93.5 % (42.8-82.8); PLATELET COUNT 421 10^3/uL (134-434); RBC 3.19 M/mm3 (3.60-5.2); RDW 16.9 % (11.6-15.6); WHITE BLOOD COUNT 12.5 K/mm3 (4.0-10.0)
[2021-04-03 06:11] LABS: CHLORIDE 99 mmol/L (98-107); SODIUM 133 mmol/L (136-145)
[2021-04-03 06:13] LABS: CALCIUM 7.2 mg/dL (8.5-10.1)
[2021-04-03 06:14] LABS: ANION GAP 16 MMOL/L (8-16); CO2 17 mmol/L (21-32); GLUCOSE,RANDOM 258 mg/dL (74-106)
[2021-04-03 06:16] LABS: SGPT/ALT 26 U/L (13-61)
[2021-04-03 06:17] LABS: SGOT/AST 16 U/L (15-37)
[2021-04-03 06:18] LABS: BILIRUBIN,TOTAL 0.2 mg/dL (0.2-1); TOT PROT 6.9 g/dl (6.4-8.2)
[2021-04-03 06:19] LABS: ALK PHOS 149 U/L (45-117)
[2021-04-03 06:21] LABS: BLOOD UREA NITROGEN 111.7 mg/dL (7-18); CREATININE 8.2 mg/dL (0.55-1.3)
[2021-04-03 09:14] LABS: ANISOCYTOSIS 1+; MACROCYTOSIS 1+; PLATELET ESTIMATE NORMAL
[2021-04-03] MEDS ORDERED: SODIUM ZIRCONIUM CYCLOSILICATE (LOKELMA) 5 GM PACKET PO ONE (10:00)
[2021-04-03] MEDS ORDERED: SODIUM ZIRCONIUM CYCLOSILICATE (LOKELMA) 5 GM PACKET PO SCH (12:45)
[2021-04-03] MEDS ORDERED: SODIUM CHLORIDE 0.45% 1,000 ML IV SCH ×2 (12:45)
[2021-04-03] MEDS ORDERED: SODIUM ZIRCONIUM CYCLOSILICATE (LOKELMA) 5 GM PACKET ONE (13:02)
[2021-04-03] MEDS: SODIUM CHLORIDE 0.45% 1,000 ML IV SCH (13:16)
[2021-04-03 16:11] LABS: EPI CELLS 19 /uL (0-25.1); HYALINE CASTS 4 /uL (0-3.1); URINE APPEARANCE TURBID; URINE BILIRUBIN 1+ (NEGATIVE); URINE COLOR DK YELLOW; URINE GLUCOSE (UA) NEGATIVE (NEGATIVE); URINE KETONE TRACE (NEGATIVE); URINE LEUK ESTERASE 2+ (NEGATIVE); URINE NITRITE NEGATIVE (NEGATIVE); URINE PROTEIN 2+ (NEGATIVE); URINE RBC 19 /uL (0-23.9); URINE WBC 1367 /uL (0-25.8)
[2021-04-03] MEDS: SODIUM BICARBONATE 650 MG TABLET PO SCH ×2 (16:30→21:29)
[2021-04-03 17:02] LABS: URINE BACTERIA 1150 /uL (0-1359); YEAST FEW (NEGATIVE)
[2021-04-03] MEDS ORDERED: oxyCODONE HCL 5 MG TABLET PO ONE (18:29)
[2021-04-03 18:50] VITALS: BMI 45.7
[2021-04-03] MEDS: HEPARIN NA (PORCINE) 5,000 UNITS/ML 1ML VIAL SQ SCH (21:27)
[2021-04-03] MEDS: INSULIN SLIDING SCALE (NOVOLOG) 1 VIAL SQ SCH (21:28)
[2021-04-03] MEDS: COLLAGENASE CLOSTRIDIUM HIST. 30 GRAMS TUBE TP SCH (21:29)
[2021-04-03] MEDS: MIRTAZAPINE 15 MG TABLET (FP) PO SCH (21:29)
[2021-04-04] MEDS: SODIUM CHLORIDE 0.45% 1,000 ML IV SCH ×2 (01:59→12:04)
[2021-04-04] MEDS: INSULIN SLIDING SCALE (NOVOLOG) 1 VIAL SQ SCH ×4 (06:47→21:35)
[2021-04-04 08:28] LABS: HEMATOCRIT 27.9 % (32.4-45.2); HEMOGLOBIN 9.3 GM/dL (10.7-15.3); MCH 29.6 pg (25.7-33.7); MCHC 33.3 g/dl (32.0-36.0); MEAN PLT VOLUME 7.7 fl (7.5-11.1); PLATELET COUNT 417 10^3/uL (134-434); RBC 3.13 M/mm3 (3.60-5.2); RDW 16.5 % (11.6-15.6); WHITE BLOOD COUNT 12.6 K/mm3 (4.0-10.0)
[2021-04-04 08:47] LABS: CHLORIDE 98 mmol/L (98-107); SODIUM 132 mmol/L (136-145)
[2021-04-04 08:53] LABS: ALBUMIN 2.3 g/dl (3.4-5.0); ANION GAP 16 MMOL/L (8-16); CO2 18 mmol/L (21-32); GLUCOSE,RANDOM 258 mg/dL (74-106)
[2021-04-04 08:56] LABS: SGOT/AST 19 U/L (15-37); SGPT/ALT 26 U/L (13-61)
[2021-04-04 08:57] LABS: BILIRUBIN,TOTAL 0.3 mg/dL (0.2-1)
[2021-04-04 08:58] LABS: TOT PROT 7.2 g/dl (6.4-8.2)
[2021-04-04 08:59] LABS: ALK PHOS 146 U/L (45-117)
[2021-04-04 09:01] LABS: BLOOD UREA NITROGEN 128.9 mg/dL (7-18); CALCIUM 6.8 mg/dL (8.5-10.1); CREATININE 7.9 mg/dL (0.55-1.3)
[2021-04-04] MEDS ORDERED: PT OWN MED DRAWER 7, Y5N ONE (09:20)
[2021-04-04] MEDS: SODIUM BICARBONATE 650 MG TABLET PO SCH ×2 (09:34→21:25)
[2021-04-04] MEDS: HEPARIN NA (PORCINE) 5,000 UNITS/ML 1ML VIAL SQ SCH ×2 (09:34→21:25)
[2021-04-04] MEDS: oxyCODONE HCL 5 MG TABLET PO PRN (09:42)
[2021-04-04] MEDS ORDERED: SODIUM ZIRCONIUM CYCLOSILICATE (LOKELMA) 10 GM PACKET PO SCH (10:00)
[2021-04-04] MEDS ORDERED: CALCIUM GLUCONATE 10% - 1,000 MG/10 ML VIAL IVPB ONE (14:28)
[2021-04-04] MEDS: COLLAGENASE CLOSTRIDIUM HIST. 30 GRAMS TUBE TP SCH (15:16)
[2021-04-04] MEDS: MIRTAZAPINE 15 MG TABLET (FP) PO SCH (21:25)
[2021-04-04] MEDS: ACETAMINOPHEN 325 MG TABLET (FP) PO PRN (23:22)
[2021-04-05] MEDS: INSULIN (LEVEMIR) 100 UNITS/ML UNITS SQ SCH ×2 (06:08→21:44)
[2021-04-05] MEDS: INSULIN SLIDING SCALE (NOVOLOG) 1 VIAL SQ SCH ×4 (06:09→21:44)
[2021-04-05] MEDS: ACETAMINOPHEN 325 MG TABLET (FP) PO PRN ×2 (06:10→15:22)
[2021-04-05] MEDS: AMINO ACIDS/PROTEIN HYDROLYS 30 ML LIQUID.PKT PO SCH (08:48)
[2021-04-05] MEDS ORDERED: INSULIN (LEVEMIR) 100 UNITS/ML UNITS SQ SCH (10:00)
[2021-04-05] MEDS: COLLAGENASE CLOSTRIDIUM HIST. 30 GRAMS TUBE TP SCH (10:39)
[2021-04-05] MEDS: HEPARIN NA (PORCINE) 5,000 UNITS/ML 1ML VIAL SQ SCH ×2 (10:39→21:44)
[2021-04-05] MEDS: VITAMIN B COMP W-C 1 EA TABLET (NEPHRO-VITE) PO SCH (10:39)
[2021-04-05] MEDS: SODIUM BICARBONATE 650 MG TABLET PO SCH ×2 (10:39→21:44)
[2021-04-05] MEDS: SODIUM CHLORIDE 0.45% 1,000 ML IV SCH (11:51)
[2021-04-05 12:23] LABS: CHLORIDE 100 mmol/L (98-107); SODIUM 135 mmol/L (136-145)
[2021-04-05 12:26] LABS: ALBUMIN 2.2 g/dl (3.4-5.0); ANION GAP 17 MMOL/L (8-16); CO2 18 mmol/L (21-32); GLUCOSE,RANDOM 132 mg/dL (74-106)
[2021-04-05 12:29] LABS: CREATININE 6.9 mg/dL (0.55-1.3); SGOT/AST 20 U/L (15-37); SGPT/ALT 24 U/L (13-61)
[2021-04-05 12:31] LABS: BILIRUBIN,TOTAL 0.2 mg/dL (0.2-1); TOT PROT 6.6 g/dl (6.4-8.2)
[2021-04-05 12:32] LABS: ALK PHOS 138 U/L (45-117); BLOOD UREA NITROGEN 131.9 mg/dL (7-18); CALCIUM 6.5 mg/dL (8.5-10.1)
[2021-04-05] MEDS: oxyCODONE HCL 5 MG TABLET PO PRN ×2 (15:23→23:30)
[2021-04-05] MEDS: MIRTAZAPINE 15 MG TABLET (FP) PO SCH (21:44)
[2021-04-06] MEDS: oxyCODONE HCL 5 MG TABLET PO PRN ×2 (06:01→15:34)
[2021-04-06] MEDS: ACETAMINOPHEN 325 MG TABLET (FP) PO PRN ×2 (06:01→21:42)
[2021-04-06] MEDS: INSULIN SLIDING SCALE (NOVOLOG) 1 VIAL SQ SCH ×4 (06:37→21:55)
[2021-04-06] MEDS: INSULIN (LEVEMIR) 100 UNITS/ML UNITS SQ SCH ×2 (06:37→21:55)
[2021-04-06] MEDS ORDERED: PT OWN MED DRAWER 7, Y5N ONE (09:53)
[2021-04-06] MEDS: AMINO ACIDS/PROTEIN HYDROLYS 30 ML LIQUID.PKT PO SCH (09:54)
[2021-04-06] MEDS: HEPARIN NA (PORCINE) 5,000 UNITS/ML 1ML VIAL SQ SCH ×2 (09:54→21:41)
[2021-04-06] MEDS: SODIUM BICARBONATE 650 MG TABLET PO SCH ×2 (09:55→21:41)
[2021-04-06] MEDS: VITAMIN B COMP W-C 1 EA TABLET (NEPHRO-VITE) PO SCH (09:55)
[2021-04-06] MEDS: COLLAGENASE CLOSTRIDIUM HIST. 30 GRAMS TUBE TP SCH (11:23)
[2021-04-06] MEDS: SODIUM CHLORIDE 0.45% 1,000 ML IV SCH ×2 (11:49→12:44)
[2021-04-06 13:24] LABS: BASO % 0.4 % (0-2.0); EOS % 0.9 % (0-4.5); HEMATOCRIT 27.2 % (32.4-45.2); LYMPH % 7.3 % (8-40); MCH 29.4 pg (25.7-33.7); MEAN CELL VOLUME 89.1 fl (80-96); MEAN PLT VOLUME 7.6 fl (7.5-11.1); MONO % 2.2 % (3.8-10.2); NEUT % 89.2 % (42.8-82.8); PLATELET COUNT 355 10^3/uL (134-434); RBC 3.06 M/mm3 (3.60-5.2); RDW 16.9 % (11.6-15.6); WHITE BLOOD COUNT 13.5 K/mm3 (4.0-10.0)
[2021-04-06 13:45] LABS: CHLORIDE 101 mmol/L (98-107); SODIUM 135 mmol/L (136-145)
[2021-04-06 13:47] LABS: ALBUMIN 2.1 g/dl (3.4-5.0); ANION GAP 15 MMOL/L (8-16); CO2 19 mmol/L (21-32); GLUCOSE,RANDOM 99 mg/dL (74-106)
[2021-04-06 13:51] LABS: CREATININE 6.5 mg/dL (0.55-1.3); SGOT/AST 20 U/L (15-37); SGPT/ALT 23 U/L (13-61)
[2021-04-06 13:52] LABS: BILIRUBIN,TOTAL 0.2 mg/dL (0.2-1)
[2021-04-06 13:53] LABS: TOT PROT 6.3 g/dl (6.4-8.2)
[2021-04-06 13:54] LABS: ALK PHOS 129 U/L (45-117)
[2021-04-06 14:03] LABS: BLOOD UREA NITROGEN 128.5 mg/dL (7-18); CALCIUM 6.5 mg/dL (8.5-10.1)
[2021-04-06 14:14] LABS: ANISOCYTOSIS 0; MACROCYTOSIS 0; PLATELET ESTIMATE NORMAL
[2021-04-06 15:08] LABS: PHOSPHOROUS 8.4 mg/dL (2.5-4.9)
[2021-04-06] MEDS: ALBUTEROL SO4 HFA INHALER IH PRN (17:12)
[2021-04-06] MEDS: VANCOMYCIN 250 MG/5 ML ORAL SOLUTION PO SCH (18:24)
[2021-04-06] MEDS: MIRTAZAPINE 15 MG TABLET (FP) PO SCH (21:41)
[2021-04-07] MEDS: VANCOMYCIN 250 MG/5 ML ORAL SOLUTION PO SCH ×5 (00:17→23:03)
[2021-04-07] MEDS: ACETAMINOPHEN 325 MG TABLET (FP) PO PRN ×2 (05:36→14:49)
[2021-04-07] MEDS: INSULIN SLIDING SCALE (NOVOLOG) 1 VIAL SQ SCH ×4 (06:06→21:30)
[2021-04-07] MEDS: INSULIN (LEVEMIR) 100 UNITS/ML UNITS SQ SCH ×2 (06:06→21:30)
[2021-04-07] MEDS: VITAMIN B COMP W-C 1 EA TABLET (NEPHRO-VITE) PO SCH (09:41)
[2021-04-07] MEDS: SODIUM BICARBONATE 650 MG TABLET PO SCH ×2 (09:41→21:28)
[2021-04-07] MEDS: HEPARIN NA (PORCINE) 5,000 UNITS/ML 1ML VIAL SQ SCH ×2 (09:42→21:25)
[2021-04-07] MEDS: AMINO ACIDS/PROTEIN HYDROLYS 30 ML LIQUID.PKT PO SCH (09:42)
[2021-04-07] MEDS: COLLAGENASE CLOSTRIDIUM HIST. 30 GRAMS TUBE TP SCH (09:42)
[2021-04-07 09:56] LABS: BASO % 0.2 % (0-2.0); EOS % 0.8 % (0-4.5); HEMATOCRIT 27.1 % (32.4-45.2); LYMPH % 4.1 % (8-40); MCH 29.2 pg (25.7-33.7); MCHC 33.3 g/dl (32.0-36.0); MEAN CELL VOLUME 87.5 fl (80-96); NEUT % 91.9 % (42.8-82.8); PLATELET COUNT 310 10^3/uL (134-434); RBC 3.09 M/mm3 (3.60-5.2); RDW 16.8 % (11.6-15.6); WHITE BLOOD COUNT 16.5 K/mm3 (4.0-10.0)
[2021-04-07 10:08] LABS: CHLORIDE 101 mmol/L (98-107); SODIUM 135 mmol/L (136-145)
[2021-04-07 10:14] LABS: ANION GAP 15 MMOL/L (8-16); CO2 19 mmol/L (21-32); GLUCOSE,RANDOM 94 mg/dL (74-106)
[2021-04-07 10:17] LABS: CREATININE 6.7 mg/dL (0.55-1.3); SGOT/AST 22 U/L (15-37); SGPT/ALT 24 U/L (13-61)
[2021-04-07 10:18] LABS: BILIRUBIN,TOTAL 0.3 mg/dL (0.2-1); TOT PROT 6.2 g/dl (6.4-8.2)
[2021-04-07 10:20] LABS: ALK PHOS 142 U/L (45-117)
[2021-04-07 10:22] LABS: BLOOD UREA NITROGEN 129.6 mg/dL (7-18); CALCIUM 6.8 mg/dL (8.5-10.1)
[2021-04-07 12:06] LABS: ANISOCYTOSIS 0; HELMET CELLS 0; HOWELL-JOLLY BODIES 0; MACROCYTOSIS 0; OVALOCYTE 0; PLATELET ESTIMATE NORMAL; ROULEAU 0; SICKELED CELLS 0; TARGET CELLS 0; TEAR DROP CELLS 0; TOXIC GRANULATION 0
[2021-04-07] MEDS: CALCIUM ACETATE 667 MG CAPSULE (FP) PO SCH ×2 (12:07→17:21)
[2021-04-07] MEDS: GABAPENTIN 100 MG CAPSULE PO SCH ×2 (13:52→21:27)
[2021-04-07] MEDS: SODIUM CHLORIDE 0.45% 1,000 ML IV SCH (16:59)
[2021-04-07] MEDS: MIRTAZAPINE 15 MG TABLET (FP) PO SCH (21:27)
[2021-04-07] MEDS ORDERED: oxyCODONE HCL 5 MG TABLET PO ONE (23:17)
[2021-04-08] MEDS: VANCOMYCIN 250 MG/5 ML ORAL SOLUTION PO SCH ×4 (05:32→23:56)
[2021-04-08] MEDS: GABAPENTIN 100 MG CAPSULE PO SCH ×3 (05:38→21:25)
[2021-04-08] MEDS ORDERED: CYCLOBENZAPRINE HCL 10 MG TABLET (FP) PO ONE (05:48)
[2021-04-08] MEDS: ACETAMINOPHEN 325 MG TABLET (FP) PO PRN ×3 (06:02→21:27)
[2021-04-08] MEDS: INSULIN (LEVEMIR) 100 UNITS/ML UNITS SQ SCH ×2 (06:41→21:25)
[2021-04-08] MEDS: INSULIN SLIDING SCALE (NOVOLOG) 1 VIAL SQ SCH ×4 (06:41→21:26)
[2021-04-08 08:58] LABS: HEMATOCRIT 24.1 % (32.4-45.2); HEMOGLOBIN 8.1 GM/dL (10.7-15.3); MCH 29.9 pg (25.7-33.7); MCHC 33.8 g/dl (32.0-36.0); MEAN CELL VOLUME 88.4 fl (80-96); MEAN PLT VOLUME 7.4 fl (7.5-11.1); PLATELET COUNT 261 10^3/uL (134-434); RBC 2.73 M/mm3 (3.60-5.2); RDW 16.7 % (11.6-15.6); WHITE BLOOD COUNT 14.8 K/mm3 (4.0-10.0)
[2021-04-08 09:21] LABS: CHLORIDE 104 mmol/L (98-107); SODIUM 137 mmol/L (136-145)
[2021-04-08] MEDS: HEPARIN NA (PORCINE) 5,000 UNITS/ML 1ML VIAL SQ SCH ×2 (09:29→21:25)
[2021-04-08] MEDS: AMINO ACIDS/PROTEIN HYDROLYS 30 ML LIQUID.PKT PO SCH (09:29)
[2021-04-08] MEDS: VITAMIN B COMP W-C 1 EA TABLET (NEPHRO-VITE) PO SCH (09:29)
[2021-04-08] MEDS: CALCIUM ACETATE 667 MG CAPSULE (FP) PO SCH ×3 (09:29→17:05)
[2021-04-08] MEDS: SODIUM BICARBONATE 650 MG TABLET PO SCH ×2 (09:29→21:26)
[2021-04-08] MEDS: COLLAGENASE CLOSTRIDIUM HIST. 30 GRAMS TUBE TP SCH (09:30)
[2021-04-08 09:32] LABS: ALBUMIN 1.9 g/dl (3.4-5.0); ANION GAP 15 MMOL/L (8-16); CALCIUM 7.3 mg/dL (8.5-10.1); CO2 18 mmol/L (21-32); GLUCOSE,RANDOM 109 mg/dL (74-106)
[2021-04-08 09:35] LABS: CREATININE 6.2 mg/dL (0.55-1.3); SGOT/AST 18 U/L (15-37); SGPT/ALT 23 U/L (13-61)
[2021-04-08 09:36] LABS: BILIRUBIN,TOTAL 0.4 mg/dL (0.2-1)
[2021-04-08 09:37] LABS: ALK PHOS 161 U/L (45-117)
[2021-04-08 09:52] LABS: BLOOD UREA NITROGEN 125.2 mg/dL (7-18)
[2021-04-08] MEDS ORDERED: HYDROmorphone HCl 2 MG/ML VIAL IVPB ONE (17:54)
[2021-04-08] MEDS: SODIUM CHLORIDE 0.45% 1,000 ML IV SCH (18:27)
[2021-04-08] MEDS: MIRTAZAPINE 15 MG TABLET (FP) PO SCH (21:26)
[2021-04-09] MEDS: oxyCODONE HCL 5 MG TABLET PO PRN ×3 (02:07→17:55)
[2021-04-09] MEDS: VANCOMYCIN 250 MG/5 ML ORAL SOLUTION PO SCH ×3 (06:16→17:53)
[2021-04-09] MEDS: INSULIN (LEVEMIR) 100 UNITS/ML UNITS SQ SCH ×2 (06:17→21:18)
[2021-04-09] MEDS: GABAPENTIN 100 MG CAPSULE PO SCH ×3 (06:17→21:19)
[2021-04-09] MEDS: INSULIN SLIDING SCALE (NOVOLOG) 1 VIAL SQ SCH ×4 (06:17→21:17)
[2021-04-09] MEDS: AMINO ACIDS/PROTEIN HYDROLYS 30 ML LIQUID.PKT PO SCH (08:15)
[2021-04-09] MEDS: CALCIUM ACETATE 667 MG CAPSULE (FP) PO SCH ×3 (08:15→17:53)
[2021-04-09] MEDS ORDERED: PT OWN MED DRAWER 7, Y5N ONE (10:12)
[2021-04-09] MEDS: HEPARIN NA (PORCINE) 5,000 UNITS/ML 1ML VIAL SQ SCH ×2 (10:30→21:16)
[2021-04-09] MEDS: COLLAGENASE CLOSTRIDIUM HIST. 30 GRAMS TUBE TP SCH (10:30)
[2021-04-09] MEDS: SODIUM BICARBONATE 650 MG TABLET PO SCH ×2 (10:30→21:18)
[2021-04-09] MEDS: VITAMIN B COMP W-C 1 EA TABLET (NEPHRO-VITE) PO SCH (10:30)
[2021-04-09] MEDS: ACETAMINOPHEN 325 MG TABLET (FP) PO PRN (10:46)
[2021-04-09 13:07] LABS: CHLORIDE 104 mmol/L (98-107); SODIUM 137 mmol/L (136-145)
[2021-04-09 13:12] LABS: ALBUMIN 1.9 g/dl (3.4-5.0); ANION GAP 15 MMOL/L (8-16); CALCIUM 8.1 mg/dL (8.5-10.1); CO2 18 mmol/L (21-32); GLUCOSE,RANDOM 151 mg/dL (74-106)
[2021-04-09 13:15] LABS: SGOT/AST 21 U/L (15-37); SGPT/ALT 25 U/L (13-61)
[2021-04-09 13:16] LABS: BILIRUBIN,TOTAL 0.3 mg/dL (0.2-1); CREATININE 6.1 mg/dL (0.55-1.3); TOT PROT 5.9 g/dl (6.4-8.2)
[2021-04-09 13:57] LABS: ALK PHOS 201 U/L (45-117); BLOOD UREA NITROGEN 128.1 mg/dL (7-18)
[2021-04-09] MEDS: SODIUM CHLORIDE 0.45% 1,000 ML IV SCH (14:40)
[2021-04-09] MEDS ORDERED: FUROSEMIDE 40 MG/4 ML INJECTABLE VIAL IVPUSH ONE (15:14)
[2021-04-09 18:55] LABS: EPI CELLS 4 /uL (0-25.1); HYALINE CASTS 2 /uL (0-3.1); URINE APPEARANCE CLOUDY; URINE BACTERIA 244 /uL (0-1359); URINE BILIRUBIN NEGATIVE (NEGATIVE); URINE COLOR YELLOW; URINE GLUCOSE (UA) NEGATIVE (NEGATIVE); URINE KETONE NEGATIVE (NEGATIVE); URINE LEUK ESTERASE 2+ (NEGATIVE); URINE NITRITE NEGATIVE (NEGATIVE); URINE PROTEIN 2+ (NEGATIVE); URINE UROBILINOGEN 0.2 mg/dL (0.2-1.0); URINE WBC 189 /uL (0-25.8)
[2021-04-09 18:59] LABS: URINE RBC 19.8 /uL (0-23.9)
[2021-04-09] MEDS: MIRTAZAPINE 15 MG TABLET (FP) PO SCH (21:18)
[2021-04-10] MEDS: VANCOMYCIN 250 MG/5 ML ORAL SOLUTION PO SCH ×5 (00:19→23:08)
[2021-04-10] MEDS: oxyCODONE HCL 5 MG TABLET PO PRN ×4 (00:20→21:32)
[2021-04-10] MEDS: ACETAMINOPHEN 325 MG TABLET (FP) PO PRN ×3 (00:21→12:53)
[2021-04-10] MEDS: GABAPENTIN 100 MG CAPSULE PO SCH ×3 (06:37→21:38)
[2021-04-10] MEDS: INSULIN SLIDING SCALE (NOVOLOG) 1 VIAL SQ SCH ×4 (06:44→21:46)
[2021-04-10] MEDS ORDERED: PT OWN MED DRAWER 7, Y5N ONE (09:48)
[2021-04-10] MEDS: CALCIUM ACETATE 667 MG CAPSULE (FP) PO SCH ×3 (09:55→17:17)
[2021-04-10] MEDS: VITAMIN B COMP W-C 1 EA TABLET (NEPHRO-VITE) PO SCH (09:55)
[2021-04-10] MEDS: HEPARIN NA (PORCINE) 5,000 UNITS/ML 1ML VIAL SQ SCH (09:55)
[2021-04-10] MEDS: SODIUM BICARBONATE 650 MG TABLET PO SCH ×2 (09:55→21:39)
[2021-04-10] MEDS: COLLAGENASE CLOSTRIDIUM HIST. 30 GRAMS TUBE TP SCH (09:55)
[2021-04-10] MEDS: AMINO ACIDS/PROTEIN HYDROLYS 30 ML LIQUID.PKT PO SCH (10:01)
[2021-04-10] MEDS: INSULIN (LEVEMIR) 100 UNITS/ML UNITS SQ SCH ×2 (11:25→21:46)
[2021-04-10 12:32] LABS: BASO % 0.3 % (0-2.0); EOS % 0.4 % (0-4.5); HEMOGLOBIN 7.9 GM/dL (10.7-15.3); LYMPH % 3.8 % (8-40); MCH 29.1 pg (25.7-33.7); MCHC 32.8 g/dl (32.0-36.0); MEAN CELL VOLUME 88.7 fl (80-96); MEAN PLT VOLUME 7.4 fl (7.5-11.1); NEUT % 86.5 % (42.8-82.8); PLATELET COUNT 140 10^3/uL (134-434); RBC 2.71 M/mm3 (3.60-5.2); WHITE BLOOD COUNT 18.7 K/mm3 (4.0-10.0)
[2021-04-10 12:48] LABS: CHLORIDE 103 mmol/L (98-107); SODIUM 138 mmol/L (136-145)
[2021-04-10 12:50] LABS: CALCIUM 8.7 mg/dL (8.5-10.1)
[2021-04-10 12:51] LABS: ANION GAP 15 MMOL/L (8-16); CO2 19 mmol/L (21-32); GLUCOSE,RANDOM 103 mg/dL (74-106)
[2021-04-10 12:54] LABS: CREATININE 6.6 mg/dL (0.55-1.3); SGOT/AST 15 U/L (15-37); SGPT/ALT 23 U/L (13-61)
[2021-04-10 12:55] LABS: BILIRUBIN,TOTAL 0.4 mg/dL (0.2-1)
[2021-04-10] MEDS: ERTAPENEM SODIUM 0.5 GM in SODIUM CHLORIDE 50 ML IVPB SCH (12:55)
[2021-04-10 12:56] LABS: TOT PROT 6.1 g/dl (6.4-8.2)
[2021-04-10 12:57] LABS: ALK PHOS 197 U/L (45-117)
[2021-04-10 13:44] LABS: BLOOD UREA NITROGEN 136.2 mg/dL (7-18)
[2021-04-10] MEDS ORDERED: IRON SUCROSE INJECTION 200 MG in SODIUM CHLORIDE 90 ML IVPB ONE (14:00)
[2021-04-10] MEDS: NYSTATIN 500,000 UNITS/5 ML SUSPENSION PO SCH ×2 (17:17→23:08)
[2021-04-10] MEDS ORDERED: ACETAMINOPHEN 325 MG TABLET (FP) PO ONE (18:39)
[2021-04-10] MEDS: MIRTAZAPINE 15 MG TABLET (FP) PO SCH (21:39)
[2021-04-11] MEDS: ACETAMINOPHEN 325 MG TABLET (FP) PO PRN ×2 (02:16→07:57)
[2021-04-11] MEDS: VANCOMYCIN 250 MG/5 ML ORAL SOLUTION PO SCH ×4 (05:43→23:15)
[2021-04-11] MEDS: NYSTATIN 500,000 UNITS/5 ML SUSPENSION PO SCH ×4 (05:48→23:16)
[2021-04-11] MEDS: GABAPENTIN 100 MG CAPSULE PO SCH ×3 (05:48→22:23)
[2021-04-11] MEDS: INSULIN (LEVEMIR) 100 UNITS/ML UNITS SQ SCH ×2 (06:52→22:24)
[2021-04-11] MEDS: INSULIN SLIDING SCALE (NOVOLOG) 1 VIAL SQ SCH ×4 (06:52→22:23)
[2021-04-11] MEDS ORDERED: PT OWN MED DRAWER 7, Y5N ONE ×3 (09:07→11:44)
[2021-04-11] MEDS: SODIUM BICARBONATE 650 MG TABLET PO SCH ×2 (09:21→22:24)
[2021-04-11] MEDS: CALCIUM ACETATE 667 MG CAPSULE (FP) PO SCH ×3 (09:21→17:13)
[2021-04-11] MEDS: AMINO ACIDS/PROTEIN HYDROLYS 30 ML LIQUID.PKT PO SCH (09:21)
[2021-04-11] MEDS: VITAMIN B COMP W-C 1 EA TABLET (NEPHRO-VITE) PO SCH (09:21)
[2021-04-11] MEDS: ERTAPENEM SODIUM 0.5 GM in SODIUM CHLORIDE 50 ML IVPB SCH (12:12)
[2021-04-11] MEDS: COLLAGENASE CLOSTRIDIUM HIST. 30 GRAMS TUBE TP SCH (12:12)
[2021-04-11] MEDS ORDERED: VANCOMYCIN 1 GRAM (PRE-DOCKED) 1,000 MG/250 ML BAG IVPB ONE (13:27)
[2021-04-11] MEDS ORDERED: ACETAMINOPHEN 1000 MG/100 ML VIAL (NON FORMULARY) IVPB ONE (13:27)
[2021-04-11 14:19] LABS: BASO % 0.3 % (0-2.0); EOS % 0.2 % (0-4.5); HEMATOCRIT 23.2 % (32.4-45.2); HEMOGLOBIN 7.4 GM/dL (10.7-15.3); LYMPH % 3.2 % (8-40); MCH 28.8 pg (25.7-33.7); MEAN CELL VOLUME 89.9 fl (80-96); MEAN PLT VOLUME 8.2 fl (7.5-11.1); MONO % 6.1 % (3.8-10.2); NEUT % 90.2 % (42.8-82.8); PLATELET COUNT 136 10^3/uL (134-434); RBC 2.58 M/mm3 (3.60-5.2); WHITE BLOOD COUNT 22.1 K/mm3 (4.0-10.0)
[2021-04-11 14:25] LABS: INR 1.2 (0.83-1.09); PROTHROMBIN TIME (PATIENT) 14.5 SEC (9.7-13.0)
[2021-04-11 14:38] LABS: CHLORIDE 101 mmol/L (98-107); SODIUM 134 mmol/L (136-145)
[2021-04-11 14:41] LABS: CALCIUM 8.7 mg/dL (8.5-10.1)
[2021-04-11 14:42] LABS: ANION GAP 17 MMOL/L (8-16); CO2 16 mmol/L (21-32); GLUCOSE,RANDOM 110 mg/dL (74-106)
[2021-04-11 15:05] LABS: CREATININE 7.6 mg/dL (0.55-1.3)
[2021-04-11 15:44] LABS: ARTERIAL BLD GAS O2 SATURATION 94.1 % (95-98); ARTERIAL BLOOD GAS BASE EXCESS -11.1 mmol/L (-2-2); ARTERIAL BLOOD GAS PO2 79.9 mmHg (80-100)
[2021-04-11 15:45] LABS: ALLENS TEST POSITIVE
[2021-04-11 15:46] LABS: PT'S TEMP 100.3
[2021-04-11 17:00] LABS: ANISOCYTOSIS 2+; MACROCYTOSIS 1+; PLATELET ESTIMATE DECREASED
[2021-04-11] MEDS: MIRTAZAPINE 15 MG TABLET (FP) PO SCH (22:24)
[2021-04-11] MEDS: oxyCODONE HCL 5 MG TABLET PO PRN (22:24)
[2021-04-12] MEDS: GABAPENTIN 100 MG CAPSULE PO SCH ×3 (05:14→22:10)
[2021-04-12] MEDS: NYSTATIN 500,000 UNITS/5 ML SUSPENSION PO SCH ×3 (05:14→20:56)
[2021-04-12] MEDS: VANCOMYCIN 250 MG/5 ML ORAL SOLUTION PO SCH ×3 (05:15→20:56)
[2021-04-12] MEDS: INSULIN (LEVEMIR) 100 UNITS/ML UNITS SQ SCH ×2 (06:01→22:09)
[2021-04-12] MEDS: INSULIN SLIDING SCALE (NOVOLOG) 1 VIAL SQ SCH ×4 (06:04→22:10)
[2021-04-12] MEDS: ACETAMINOPHEN 325 MG TABLET (FP) PO PRN (06:21)
[2021-04-12] MEDS: CALCIUM ACETATE 667 MG CAPSULE (FP) PO SCH ×3 (08:00→19:16)
[2021-04-12] MEDS: AMINO ACIDS/PROTEIN HYDROLYS 30 ML LIQUID.PKT PO SCH (08:00)
[2021-04-12] MEDS: COLLAGENASE CLOSTRIDIUM HIST. 30 GRAMS TUBE TP SCH (10:00)
[2021-04-12] MEDS: SODIUM BICARBONATE 650 MG TABLET PO SCH ×2 (10:00→22:10)
[2021-04-12] MEDS: VITAMIN B COMP W-C 1 EA TABLET (NEPHRO-VITE) PO SCH (10:00)
[2021-04-12] MEDS ORDERED: MEROPENEM 1 GM VIAL (RESTRICTED TO ID) IVPB ONE (10:46)
[2021-04-12] MEDS ORDERED: DEXTROSE 5%-WATER 100 ML IVPB ONE (10:46)
[2021-04-12] MEDS: SODIUM CHLORIDE 1,000 ML IV SCH (10:57)
[2021-04-12] MEDS: MEROPENEM 1 GM in DEXTROSE 5%-WATER 100 ML IVPB SCH (10:57)
[2021-04-12] MEDS ORDERED: SODIUM CHLORIDE 250 ML IV PRN ×2 (11:37→18:52)
[2021-04-12 12:19] LABS: HEMATOCRIT 22.8 % (32.4-45.2); HEMOGLOBIN 7.3 GM/dL (10.7-15.3); MCH 28.7 pg (25.7-33.7); MCHC 32.1 g/dl (32.0-36.0); MEAN CELL VOLUME 89.6 fl (80-96); MEAN PLT VOLUME 8.9 fl (7.5-11.1); PLATELET COUNT 183 10^3/uL (134-434); RBC 2.54 M/mm3 (3.60-5.2); RDW 17.1 % (11.6-15.6); WHITE BLOOD COUNT 24.5 K/mm3 (4.0-10.0)
[2021-04-12 12:35] LABS: CHLORIDE 101 mmol/L (98-107); SODIUM 131 mmol/L (136-145)
[2021-04-12 12:41] LABS: CALCIUM 8.3 mg/dL (8.5-10.1)
[2021-04-12 12:42] LABS: ALBUMIN 1.9 g/dl (3.4-5.0); ANION GAP 14 MMOL/L (8-16); CO2 16 mmol/L (21-32); GLUCOSE,RANDOM 150 mg/dL (74-106)
[2021-04-12 12:45] LABS: SGOT/AST 100 U/L (15-37); SGPT/ALT 71 U/L (13-61)
[2021-04-12 12:46] LABS: BILIRUBIN,TOTAL 0.5 mg/dL (0.2-1); TOT PROT 6.4 g/dl (6.4-8.2)
[2021-04-12 12:49] LABS: ALK PHOS 248 U/L (45-117); BLOOD UREA NITROGEN 142.7 mg/dL (7-18); CREATININE 8.5 mg/dL (0.55-1.3)
[2021-04-12 18:08] LABS: ATYPICAL pANCA <1:20 titer (Neg:<1:20); C-ANCA <1:20 titer (Neg:<1:20)
[2021-04-12] MEDS: MIRTAZAPINE 15 MG TABLET (FP) PO SCH (22:10)
[2021-04-12] MEDS ORDERED: SODIUM CHLORIDE 100 ML IV STA (23:15)
[2021-04-13] MEDS: VANCOMYCIN 250 MG/5 ML ORAL SOLUTION PO SCH ×3 (00:01→11:55)
[2021-04-13] MEDS: NYSTATIN 500,000 UNITS/5 ML SUSPENSION PO SCH ×5 (00:01→23:56)
[2021-04-13] MEDS: SODIUM CHLORIDE 1,000 ML IV SCH ×2 (00:32→11:36)
[2021-04-13] MEDS: GABAPENTIN 100 MG CAPSULE PO SCH ×3 (06:38→21:28)
[2021-04-13] MEDS: INSULIN (LEVEMIR) 100 UNITS/ML UNITS SQ SCH ×2 (06:39→21:29)
[2021-04-13] MEDS: INSULIN SLIDING SCALE (NOVOLOG) 1 VIAL SQ SCH ×4 (06:39→21:29)
[2021-04-13 08:40] LABS: HEMATOCRIT 20.4 % (32.4-45.2); MCH 28.9 pg (25.7-33.7); MEAN CELL VOLUME 87.6 fl (80-96); MEAN PLT VOLUME 8.2 fl (7.5-11.1); PLATELET COUNT 175 10^3/uL (134-434); RBC 2.33 M/mm3 (3.60-5.2); RDW 17.4 % (11.6-15.6); WHITE BLOOD COUNT 18.6 K/mm3 (4.0-10.0)
[2021-04-13 08:46] LABS: HEMOGLOBIN 6.7 GM/dL (10.7-15.3)
[2021-04-13 08:59] LABS: ALBUMIN 1.8 g/dl (3.4-5.0); CALCIUM 7.6 mg/dL (8.5-10.1)
[2021-04-13 09:04] LABS: CREATININE 5.7 mg/dL (0.55-1.3)
[2021-04-13 09:05] LABS: BILIRUBIN,TOTAL 0.4 mg/dL (0.2-1); TOT PROT 5.8 g/dl (6.4-8.2)
[2021-04-13 09:53] LABS: BLOOD UREA NITROGEN 96.2 mg/dL (7-18)
[2021-04-13] MEDS ORDERED: DEXTROSE 5%-WATER 100 ML IVPB ONE (11:29)
[2021-04-13] MEDS ORDERED: MEROPENEM 1 GM VIAL (RESTRICTED TO ID) IVPB ONE (11:29)
[2021-04-13] MEDS: MEROPENEM 1 GM in DEXTROSE 5%-WATER 100 ML IVPB SCH (11:33)
[2021-04-13] MEDS: AMINO ACIDS/PROTEIN HYDROLYS 30 ML LIQUID.PKT PO SCH (11:34)
[2021-04-13] MEDS: VITAMIN B COMP W-C 1 EA TABLET (NEPHRO-VITE) PO SCH (11:35)
[2021-04-13] MEDS: COLLAGENASE CLOSTRIDIUM HIST. 30 GRAMS TUBE TP SCH (11:35)
[2021-04-13] MEDS: SODIUM BICARBONATE 650 MG TABLET PO SCH ×2 (11:35→21:28)
[2021-04-13] MEDS: CALCIUM ACETATE 667 MG CAPSULE (FP) PO SCH ×3 (11:36→18:11)
[2021-04-13] MEDS ORDERED: ACETAMINOPHEN 1000 MG/100 ML VIAL (NON FORMULARY) IVPB PRN (14:52)
[2021-04-13] MEDS: MIRTAZAPINE 15 MG TABLET (FP) PO SCH (21:28)
[2021-04-14] MEDS: ACETAMINOPHEN 325 MG TABLET (FP) PO PRN ×2 (02:07→12:49)
[2021-04-14] MEDS: INSULIN (LEVEMIR) 100 UNITS/ML UNITS SQ SCH (06:42)
[2021-04-14] MEDS: GABAPENTIN 100 MG CAPSULE PO SCH ×2 (06:42→18:00)
[2021-04-14] MEDS: NYSTATIN 500,000 UNITS/5 ML SUSPENSION PO SCH ×3 (06:42→18:00)
[2021-04-14] MEDS: INSULIN SLIDING SCALE (NOVOLOG) 1 VIAL SQ SCH ×3 (06:43→18:00)
[2021-04-14] MEDS: SODIUM BICARBONATE 650 MG TABLET PO SCH (11:19)
[2021-04-14] MEDS: COLLAGENASE CLOSTRIDIUM HIST. 30 GRAMS TUBE TP SCH (11:19)
[2021-04-14] MEDS: VITAMIN B COMP W-C 1 EA TABLET (NEPHRO-VITE) PO SCH (11:19)
[2021-04-14] MEDS: AMINO ACIDS/PROTEIN HYDROLYS 30 ML LIQUID.PKT PO SCH (11:19)
[2021-04-14] MEDS: CALCIUM ACETATE 667 MG CAPSULE (FP) PO SCH ×3 (11:19→18:00)
[2021-04-14] MEDS: ALBUTEROL SO4 HFA INHALER IH PRN (11:20)
[2021-04-14] MEDS: oxyCODONE HCL 5 MG TABLET PO PRN (12:48)
[2021-04-14] MEDS: MEROPENEM 1 GM in DEXTROSE 5%-WATER 100 ML IVPB SCH (15:17)
[2021-04-14] MEDS: SODIUM CHLORIDE 1,000 ML IV SCH (15:17)
[2021-04-14] MEDS ORDERED: SODIUM CHLORIDE 250 ML IV PRN (22:09)
[2021-04-15] MEDS: INSULIN (LEVEMIR) 100 UNITS/ML UNITS SQ SCH ×3 (00:37→23:29)
[2021-04-15] MEDS: GABAPENTIN 100 MG CAPSULE PO SCH ×4 (00:38→21:18)
[2021-04-15] MEDS: MIRTAZAPINE 15 MG TABLET (FP) PO SCH ×2 (00:38→21:18)
[2021-04-15] MEDS: INSULIN SLIDING SCALE (NOVOLOG) 1 VIAL SQ SCH ×5 (00:38→22:52)
[2021-04-15] MEDS: SODIUM BICARBONATE 650 MG TABLET PO SCH ×3 (00:38→21:18)
[2021-04-15] MEDS: NYSTATIN 500,000 UNITS/5 ML SUSPENSION PO SCH ×4 (00:39→17:12)
[2021-04-15] MEDS: VANCOMYCIN 250 MG/5 ML ORAL SOLUTION PO SCH ×4 (02:21→17:11)
[2021-04-15] MEDS: ACETAMINOPHEN 325 MG TABLET (FP) PO PRN ×2 (05:37→18:30)
[2021-04-15 08:10] LABS: HEMATOCRIT 23.4 % (32.4-45.2); HEMOGLOBIN 7.8 GM/dL (10.7-15.3); MCH 29.8 pg (25.7-33.7); MCHC 33.4 g/dl (32.0-36.0); MEAN CELL VOLUME 89.3 fl (80-96); MEAN PLT VOLUME 8.9 fl (7.5-11.1); PLATELET COUNT 153 10^3/uL (134-434); RBC 2.63 M/mm3 (3.60-5.2); RDW 17.6 % (11.6-15.6); WHITE BLOOD COUNT 13.1 K/mm3 (4.0-10.0)
[2021-04-15 08:52] LABS: CHLORIDE 104 mmol/L (98-107); SODIUM 137 mmol/L (136-145)
[2021-04-15 09:00] LABS: ALBUMIN 1.8 g/dl (3.4-5.0); ANION GAP 13 MMOL/L (8-16); CALCIUM 8.1 mg/dL (8.5-10.1); CO2 20 mmol/L (21-32); GLUCOSE,RANDOM 93 mg/dL (74-106)
[2021-04-15] MEDS: ALBUMIN HUMAN 25% 12.5 GM/50 ML VIAL IVPB SCH ×3 (09:03→12:09)
[2021-04-15 09:04] LABS: SGOT/AST 44 U/L (15-37); SGPT/ALT 100 U/L (13-61)
[2021-04-15 09:05] LABS: BILIRUBIN,TOTAL 0.5 mg/dL (0.2-1)
[2021-04-15 09:10] LABS: ALK PHOS 189 U/L (45-117); BLOOD UREA NITROGEN 120.8 mg/dL (7-18); CREATININE 7.6 mg/dL (0.55-1.3)
[2021-04-15] MEDS: VITAMIN B COMP W-C 1 EA TABLET (NEPHRO-VITE) PO SCH (10:56)
[2021-04-15] MEDS: AMINO ACIDS/PROTEIN HYDROLYS 30 ML LIQUID.PKT PO SCH (10:56)
[2021-04-15] MEDS: CALCIUM ACETATE 667 MG CAPSULE (FP) PO SCH ×3 (10:56→17:12)
[2021-04-15] MEDS: COLLAGENASE CLOSTRIDIUM HIST. 30 GRAMS TUBE TP SCH (10:57)
[2021-04-15] MEDS: NYSTATIN POWDER 100,000 UNITS/GM - 15 GM TOPICAL POWDER TP SCH (10:57)
[2021-04-15] MEDS: MEROPENEM 1 GM in DEXTROSE 5%-WATER 100 ML IVPB SCH (12:09)
[2021-04-15] MEDS: SODIUM CHLORIDE 1,000 ML IV SCH (12:09)
[2021-04-15] MEDS ORDERED: VANCOMYCIN 1 GRAM (PRE-DOCKED) 1,000 MG/250 ML BAG IVPB ONE (12:30)
[2021-04-15] MEDS: oxyCODONE HCL 5 MG TABLET PO PRN (15:22)
[2021-04-16] MEDS: NYSTATIN POWDER 100,000 UNITS/GM - 15 GM TOPICAL POWDER TP SCH ×3 (00:06→22:51)
[2021-04-16] MEDS: VANCOMYCIN 250 MG/5 ML ORAL SOLUTION PO SCH ×4 (00:06→19:20)
[2021-04-16] MEDS: NYSTATIN 500,000 UNITS/5 ML SUSPENSION PO SCH ×4 (00:06→17:41)
[2021-04-16] MEDS: oxyCODONE HCL 5 MG TABLET PO PRN (05:14)
[2021-04-16] MEDS: GABAPENTIN 100 MG CAPSULE PO SCH ×3 (05:15→22:54)
[2021-04-16] MEDS: INSULIN SLIDING SCALE (NOVOLOG) 1 VIAL SQ SCH ×4 (06:06→22:50)
[2021-04-16] MEDS: INSULIN (LEVEMIR) 100 UNITS/ML UNITS SQ SCH ×2 (06:06→22:50)
[2021-04-16] MEDS: CALCIUM ACETATE 667 MG CAPSULE (FP) PO SCH ×3 (08:00→17:39)
[2021-04-16] MEDS: AMINO ACIDS/PROTEIN HYDROLYS 30 ML LIQUID.PKT PO SCH (08:00)
[2021-04-16 10:56] LABS: CHLORIDE 104 mmol/L (98-107); SODIUM 138 mmol/L (136-145)
[2021-04-16 10:59] LABS: CALCIUM 7.9 mg/dL (8.5-10.1)
[2021-04-16 11:00] LABS: ALBUMIN 1.7 g/dl (3.4-5.0); ANION GAP 11 MMOL/L (8-16); CO2 22 mmol/L (21-32); GLUCOSE,RANDOM 113 mg/dL (74-106)
[2021-04-16 11:03] LABS: SGOT/AST 41 U/L (15-37); SGPT/ALT 64 U/L (13-61)
[2021-04-16 11:05] LABS: BILIRUBIN,TOTAL 0.5 mg/dL (0.2-1); TOT PROT 5.8 g/dl (6.4-8.2)
[2021-04-16 11:06] LABS: ALK PHOS 160 U/L (45-117)
[2021-04-16 11:14] LABS: BLOOD UREA NITROGEN 123.8 mg/dL (7-18); CREATININE 7.8 mg/dL (0.55-1.3)
[2021-04-16] MEDS ORDERED: DEXTROSE 5%-WATER 100 ML IVPB ONE (11:42)
[2021-04-16] MEDS ORDERED: MEROPENEM 1 GM VIAL (RESTRICTED TO ID) IVPB ONE (11:42)
[2021-04-16] MEDS ORDERED: HEPARIN NA (PORCINE) 5,000 UNITS/ML 1ML VIAL IVPUSH ONE (12:13)
[2021-04-16] MEDS ORDERED: SODIUM CHLORIDE 250 ML IV PRN (12:13)
[2021-04-16] MEDS: SODIUM CHLORIDE 1,000 ML IV SCH (12:24)
[2021-04-16] MEDS: MEROPENEM 1 GM in DEXTROSE 5%-WATER 100 ML IVPB SCH ×2 (12:25→16:11)
[2021-04-16] MEDS: SODIUM BICARBONATE 650 MG TABLET PO SCH ×2 (12:26→22:54)
[2021-04-16] MEDS: VITAMIN B COMP W-C 1 EA TABLET (NEPHRO-VITE) PO SCH (16:11)
[2021-04-16] MEDS: COLLAGENASE CLOSTRIDIUM HIST. 30 GRAMS TUBE TP SCH (16:11)
[2021-04-16] MEDS: ACETAMINOPHEN 325 MG TABLET (FP) PO PRN (17:39)
[2021-04-16] MEDS: MIRTAZAPINE 15 MG TABLET (FP) PO SCH (22:54)
[2021-04-17] MEDS: VANCOMYCIN 250 MG/5 ML ORAL SOLUTION PO SCH ×4 (00:26→17:41)
[2021-04-17] MEDS: NYSTATIN 500,000 UNITS/5 ML SUSPENSION PO SCH ×4 (00:26→17:41)
[2021-04-17] MEDS ORDERED: ACETAMINOPHEN 1000 MG/100 ML VIAL (NON FORMULARY) IVPB ONE (03:30)
[2021-04-17] MEDS: SODIUM CHLORIDE 1,000 ML IV SCH ×2 (03:40→09:18)
[2021-04-17] MEDS: INSULIN SLIDING SCALE (NOVOLOG) 1 VIAL SQ SCH ×4 (06:27→23:39)
[2021-04-17] MEDS: INSULIN (LEVEMIR) 100 UNITS/ML UNITS SQ SCH ×2 (06:27→23:39)
[2021-04-17] MEDS: GABAPENTIN 100 MG CAPSULE PO SCH ×3 (06:27→23:39)
[2021-04-17] MEDS: AMINO ACIDS/PROTEIN HYDROLYS 30 ML LIQUID.PKT PO SCH (07:59)
[2021-04-17] MEDS: CALCIUM ACETATE 667 MG CAPSULE (FP) PO SCH ×3 (07:59→17:41)
[2021-04-17] MEDS ORDERED: MEROPENEM 1 GM VIAL (RESTRICTED TO ID) IVPB ONE (09:15)
[2021-04-17] MEDS ORDERED: PT OWN MED DRAWER 7, Y5N ONE ×2 (09:16→10:05)
[2021-04-17] MEDS ORDERED: DEXTROSE 5%-WATER 100 ML IVPB ONE (09:16)
[2021-04-17] MEDS: COLLAGENASE CLOSTRIDIUM HIST. 30 GRAMS TUBE TP SCH (09:18)
[2021-04-17] MEDS: VITAMIN B COMP W-C 1 EA TABLET (NEPHRO-VITE) PO SCH (09:18)
[2021-04-17] MEDS: SODIUM BICARBONATE 650 MG TABLET PO SCH ×2 (09:18→23:40)
[2021-04-17] MEDS: MEROPENEM 1 GM in DEXTROSE 5%-WATER 100 ML IVPB SCH (09:18)
[2021-04-17] MEDS: NYSTATIN POWDER 100,000 UNITS/GM - 15 GM TOPICAL POWDER TP SCH ×2 (09:18→23:40)
[2021-04-17] MEDS ORDERED: CYCLOBENZAPRINE HCL 5 MG TABLET PO SCH (10:00)
[2021-04-17] MEDS: oxyCODONE HCL 5 MG TABLET PO PRN ×2 (10:06→16:06)
[2021-04-17] MEDS ORDERED: FUROSEMIDE 40 MG/4 ML INJECTABLE VIAL IVPUSH ONE (11:26)
[2021-04-17] MEDS ORDERED: SODIUM CHLORIDE 250 ML IV PRN (11:32)
[2021-04-17 12:24] LABS: MCH 29.1 pg (25.7-33.7); MCHC 33.1 g/dl (32.0-36.0); MEAN CELL VOLUME 88.1 fl (80-96); MEAN PLT VOLUME 8.9 fl (7.5-11.1); PLATELET COUNT 111 10^3/uL (134-434); RBC 2.39 M/mm3 (3.60-5.2); RDW 17.3 % (11.6-15.6); WHITE BLOOD COUNT 6.9 K/mm3 (4.0-10.0)
[2021-04-17 12:28] LABS: HEMOGLOBIN 6.9 GM/dL (10.7-15.3)
[2021-04-17 12:48] LABS: CALCIUM 7.5 mg/dL (8.5-10.1)
[2021-04-17 12:52] LABS: CREATININE 5.6 mg/dL (0.55-1.3)
[2021-04-17 13:00] LABS: BLOOD UREA NITROGEN 81.7 mg/dL (7-18)
[2021-04-17] MEDS: ACETAMINOPHEN 325 MG TABLET (FP) PO PRN (17:43)
[2021-04-17] MEDS ORDERED: LORazepam 2 MG/ML SDV VIAL IVPUSH ONE (20:55)
[2021-04-17] MEDS ORDERED: CHLORHEXIDINE GLUCONATE 4% CLEANSER FOR DECOLONIZATION TP SCH (22:00)
[2021-04-17] MEDS ORDERED: MUPIROCIN 2% TOPICAL OINTMENT FOR DECOLONIZATION NS SCH (22:00)
[2021-04-17] MEDS ORDERED: AMITRIPTYLINE HCL 10 MG TABLET PO SCH (22:00)
[2021-04-18 01:03] LABS: HEMATOCRIT 21.8 % (32.4-45.2); HEMOGLOBIN 7.3 GM/dL (10.7-15.3); MCH 29.1 pg (25.7-33.7); MCHC 33.4 g/dl (32.0-36.0); MEAN CELL VOLUME 87.4 fl (80-96); MEAN PLT VOLUME 8.7 fl (7.5-11.1); PLATELET COUNT 101 10^3/uL (134-434); RBC 2.49 M/mm3 (3.60-5.2); RDW 17.4 % (11.6-15.6); WHITE BLOOD COUNT 7.2 K/mm3 (4.0-10.0)
[2021-04-18 01:23] LABS: CALCIUM 7.5 mg/dL (8.5-10.1)
[2021-04-18] MEDS: VANCOMYCIN 250 MG/5 ML ORAL SOLUTION PO SCH ×4 (01:23→18:21)
[2021-04-18] MEDS: NYSTATIN 500,000 UNITS/5 ML SUSPENSION PO SCH ×4 (01:23→18:22)
[2021-04-18 01:24] LABS: BLOOD UREA NITROGEN 84.1 mg/dL (7-18)
[2021-04-18 01:27] LABS: CREATININE 5.8 mg/dL (0.55-1.3)
[2021-04-18 02:00] LABS: PHOSPHOROUS 5.4 mg/dL (2.5-4.9)
[2021-04-18] MEDS ORDERED: ACETAMINOPHEN 325 MG TABLET (FP) PO PRN (05:38)
[2021-04-18] MEDS ORDERED: ALBUTEROL SO4 HFA INHALER IH PRN (05:38)
[2021-04-18] MEDS ORDERED: SODIUM CHLORIDE 250 ML IV PRN ×2 (05:38→11:30)
[2021-04-18] MEDS: GABAPENTIN 100 MG CAPSULE PO SCH ×2 (06:24→15:18)
[2021-04-18] MEDS: INSULIN SLIDING SCALE (NOVOLOG) 1 VIAL SQ SCH ×3 (06:27→18:24)
[2021-04-18] MEDS: INSULIN (LEVEMIR) 100 UNITS/ML UNITS SQ SCH ×2 (06:28→23:57)
[2021-04-18] MEDS: ALBUMIN HUMAN 25% 12.5 GM/50 ML VIAL IVPB SCH ×4 (08:15→11:10)
[2021-04-18] MEDS: ACETAMINOPHEN 1000 MG/100 ML VIAL (NON FORMULARY) IVPB ONE ×2 (08:42→18:46)
[2021-04-18 09:12] LABS: HEMATOCRIT 23.7 % (32.4-45.2); HEMOGLOBIN 7.8 GM/dL (10.7-15.3); MCHC 32.8 g/dl (32.0-36.0); MEAN CELL VOLUME 88.5 fl (80-96); MEAN PLT VOLUME 8.9 fl (7.5-11.1); PLATELET COUNT 110 10^3/uL (134-434); RBC 2.68 M/mm3 (3.60-5.2); RDW 17.1 % (11.6-15.6); WHITE BLOOD COUNT 8.7 K/mm3 (4.0-10.0)
[2021-04-18 09:36] LABS: ALBUMIN 1.6 g/dl (3.4-5.0); CALCIUM 7.7 mg/dL (8.5-10.1)
[2021-04-18 09:37] LABS: BLOOD UREA NITROGEN 84.7 mg/dL (7-18)
[2021-04-18 09:40] LABS: CREATININE 5.8 mg/dL (0.55-1.3); PHOSPHOROUS 5.3 mg/dL (2.5-4.9)
[2021-04-18 09:41] LABS: BILIRUBIN,TOTAL 0.4 mg/dL (0.2-1); TOT PROT 6.1 g/dl (6.4-8.2)
[2021-04-18 09:55] LABS: ANISOCYTOSIS 2+; MACROCYTOSIS 1+; OVALOCYTE 1+; PLATELET ESTIMATE DECREASED
[2021-04-18] MEDS ORDERED: SODIUM BICARBONATE 650 MG TABLET PO SCH (10:00)
[2021-04-18] MEDS ORDERED: HEPARIN NA (PORCINE) 5,000 UNITS/ML 1ML VIAL IVPUSH ONE ×3 (11:30→11:32)
[2021-04-18] MEDS ORDERED: METOPROLOL TARTRATE 5 MG/5 ML VIAL IVPUSH ONE (11:48)
[2021-04-18] MEDS: MUPIROCIN 2% TOPICAL OINTMENT FOR DECOLONIZATION NS SCH ×2 (11:50→22:56)
[2021-04-18] MEDS: CALCIUM ACETATE 667 MG CAPSULE (FP) PO SCH ×3 (11:50→18:21)
[2021-04-18] MEDS: AMINO ACIDS/PROTEIN HYDROLYS 30 ML LIQUID.PKT PO SCH (11:50)
[2021-04-18] MEDS: NYSTATIN POWDER 100,000 UNITS/GM - 15 GM TOPICAL POWDER TP SCH ×2 (11:51→22:57)
[2021-04-18] MEDS: VITAMIN B COMP W-C 1 EA TABLET (NEPHRO-VITE) PO SCH (11:51)
[2021-04-18] MEDS ORDERED: AMIODARONE HCL 150 MG/3 ML VIAL IVPUSH PRN (12:00)
[2021-04-18] MEDS: COLLAGENASE CLOSTRIDIUM HIST. 30 GRAMS TUBE TP SCH (12:30)
[2021-04-18] MEDS: oxyCODONE HCL 5 MG TABLET PO PRN ×2 (12:38→18:38)
[2021-04-18] MEDS ORDERED: VANCOMYCIN/WATER 1,250 MG/250 ML BAG IVPB ONE (14:04)
[2021-04-18] MEDS ORDERED: VANCOMYCIN/WATER BAGS 1,250 MG/250 ML BAG IVPB ONE (15:00)
[2021-04-18] MEDS ORDERED: PT OWN MED DRAWER 7, Y5N ONE ×2 (15:00→17:20)
[2021-04-18] MEDS: HEPARIN NA (PORCINE) 5,000 UNITS/ML 1ML VIAL SQ SCH ×2 (15:19→22:56)
[2021-04-18] MEDS ORDERED: DEXTROSE 5%-WATER - 50 ML IVPB ONE ×2 (17:20→22:46)
[2021-04-18] MEDS ORDERED: PIPERACILLIN/TAZOBACTAM 2.25 GM VIAL IVPB ONE ×2 (17:20→22:45)
[2021-04-18] MEDS ORDERED: ACETAMINOPHEN 1000 MG/100 ML VIAL (NON FORMULARY) IVPB ONE (17:24)
[2021-04-18] MEDS ORDERED: ACETAMINOPHEN INJECTION 100 ML IVPB ONE (17:27)
[2021-04-18] MEDS: PIPERACILLIN/TAZOB 2.25 GM 2.25 GM in DEXTROSE 5%-WATER - 50 ML IVPB SCH ×2 (17:33→22:56)
[2021-04-18] MEDS ORDERED: CHLORHEXIDINE GLUCONATE 4% CLEANSER FOR DECOLONIZATION TP SCH (22:00)
[2021-04-19] MEDS: INSULIN SLIDING SCALE (NOVOLOG) 1 VIAL SQ SCH ×5 (00:14→22:13)
[2021-04-19] MEDS: PIPERACILLIN/TAZOB 2.25 GM 2.25 GM in DEXTROSE 5%-WATER - 50 ML IVPB SCH ×6 (03:19→22:52)
[2021-04-19] MEDS: VANCOMYCIN 250 MG/5 ML ORAL SOLUTION PO SCH ×4 (05:19→17:30)
[2021-04-19] MEDS: NYSTATIN 500,000 UNITS/5 ML SUSPENSION PO SCH ×4 (05:19→17:30)
[2021-04-19 07:07] LABS: HEMATOCRIT 21.5 % (32.4-45.2); HEMOGLOBIN 7.1 GM/dL (10.7-15.3); MCH 29.1 pg (25.7-33.7); MCHC 32.8 g/dl (32.0-36.0); MEAN CELL VOLUME 88.7 fl (80-96); PLATELET COUNT 108 10^3/uL (134-434); RBC 2.42 M/mm3 (3.60-5.2); RDW 17.1 % (11.6-15.6)
[2021-04-19] MEDS: INSULIN (LEVEMIR) 100 UNITS/ML UNITS SQ SCH ×2 (07:17→22:17)
[2021-04-19] MEDS: HEPARIN NA (PORCINE) 5,000 UNITS/ML 1ML VIAL SQ SCH ×3 (07:18→22:04)
[2021-04-19 07:32] LABS: ALBUMIN 1.7 g/dl (3.4-5.0); CALCIUM 7.6 mg/dL (8.5-10.1)
[2021-04-19 07:33] LABS: MAGNESIUM 1.9 mg/dL (1.8-2.4)
[2021-04-19] MEDS: oxyCODONE HCL 5 MG TABLET PO PRN ×2 (07:34→14:35)
[2021-04-19 07:36] LABS: CREATININE 4.5 mg/dL (0.55-1.3)
[2021-04-19 07:37] LABS: BILIRUBIN,TOTAL 0.4 mg/dL (0.2-1); TOT PROT 5.6 g/dl (6.4-8.2)
[2021-04-19 07:40] LABS: BLOOD UREA NITROGEN 56.7 mg/dL (7-18)
[2021-04-19 08:37] LABS: ANISOCYTOSIS 1+; MACROCYTOSIS 1+; OVALOCYTE 1+; PLATELET ESTIMATE DECREASED
[2021-04-19] MEDS: AMINO ACIDS/PROTEIN HYDROLYS 30 ML LIQUID.PKT PO SCH (09:00)
[2021-04-19] MEDS: CALCIUM ACETATE 667 MG CAPSULE (FP) PO SCH ×3 (09:00→17:30)
[2021-04-19] MEDS ORDERED: PT OWN MED DRAWER 7, Y5N ONE (10:12)
[2021-04-19] MEDS ORDERED: PIPERACILLIN/TAZOBACTAM 2.25 GM VIAL IVPB ONE ×3 (10:12→22:49)
[2021-04-19] MEDS ORDERED: DEXTROSE 5%-WATER - 50 ML IVPB ONE ×3 (10:13→22:49)
[2021-04-19] MEDS: MUPIROCIN 2% TOPICAL OINTMENT FOR DECOLONIZATION NS SCH ×2 (10:22→22:03)
[2021-04-19] MEDS: VITAMIN B COMP W-C 1 EA TABLET (NEPHRO-VITE) PO SCH (10:22)
[2021-04-19] MEDS: NYSTATIN POWDER 100,000 UNITS/GM - 15 GM TOPICAL POWDER TP SCH ×2 (10:24→22:05)
[2021-04-19] MEDS ORDERED: POTASSIUM CHLORIDE TABS 20 MEQ TABLET.ER (FP) PO ONE (12:35)
[2021-04-19] MEDS ORDERED: FUROSEMIDE 40 MG/4 ML INJECTABLE VIAL IVPUSH ONE (12:35)
[2021-04-19] MEDS: COLLAGENASE CLOSTRIDIUM HIST. 30 GRAMS TUBE TP SCH (13:12)
[2021-04-19 19:21] LABS: EPI CELLS 22 /uL (0-25.1); HYALINE CASTS 8 /uL (0-3.1); URINE APPEARANCE CLEAR; URINE BACTERIA 0 /uL (0-1359); URINE BILIRUBIN 1+ (NEGATIVE); URINE COLOR DK YELLOW; URINE GLUCOSE (UA) NEGATIVE (NEGATIVE); URINE KETONE TRACE (NEGATIVE); URINE LEUK ESTERASE TRACE (NEGATIVE); URINE NITRITE NEGATIVE (NEGATIVE); URINE PROTEIN TRACE (NEGATIVE); URINE WBC 25 /uL (0-25.8)
[2021-04-19] MEDS ORDERED: ALBUTEROL SO4 HFA INHALER IH PRN (20:36)
[2021-04-19] MEDS: CHLORHEXIDINE GLUCONATE 4% CLEANSER FOR DECOLONIZATION TP SCH (22:04)
[2021-04-19] MEDS: GABAPENTIN 100 MG CAPSULE PO SCH (22:04)
[2021-04-19 22:05] LABS: URINE RBC 21.3 /uL (0-23.9)
[2021-04-20] MEDS: NYSTATIN 500,000 UNITS/5 ML SUSPENSION PO SCH ×4 (01:04→17:16)
[2021-04-20] MEDS: VANCOMYCIN 250 MG/5 ML ORAL SOLUTION PO SCH ×4 (01:05→17:17)
[2021-04-20] MEDS: PIPERACILLIN/TAZOB 2.25 GM 2.25 GM in DEXTROSE 5%-WATER - 50 ML IVPB SCH ×3 (01:05→17:16)
[2021-04-20] MEDS: HEPARIN NA (PORCINE) 5,000 UNITS/ML 1ML VIAL SQ SCH ×3 (06:07→22:52)
[2021-04-20] MEDS: INSULIN (LEVEMIR) 100 UNITS/ML UNITS SQ SCH ×2 (06:07→22:52)
[2021-04-20] MEDS: INSULIN SLIDING SCALE (NOVOLOG) 1 VIAL SQ SCH ×4 (06:07→22:53)
[2021-04-20] MEDS: GABAPENTIN 100 MG CAPSULE PO SCH ×3 (06:11→22:52)
[2021-04-20] MEDS ORDERED: SODIUM CHLORIDE 250 ML IV PRN (07:31)
[2021-04-20] MEDS: AMINO ACIDS/PROTEIN HYDROLYS 30 ML LIQUID.PKT PO SCH (08:50)
[2021-04-20] MEDS: ALBUMIN HUMAN 25% 12.5 GM/50 ML VIAL IVPB SCH ×4 (09:18→10:26)
[2021-04-20] MEDS ORDERED: PIPERACILLIN/TAZOBACTAM 2.25 GM VIAL IVPB ONE ×2 (09:28→14:59)
[2021-04-20] MEDS ORDERED: DEXTROSE 5%-WATER - 50 ML IVPB ONE ×2 (09:28→14:59)
[2021-04-20] MEDS: VITAMIN B COMP W-C 1 EA TABLET (NEPHRO-VITE) PO SCH (11:00)
[2021-04-20] MEDS: CALCIUM ACETATE 667 MG CAPSULE (FP) PO SCH ×3 (11:00→17:17)
[2021-04-20] MEDS: MUPIROCIN 2% TOPICAL OINTMENT FOR DECOLONIZATION NS SCH ×2 (11:00→22:52)
[2021-04-20] MEDS: NYSTATIN POWDER 100,000 UNITS/GM - 15 GM TOPICAL POWDER TP SCH ×2 (11:30→22:53)
[2021-04-20] MEDS: COLLAGENASE CLOSTRIDIUM HIST. 30 GRAMS TUBE TP SCH (11:30)
[2021-04-20] MEDS: ACETAMINOPHEN 325 MG TABLET (FP) PO PRN ×2 (13:58→22:51)
[2021-04-20] MEDS: CHLORHEXIDINE GLUCONATE 4% CLEANSER FOR DECOLONIZATION TP SCH (22:52)
[2021-04-21] MEDS ORDERED: PT OWN MED DRAWER 7, Y5N ONE ×2 (00:27→20:28)
[2021-04-21] MEDS ORDERED: DEXTROSE 5%-WATER - 50 ML IVPB ONE ×3 (00:28→16:44)
[2021-04-21] MEDS ORDERED: PIPERACILLIN/TAZOBACTAM 2.25 GM VIAL IVPB ONE ×3 (00:28→16:43)
[2021-04-21] MEDS: VANCOMYCIN 250 MG/5 ML ORAL SOLUTION PO SCH ×4 (01:00→17:13)
[2021-04-21] MEDS: NYSTATIN 500,000 UNITS/5 ML SUSPENSION PO SCH ×4 (01:00→17:13)
[2021-04-21] MEDS: PIPERACILLIN/TAZOB 2.25 GM 2.25 GM in DEXTROSE 5%-WATER - 50 ML IVPB SCH ×3 (01:47→17:13)
[2021-04-21 05:42] LABS: BASO % 0.5 % (0-2.0); EOS % 3.9 % (0-4.5); HEMATOCRIT 21.3 % (32.4-45.2); LYMPH % 11.4 % (8-40); MCH 28.8 pg (25.7-33.7); MEAN CELL VOLUME 87.4 fl (80-96); MEAN PLT VOLUME 9.3 fl (7.5-11.1); MONO % 13.5 % (3.8-10.2); NEUT % 70.7 % (42.8-82.8); PLATELET COUNT 143 10^3/uL (134-434); RBC 2.44 M/mm3 (3.60-5.2); WHITE BLOOD COUNT 8.7 K/mm3 (4.0-10.0)
[2021-04-21] MEDS: HEPARIN NA (PORCINE) 5,000 UNITS/ML 1ML VIAL SQ SCH ×3 (08:19→21:18)
[2021-04-21] MEDS: GABAPENTIN 100 MG CAPSULE PO SCH ×3 (08:19→21:19)
[2021-04-21] MEDS: INSULIN (LEVEMIR) 100 UNITS/ML UNITS SQ SCH ×2 (08:19→21:29)
[2021-04-21] MEDS: INSULIN SLIDING SCALE (NOVOLOG) 1 VIAL SQ SCH ×4 (08:19→21:19)
[2021-04-21] MEDS: CALCIUM ACETATE 667 MG CAPSULE (FP) PO SCH ×3 (09:25→17:13)
[2021-04-21] MEDS: VITAMIN B COMP W-C 1 EA TABLET (NEPHRO-VITE) PO SCH (09:25)
[2021-04-21] MEDS: MUPIROCIN 2% TOPICAL OINTMENT FOR DECOLONIZATION NS SCH ×2 (09:25→21:18)
[2021-04-21] MEDS: ACETAMINOPHEN 325 MG TABLET (FP) PO PRN ×2 (09:25→21:17)
[2021-04-21] MEDS: AMINO ACIDS/PROTEIN HYDROLYS 30 ML LIQUID.PKT PO SCH (09:25)
[2021-04-21 11:11] LABS: ANISOCYTOSIS 0; HELMET CELLS 0; HOWELL-JOLLY BODIES 0; MACROCYTOSIS 0; OVALOCYTE 0; PLATELET ESTIMATE DECREASED; ROULEAU 0; SICKELED CELLS 0; TARGET CELLS 0; TEAR DROP CELLS 0; TOXIC GRANULATION 0
[2021-04-21] MEDS ORDERED: oxyCODONE HCL 5 MG TABLET PO ONE (11:44)
[2021-04-21] MEDS: COLLAGENASE CLOSTRIDIUM HIST. 30 GRAMS TUBE TP SCH (12:00)
[2021-04-21] MEDS: LIDOCAINE 5% TOPICAL PATCH TP SCH (12:00)
[2021-04-21] MEDS: NYSTATIN POWDER 100,000 UNITS/GM - 15 GM TOPICAL POWDER TP SCH ×2 (12:00→21:20)
[2021-04-21] MEDS ORDERED: FUROSEMIDE 40 MG/4 ML INJECTABLE VIAL IVPUSH ONE (12:12)
[2021-04-21] MEDS: oxyCODONE HCL 5 MG TABLET PO PRN (19:33)
[2021-04-21] MEDS: CHLORHEXIDINE GLUCONATE 4% CLEANSER FOR DECOLONIZATION TP SCH (21:18)
[2021-04-21] MEDS: LIDOCAINE PATCH REMOVAL MC SCH (21:19)
[2021-04-22] MEDS ORDERED: DEXTROSE 5%-WATER - 50 ML IVPB ONE (00:23)
[2021-04-22] MEDS ORDERED: PIPERACILLIN/TAZOBACTAM 2.25 GM VIAL IVPB ONE (00:23)
[2021-04-22] MEDS: VANCOMYCIN 250 MG/5 ML ORAL SOLUTION PO SCH ×4 (00:28→17:47)
[2021-04-22] MEDS: NYSTATIN 500,000 UNITS/5 ML SUSPENSION PO SCH ×4 (00:28→17:47)
[2021-04-22] MEDS: ACETAMINOPHEN 325 MG TABLET (FP) PO PRN ×2 (01:27→21:10)
[2021-04-22] MEDS: oxyCODONE HCL 5 MG TABLET PO PRN ×4 (01:29→21:14)
[2021-04-22] MEDS: PIPERACILLIN/TAZOB 2.25 GM 2.25 GM in DEXTROSE 5%-WATER - 50 ML IVPB SCH ×2 (02:28→10:49)
[2021-04-22] MEDS: INSULIN SLIDING SCALE (NOVOLOG) 1 VIAL SQ SCH ×3 (06:05→22:13)
[2021-04-22] MEDS: HEPARIN NA (PORCINE) 5,000 UNITS/ML 1ML VIAL SQ SCH ×3 (06:19→21:09)
[2021-04-22] MEDS: GABAPENTIN 100 MG CAPSULE PO SCH ×3 (06:20→21:10)
[2021-04-22] MEDS: INSULIN (LEVEMIR) 100 UNITS/ML UNITS SQ SCH ×2 (06:21→21:39)
[2021-04-22 07:01] LABS: HEMATOCRIT 22.3 % (32.4-45.2); HEMOGLOBIN 7.3 GM/dL (10.7-15.3); MCH 28.8 pg (25.7-33.7); MCHC 32.8 g/dl (32.0-36.0); MEAN CELL VOLUME 87.7 fl (80-96); MEAN PLT VOLUME 9.1 fl (7.5-11.1); PLATELET COUNT 167 10^3/uL (134-434); RBC 2.54 M/mm3 (3.60-5.2); RDW 16.9 % (11.6-15.6); WHITE BLOOD COUNT 9.2 K/mm3 (4.0-10.0)
[2021-04-22 07:20] LABS: BLOOD UREA NITROGEN 53.9 mg/dL (7-18); CALCIUM 7.6 mg/dL (8.5-10.1); MAGNESIUM 1.9 mg/dL (1.8-2.4)
[2021-04-22 07:24] LABS: CREATININE 4.7 mg/dL (0.55-1.3)
[2021-04-22] MEDS: AMINO ACIDS/PROTEIN HYDROLYS 30 ML LIQUID.PKT PO SCH (09:45)
[2021-04-22] MEDS: CALCIUM ACETATE 667 MG CAPSULE (FP) PO SCH ×3 (10:00→17:47)
[2021-04-22] MEDS: MUPIROCIN 2% TOPICAL OINTMENT FOR DECOLONIZATION NS SCH ×2 (10:24→21:09)
[2021-04-22] MEDS ORDERED: PT OWN MED DRAWER 7, Y5N ONE ×2 (10:39→12:57)
[2021-04-22] MEDS: VITAMIN B COMP W-C 1 EA TABLET (NEPHRO-VITE) PO SCH (11:24)
[2021-04-22] MEDS: LIDOCAINE 5% TOPICAL PATCH TP SCH (15:32)
[2021-04-22] MEDS: NYSTATIN POWDER 100,000 UNITS/GM - 15 GM TOPICAL POWDER TP SCH ×2 (15:33→21:39)
[2021-04-22] MEDS: COLLAGENASE CLOSTRIDIUM HIST. 30 GRAMS TUBE TP SCH (15:33)
[2021-04-22] MEDS: CHLORHEXIDINE GLUCONATE 4% CLEANSER FOR DECOLONIZATION TP SCH (21:09)
[2021-04-22] MEDS: LIDOCAINE PATCH REMOVAL MC SCH (21:09)
[2021-04-23] MEDS: VANCOMYCIN 250 MG/5 ML ORAL SOLUTION PO SCH ×5 (00:14→23:01)
[2021-04-23] MEDS: NYSTATIN 500,000 UNITS/5 ML SUSPENSION PO SCH ×5 (00:14→23:01)
[2021-04-23] MEDS: ACETAMINOPHEN 325 MG TABLET (FP) PO PRN ×3 (05:20→20:30)
[2021-04-23] MEDS: oxyCODONE HCL 5 MG TABLET PO PRN ×3 (05:21→20:29)
[2021-04-23] MEDS: GABAPENTIN 100 MG CAPSULE PO SCH ×3 (05:22→22:04)
[2021-04-23] MEDS: HEPARIN NA (PORCINE) 5,000 UNITS/ML 1ML VIAL SQ SCH ×3 (05:23→22:04)
[2021-04-23] MEDS: INSULIN SLIDING SCALE (NOVOLOG) 1 VIAL SQ SCH ×4 (06:44→22:02)
[2021-04-23] MEDS: INSULIN (LEVEMIR) 100 UNITS/ML UNITS SQ SCH ×2 (06:45→22:04)
[2021-04-23] MEDS ORDERED: PT OWN MED DRAWER 7, Y5N ONE (10:09)
[2021-04-23] MEDS: CALCIUM ACETATE 667 MG CAPSULE (FP) PO SCH ×3 (10:15→18:00)
[2021-04-23] MEDS: LIDOCAINE 5% TOPICAL PATCH TP SCH (10:21)
[2021-04-23] MEDS: AMINO ACIDS/PROTEIN HYDROLYS 30 ML LIQUID.PKT PO SCH (10:21)
[2021-04-23] MEDS: MUPIROCIN 2% TOPICAL OINTMENT FOR DECOLONIZATION NS SCH ×2 (10:21→22:03)
[2021-04-23] MEDS: NYSTATIN POWDER 100,000 UNITS/GM - 15 GM TOPICAL POWDER TP SCH ×2 (10:22→22:04)
[2021-04-23] MEDS: VITAMIN B COMP W-C 1 EA TABLET (NEPHRO-VITE) PO SCH (10:22)
[2021-04-23] MEDS: COLLAGENASE CLOSTRIDIUM HIST. 30 GRAMS TUBE TP SCH (10:22)
[2021-04-23] MEDS ORDERED: HEPARIN NA (PORCINE) 5,000 UNITS/ML 1ML VIAL IVPUSH ONE (11:56)
[2021-04-23] MEDS ORDERED: SODIUM CHLORIDE 250 ML IV PRN (11:56)
[2021-04-23] MEDS ORDERED: EPOETIN ALFA-EPBX 10,000 UNIT/ML VIAL IVPUSH ONE (13:00)
[2021-04-23 14:01] LABS: HEMATOCRIT 23.6 % (32.4-45.2); HEMOGLOBIN 7.7 GM/dL (10.7-15.3); MCH 28.4 pg (25.7-33.7); MCHC 32.4 g/dl (32.0-36.0); MEAN CELL VOLUME 87.7 fl (80-96); MEAN PLT VOLUME 8.9 fl (7.5-11.1); PLATELET COUNT 137 10^3/uL (134-434); RBC 2.69 M/mm3 (3.60-5.2); RDW 17.5 % (11.6-15.6); WHITE BLOOD COUNT 6.2 K/mm3 (4.0-10.0)
[2021-04-23 14:21] LABS: CHLORIDE 101 mmol/L (98-107); SODIUM 137 mmol/L (136-145)
[2021-04-23 14:22] LABS: CALCIUM 7.6 mg/dL (8.5-10.1)
[2021-04-23 14:23] LABS: ANION GAP 10 MMOL/L (8-16); BLOOD UREA NITROGEN 49.4 mg/dL (7-18); CO2 27 mmol/L (21-32); GLUCOSE,RANDOM 96 mg/dL (74-106)
[2021-04-23 14:26] LABS: CREATININE 4.1 mg/dL (0.55-1.3)
[2021-04-23] MEDS: ALBUMIN HUMAN 25% 12.5 GM/50 ML VIAL IVPB SCH ×2 (17:33→17:34)
[2021-04-23] MEDS: LIDOCAINE PATCH REMOVAL MC SCH (22:04)
[2021-04-23] MEDS: CHLORHEXIDINE GLUCONATE 4% CLEANSER FOR DECOLONIZATION TP SCH (22:04)
[2021-04-24] MEDS: VANCOMYCIN 250 MG/5 ML ORAL SOLUTION PO SCH ×4 (06:00→23:09)
[2021-04-24] MEDS: NYSTATIN 500,000 UNITS/5 ML SUSPENSION PO SCH ×3 (06:22→18:05)
[2021-04-24] MEDS: ACETAMINOPHEN 325 MG TABLET (FP) PO PRN ×2 (06:22→15:30)
[2021-04-24] MEDS: oxyCODONE HCL 5 MG TABLET PO PRN ×2 (06:23→15:30)
[2021-04-24] MEDS: HEPARIN NA (PORCINE) 5,000 UNITS/ML 1ML VIAL SQ SCH ×3 (06:23→22:48)
[2021-04-24] MEDS: GABAPENTIN 100 MG CAPSULE PO SCH ×3 (06:23→22:48)
[2021-04-24] MEDS: INSULIN SLIDING SCALE (NOVOLOG) 1 VIAL SQ SCH ×3 (06:26→22:48)
[2021-04-24 07:00] LABS: HEMATOCRIT 23.3 % (32.4-45.2); HEMOGLOBIN 7.5 GM/dL (10.7-15.3); MCH 28.3 pg (25.7-33.7); MCHC 32.1 g/dl (32.0-36.0); MEAN PLT VOLUME 8.8 fl (7.5-11.1); PLATELET COUNT 195 10^3/uL (134-434); RBC 2.65 M/mm3 (3.60-5.2); RDW 17.4 % (11.6-15.6)
[2021-04-24 07:19] LABS: ALBUMIN 1.5 g/dl (3.4-5.0); BLOOD UREA NITROGEN 43.3 mg/dL (7-18); CALCIUM 7.9 mg/dL (8.5-10.1)
[2021-04-24 07:23] LABS: CREATININE 3.8 mg/dL (0.55-1.3)
[2021-04-24 07:24] LABS: BILIRUBIN,TOTAL 0.4 mg/dL (0.2-1); TOT PROT 6.4 g/dl (6.4-8.2)
[2021-04-24] MEDS: INSULIN (LEVEMIR) 100 UNITS/ML UNITS SQ SCH ×2 (07:31→22:50)
[2021-04-24] MEDS ORDERED: FUROSEMIDE 40 MG/4 ML INJECTABLE VIAL IVPB ONE ×2 (09:01→15:45)
[2021-04-24] MEDS: CALCIUM ACETATE 667 MG CAPSULE (FP) PO SCH ×3 (10:00→18:05)
[2021-04-24] MEDS: AMINO ACIDS/PROTEIN HYDROLYS 30 ML LIQUID.PKT PO SCH (10:00)
[2021-04-24] MEDS ORDERED: PT OWN MED DRAWER 7, Y5N ONE ×2 (10:11→22:07)
[2021-04-24] MEDS: MUPIROCIN 2% TOPICAL OINTMENT FOR DECOLONIZATION NS SCH (10:45)
[2021-04-24] MEDS: VITAMIN B COMP W-C 1 EA TABLET (NEPHRO-VITE) PO SCH (10:46)
[2021-04-24] MEDS: NYSTATIN POWDER 100,000 UNITS/GM - 15 GM TOPICAL POWDER TP SCH ×2 (10:46→22:48)
[2021-04-24] MEDS: LIDOCAINE 5% TOPICAL PATCH TP SCH (10:46)
[2021-04-24] MEDS: COLLAGENASE CLOSTRIDIUM HIST. 30 GRAMS TUBE TP SCH (10:46)
[2021-04-24] MEDS ORDERED: oxyCODONE HCL 5 MG TABLET PO ONE (19:47)
[2021-04-24] MEDS: CHLORHEXIDINE GLUCONATE 4% CLEANSER FOR DECOLONIZATION TP SCH (22:48)
[2021-04-24] MEDS: LIDOCAINE PATCH REMOVAL MC SCH (22:48)
[2021-04-25] MEDS: ACETAMINOPHEN 325 MG TABLET (FP) PO PRN ×3 (00:14→16:52)
[2021-04-25] MEDS: oxyCODONE HCL 5 MG TABLET PO PRN ×3 (00:15→12:05)
[2021-04-25] MEDS: NYSTATIN 500,000 UNITS/5 ML SUSPENSION PO SCH ×5 (00:15→23:02)
[2021-04-25] MEDS: HEPARIN NA (PORCINE) 5,000 UNITS/ML 1ML VIAL SQ SCH ×3 (05:42→21:24)
[2021-04-25] MEDS: GABAPENTIN 100 MG CAPSULE PO SCH ×3 (05:42→21:25)
[2021-04-25] MEDS: VANCOMYCIN 250 MG/5 ML ORAL SOLUTION PO SCH ×4 (05:42→23:02)
[2021-04-25] MEDS: INSULIN (LEVEMIR) 100 UNITS/ML UNITS SQ SCH ×2 (06:05→21:25)
[2021-04-25] MEDS: INSULIN SLIDING SCALE (NOVOLOG) 1 VIAL SQ SCH ×4 (06:08→21:25)
[2021-04-25 06:50] LABS: HEMOGLOBIN 7.4 GM/dL (10.7-15.3); LYMPH % 13.8 % (8-40); MCH 28.2 pg (25.7-33.7); MCHC 32.1 g/dl (32.0-36.0); MEAN CELL VOLUME 87.7 fl (80-96); MEAN PLT VOLUME 8.8 fl (7.5-11.1); MONO % 9.3 % (3.8-10.2); NEUT % 73.9 % (42.8-82.8); PLATELET COUNT 233 10^3/uL (134-434); RBC 2.62 M/mm3 (3.60-5.2); RDW 17.5 % (11.6-15.6); WHITE BLOOD COUNT 13.3 K/mm3 (4.0-10.0)
[2021-04-25 07:16] LABS: ALBUMIN 1.4 g/dl (3.4-5.0); BLOOD UREA NITROGEN 51.2 mg/dL (7-18); CALCIUM 7.9 mg/dL (8.5-10.1)
[2021-04-25 07:17] LABS: BILIRUBIN,TOTAL 0.4 mg/dL (0.2-1)
[2021-04-25 07:18] LABS: TOT PROT 5.8 g/dl (6.4-8.2)
[2021-04-25 07:19] LABS: CREATININE 4.1 mg/dL (0.55-1.3)
[2021-04-25] MEDS ORDERED: POTASSIUM CHLORIDE TABS 10 MEQ TABLET.ER (FP) PO ONE (08:36)
[2021-04-25] MEDS ORDERED: FUROSEMIDE 40 MG TABLET (FP) PO ONE (09:24)
[2021-04-25] MEDS: AMINO ACIDS/PROTEIN HYDROLYS 30 ML LIQUID.PKT PO SCH (09:31)
[2021-04-25] MEDS: CALCIUM ACETATE 667 MG CAPSULE (FP) PO SCH ×3 (09:32→16:53)
[2021-04-25] MEDS: VITAMIN B COMP W-C 1 EA TABLET (NEPHRO-VITE) PO SCH (09:32)
[2021-04-25] MEDS: NYSTATIN POWDER 100,000 UNITS/GM - 15 GM TOPICAL POWDER TP SCH ×2 (09:35→21:25)
[2021-04-25] MEDS: LIDOCAINE 5% TOPICAL PATCH TP SCH (12:13)
[2021-04-25] MEDS: COLLAGENASE CLOSTRIDIUM HIST. 30 GRAMS TUBE TP SCH (15:54)
[2021-04-25] MEDS ORDERED: oxyCODONE HCL 5 MG TABLET PO ONE (18:04)
[2021-04-25] MEDS ORDERED: PT OWN MED DRAWER 7, Y5N ONE (18:56)
[2021-04-25] MEDS: LIDOCAINE PATCH REMOVAL MC SCH (21:25)
[2021-04-25] MEDS: CHLORHEXIDINE GLUCONATE 4% CLEANSER FOR DECOLONIZATION TP SCH (21:25)
[2021-04-25] MEDS: ACETAMINOPHEN 1000 MG/100 ML VIAL (NON FORMULARY) IVPB PRN (21:44)
[2021-04-26] MEDS: oxyCODONE HCL 5 MG TABLET PO PRN ×2 (04:43→22:07)
[2021-04-26] MEDS: ACETAMINOPHEN 1000 MG/100 ML VIAL (NON FORMULARY) IVPB PRN (04:58)
[2021-04-26] MEDS: GABAPENTIN 100 MG CAPSULE PO SCH ×3 (05:03→21:31)
[2021-04-26] MEDS: HEPARIN NA (PORCINE) 5,000 UNITS/ML 1ML VIAL SQ SCH ×3 (05:03→21:31)
[2021-04-26] MEDS: VANCOMYCIN 250 MG/5 ML ORAL SOLUTION PO SCH ×3 (05:04→18:49)
[2021-04-26] MEDS: NYSTATIN 500,000 UNITS/5 ML SUSPENSION PO SCH ×3 (05:04→18:49)
[2021-04-26] MEDS ORDERED: oxyCODONE HCL 5 MG TABLET PO ONE (05:57)
[2021-04-26] MEDS: INSULIN (LEVEMIR) 100 UNITS/ML UNITS SQ SCH ×2 (06:37→22:07)
[2021-04-26] MEDS: INSULIN SLIDING SCALE (NOVOLOG) 1 VIAL SQ SCH ×4 (06:37→22:06)
[2021-04-26 07:10] LABS: ALBUMIN 1.3 g/dl (3.4-5.0); BLOOD UREA NITROGEN 55.3 mg/dL (7-18); CALCIUM 8.2 mg/dL (8.5-10.1)
[2021-04-26 07:41] LABS: BILIRUBIN,TOTAL 0.4 mg/dL (0.2-1); TOT PROT 5.9 g/dl (6.4-8.2)
[2021-04-26] MEDS: CALCIUM ACETATE 667 MG CAPSULE (FP) PO SCH ×3 (08:41→18:49)
[2021-04-26] MEDS: AMINO ACIDS/PROTEIN HYDROLYS 30 ML LIQUID.PKT PO SCH (09:41)
[2021-04-26] MEDS: VITAMIN B COMP W-C 1 EA TABLET (NEPHRO-VITE) PO SCH (10:00)
[2021-04-26] MEDS: NYSTATIN POWDER 100,000 UNITS/GM - 15 GM TOPICAL POWDER TP SCH ×2 (10:41→22:07)
[2021-04-26] MEDS: LIDOCAINE 5% TOPICAL PATCH TP SCH (10:41)
[2021-04-26 11:18] LABS: BASO % 0.7 % (0-2.0); EOS % 2.2 % (0-4.5); HEMATOCRIT 23.5 % (32.4-45.2); HEMOGLOBIN 7.6 GM/dL (10.7-15.3); MCH 28.2 pg (25.7-33.7); MCHC 32.3 g/dl (32.0-36.0); MEAN CELL VOLUME 87.2 fl (80-96); MEAN PLT VOLUME 8.1 fl (7.5-11.1); MONO % 9.2 % (3.8-10.2); NEUT % 76.9 % (42.8-82.8); PLATELET COUNT 265 10^3/uL (134-434); RBC 2.69 M/mm3 (3.60-5.2); RDW 17.7 % (11.6-15.6); WHITE BLOOD COUNT 13.6 K/mm3 (4.0-10.0)
[2021-04-26] MEDS ORDERED: FUROSEMIDE 40 MG/4 ML INJECTABLE VIAL IVPUSH SCH (13:00)
[2021-04-26] MEDS: COLLAGENASE CLOSTRIDIUM HIST. 30 GRAMS TUBE TP SCH (13:42)
[2021-04-26] MEDS ORDERED: PT OWN MED DRAWER 7, Y5N ONE (21:28)
[2021-04-26] MEDS: LIDOCAINE PATCH REMOVAL MC SCH (22:07)
[2021-04-26] MEDS: CHLORHEXIDINE GLUCONATE 4% CLEANSER FOR DECOLONIZATION TP SCH (22:07)
[2021-04-27] MEDS: VANCOMYCIN 250 MG/5 ML ORAL SOLUTION PO SCH ×2 (00:25→06:57)
[2021-04-27] MEDS: NYSTATIN 500,000 UNITS/5 ML SUSPENSION PO SCH ×4 (00:25→17:41)
[2021-04-27] MEDS: INSULIN SLIDING SCALE (NOVOLOG) 1 VIAL SQ SCH ×4 (06:55→22:48)
[2021-04-27] MEDS: oxyCODONE HCL 5 MG TABLET PO PRN ×4 (06:56→23:33)
[2021-04-27] MEDS: HEPARIN NA (PORCINE) 5,000 UNITS/ML 1ML VIAL SQ SCH ×3 (06:57→22:27)
[2021-04-27] MEDS: GABAPENTIN 100 MG CAPSULE PO SCH ×3 (06:57→22:27)
[2021-04-27] MEDS: INSULIN (LEVEMIR) 100 UNITS/ML UNITS SQ SCH ×2 (06:57→22:27)
[2021-04-27] MEDS: FUROSEMIDE 40 MG/4 ML INJECTABLE VIAL IVPUSH SCH ×2 (06:57→10:43)
[2021-04-27 07:06] LABS: HEMATOCRIT 21.5 % (32.4-45.2); HEMOGLOBIN 7.1 GM/dL (10.7-15.3); MCH 28.6 pg (25.7-33.7); MEAN CELL VOLUME 86.9 fl (80-96); MEAN PLT VOLUME 8.1 fl (7.5-11.1); PLATELET COUNT 260 10^3/uL (134-434); RBC 2.47 M/mm3 (3.60-5.2); RDW 18.1 % (11.6-15.6); WHITE BLOOD COUNT 15.2 K/mm3 (4.0-10.0)
[2021-04-27 07:23] LABS: BLOOD UREA NITROGEN 60.9 mg/dL (7-18); CALCIUM 8.4 mg/dL (8.5-10.1)
[2021-04-27 07:24] LABS: ALBUMIN 1.3 g/dl (3.4-5.0)
[2021-04-27 07:26] LABS: CREATININE 4.3 mg/dL (0.55-1.3)
[2021-04-27 07:27] LABS: BILIRUBIN,TOTAL 0.4 mg/dL (0.2-1); TOT PROT 5.8 g/dl (6.4-8.2)
[2021-04-27] MEDS ORDERED: PT OWN MED DRAWER 7, Y5N ONE (07:57)
[2021-04-27] MEDS: VITAMIN B COMP W-C 1 EA TABLET (NEPHRO-VITE) PO SCH (10:43)
[2021-04-27] MEDS: CALCIUM ACETATE 667 MG CAPSULE (FP) PO SCH ×3 (10:43→17:41)
[2021-04-27] MEDS: AMINO ACIDS/PROTEIN HYDROLYS 30 ML LIQUID.PKT PO SCH (10:43)
[2021-04-27] MEDS: LIDOCAINE 5% TOPICAL PATCH TP SCH (10:44)
[2021-04-27] MEDS: NYSTATIN POWDER 100,000 UNITS/GM - 15 GM TOPICAL POWDER TP SCH ×2 (10:45→22:22)
[2021-04-27] MEDS: COLLAGENASE CLOSTRIDIUM HIST. 30 GRAMS TUBE TP SCH (10:45)
[2021-04-27] MEDS ORDERED: oxyCODONE HCL 5 MG TABLET PO ONE (12:42)
[2021-04-27] MEDS ORDERED: MAGNESIUM HYDROX 2400MG/30ML ORAL SUSPENSION 30 ML CUP PO PRN (19:59)
[2021-04-27] MEDS: LIDOCAINE PATCH REMOVAL MC SCH (22:26)
[2021-04-27] MEDS: CHLORHEXIDINE GLUCONATE 4% CLEANSER FOR DECOLONIZATION TP SCH (22:27)
[2021-04-28] MEDS: NYSTATIN 500,000 UNITS/5 ML SUSPENSION PO SCH ×3 (00:35→11:05)
[2021-04-28] MEDS: GABAPENTIN 100 MG CAPSULE PO SCH ×3 (07:02→22:31)
[2021-04-28] MEDS: HEPARIN NA (PORCINE) 5,000 UNITS/ML 1ML VIAL SQ SCH ×3 (07:02→22:37)
[2021-04-28] MEDS: INSULIN (LEVEMIR) 100 UNITS/ML UNITS SQ SCH ×2 (07:02→22:31)
[2021-04-28] MEDS: INSULIN SLIDING SCALE (NOVOLOG) 1 VIAL SQ SCH ×4 (07:18→22:32)
[2021-04-28] MEDS: CALCIUM ACETATE 667 MG CAPSULE (FP) PO SCH ×3 (08:08→17:46)
[2021-04-28] MEDS: FUROSEMIDE 40 MG/4 ML INJECTABLE VIAL IVPUSH SCH (10:08)
[2021-04-28] MEDS: oxyCODONE HCL 5 MG TABLET PO PRN ×2 (11:05→17:45)
[2021-04-28] MEDS: LIDOCAINE 5% TOPICAL PATCH TP SCH (11:06)
[2021-04-28] MEDS: AMINO ACIDS/PROTEIN HYDROLYS 30 ML LIQUID.PKT PO SCH (11:07)
[2021-04-28] MEDS: VITAMIN B COMP W-C 1 EA TABLET (NEPHRO-VITE) PO SCH (11:09)
[2021-04-28] MEDS: NYSTATIN POWDER 100,000 UNITS/GM - 15 GM TOPICAL POWDER TP SCH ×2 (11:10→22:32)
[2021-04-28] MEDS: COLLAGENASE CLOSTRIDIUM HIST. 30 GRAMS TUBE TP SCH (11:10)
[2021-04-28] MEDS ORDERED: EPOETIN ALFA-EPBX 10,000 UNIT/ML VIAL SQ ONE (17:00)
[2021-04-28] MEDS: CHLORHEXIDINE GLUCONATE 4% CLEANSER FOR DECOLONIZATION TP SCH (22:31)
[2021-04-29] MEDS: NYSTATIN 500,000 UNITS/5 ML SUSPENSION PO SCH ×5 (00:37→20:42)
[2021-04-29] MEDS: oxyCODONE HCL 5 MG TABLET PO PRN ×3 (05:37→22:32)
[2021-04-29] MEDS: HEPARIN NA (PORCINE) 5,000 UNITS/ML 1ML VIAL SQ SCH ×3 (05:38→21:09)
[2021-04-29] MEDS: GABAPENTIN 100 MG CAPSULE PO SCH ×4 (06:26→21:25)
[2021-04-29] MEDS: INSULIN SLIDING SCALE (NOVOLOG) 1 VIAL SQ SCH ×4 (06:26→21:10)
[2021-04-29] MEDS: INSULIN (LEVEMIR) 100 UNITS/ML UNITS SQ SCH ×2 (06:26→21:09)
[2021-04-29 08:40] LABS: HEMATOCRIT 20.9 % (32.4-45.2); MCHC 32.2 g/dl (32.0-36.0); MEAN CELL VOLUME 87.2 fl (80-96); MEAN PLT VOLUME 7.4 fl (7.5-11.1); PLATELET COUNT 281 10^3/uL (134-434); RBC 2.39 M/mm3 (3.60-5.2); RDW 17.9 % (11.6-15.6); WHITE BLOOD COUNT 13.7 K/mm3 (4.0-10.0)
[2021-04-29 08:51] LABS: HEMOGLOBIN 6.7 GM/dL (10.7-15.3)
[2021-04-29] MEDS: VITAMIN B COMP W-C 1 EA TABLET (NEPHRO-VITE) PO SCH (09:10)
[2021-04-29] MEDS: CALCIUM ACETATE 667 MG CAPSULE (FP) PO SCH ×2 (09:11→11:50)
[2021-04-29] MEDS: AMINO ACIDS/PROTEIN HYDROLYS 30 ML LIQUID.PKT PO SCH (09:11)
[2021-04-29] MEDS: FUROSEMIDE 40 MG/4 ML INJECTABLE VIAL IVPUSH SCH (09:11)
[2021-04-29 09:12] LABS: CALCIUM 8.6 mg/dL (8.5-10.1)
[2021-04-29 09:16] LABS: CREATININE 4.9 mg/dL (0.55-1.3)
[2021-04-29] MEDS: LIDOCAINE 5% TOPICAL PATCH TP SCH (11:51)
[2021-04-29] MEDS: COLLAGENASE CLOSTRIDIUM HIST. 30 GRAMS TUBE TP SCH (12:02)
[2021-04-29] MEDS: NYSTATIN POWDER 100,000 UNITS/GM - 15 GM TOPICAL POWDER TP SCH ×2 (12:02→21:10)
[2021-04-29] MEDS: LIDOCAINE PATCH REMOVAL MC SCH ×2 (20:43→21:09)
[2021-04-29] MEDS: CHLORHEXIDINE GLUCONATE 4% CLEANSER FOR DECOLONIZATION TP SCH (21:09)
[2021-04-30] MEDS: NYSTATIN 500,000 UNITS/5 ML SUSPENSION PO SCH ×7 (01:25→23:19)
[2021-04-30] MEDS: oxyCODONE HCL 5 MG TABLET PO PRN ×2 (04:30→23:18)
[2021-04-30] MEDS: INSULIN (LEVEMIR) 100 UNITS/ML UNITS SQ SCH ×2 (06:29→21:02)
[2021-04-30] MEDS: HEPARIN NA (PORCINE) 5,000 UNITS/ML 1ML VIAL SQ SCH ×3 (06:29→21:21)
[2021-04-30] MEDS: GABAPENTIN 100 MG CAPSULE PO SCH ×4 (06:29→21:20)
[2021-04-30] MEDS: INSULIN SLIDING SCALE (NOVOLOG) 1 VIAL SQ SCH ×4 (06:30→21:02)
[2021-04-30 07:16] LABS: ALBUMIN 1.3 g/dl (3.4-5.0); BLOOD UREA NITROGEN 81.3 mg/dL (7-18)
[2021-04-30 07:19] LABS: CREATININE 5.1 mg/dL (0.55-1.3); PHOSPHOROUS 6.4 mg/dL (2.5-4.9)
[2021-04-30 07:21] LABS: BILIRUBIN,TOTAL 0.4 mg/dL (0.2-1); TOT PROT 5.9 g/dl (6.4-8.2)
[2021-04-30 08:20] LABS: HEMATOCRIT 17.8 % (32.4-45.2); MCH 27.7 pg (25.7-33.7); MEAN CELL VOLUME 86.7 fl (80-96); MEAN PLT VOLUME 7.7 fl (7.5-11.1); PLATELET COUNT 308 10^3/uL (134-434); RBC 2.06 M/mm3 (3.60-5.2); RDW 18.2 % (11.6-15.6); WHITE BLOOD COUNT 15.5 K/mm3 (4.0-10.0)
[2021-04-30 08:40] LABS: HEMOGLOBIN 5.7 GM/dL (10.7-15.3)
[2021-04-30] MEDS: NYSTATIN POWDER 100,000 UNITS/GM - 15 GM TOPICAL POWDER TP SCH ×2 (10:30→21:21)
[2021-04-30] MEDS: LIDOCAINE 5% TOPICAL PATCH TP SCH ×2 (10:30→11:26)
[2021-04-30] MEDS: VITAMIN B COMP W-C 1 EA TABLET (NEPHRO-VITE) PO SCH (10:30)
[2021-04-30] MEDS: AMINO ACIDS/PROTEIN HYDROLYS 30 ML LIQUID.PKT PO SCH (10:30)
[2021-04-30] MEDS ORDERED: FUROSEMIDE 40 MG/4 ML INJECTABLE VIAL IVPUSH ONE (12:15)
[2021-04-30] MEDS: COLLAGENASE CLOSTRIDIUM HIST. 30 GRAMS TUBE TP SCH (13:52)
[2021-04-30] MEDS ORDERED: EPOETIN ALFA 10,000 UNIT/1 ML VIAL SQ ONE (15:10)
[2021-04-30] MEDS: FERROUS SO4 325 MG TABLET (FP) PO SCH ×2 (18:22→18:26)
[2021-04-30] MEDS ORDERED: ACETAMINOPHEN 1000 MG/100 ML VIAL (NON FORMULARY) IVPB ONE (20:10)
[2021-04-30] MEDS: LIDOCAINE PATCH REMOVAL MC SCH (21:20)
[2021-04-30] MEDS: CHLORHEXIDINE GLUCONATE 4% CLEANSER FOR DECOLONIZATION TP SCH (21:20)
[2021-05-01] MEDS ORDERED: FUROSEMIDE 40 MG/4 ML INJECTABLE VIAL IVPUSH ONE (04:15)
[2021-05-01] MEDS: NYSTATIN 500,000 UNITS/5 ML SUSPENSION PO SCH ×4 (06:03→23:22)
[2021-05-01] MEDS: GABAPENTIN 100 MG CAPSULE PO SCH ×3 (06:03→22:48)
[2021-05-01] MEDS: HEPARIN NA (PORCINE) 5,000 UNITS/ML 1ML VIAL SQ SCH ×3 (06:03→22:48)
[2021-05-01] MEDS: INSULIN (LEVEMIR) 100 UNITS/ML UNITS SQ SCH ×2 (06:04→22:49)
[2021-05-01] MEDS: INSULIN SLIDING SCALE (NOVOLOG) 1 VIAL SQ SCH ×4 (06:04→22:49)
[2021-05-01] MEDS: ESCITALOPRAM OXALATE 10 MG TABLET PO SCH (10:21)
[2021-05-01] MEDS: LIDOCAINE 5% TOPICAL PATCH TP SCH (10:21)
[2021-05-01] MEDS: AMINO ACIDS/PROTEIN HYDROLYS 30 ML LIQUID.PKT PO SCH (10:21)
[2021-05-01] MEDS: VITAMIN B COMP W-C 1 EA TABLET (NEPHRO-VITE) PO SCH (10:22)
[2021-05-01] MEDS: FERROUS SO4 325 MG TABLET (FP) PO SCH ×3 (10:22→18:34)
[2021-05-01] MEDS: oxyCODONE HCL 5 MG TABLET PO PRN ×2 (10:25→22:50)
[2021-05-01] MEDS ORDERED: CASIRIVIMAB/IMDEVIMAB (REGEN-COV) 600 MG/600 MG (10ML VIAL) IV ONE (11:15)
[2021-05-01 14:07] LABS: BASO % 0.4 % (0-2.0); EOS % 1.6 % (0-4.5); HEMATOCRIT 28.9 % (32.4-45.2); HEMOGLOBIN 9.5 GM/dL (10.7-15.3); LYMPH % 7.3 % (8-40); MCH 28.6 pg (25.7-33.7); MCHC 32.8 g/dl (32.0-36.0); MEAN CELL VOLUME 87.2 fl (80-96); MEAN PLT VOLUME 7.7 fl (7.5-11.1); MONO % 6.2 % (3.8-10.2); NEUT % 84.5 % (42.8-82.8); PLATELET COUNT 318 10^3/uL (134-434); RBC 3.32 M/mm3 (3.60-5.2); RDW 16.9 % (11.6-15.6)
[2021-05-01] MEDS: NYSTATIN POWDER 100,000 UNITS/GM - 15 GM TOPICAL POWDER TP SCH ×2 (14:12→22:49)
[2021-05-01 14:43] LABS: CALCIUM 8.3 mg/dL (8.5-10.1)
[2021-05-01 14:44] LABS: ALBUMIN 1.3 g/dl (3.4-5.0); BLOOD UREA NITROGEN 79.6 mg/dL (7-18)
[2021-05-01 14:47] LABS: CREATININE 4.6 mg/dL (0.55-1.3)
[2021-05-01 14:48] LABS: BILIRUBIN,TOTAL 0.7 mg/dL (0.2-1)
[2021-05-01 14:49] LABS: TOT PROT 6.5 g/dl (6.4-8.2)
[2021-05-01 14:51] LABS: ERYTHROCYTE SEDIMENTATION RATE 105 mm/hr (0-20)
[2021-05-01] MEDS ORDERED: CASIRIVIMAB/IMDEVIMAB 10 ML in SODIUM CHLORIDE 100 ML IVPB ONE (15:30)
[2021-05-01] MEDS: COLLAGENASE CLOSTRIDIUM HIST. 30 GRAMS TUBE TP SCH (17:00)
[2021-05-01] MEDS: CHLORHEXIDINE GLUCONATE 4% CLEANSER FOR DECOLONIZATION TP SCH (22:48)
[2021-05-01] MEDS: LIDOCAINE PATCH REMOVAL MC SCH (22:48)
[2021-05-02] MEDS: NYSTATIN 500,000 UNITS/5 ML SUSPENSION PO SCH ×3 (06:16→18:15)
[2021-05-02] MEDS: HEPARIN NA (PORCINE) 5,000 UNITS/ML 1ML VIAL SQ SCH ×3 (07:16→23:10)
[2021-05-02] MEDS: INSULIN (LEVEMIR) 100 UNITS/ML UNITS SQ SCH ×2 (07:16→23:10)
[2021-05-02] MEDS: GABAPENTIN 100 MG CAPSULE PO SCH ×3 (07:16→23:11)
[2021-05-02] MEDS: INSULIN SLIDING SCALE (NOVOLOG) 1 VIAL SQ SCH ×4 (07:16→23:11)
[2021-05-02] MEDS: oxyCODONE HCL 5 MG TABLET PO PRN ×3 (07:18→23:11)
[2021-05-02 07:53] LABS: MCH 28.6 pg (25.7-33.7); MCHC 33.2 g/dl (32.0-36.0); MEAN PLT VOLUME 7.4 fl (7.5-11.1); PLATELET COUNT 343 10^3/uL (134-434); RBC 3.15 M/mm3 (3.60-5.2); RDW 17.1 % (11.6-15.6); WHITE BLOOD COUNT 14.1 K/mm3 (4.0-10.0)
[2021-05-02 08:17] LABS: CALCIUM 8.4 mg/dL (8.5-10.1)
[2021-05-02 08:18] LABS: BLOOD UREA NITROGEN 76.3 mg/dL (7-18)
[2021-05-02 08:22] LABS: CREATININE 4.5 mg/dL (0.55-1.3)
[2021-05-02] MEDS ORDERED: PT OWN MED DRAWER 7, Y5N ONE (08:52)
[2021-05-02] MEDS: AMINO ACIDS/PROTEIN HYDROLYS 30 ML LIQUID.PKT PO SCH (08:58)
[2021-05-02] MEDS: FERROUS SO4 325 MG TABLET (FP) PO SCH ×3 (08:59→18:15)
[2021-05-02] MEDS: LIDOCAINE 5% TOPICAL PATCH TP SCH (09:00)
[2021-05-02] MEDS: ESCITALOPRAM OXALATE 10 MG TABLET PO SCH (09:00)
[2021-05-02] MEDS: VITAMIN B COMP W-C 1 EA TABLET (NEPHRO-VITE) PO SCH (09:00)
[2021-05-02] MEDS: COLLAGENASE CLOSTRIDIUM HIST. 30 GRAMS TUBE TP SCH (14:00)
[2021-05-02] MEDS: NYSTATIN POWDER 100,000 UNITS/GM - 15 GM TOPICAL POWDER TP SCH ×2 (14:00→23:12)
[2021-05-02] MEDS: ACETAMINOPHEN 325 MG TABLET (FP) PO PRN (18:15)
[2021-05-02] MEDS: CHLORHEXIDINE GLUCONATE 4% CLEANSER FOR DECOLONIZATION TP SCH (23:10)
[2021-05-02] MEDS: LIDOCAINE PATCH REMOVAL MC SCH (23:11)
[2021-05-03] MEDS: NYSTATIN 500,000 UNITS/5 ML SUSPENSION PO SCH ×5 (03:31→23:35)
[2021-05-03] MEDS: HEPARIN NA (PORCINE) 5,000 UNITS/ML 1ML VIAL SQ SCH ×3 (07:04→21:24)
[2021-05-03] MEDS: GABAPENTIN 100 MG CAPSULE PO SCH ×2 (07:04→21:24)
[2021-05-03] MEDS: INSULIN (LEVEMIR) 100 UNITS/ML UNITS SQ SCH ×2 (07:05→21:25)
[2021-05-03] MEDS: oxyCODONE HCL 5 MG TABLET PO PRN ×3 (07:05→23:35)
[2021-05-03] MEDS: INSULIN SLIDING SCALE (NOVOLOG) 1 VIAL SQ SCH ×4 (07:05→21:26)
[2021-05-03 07:47] LABS: BASO % 0.7 % (0-2.0); EOS % 0.9 % (0-4.5); HEMATOCRIT 29.1 % (32.4-45.2); HEMOGLOBIN 9.6 GM/dL (10.7-15.3); LYMPH % 7.4 % (8-40); MCH 28.9 pg (25.7-33.7); MEAN CELL VOLUME 87.8 fl (80-96); MEAN PLT VOLUME 7.7 fl (7.5-11.1); MONO % 6.2 % (3.8-10.2); NEUT % 84.8 % (42.8-82.8); PLATELET COUNT 386 10^3/uL (134-434); RBC 3.31 M/mm3 (3.60-5.2); RDW 17.5 % (11.6-15.6); WHITE BLOOD COUNT 16.8 K/mm3 (4.0-10.0)
[2021-05-03 07:57] LABS: BLOOD UREA NITROGEN 86.7 mg/dL (7-18)
[2021-05-03 08:00] LABS: CALCIUM 8.4 mg/dL (8.5-10.1); MAGNESIUM 2.1 mg/dL (1.8-2.4)
[2021-05-03 08:02] LABS: PHOSPHOROUS 6.2 mg/dL (2.5-4.9)
[2021-05-03] MEDS ORDERED: PT OWN MED DRAWER 7, Y5N ONE (09:14)
[2021-05-03] MEDS: FERROUS SO4 325 MG TABLET (FP) PO SCH ×3 (09:20→18:21)
[2021-05-03] MEDS: AMINO ACIDS/PROTEIN HYDROLYS 30 ML LIQUID.PKT PO SCH (09:20)
[2021-05-03] MEDS: NYSTATIN POWDER 100,000 UNITS/GM - 15 GM TOPICAL POWDER TP SCH ×2 (09:21→21:25)
[2021-05-03] MEDS: ESCITALOPRAM OXALATE 10 MG TABLET PO SCH (09:21)
[2021-05-03] MEDS: LIDOCAINE 5% TOPICAL PATCH TP SCH (09:21)
[2021-05-03] MEDS: VITAMIN B COMP W-C 1 EA TABLET (NEPHRO-VITE) PO SCH (09:21)
[2021-05-03] MEDS ORDERED: DEXAMETHASONE SOD PHOSPHATE 10 MG/1 ML VIAL IVPUSH SCH (10:00)
[2021-05-03] MEDS: COLLAGENASE CLOSTRIDIUM HIST. 30 GRAMS TUBE TP SCH (12:29)
[2021-05-03] MEDS: ACETAMINOPHEN 325 MG TABLET (FP) PO PRN (13:48)
[2021-05-03] MEDS: CHLORHEXIDINE GLUCONATE 4% CLEANSER FOR DECOLONIZATION TP SCH (21:24)
[2021-05-03] MEDS: LIDOCAINE PATCH REMOVAL MC SCH (21:24)
[2021-05-04] MEDS: INSULIN (LEVEMIR) 100 UNITS/ML UNITS SQ SCH ×2 (06:20→21:49)
[2021-05-04] MEDS: INSULIN SLIDING SCALE (NOVOLOG) 1 VIAL SQ SCH ×4 (06:20→23:07)
[2021-05-04] MEDS: HEPARIN NA (PORCINE) 5,000 UNITS/ML 1ML VIAL SQ SCH ×3 (06:20→21:48)
[2021-05-04] MEDS: NYSTATIN 500,000 UNITS/5 ML SUSPENSION PO SCH ×3 (06:20→17:14)
[2021-05-04] MEDS: oxyCODONE HCL 5 MG TABLET PO PRN ×2 (06:21→11:51)
[2021-05-04 06:45] LABS: HEMATOCRIT 30.3 % (32.4-45.2); HEMOGLOBIN 9.8 GM/dL (10.7-15.3); MCH 28.7 pg (25.7-33.7); MCHC 32.4 g/dl (32.0-36.0); MEAN CELL VOLUME 88.5 fl (80-96); MEAN PLT VOLUME 7.7 fl (7.5-11.1); PLATELET COUNT 421 10^3/uL (134-434); RBC 3.43 M/mm3 (3.60-5.2); RDW 17.6 % (11.6-15.6); WHITE BLOOD COUNT 19.4 K/mm3 (4.0-10.0)
[2021-05-04 06:58] LABS: BLOOD UREA NITROGEN 93.5 mg/dL (7-18); CALCIUM 8.5 mg/dL (8.5-10.1); MAGNESIUM 2.3 mg/dL (1.8-2.4)
[2021-05-04 07:02] LABS: CREATININE 5.1 mg/dL (0.55-1.3)
[2021-05-04] MEDS: AMINO ACIDS/PROTEIN HYDROLYS 30 ML LIQUID.PKT PO SCH (09:45)
[2021-05-04] MEDS: LIDOCAINE 5% TOPICAL PATCH TP SCH (09:45)
[2021-05-04] MEDS: ACETAMINOPHEN 325 MG TABLET (FP) PO PRN (09:46)
[2021-05-04] MEDS: FERROUS SO4 325 MG TABLET (FP) PO SCH ×3 (09:47→17:14)
[2021-05-04] MEDS: ESCITALOPRAM OXALATE 10 MG TABLET PO SCH (09:47)
[2021-05-04 10:28] LABS: ANISOCYTOSIS 0; HELMET CELLS 0; HOWELL-JOLLY BODIES 0; MACROCYTOSIS 0; OVALOCYTE 0; PLATELET ESTIMATE NORMAL; ROULEAU 0; SICKELED CELLS 0; TARGET CELLS 0; TEAR DROP CELLS 0; TOXIC GRANULATION 0
[2021-05-04] MEDS: COLLAGENASE CLOSTRIDIUM HIST. 30 GRAMS TUBE TP SCH (11:01)
[2021-05-04] MEDS: NYSTATIN POWDER 100,000 UNITS/GM - 15 GM TOPICAL POWDER TP SCH ×2 (11:01→21:49)
[2021-05-04] MEDS: GABAPENTIN 100 MG CAPSULE PO SCH ×2 (11:01→21:49)
[2021-05-04] MEDS: VITAMIN B COMP W-C 1 EA TABLET (NEPHRO-VITE) PO SCH (11:01)
[2021-05-04] MEDS: CHLORHEXIDINE GLUCONATE 4% CLEANSER FOR DECOLONIZATION TP SCH (21:49)
[2021-05-04] MEDS: LIDOCAINE PATCH REMOVAL MC SCH (21:50)
[2021-05-05] MEDS: NYSTATIN 500,000 UNITS/5 ML SUSPENSION PO SCH ×4 (00:39→17:11)
[2021-05-05] MEDS: oxyCODONE HCL 5 MG TABLET PO PRN ×2 (03:56→21:58)
[2021-05-05 06:54] LABS: BASO % 0.2 % (0-2.0); HEMATOCRIT 28.8 % (32.4-45.2); HEMOGLOBIN 9.5 GM/dL (10.7-15.3); LYMPH % 5.5 % (8-40); MCH 28.8 pg (25.7-33.7); MCHC 32.9 g/dl (32.0-36.0); MEAN CELL VOLUME 87.7 fl (80-96); MEAN PLT VOLUME 7.8 fl (7.5-11.1); MONO % 4.2 % (3.8-10.2); NEUT % 90.1 % (42.8-82.8); PLATELET COUNT 410 10^3/uL (134-434); RBC 3.29 M/mm3 (3.60-5.2); RDW 17.8 % (11.6-15.6); WHITE BLOOD COUNT 13.9 K/mm3 (4.0-10.0)
[2021-05-05 07:04] LABS: CHLORIDE 103 mmol/L (98-107); SODIUM 137 mmol/L (136-145)
[2021-05-05 07:13] LABS: CALCIUM 8.6 mg/dL (8.5-10.1)
[2021-05-05 07:14] LABS: ALBUMIN 1.4 g/dl (3.4-5.0); ANION GAP 10 MMOL/L (8-16); CO2 25 mmol/L (21-32); GLUCOSE,RANDOM 232 mg/dL (74-106)
[2021-05-05 07:17] LABS: CREATININE 5.1 mg/dL (0.55-1.3); SGOT/AST 13 U/L (15-37); SGPT/ALT 22 U/L (13-61)
[2021-05-05 07:18] LABS: BILIRUBIN,TOTAL 0.4 mg/dL (0.2-1); TOT PROT 6.5 g/dl (6.4-8.2)
[2021-05-05 07:21] LABS: ALK PHOS 221 U/L (45-117); BLOOD UREA NITROGEN 105.6 mg/dL (7-18)
[2021-05-05] MEDS: INSULIN (LEVEMIR) 100 UNITS/ML UNITS SQ SCH ×2 (07:27→22:00)
[2021-05-05] MEDS: HEPARIN NA (PORCINE) 5,000 UNITS/ML 1ML VIAL SQ SCH ×3 (07:27→21:59)
[2021-05-05] MEDS: INSULIN SLIDING SCALE (NOVOLOG) 1 VIAL SQ SCH ×4 (07:27→22:00)
[2021-05-05] MEDS: VITAMIN B COMP W-C 1 EA TABLET (NEPHRO-VITE) PO SCH (11:43)
[2021-05-05] MEDS: FERROUS SO4 325 MG TABLET (FP) PO SCH ×3 (11:43→17:11)
[2021-05-05] MEDS: GABAPENTIN 100 MG CAPSULE PO SCH ×2 (11:43→21:59)
[2021-05-05] MEDS: ESCITALOPRAM OXALATE 10 MG TABLET PO SCH (11:43)
[2021-05-05] MEDS: AMINO ACIDS/PROTEIN HYDROLYS 30 ML LIQUID.PKT PO SCH (11:43)
[2021-05-05] MEDS: LIDOCAINE 5% TOPICAL PATCH TP SCH (14:30)
[2021-05-05] MEDS: NYSTATIN POWDER 100,000 UNITS/GM - 15 GM TOPICAL POWDER TP SCH ×2 (14:31→22:01)
[2021-05-05] MEDS: COLLAGENASE CLOSTRIDIUM HIST. 30 GRAMS TUBE TP SCH (14:31)
[2021-05-05] MEDS: LIDOCAINE PATCH REMOVAL MC SCH (21:59)
[2021-05-05] MEDS: CHLORHEXIDINE GLUCONATE 4% CLEANSER FOR DECOLONIZATION TP SCH (22:01)
[2021-05-06] MEDS: NYSTATIN 500,000 UNITS/5 ML SUSPENSION PO SCH ×5 (00:05→18:25)
[2021-05-06] MEDS: HEPARIN NA (PORCINE) 5,000 UNITS/ML 1ML VIAL SQ SCH ×3 (06:16→22:12)
[2021-05-06] MEDS: oxyCODONE HCL 5 MG TABLET PO PRN ×2 (06:21→23:48)
[2021-05-06] MEDS: INSULIN (LEVEMIR) 100 UNITS/ML UNITS SQ SCH ×2 (06:22→22:12)
[2021-05-06] MEDS: INSULIN SLIDING SCALE (NOVOLOG) 1 VIAL SQ SCH ×4 (06:23→22:13)
[2021-05-06 06:37] LABS: BASO % 0.4 % (0-2.0); EOS % 0.1 % (0-4.5); HEMATOCRIT 33.1 % (32.4-45.2); HEMOGLOBIN 10.6 GM/dL (10.7-15.3); LYMPH % 7.3 % (8-40); MCH 28.3 pg (25.7-33.7); MCHC 31.9 g/dl (32.0-36.0); MEAN CELL VOLUME 88.7 fl (80-96); MEAN PLT VOLUME 7.7 fl (7.5-11.1); MONO % 7.7 % (3.8-10.2); NEUT % 84.5 % (42.8-82.8); PLATELET COUNT 442 10^3/uL (134-434); RBC 3.74 M/mm3 (3.60-5.2); RDW 17.9 % (11.6-15.6); WHITE BLOOD COUNT 13.4 K/mm3 (4.0-10.0)
[2021-05-06 06:53] LABS: CHLORIDE 106 mmol/L (98-107); SODIUM 142 mmol/L (136-145)
[2021-05-06 06:58] LABS: ALBUMIN 1.6 g/dl (3.4-5.0); ANION GAP 10 MMOL/L (8-16); CALCIUM 8.6 mg/dL (8.5-10.1); CO2 25 mmol/L (21-32)
[2021-05-06 06:59] LABS: GLUCOSE,RANDOM 108 mg/dL (74-106)
[2021-05-06 07:00] LABS: SGPT/ALT 38 U/L (13-61)
[2021-05-06 07:01] LABS: BILIRUBIN,TOTAL 0.2 mg/dL (0.2-1); CREATININE 5.1 mg/dL (0.55-1.3); SGOT/AST 30 U/L (15-37)
[2021-05-06 07:02] LABS: TOT PROT 6.9 g/dl (6.4-8.2)
[2021-05-06 07:03] LABS: ALK PHOS 242 U/L (45-117)
[2021-05-06 07:14] LABS: BLOOD UREA NITROGEN 111.7 mg/dL (7-18)
[2021-05-06] MEDS: AMINO ACIDS/PROTEIN HYDROLYS 30 ML LIQUID.PKT PO SCH (08:23)
[2021-05-06] MEDS: FERROUS SO4 325 MG TABLET (FP) PO SCH ×5 (08:23→18:24)
[2021-05-06] MEDS: GABAPENTIN 100 MG CAPSULE PO SCH ×2 (10:12→22:12)
[2021-05-06] MEDS: LIDOCAINE 5% TOPICAL PATCH TP SCH (10:12)
[2021-05-06] MEDS: ESCITALOPRAM OXALATE 10 MG TABLET PO SCH (10:12)
[2021-05-06] MEDS: VITAMIN B COMP W-C 1 EA TABLET (NEPHRO-VITE) PO SCH (10:12)
[2021-05-06] MEDS: NYSTATIN POWDER 100,000 UNITS/GM - 15 GM TOPICAL POWDER TP SCH ×2 (10:13→22:15)
[2021-05-06] MEDS: COLLAGENASE CLOSTRIDIUM HIST. 30 GRAMS TUBE TP SCH (14:05)
[2021-05-06] MEDS: CHLORHEXIDINE GLUCONATE 4% CLEANSER FOR DECOLONIZATION TP SCH (22:12)
[2021-05-06] MEDS: LIDOCAINE PATCH REMOVAL MC SCH (22:13)
[2021-05-07] MEDS: NYSTATIN 500,000 UNITS/5 ML SUSPENSION PO SCH ×4 (00:17→18:15)
[2021-05-07] MEDS: HEPARIN NA (PORCINE) 5,000 UNITS/ML 1ML VIAL SQ SCH ×3 (06:09→21:17)
[2021-05-07] MEDS: INSULIN (LEVEMIR) 100 UNITS/ML UNITS SQ SCH ×2 (06:09→21:17)
[2021-05-07] MEDS: INSULIN SLIDING SCALE (NOVOLOG) 1 VIAL SQ SCH ×4 (06:09→21:18)
[2021-05-07 07:12] LABS: BASO % 0.4 % (0-2.0); EOS % 1.2 % (0-4.5); HEMOGLOBIN 10.7 GM/dL (10.7-15.3); LYMPH % 7.6 % (8-40); MCH 28.7 pg (25.7-33.7); MCHC 32.5 g/dl (32.0-36.0); MEAN CELL VOLUME 88.3 fl (80-96); MEAN PLT VOLUME 7.6 fl (7.5-11.1); MONO % 7.7 % (3.8-10.2); NEUT % 83.1 % (42.8-82.8); PLATELET COUNT 430 10^3/uL (134-434); RBC 3.74 M/mm3 (3.60-5.2); RDW 18.1 % (11.6-15.6); WHITE BLOOD COUNT 13.3 K/mm3 (4.0-10.0)
[2021-05-07 07:22] LABS: CHLORIDE 108 mmol/L (98-107); SODIUM 143 mmol/L (136-145)
[2021-05-07 07:28] LABS: ALBUMIN 1.6 g/dl (3.4-5.0); ANION GAP 9 MMOL/L (8-16); CALCIUM 8.3 mg/dL (8.5-10.1); CO2 26 mmol/L (21-32); MAGNESIUM 2.2 mg/dL (1.8-2.4)
[2021-05-07 07:29] LABS: GLUCOSE,RANDOM 76 mg/dL (74-106)
[2021-05-07 07:31] LABS: CREATININE 4.6 mg/dL (0.55-1.3); SGOT/AST 47 U/L (15-37); SGPT/ALT 60 U/L (13-61)
[2021-05-07 07:32] LABS: PHOSPHOROUS 5.4 mg/dL (2.5-4.9)
[2021-05-07 07:33] LABS: BILIRUBIN,TOTAL 0.5 mg/dL (0.2-1); TOT PROT 6.6 g/dl (6.4-8.2)
[2021-05-07 07:34] LABS: ALK PHOS 249 U/L (45-117)
[2021-05-07] MEDS ORDERED: PT OWN MED DRAWER 7, Y5N ONE (08:10)
[2021-05-07 08:40] LABS: BLOOD UREA NITROGEN 111.9 mg/dL (7-18)
[2021-05-07] MEDS: FERROUS SO4 325 MG TABLET (FP) PO SCH ×3 (08:43→16:53)
[2021-05-07] MEDS: AMINO ACIDS/PROTEIN HYDROLYS 30 ML LIQUID.PKT PO SCH (08:43)
[2021-05-07] MEDS: GABAPENTIN 100 MG CAPSULE PO SCH ×2 (09:00→21:17)
[2021-05-07] MEDS: LIDOCAINE 5% TOPICAL PATCH TP SCH (09:00)
[2021-05-07] MEDS: NYSTATIN POWDER 100,000 UNITS/GM - 15 GM TOPICAL POWDER TP SCH ×2 (09:00→21:18)
[2021-05-07] MEDS: VITAMIN B COMP W-C 1 EA TABLET (NEPHRO-VITE) PO SCH (09:00)
[2021-05-07] MEDS: ESCITALOPRAM OXALATE 10 MG TABLET PO SCH (09:00)
[2021-05-07] MEDS: amLODIPine BESYLATE 5 MG TABLET (FP) PO SCH (09:00)
[2021-05-07] MEDS: ACETAMINOPHEN 325 MG TABLET (FP) PO PRN (10:01)
[2021-05-07] MEDS: COLLAGENASE CLOSTRIDIUM HIST. 30 GRAMS TUBE TP SCH (10:58)
[2021-05-07] MEDS: oxyCODONE HCL 5 MG TABLET PO PRN ×2 (14:10→21:18)
[2021-05-07] MEDS: CHLORHEXIDINE GLUCONATE 4% CLEANSER FOR DECOLONIZATION TP SCH (21:17)
[2021-05-07] MEDS: LIDOCAINE PATCH REMOVAL MC SCH (21:18)
[2021-05-08] MEDS: NYSTATIN 500,000 UNITS/5 ML SUSPENSION PO SCH ×4 (00:06→17:50)
[2021-05-08] MEDS: INSULIN SLIDING SCALE (NOVOLOG) 1 VIAL SQ SCH ×4 (06:45→22:16)
[2021-05-08] MEDS: INSULIN (LEVEMIR) 100 UNITS/ML UNITS SQ SCH ×2 (06:45→22:16)
[2021-05-08] MEDS: HEPARIN NA (PORCINE) 5,000 UNITS/ML 1ML VIAL SQ SCH ×3 (06:47→22:15)
[2021-05-08] MEDS: oxyCODONE HCL 5 MG TABLET PO PRN ×3 (06:48→22:15)
[2021-05-08] MEDS: COLLAGENASE CLOSTRIDIUM HIST. 30 GRAMS TUBE TP SCH (09:34)
[2021-05-08] MEDS: amLODIPine BESYLATE 5 MG TABLET (FP) PO SCH (09:34)
[2021-05-08] MEDS: GABAPENTIN 100 MG CAPSULE PO SCH ×2 (09:34→22:15)
[2021-05-08] MEDS: VITAMIN B COMP W-C 1 EA TABLET (NEPHRO-VITE) PO SCH (09:34)
[2021-05-08] MEDS: NYSTATIN POWDER 100,000 UNITS/GM - 15 GM TOPICAL POWDER TP SCH ×2 (09:34→22:16)
[2021-05-08] MEDS: ESCITALOPRAM OXALATE 10 MG TABLET PO SCH (09:34)
[2021-05-08] MEDS: FERROUS SO4 325 MG TABLET (FP) PO SCH ×3 (09:34→17:50)
[2021-05-08] MEDS: LIDOCAINE 5% TOPICAL PATCH TP SCH (09:35)
[2021-05-08 16:27] LABS: HEMATOCRIT 31.4 % (32.4-45.2); HEMOGLOBIN 10.2 GM/dL (10.7-15.3); MCH 28.3 pg (25.7-33.7); MCHC 32.4 g/dl (32.0-36.0); MEAN CELL VOLUME 87.4 fl (80-96); PLATELET COUNT 372 10^3/uL (134-434); RBC 3.59 M/mm3 (3.60-5.2); RDW 18.3 % (11.6-15.6); WHITE BLOOD COUNT 17.6 K/mm3 (4.0-10.0)
[2021-05-08 16:52] LABS: CALCIUM 8.5 mg/dL (8.5-10.1)
[2021-05-08 16:53] LABS: BLOOD UREA NITROGEN 101.9 mg/dL (7-18)
[2021-05-08 16:56] LABS: CREATININE 3.9 mg/dL (0.55-1.3)
[2021-05-08] MEDS: AMINO ACIDS/PROTEIN HYDROLYS 30 ML LIQUID.PKT PO SCH (17:50)
[2021-05-08] MEDS: LIDOCAINE PATCH REMOVAL MC SCH (22:16)
[2021-05-08] MEDS: CHLORHEXIDINE GLUCONATE 4% CLEANSER FOR DECOLONIZATION TP SCH (22:16)
[2021-05-09 01:10] LABS: FIBROSIS SCORE. 0.22 (0.00-0.21); HCV ALPHA 2 MACRO CHART 200 mg/dL (110-276); NECRO.INFLAM ACT.SCORE 0.33 (0.00-0.17); NECROINFLAM. ACTIVITY GRADE A1-Minimal activity (.)
[2021-05-09] MEDS ORDERED: amLODIPine BESYLATE 5 MG TABLET (FP) PO ONE (03:37)
[2021-05-09] MEDS: HEPARIN NA (PORCINE) 5,000 UNITS/ML 1ML VIAL SQ SCH ×2 (05:14→13:11)
[2021-05-09] MEDS: NYSTATIN 500,000 UNITS/5 ML SUSPENSION PO SCH ×3 (05:14→11:07)
[2021-05-09] MEDS: oxyCODONE HCL 5 MG TABLET PO PRN ×2 (05:15→11:03)
[2021-05-09 06:47] VITALS: TEMP 98.2
[2021-05-09] MEDS: INSULIN (LEVEMIR) 100 UNITS/ML UNITS SQ SCH (06:48)
[2021-05-09] MEDS: INSULIN SLIDING SCALE (NOVOLOG) 1 VIAL SQ SCH ×2 (06:48→11:15)
[2021-05-09 07:21] LABS: CALCIUM 8.7 mg/dL (8.5-10.1)
[2021-05-09 07:22] LABS: ALBUMIN 1.5 g/dl (3.4-5.0); BLOOD UREA NITROGEN 91.3 mg/dL (7-18)
[2021-05-09 07:25] LABS: CREATININE 3.6 mg/dL (0.55-1.3)
[2021-05-09 07:27] LABS: BILIRUBIN,TOTAL 0.4 mg/dL (0.2-1); TOT PROT 6.4 g/dl (6.4-8.2)
[2021-05-09] MEDS: FERROUS SO4 325 MG TABLET (FP) PO SCH ×2 (08:58→11:07)
[2021-05-09] MEDS: ACETAMINOPHEN 325 MG TABLET (FP) PO PRN (08:58)
[2021-05-09] MEDS: AMINO ACIDS/PROTEIN HYDROLYS 30 ML LIQUID.PKT PO SCH (08:58)
[2021-05-09] MEDS ORDERED: PT OWN MED DRAWER 7, Y5N ONE (09:21)
[2021-05-09] MEDS: LIDOCAINE 5% TOPICAL PATCH TP SCH (09:23)
[2021-05-09] MEDS: amLODIPine BESYLATE 5 MG TABLET (FP) PO SCH (09:23)
[2021-05-09] MEDS: GABAPENTIN 100 MG CAPSULE PO SCH (09:23)
[2021-05-09] MEDS: ESCITALOPRAM OXALATE 10 MG TABLET PO SCH (09:23)
[2021-05-09] MEDS: VITAMIN B COMP W-C 1 EA TABLET (NEPHRO-VITE) PO SCH (09:23)
[2021-05-09] MEDS: COLLAGENASE CLOSTRIDIUM HIST. 30 GRAMS TUBE TP SCH (13:34)
[2021-05-09] MEDS: NYSTATIN POWDER 100,000 UNITS/GM - 15 GM TOPICAL POWDER TP SCH (13:34)
[2021-05-09 13:36] VITALS: BP 121/89; PULSE 92
== END 2021-05-09 14:30 | DRG 469 ==
LOC: JER 17:01 → JERBED 19:16 → J4S 04-03 18:09 → JICU 04-18 05:23 → J2W 04-18 21:04
PROVIDERS: ADMIT Internal Medicine
PROC: 06HY33Z Insertion of Infusion Device into Lower Vein, Percutaneous Approach (ICD-10-PCS; principal; 2021-04-12)
PROC: 5A1D70Z Performance of Urinary Filtration, Intermittent, Less than 6 Hours Per Day (ICD-10-PCS; 2021-04-12)
PROC: 30233N1 Transfusion of Nonautologous Red Blood Cells into Peripheral Vein, Percutaneous Approach (ICD-10-PCS; 2021-04-13)
PROC: 05HM33Z Insertion of Infusion Device into Right Internal Jugular Vein, Percutaneous Approach (ICD-10-PCS; 2021-04-16)
PROC: B543ZZA Ultrasonography of Right Jugular Veins, Guidance (ICD-10-PCS; 2021-04-16)
PROC: XW033E5 Introduction of Remdesivir Anti-infective into Peripheral Vein, Percutaneous Approach, New Technology Group 5 (ICD-10-PCS; 2021-05-01)
DX: N17.9 Acute kidney failure, unspecified (principal); E78.5 Hyperlipidemia, unspecified; K21.9 Gastro-esophageal reflux disease without esophagitis; D57.3 Sickle-cell trait; E66.01 Morbid (severe) obesity due to excess calories; D86.2 Sarcoidosis of lung with sarcoidosis of lymph nodes; E87.5 Hyperkalemia; N18.9 Chronic kidney disease, unspecified; Z22.322 Carrier or suspected carrier of Methicillin resistant Staphylococcus aureus; F32.9 Major depressive disorder, single episode, unspecified; E83.52 Hypercalcemia; L89.892 Pressure ulcer of other site, stage 2; N39.0 Urinary tract infection, site not specified; Z68.42 Body mass index [BMI] 45.0-49.9, adult; E11.65 Type 2 diabetes mellitus with hyperglycemia; I31.3 Pericardial effusion (noninflammatory); I13.10 Hypertensive heart and chronic kidney disease without heart failure, with stage 1 through stage 4 chronic kidney disease, or unspecified chronic kidney disease; U07.1 COVID-19; A41.59 Other Gram-negative sepsis; G93.41 Metabolic encephalopathy; E87.2 Acidosis; L89.152 Pressure ulcer of sacral region, stage 2; A04.72 Enterocolitis due to Clostridium difficile, not specified as recurrent; D64.9 Anemia, unspecified; Z16.12 Extended spectrum beta lactamase (ESBL) resistance; B96.1 Klebsiella pneumoniae [K. pneumoniae] as the cause of diseases classified elsewhere; B37.9 Candidiasis, unspecified; D72.829 Elevated white blood cell count, unspecified
CPT/HCPCS: 36415; 36430; 36600; 71045-TC-FY; 71250-TC; 73060-TC-RT-FY; 73502-TC-RT-FY; 73560-TC-RT-FY; 74176-TC; 76775-TC; 80048; 80053; 81003; 82172; 82272; 82436; 82550; 82570; 82728; 82803; 82962; 82977; 83010; 83520; 83540; 83550; 83615; 83735; 83883; 84100; 84133; 84300; 84460; 84484; 85025; 85027; 85379; 85610; 85651; 86038; 86140; 86225; 86256; 86705; 86706; 86707; 86708; 86803; 86850; 86900; 86901; 86922; 87040; 87086; 87186; 87324; 87340; 87350; 87449; 87517; 93005; 93010; 93306-TC; 93970-TC; 94010; 97161-GP; 99285-25; C9803; G0480; J0131; J0885; J1100; J1644; J1756; M0243; P9047; P9058; Q0240; Q0243; Q5106; U0003; U0005

== ENCOUNTER 2022-08-08 19:36 | Inpatient (IN) | payer OTHER ==
[2022-08-08 20:23] VITALS: BMI 45.4
[2022-08-09 00:53] LABS: HEMATOCRIT 30.6 % (32.4-45.2); HEMOGLOBIN 9.5 GM/dL (10.7-15.3); MCH 29.6 pg (25.7-33.7); MCHC 31.1 g/dl (32.0-36.0); MEAN CELL VOLUME 95.3 fl (80-96); MEAN PLT VOLUME 7.7 fl (7.5-11.1); PLATELET COUNT 257 10^3/uL (134-434); RBC 3.21 M/mm3 (3.60-5.2); RDW 16.5 % (11.6-15.6); WHITE BLOOD COUNT 13.6 K/mm3 (4.0-10.0)
[2022-08-09] MEDS ORDERED: ALTEPLASE (CATHFLO) 2 MG/2 ML VIAL NR ONE ×2 (05:58→05:59)
[2022-08-09] MEDS ORDERED: HEPARIN NA (PORCINE) 5,000 UNITS/ML 1ML VIAL IVPUSH ONE (06:00)
[2022-08-09] MEDS ORDERED: EPOETIN ALFA-EPBX 10,000 UNIT/ML VIAL SQ ONE (06:00)
[2022-08-09] MEDS ORDERED: SODIUM CHLORIDE 250 ML IV PRN (06:00)
[2022-08-09 08:06] LABS: BASO % 0.7 % (0-2.0); EOS % 2.8 % (0-4.5); HEMATOCRIT 30.8 % (32.4-45.2); HEMOGLOBIN 9.6 GM/dL (10.7-15.3); LYMPH % 12.7 % (8-40); MCH 29.8 pg (25.7-33.7); MCHC 31.2 g/dl (32.0-36.0); MEAN CELL VOLUME 95.5 fl (80-96); MEAN PLT VOLUME 8.4 fl (7.5-11.1); MONO % 8.3 % (3.8-10.2); NEUT % 75.5 % (42.8-82.8); PLATELET COUNT 206 10^3/uL (134-434); RBC 3.23 M/mm3 (3.60-5.2); WHITE BLOOD COUNT 12.4 K/mm3 (4.0-10.0)
[2022-08-09 08:39] LABS: CHLORIDE 102 mmol/L (98-107); SODIUM 139 mmol/L (136-145)
[2022-08-09 09:32] LABS: CO2 24 mmol/L (21-32)
[2022-08-09 09:59] LABS: ALBUMIN 2.7 g/dl (3.4-5.0); BLOOD UREA NITROGEN 92.6 mg/dL (7-18); CALCIUM 9.2 mg/dL (8.5-10.1); MAGNESIUM 2.7 mg/dL (1.8-2.4)
[2022-08-09 10:01] LABS: GLUCOSE,RANDOM 321 mg/dL (74-106); PHOSPHOROUS 8.7 mg/dL (2.5-4.9)
[2022-08-09 10:03] LABS: SGOT/AST 16 U/L (15-37); TOT PROT 7.4 g/dl (6.4-8.2)
[2022-08-09 10:21] LABS: SGPT/ALT 34 U/L (13-61)
[2022-08-09 10:24] LABS: ALK PHOS 126 U/L (45-117); ANION GAP 12 MMOL/L (8-16); BILIRUBIN,TOTAL 0.3 mg/dL (0.2-1); CREATININE 7.4 mg/dL (0.55-1.3)
[2022-08-09] MEDS: INSULIN SLIDING SCALE (NOVOLOG) 1 VIAL SQ SCH ×4 (11:19→21:43)
[2022-08-09] MEDS: HEPARIN NA (PORCINE) 5,000 UNITS/ML 1ML VIAL SQ SCH ×3 (11:19→22:05)
[2022-08-09 15:18] LABS: HEMATOCRIT 31.2 % (32.4-45.2); HEMOGLOBIN 9.9 GM/dL (10.7-15.3); MCHC 31.7 g/dl (32.0-36.0); MEAN CELL VOLUME 94.8 fl (80-96); MEAN PLT VOLUME 8.2 fl (7.5-11.1); PLATELET COUNT 250 10^3/uL (134-434); RBC 3.29 M/mm3 (3.60-5.2); RDW 17.2 % (11.6-15.6); WHITE BLOOD COUNT 10.9 K/mm3 (4.0-10.0)
[2022-08-09] MEDS: HEPARIN NA (PORCINE) 5,000 UNITS/ML 1ML VIAL IVPUSH SCH ×3 (15:36→18:07)
[2022-08-09] MEDS ORDERED: SENNOSIDES 8.6MG TABLET (FP) PO PRN (20:16)
[2022-08-09] MEDS ORDERED: CARVEDILOL 25 MG TABLET (FP) PO SCH (20:30)
[2022-08-09] MEDS: oxyCODONE HCL 5 MG TABLET PO PRN (21:40)
[2022-08-09] MEDS ORDERED: hydrALAZINE HCL 10 MG TABLET ONE (21:45)
[2022-08-09] MEDS ORDERED: ATORVASTATIN CA 20 MG TABLET (FP) ONE (21:45)
[2022-08-09] MEDS ORDERED: ESCITALOPRAM OXALATE 10 MG TABLET ONE (21:45)
[2022-08-09] MEDS ORDERED: amLODIPine BESYLATE 5 MG TABLET (FP) ONE (21:45)
[2022-08-09] MEDS ORDERED: HEPARIN NA (PORCINE) 5,000 UNITS/ML 1ML VIAL ONE (21:46)
[2022-08-09] MEDS ORDERED: oxyCODONE HCL 5 MG TABLET ONE (21:46)
[2022-08-09] MEDS ORDERED: GABAPENTIN 100 MG CAPSULE ONE (21:46)
[2022-08-09] MEDS: amLODIPine BESYLATE 5 MG TABLET (FP) PO SCH (22:05)
[2022-08-09] MEDS: BISACODYL 5 MG TABLET.DR (FP) PO SCH (22:05)
[2022-08-09] MEDS: hydrALAZINE HCL 10 MG TABLET PO SCH (22:05)
[2022-08-09] MEDS: ESCITALOPRAM OXALATE 10 MG TABLET PO SCH (22:05)
[2022-08-09] MEDS: GABAPENTIN 100 MG CAPSULE PO SCH (22:05)
[2022-08-09] MEDS: ATORVASTATIN CA 20 MG TABLET (FP) PO SCH (22:05)
[2022-08-10] MEDS ORDERED: hydrALAZINE HCL 10 MG TABLET ONE ×3 (06:40→22:41)
[2022-08-10] MEDS ORDERED: HEPARIN NA (PORCINE) 5,000 UNITS/ML 1ML VIAL ONE ×3 (06:41→22:41)
[2022-08-10] MEDS ORDERED: GABAPENTIN 100 MG CAPSULE ONE ×3 (06:41→22:41)
[2022-08-10] MEDS ORDERED: oxyCODONE HCL 5 MG TABLET ONE ×2 (06:41→22:58)
[2022-08-10] MEDS: HEPARIN NA (PORCINE) 5,000 UNITS/ML 1ML VIAL SQ SCH ×3 (06:44→22:39)
[2022-08-10] MEDS: hydrALAZINE HCL 10 MG TABLET PO SCH ×3 (06:44→22:39)
[2022-08-10] MEDS: GABAPENTIN 100 MG CAPSULE PO SCH ×3 (06:44→22:39)
[2022-08-10 07:10] LABS: BASO % 0.6 % (0-2.0); EOS % 4.4 % (0-4.5); HEMATOCRIT 30.8 % (32.4-45.2); HEMOGLOBIN 9.6 GM/dL (10.7-15.3); LYMPH % 10.2 % (8-40); MCH 29.6 pg (25.7-33.7); MEAN CELL VOLUME 95.5 fl (80-96); MEAN PLT VOLUME 7.4 fl (7.5-11.1); MONO % 7.6 % (3.8-10.2); NEUT % 77.2 % (42.8-82.8); PLATELET COUNT 262 10^3/uL (134-434); RBC 3.23 M/mm3 (3.60-5.2); RDW 17.2 % (11.6-15.6); WHITE BLOOD COUNT 11.3 K/mm3 (4.0-10.0)
[2022-08-10 07:30] LABS: CALCIUM 9.2 mg/dL (8.5-10.1)
[2022-08-10 07:34] LABS: CREATININE 6.1 mg/dL (0.55-1.3)
[2022-08-10] MEDS: INSULIN SLIDING SCALE (NOVOLOG) 1 VIAL SQ SCH ×4 (09:54→22:55)
[2022-08-10] MEDS ORDERED: SODIUM ZIRCONIUM CYCLOSILICATE (LOKELMA) 5 GM PACKET PO SCH (10:00)
[2022-08-10] MEDS: amLODIPine BESYLATE 5 MG TABLET (FP) PO SCH (10:49)
[2022-08-10] MEDS: BISACODYL 5 MG TABLET.DR (FP) PO SCH (11:04)
[2022-08-10] MEDS: ESCITALOPRAM OXALATE 10 MG TABLET PO SCH (11:04)
[2022-08-10] MEDS: ALBUTEROL SO4 HFA INHALER IH SCH ×2 (11:07→20:39)
[2022-08-10] MEDS ORDERED: SODIUM ZIRCONIUM CYCLOSILICATE (LOKELMA) 5 GM PACKET ONE ×2 (11:13→16:15)
[2022-08-10] MEDS ORDERED: ATORVASTATIN CA 20 MG TABLET (FP) ONE (11:13)
[2022-08-10] MEDS: ATORVASTATIN CA 20 MG TABLET (FP) PO SCH (11:16)
[2022-08-10] MEDS ORDERED: SODIUM CHLORIDE 250 ML IV PRN (13:42)
[2022-08-10] MEDS ORDERED: hydrALAZINE HCL 25 MG TABLET (FP) ONE (16:15)
[2022-08-10] MEDS: SODIUM ZIRCONIUM CYCLOSILICATE (LOKELMA) 5 GM PACKET PO SCH (18:13)
[2022-08-10] MEDS: oxyCODONE HCL 5 MG TABLET PO PRN (22:56)
[2022-08-11] MEDS ORDERED: hydrALAZINE HCL 10 MG TABLET ONE ×3 (06:09→14:16)
[2022-08-11] MEDS ORDERED: GABAPENTIN 100 MG CAPSULE ONE ×3 (06:09→14:16)
[2022-08-11] MEDS: hydrALAZINE HCL 10 MG TABLET PO SCH ×3 (07:49→22:21)
[2022-08-11] MEDS: INSULIN SLIDING SCALE (NOVOLOG) 1 VIAL SQ SCH ×4 (07:50→22:28)
[2022-08-11] MEDS: GABAPENTIN 100 MG CAPSULE PO SCH ×3 (07:50→22:21)
[2022-08-11] MEDS: HEPARIN NA (PORCINE) 5,000 UNITS/ML 1ML VIAL SQ SCH ×3 (07:50→22:21)
[2022-08-11] MEDS ORDERED: EPOETIN ALFA-EPBX 10,000 UNIT/ML VIAL IVPUSH ONE (10:00)
[2022-08-11] MEDS ORDERED: HEPARIN NA (PORCINE) 5,000 UNITS/ML 1ML VIAL IVPUSH ONE (10:00)
[2022-08-11] MEDS ORDERED: ALTEPLASE (CATHFLO) 2 MG/2 ML VIAL NR ONE ×2 (11:24)
[2022-08-11 11:51] LABS: HEMATOCRIT 27.5 % (32.4-45.2); HEMOGLOBIN 8.9 GM/dL (10.7-15.3); MCH 30.3 pg (25.7-33.7); MCHC 32.2 g/dl (32.0-36.0); MEAN CELL VOLUME 93.9 fl (80-96); MEAN PLT VOLUME 7.7 fl (7.5-11.1); PLATELET COUNT 233 10^3/uL (134-434); RBC 2.93 M/mm3 (3.60-5.2); RDW 16.9 % (11.6-15.6); WHITE BLOOD COUNT 8.7 K/mm3 (4.0-10.0)
[2022-08-11 12:15] LABS: CHLORIDE 102 mmol/L (98-107); SODIUM 139 mmol/L (136-145)
[2022-08-11 12:19] LABS: ALBUMIN 2.3 g/dl (3.4-5.0); BLOOD UREA NITROGEN 74.7 mg/dL (7-18)
[2022-08-11 12:21] LABS: ANION GAP 12 MMOL/L (8-16); CO2 25 mmol/L (21-32)
[2022-08-11 12:22] LABS: SGPT/ALT 23 U/L (13-61)
[2022-08-11 12:23] LABS: CREATININE 7.3 mg/dL (0.55-1.3)
[2022-08-11 12:24] LABS: BILIRUBIN,TOTAL 0.4 mg/dL (0.2-1); CALCIUM 9.4 mg/dL (8.5-10.1); TOT PROT 6.9 g/dl (6.4-8.2)
[2022-08-11 12:26] LABS: ALK PHOS 106 U/L (45-117); GLUCOSE,RANDOM 230 mg/dL (74-106)
[2022-08-11 12:38] LABS: SGOT/AST 11 U/L (15-37)
[2022-08-11] MEDS ORDERED: ESCITALOPRAM OXALATE 10 MG TABLET ONE (12:51)
[2022-08-11] MEDS ORDERED: ATORVASTATIN CA 20 MG TABLET (FP) ONE (12:51)
[2022-08-11] MEDS ORDERED: amLODIPine BESYLATE 5 MG TABLET (FP) ONE (12:51)
[2022-08-11] MEDS ORDERED: SODIUM ZIRCONIUM CYCLOSILICATE (LOKELMA) 5 GM PACKET ONE (12:51)
[2022-08-11] MEDS: ALBUTEROL SO4 HFA INHALER IH SCH ×2 (12:57→22:28)
[2022-08-11] MEDS: amLODIPine BESYLATE 5 MG TABLET (FP) PO SCH (12:58)
[2022-08-11] MEDS: ESCITALOPRAM OXALATE 10 MG TABLET PO SCH (12:58)
[2022-08-11] MEDS: ATORVASTATIN CA 20 MG TABLET (FP) PO SCH (12:58)
[2022-08-11] MEDS: BISACODYL 5 MG TABLET.DR (FP) PO SCH (12:58)
[2022-08-11] MEDS: SODIUM ZIRCONIUM CYCLOSILICATE (LOKELMA) 5 GM PACKET PO SCH (12:58)
[2022-08-11] MEDS ORDERED: HEPARIN NA (PORCINE) 5,000 UNITS/ML 1ML VIAL ONE ×2 (14:16→20:55)
[2022-08-11] MEDS ORDERED: LIDOCAINE HCL 1%, 10 MG/ML (20ML VIAL) ONE ×2 (16:30→21:09)
[2022-08-11] MEDS: HEPARIN NA (PORCINE) 5,000 UNITS/ML 1ML VIAL IVPUSH SCH ×2 (18:43→18:44)
[2022-08-11] MEDS ORDERED: LIDOCAINE HCL 1%, 10 MG/ML (20ML VIAL) NR ONE (21:05)
[2022-08-11] MEDS ORDERED: ceFAZolin SODIUM 1 GM VIAL IVPB ONE (21:06)
[2022-08-11] MEDS ORDERED: SENNOSIDES 8.6MG TABLET (FP) PO PRN (21:29)
[2022-08-11] MEDS ORDERED: CARVEDILOL 25 MG TABLET (FP) PO SCH (21:29)
[2022-08-11] MEDS ORDERED: oxyCODONE HCL 5 MG TABLET PO PRN (21:29)
[2022-08-11] MEDS ORDERED: ATORVASTATIN CA 20 MG TABLET (FP) PO SCH (22:00)
[2022-08-12] MEDS: GABAPENTIN 100 MG CAPSULE PO SCH ×2 (06:30→13:04)
[2022-08-12] MEDS: hydrALAZINE HCL 10 MG TABLET PO SCH ×2 (06:30→13:03)
[2022-08-12] MEDS: HEPARIN NA (PORCINE) 5,000 UNITS/ML 1ML VIAL SQ SCH ×2 (06:30→13:03)
[2022-08-12] MEDS: INSULIN SLIDING SCALE (NOVOLOG) 1 VIAL SQ SCH ×3 (06:31→17:11)
[2022-08-12] MEDS ORDERED: ALBUTEROL SO4 HFA INHALER IH PRN (08:00)
[2022-08-12 09:53] VITALS: RESP 18
[2022-08-12] MEDS ORDERED: BISACODYL 5 MG TABLET.DR (FP) PO SCH (10:00)
[2022-08-12] MEDS ORDERED: ESCITALOPRAM OXALATE 10 MG TABLET PO SCH (10:00)
[2022-08-12] MEDS ORDERED: SODIUM ZIRCONIUM CYCLOSILICATE (LOKELMA) 5 GM PACKET PO SCH (10:00)
[2022-08-12] MEDS ORDERED: amLODIPine BESYLATE 5 MG TABLET (FP) PO SCH (10:00)
[2022-08-12] MEDS ORDERED: FOLIC ACID 1 MG TABLET (FP) PO SCH (10:00)
[2022-08-12] MEDS ORDERED: TRIMETHOBENZAMIDE HCL 200MG/2ML INJ IM ONE (13:00)
[2022-08-12] MEDS ORDERED: CARVEDILOL 25 MG TABLET (FP) PO SCH (13:30)
[2022-08-12 14:28] VITALS: BP 139/82; PULSE 95; TEMP 98.5
[2022-08-13] MEDS ORDERED: VITAMIN B COMP W-C 1 EA TABLET (NEPHRO-VITE) PO SCH (10:00)
[2022-08-15] MEDS ORDERED: METHOTREXATE 2.5 MG TABLET PO SCH ×2 (10:00)
== END 2022-08-12 18:39 | disposition home or self-care (01) | DRG 466 ==
LOC: JER 19:36 → JERBED 21:42 → J4S 08-11 22:12
PROVIDERS: ADMIT Internal Medicine; ATTEND Internal Medicine
PROC: 5A1D70Z Performance of Urinary Filtration, Intermittent, Less than 6 Hours Per Day (ICD-10-PCS; principal; 2022-08-09)
PROC: 5A1D70Z Performance of Urinary Filtration, Intermittent, Less than 6 Hours Per Day (ICD-10-PCS; 2022-08-11)
PROC: 05HY33Z Insertion of Infusion Device into Upper Vein, Percutaneous Approach (ICD-10-PCS; 2022-08-11)
PROC: 05PYX3Z Removal of Infusion Device from Upper Vein, External Approach (ICD-10-PCS; 2022-08-11)
DX: T82.590A Other mechanical complication of surgically created arteriovenous fistula, initial encounter (principal); E11.22 Type 2 diabetes mellitus with diabetic chronic kidney disease; N18.6 End stage renal disease; I13.2 Hypertensive heart and chronic kidney disease with heart failure and with stage 5 chronic kidney disease, or end stage renal disease; I50.30 Unspecified diastolic (congestive) heart failure; Z99.2 Dependence on renal dialysis; D86.9 Sarcoidosis, unspecified; E87.5 Hyperkalemia; E66.01 Morbid (severe) obesity due to excess calories; Z68.42 Body mass index [BMI] 45.0-49.9, adult; E78.5 Hyperlipidemia, unspecified; G47.30 Sleep apnea, unspecified; K21.9 Gastro-esophageal reflux disease without esophagitis; I44.0 Atrioventricular block, first degree; D57.3 Sickle-cell trait; M54.50 Low back pain, unspecified; R80.9 Proteinuria, unspecified; Y83.8 Other surgical procedures as the cause of abnormal reaction of the patient, or of later complication, without mention of misadventure at the time of the procedure
CPT/HCPCS: 36415; 76000-TC-FY; 80048; 80053; 82962; 83735; 84100; 84132; 84702; 85025; 85027; 86803; 87340; 93005; 93010; 94760; 99285-25; C1750; C9803-CS; J1644; J2997; Q5106; U0003; U0005

== ENCOUNTER 2022-11-22 18:18 | Inpatient (IN) | payer OTHER ==
[2022-11-22] MEDS ORDERED: DOCUSATE SODIUM 100 MG CAPSULE (FP) PO ONE ×2 (19:35→20:20)
[2022-11-22 21:28] LABS: HEMATOCRIT 30.1 % (32.4-45.2); MCH 30.2 pg (25.7-33.7); MCHC 33.1 g/dl (32.0-36.0); MEAN CELL VOLUME 91.2 fl (80-96); MEAN PLT VOLUME 8.8 fl (7.5-11.1); PLATELET COUNT 221 10^3/uL (134-434); RDW 17.6 % (11.6-15.6); WHITE BLOOD COUNT 15.5 K/mm3 (4.0-10.0)
[2022-11-22 21:47] LABS: ALBUMIN 2.8 g/dl (3.4-5.0); BLOOD UREA NITROGEN 75.6 mg/dL (7-18); CALCIUM 8.7 mg/dL (8.5-10.1)
[2022-11-22 21:48] LABS: MAGNESIUM 2.5 mg/dL (1.8-2.4)
[2022-11-22 21:50] LABS: PHOSPHOROUS 5.6 mg/dL (2.5-4.9)
[2022-11-22 21:51] LABS: CREATININE 5.9 mg/dL (0.55-1.3)
[2022-11-22 21:53] LABS: BILIRUBIN,TOTAL 0.3 mg/dL (0.2-1); TOT PROT 7.6 g/dl (6.4-8.2)
[2022-11-22 21:59] LABS: ANISOCYTOSIS 1+; MACROCYTOSIS 0
[2022-11-22 22:03] LABS: N-TERMINAL BNP 7795.8 pg/ml (5-125)
[2022-11-23] MEDS: hydrALAZINE HCL 10 MG TABLET PO SCH ×3 (00:30→14:30)
[2022-11-23] MEDS ORDERED: hydrALAZINE HCL 25 MG TABLET (FP) ONE ×3 (01:31→14:47)
[2022-11-23 03:45] LABS: CALCIUM 8.7 mg/dL (8.5-10.1); MAGNESIUM 2.5 mg/dL (1.8-2.4)
[2022-11-23 03:47] LABS: BLOOD UREA NITROGEN 77.4 mg/dL (7-18)
[2022-11-23 03:49] LABS: CREATININE 6.1 mg/dL (0.55-1.3)
[2022-11-23] MEDS ORDERED: HEPARIN NA (PORCINE) 5,000 UNITS/ML 1ML VIAL ONE ×2 (05:31→14:47)
[2022-11-23] MEDS: HEPARIN NA (PORCINE) 5,000 UNITS/ML 1ML VIAL SQ SCH ×3 (06:07→22:48)
[2022-11-23 06:57] LABS: EPI CELLS 7 /uL (0-25.1); HYALINE CASTS 0 /uL (0-3.1); PH,URINE 7.5 (5.0-8.0); URINE APPEARANCE CLOUDY; URINE BACTERIA 556 /uL (0-1359); URINE BILIRUBIN NEGATIVE (NEGATIVE); URINE COLOR YELLOW; URINE GLUCOSE (UA) 3+ (NEGATIVE); URINE KETONE NEGATIVE (NEGATIVE); URINE LEUK ESTERASE 1+ (NEGATIVE); URINE NITRITE NEGATIVE (NEGATIVE); URINE PROTEIN 2+ (NEGATIVE); URINE UROBILINOGEN 0.2 mg/dL (0.2-1.0); URINE WBC 46 /uL (0-25.8)
[2022-11-23 06:58] LABS: HEMOGLOBIN 10.2 GM/dL (10.7-15.3); MCH 30.4 pg (25.7-33.7); MCHC 32.9 g/dl (32.0-36.0); MEAN CELL VOLUME 92.4 fl (80-96); MEAN PLT VOLUME 9.3 fl (7.5-11.1); PLATELET COUNT 192 10^3/uL (134-434); RBC 3.36 M/mm3 (3.60-5.2); RDW 17.4 % (11.6-15.6); WHITE BLOOD COUNT 13.3 K/mm3 (4.0-10.0)
[2022-11-23 07:21] LABS: CHLORIDE 99 mmol/L (98-107); SODIUM 135 mmol/L (136-145)
[2022-11-23 07:23] LABS: ALBUMIN 2.7 g/dl (3.4-5.0); CALCIUM 8.3 mg/dL (8.5-10.1); CO2 29 mmol/L (21-32); MAGNESIUM 2.5 mg/dL (1.8-2.4)
[2022-11-23 07:25] LABS: GLUCOSE,RANDOM 203 mg/dL (74-106)
[2022-11-23 07:26] LABS: CREATININE 6.1 mg/dL (0.55-1.3); PHOSPHOROUS 6.2 mg/dL (2.5-4.9); SGPT/ALT 44 U/L (13-61)
[2022-11-23 07:28] LABS: BILIRUBIN,TOTAL 0.4 mg/dL (0.2-1); SGOT/AST 69 U/L (15-37)
[2022-11-23 07:29] LABS: ALK PHOS 125 U/L (45-117)
[2022-11-23 07:37] LABS: ANION GAP 8 MMOL/L (8-16)
[2022-11-23] MEDS ORDERED: CARVEDILOL 25 MG TABLET (FP) ONE (07:59)
[2022-11-23] MEDS: INSULIN SLIDING SCALE (NOVOLOG) 1 VIAL SQ SCH ×4 (08:24→22:45)
[2022-11-23] MEDS ORDERED: CALCIUM GLUCONATE 10% - 1,000 MG/10 ML VIAL IVPUSH ONE (08:37)
[2022-11-23] MEDS ORDERED: DEXTROSE 50%-WATER - 25 GM/50 ML VIAL IVPUSH ONE (08:38)
[2022-11-23] MEDS ORDERED: INSULIN REGULAR HUMAN 100 UNITS/ML *VIAL IVPUSH ONE (08:39)
[2022-11-23] MEDS ORDERED: SODIUM BICARBONATE 8.4% 50 MEQ/50 ML DISP.SYRIN IVPUSH ONE (08:40)
[2022-11-23 09:59] LABS: ANISOCYTOSIS 0; HELMET CELLS 0; HOWELL-JOLLY BODIES 0; MACROCYTOSIS 0; OVALOCYTE 0; ROULEAU 0; SICKELED CELLS 0; TARGET CELLS 0; TEAR DROP CELLS 0; TOXIC GRANULATION 0
[2022-11-23] MEDS ORDERED: CARVEDILOL 25 MG TABLET (FP) PO SCH (10:00)
[2022-11-23] MEDS: BISACODYL 5 MG TABLET.DR (FP) PO SCH (10:00)
[2022-11-23] MEDS ORDERED: DEXTROSE 50%-WATER 25 GM/50 ML DISP.SYRIN ONE (11:14)
[2022-11-23] MEDS ORDERED: CALCIUM GLUCONATE 10% - 1,000 MG/10 ML VIAL ONE (11:14)
[2022-11-23] MEDS ORDERED: SODIUM BICARBONATE 8.4% 50 MEQ/50 ML DISP.SYRIN ONE (11:14)
[2022-11-23 14:43] LABS: BLOOD UREA NITROGEN 80.2 mg/dL (7-18); CALCIUM 8.7 mg/dL (8.5-10.1)
[2022-11-23] MEDS ORDERED: ACETAMINOPHEN 1000 MG/100 ML BAG IVPB PRN (14:46)
[2022-11-23 14:47] LABS: CREATININE 6.3 mg/dL (0.55-1.3); PHOSPHOROUS 6.3 mg/dL (2.5-4.9)
[2022-11-23] MEDS ORDERED: ACETAMINOPHEN INJECTION 100 ML IVPB ONE (15:19)
[2022-11-23] MEDS ORDERED: ALBUTEROL SO4 HFA INHALER IH PRN (16:52)
[2022-11-23] MEDS ORDERED: hydrALAZINE HCL 20 MG/ML VIAL IVPUSH ONE (16:54)
[2022-11-23] MEDS ORDERED: FOLIC ACID 1 MG TABLET (FP) PO SCH (17:00)
[2022-11-23] MEDS ORDERED: hydrALAZINE HCL 20 MG/ML VIAL ONE (17:40)
[2022-11-23 21:35] VITALS: BMI 49.8
[2022-11-23] MEDS: predniSONE 10 MG TABLET (UD) PO SCH (22:48)
[2022-11-23] MEDS: GABAPENTIN 100 MG CAPSULE PO SCH (22:48)
[2022-11-23] MEDS: hydrALAZINE HCL 25 MG TABLET (FP) PO SCH (22:48)
[2022-11-23] MEDS: SENNOSIDES 8.6MG TABLET (FP) PO SCH (22:48)
[2022-11-23] MEDS: ATORVASTATIN CA 20 MG TABLET (FP) PO SCH (22:49)
[2022-11-24] MEDS: HEPARIN NA (PORCINE) 5,000 UNITS/ML 1ML VIAL SQ SCH ×3 (07:06→21:49)
[2022-11-24] MEDS: hydrALAZINE HCL 25 MG TABLET (FP) PO SCH ×3 (07:09→21:49)
[2022-11-24] MEDS: INSULIN SLIDING SCALE (NOVOLOG) 1 VIAL SQ SCH ×4 (07:09→22:09)
[2022-11-24] MEDS ORDERED: LORazepam 0.5 MG TABLET PO PRN (07:35)
[2022-11-24] MEDS ORDERED: SODIUM CHLORIDE 250 ML IV PRN (08:45)
[2022-11-24 08:46] LABS: BASO % 0.9 % (0-2.0); EOS % 0.6 % (0-4.5); HEMATOCRIT 29.4 % (32.4-45.2); HEMOGLOBIN 9.6 GM/dL (10.7-15.3); LYMPH % 5.8 % (8-40); MCH 30.2 pg (25.7-33.7); MCHC 32.8 g/dl (32.0-36.0); MEAN PLT VOLUME 8.1 fl (7.5-11.1); MONO % 3.8 % (3.8-10.2); NEUT % 88.9 % (42.8-82.8); PLATELET COUNT 197 10^3/uL (134-434); RBC 3.19 M/mm3 (3.60-5.2); WHITE BLOOD COUNT 13.2 K/mm3 (4.0-10.0)
[2022-11-24 09:18] LABS: CALCIUM 8.5 mg/dL (8.5-10.1)
[2022-11-24 09:19] LABS: ALBUMIN 2.6 g/dl (3.4-5.0); BLOOD UREA NITROGEN 97.4 mg/dL (7-18)
[2022-11-24 09:24] LABS: MAGNESIUM 2.4 mg/dL (1.8-2.4); TOT PROT 6.9 g/dl (6.4-8.2)
[2022-11-24 09:25] LABS: CREATININE 7.4 mg/dL (0.55-1.3); PHOSPHOROUS 6.8 mg/dL (2.5-4.9)
[2022-11-24 09:29] LABS: BILIRUBIN,TOTAL 0.3 mg/dL (0.2-1)
[2022-11-24] MEDS ORDERED: PATIENT'S OWN MEDICATION (NON-FORMULARY) (Famotidine [Pepcid] 40 MG Tablet) PO SCH (10:00)
[2022-11-24] MEDS: NYSTATIN POWDER 100,000 UNITS/GM - 15 GM TOPICAL POWDER TP SCH ×2 (10:00→21:51)
[2022-11-24] MEDS: GABAPENTIN 100 MG CAPSULE PO SCH ×2 (10:00→21:49)
[2022-11-24] MEDS ORDERED: PANTOPRAZOLE 40 MG TABLET PO SCH (10:00)
[2022-11-24 11:52] LABS: HEMOGLOBIN 9.3 GM/dL (10.7-15.3); MCH 30.7 pg (25.7-33.7); MCHC 33.3 g/dl (32.0-36.0); MEAN CELL VOLUME 92.2 fl (80-96); MEAN PLT VOLUME 7.5 fl (7.5-11.1); PLATELET COUNT 212 10^3/uL (134-434); RBC 3.04 M/mm3 (3.60-5.2); RDW 17.3 % (11.6-15.6); WHITE BLOOD COUNT 11.5 K/mm3 (4.0-10.0)
[2022-11-24] MEDS: predniSONE 10 MG TABLET (UD) PO SCH (16:18)
[2022-11-24] MEDS: ASCORBIC ACID 250 MG TABLET (FP) PO SCH (16:18)
[2022-11-24] MEDS: CHOLECALCIFEROL (VIT D3) 1,000 UNIT (25 MCG) TABLET PO SCH (16:18)
[2022-11-24] MEDS: VITAMIN B COMP W-C 1 EA TABLET (NEPHRO-VITE) PO SCH (16:18)
[2022-11-24] MEDS: BISACODYL 5 MG TABLET.DR (FP) PO SCH (16:18)
[2022-11-24] MEDS: NIFEdipine E.R 60 MG TABLET PO SCH (16:25)
[2022-11-24] MEDS ORDERED: NIFEdipine E.R. 30 MG TABLET PO PRN (19:03)
[2022-11-24] MEDS ORDERED: hydrALAZINE HCL 20 MG/ML VIAL IVPUSH PRN (20:29)
[2022-11-24] MEDS: ACETAMINOPHEN 325 MG TABLET (FP) PO PRN (20:36)
[2022-11-24] MEDS ORDERED: PIPERACILLIN/TAZOB 2.25 GM 2.25 GM in DEXTROSE 5%-WATER - 50 ML IVPB SCH ×3 (20:45)
[2022-11-24] MEDS: PIPERACILLIN/TAZOB 2.25 GM 2.25 GM in DEXTROSE 5%-WATER - 50 ML IVPB SCH (21:48)
[2022-11-24] MEDS: ATORVASTATIN CA 20 MG TABLET (FP) PO SCH (21:49)
[2022-11-24] MEDS: MIRTAZAPINE 15 MG TABLET (FP) PO SCH (21:49)
[2022-11-24] MEDS: SENNOSIDES 8.6MG TABLET (FP) PO SCH (23:07)
[2022-11-25] MEDS: HEPARIN NA (PORCINE) 5,000 UNITS/ML 1ML VIAL SQ SCH ×3 (06:49→22:38)
[2022-11-25] MEDS: hydrALAZINE HCL 25 MG TABLET (FP) PO SCH ×2 (06:50→22:40)
[2022-11-25] MEDS: INSULIN SLIDING SCALE (NOVOLOG) 1 VIAL SQ SCH ×4 (06:51→22:37)
[2022-11-25 07:28] LABS: HEMATOCRIT 30.8 % (32.4-45.2); HEMOGLOBIN 10.1 GM/dL (10.7-15.3); MCH 30.2 pg (25.7-33.7); MCHC 32.9 g/dl (32.0-36.0); MEAN CELL VOLUME 91.9 fl (80-96); MEAN PLT VOLUME 7.3 fl (7.5-11.1); PLATELET COUNT 216 10^3/uL (134-434); RBC 3.35 M/mm3 (3.60-5.2); RDW 17.6 % (11.6-15.6); WHITE BLOOD COUNT 11.7 K/mm3 (4.0-10.0)
[2022-11-25] MEDS: NIFEdipine E.R 60 MG TABLET PO SCH ×2 (07:33→10:22)
[2022-11-25] MEDS ORDERED: PANTOPRAZOLE 40 MG TABLET PO SCH (07:39)
[2022-11-25 07:55] LABS: CALCIUM 7.8 mg/dL (8.5-10.1)
[2022-11-25 07:56] LABS: ALBUMIN 2.5 g/dl (3.4-5.0)
[2022-11-25 07:59] LABS: CREATININE 5.4 mg/dL (0.55-1.3)
[2022-11-25 08:01] LABS: BILIRUBIN,TOTAL 0.7 mg/dL (0.2-1)
[2022-11-25 08:15] LABS: BLOOD UREA NITROGEN 58.1 mg/dL (7-18)
[2022-11-25] MEDS: ASCORBIC ACID 250 MG TABLET (FP) PO SCH (10:19)
[2022-11-25] MEDS: predniSONE 10 MG TABLET (UD) PO SCH (10:20)
[2022-11-25] MEDS: GABAPENTIN 100 MG CAPSULE PO SCH ×3 (10:20→22:31)
[2022-11-25] MEDS: VITAMIN B COMP W-C 1 EA TABLET (NEPHRO-VITE) PO SCH (10:20)
[2022-11-25] MEDS: BISACODYL 5 MG TABLET.DR (FP) PO SCH (10:20)
[2022-11-25] MEDS: PANTOPRAZOLE 40 MG TABLET PO SCH (10:20)
[2022-11-25] MEDS: PIPERACILLIN/TAZOB 2.25 GM 2.25 GM in DEXTROSE 5%-WATER - 50 ML IVPB SCH (10:21)
[2022-11-25] MEDS: LOSARTAN POTASSIUM 50 MG TABLET PO SCH (10:21)
[2022-11-25] MEDS: CHOLECALCIFEROL (VIT D3) 1,000 UNIT (25 MCG) TABLET PO SCH (10:22)
[2022-11-25] MEDS: NYSTATIN POWDER 100,000 UNITS/GM - 15 GM TOPICAL POWDER TP SCH ×2 (14:49→22:43)
[2022-11-25] MEDS ORDERED: traMADol HCL 50 MG TABLET PO PRN (15:27)
[2022-11-25] MEDS ORDERED: LORazepam 0.5 MG TABLET PO PRN (19:14)
[2022-11-25] MEDS: ALBUTEROL SO4 0.042% IH SOL 1.25 MG/3 ML VIAL.NEB NEB PRN (22:30)
[2022-11-25] MEDS: SENNOSIDES 8.6MG TABLET (FP) PO SCH ×2 (22:31)
[2022-11-25] MEDS: ATORVASTATIN CA 20 MG TABLET (FP) PO SCH ×2 (22:31)
[2022-11-25] MEDS: MIRTAZAPINE 15 MG TABLET (FP) PO SCH ×2 (22:31)
[2022-11-25] MEDS: COLLAGENASE CLOSTRIDIUM HIST. 30 GRAMS TUBE TP SCH (22:31)
[2022-11-26] MEDS: HEPARIN NA (PORCINE) 5,000 UNITS/ML 1ML VIAL SQ SCH ×3 (06:42→21:18)
[2022-11-26] MEDS: INSULIN SLIDING SCALE (NOVOLOG) 1 VIAL SQ SCH ×4 (06:42→21:38)
[2022-11-26] MEDS ORDERED: SODIUM CHLORIDE 250 ML IV PRN (09:07)
[2022-11-26 09:39] LABS: HEMATOCRIT 29.9 % (32.4-45.2); HEMOGLOBIN 9.8 GM/dL (10.7-15.3); MCH 30.6 pg (25.7-33.7); MCHC 32.9 g/dl (32.0-36.0); MEAN PLT VOLUME 7.7 fl (7.5-11.1); PLATELET COUNT 210 10^3/uL (134-434); RBC 3.21 M/mm3 (3.60-5.2); RDW 17.2 % (11.6-15.6); WHITE BLOOD COUNT 10.4 K/mm3 (4.0-10.0)
[2022-11-26] MEDS ORDERED: EPOETIN ALFA-EPBX 4,000 UNIT/ML VIAL SQ ONE (10:00)
[2022-11-26] MEDS: VITAMIN B COMP W-C 1 EA TABLET (NEPHRO-VITE) PO SCH (12:45)
[2022-11-26] MEDS: PANTOPRAZOLE 40 MG TABLET PO SCH (12:45)
[2022-11-26] MEDS: GABAPENTIN 100 MG CAPSULE PO SCH ×2 (12:45→21:19)
[2022-11-26] MEDS: NYSTATIN POWDER 100,000 UNITS/GM - 15 GM TOPICAL POWDER TP SCH ×2 (12:45→21:33)
[2022-11-26] MEDS: LOSARTAN POTASSIUM 50 MG TABLET PO SCH (12:45)
[2022-11-26] MEDS: COLLAGENASE CLOSTRIDIUM HIST. 30 GRAMS TUBE TP SCH (12:45)
[2022-11-26] MEDS: predniSONE 10 MG TABLET (UD) PO SCH (12:45)
[2022-11-26] MEDS: CHOLECALCIFEROL (VIT D3) 1,000 UNIT (25 MCG) TABLET PO SCH (12:45)
[2022-11-26] MEDS: NIFEdipine E.R 60 MG TABLET PO SCH (12:45)
[2022-11-26] MEDS: ASCORBIC ACID 250 MG TABLET (FP) PO SCH (12:45)
[2022-11-26] MEDS: BISACODYL 5 MG TABLET.DR (FP) PO SCH (12:45)
[2022-11-26] MEDS: hydrALAZINE HCL 25 MG TABLET (FP) PO SCH (12:45)
[2022-11-26] MEDS: ALBUTEROL SO4 0.042% IH SOL 1.25 MG/3 ML VIAL.NEB NEB PRN (13:27)
[2022-11-26] MEDS ORDERED: TRIMETHOBENZAMIDE HCL 200MG/2ML INJ IM ONE ×2 (15:00→21:33)
[2022-11-26] MEDS: ACETAMINOPHEN 325 MG TABLET (FP) PO PRN (15:16)
[2022-11-26] MEDS ORDERED: ASPIRIN 81 MG CHEWABLE TABLETS PO SCH (19:15)
[2022-11-26] MEDS ORDERED: NITROGLYCERIN SUBLINGUAL 1/200 0.3 MG BTL SL PRN (19:21)
[2022-11-26] MEDS ORDERED: ASPIRIN 325 MG TABLET PO ONE (20:15)
[2022-11-26] MEDS ORDERED: NITROGLYCERIN SUBLINGUAL 1/150 0.4 MG TAB SL PRN ×2 (20:19→20:20)
[2022-11-26 20:32] LABS: CHLORIDE 103 mmol/L (98-107); SODIUM 138 mmol/L (136-145)
[2022-11-26 20:35] LABS: CALCIUM 7.8 mg/dL (8.5-10.1)
[2022-11-26 20:36] LABS: ALBUMIN 2.3 g/dl (3.4-5.0); ANION GAP 9 MMOL/L (8-16); BLOOD UREA NITROGEN 44.4 mg/dL (7-18); CO2 26 mmol/L (21-32); MAGNESIUM 1.9 mg/dL (1.8-2.4)
[2022-11-26 20:39] LABS: PHOSPHOROUS 4.6 mg/dL (2.5-4.9); SGOT/AST 27 U/L (15-37); SGPT/ALT 39 U/L (13-61)
[2022-11-26 20:41] LABS: BILIRUBIN,TOTAL 0.3 mg/dL (0.2-1); TOT PROT 6.5 g/dl (6.4-8.2)
[2022-11-26 20:42] LABS: ALK PHOS 133 U/L (45-117)
[2022-11-26 20:44] LABS: GLUCOSE,RANDOM 427 mg/dL (74-106)
[2022-11-26] MEDS: ATORVASTATIN CA 20 MG TABLET (FP) PO SCH (21:18)
[2022-11-26] MEDS: SENNOSIDES 8.6MG TABLET (FP) PO SCH (21:32)
[2022-11-26] MEDS: MIRTAZAPINE 15 MG TABLET (FP) PO SCH (21:32)
[2022-11-26] MEDS: traMADol HCL 50 MG TABLET PO PRN (21:42)
[2022-11-26 23:55] VITALS: RESP 20
[2022-11-27] MEDS: HEPARIN NA (PORCINE) 5,000 UNITS/ML 1ML VIAL SQ SCH ×2 (06:35→14:09)
[2022-11-27] MEDS: INSULIN SLIDING SCALE (NOVOLOG) 1 VIAL SQ SCH ×3 (06:36→16:45)
[2022-11-27] MEDS ORDERED: ASPIRIN 81 MG CHEWABLE TABLETS PO SCH (10:00)
[2022-11-27] MEDS: GABAPENTIN 100 MG CAPSULE PO SCH (10:02)
[2022-11-27] MEDS: BISACODYL 5 MG TABLET.DR (FP) PO SCH ×2 (10:02→10:08)
[2022-11-27] MEDS: predniSONE 10 MG TABLET (UD) PO SCH (10:02)
[2022-11-27] MEDS: ASCORBIC ACID 250 MG TABLET (FP) PO SCH (10:03)
[2022-11-27] MEDS: VITAMIN B COMP W-C 1 EA TABLET (NEPHRO-VITE) PO SCH (10:03)
[2022-11-27] MEDS: NIFEdipine E.R 60 MG TABLET PO SCH (10:03)
[2022-11-27] MEDS: CHOLECALCIFEROL (VIT D3) 1,000 UNIT (25 MCG) TABLET PO SCH (10:03)
[2022-11-27] MEDS: PANTOPRAZOLE 40 MG TABLET PO SCH (10:03)
[2022-11-27] MEDS: LOSARTAN POTASSIUM 50 MG TABLET PO SCH (10:04)
[2022-11-27] MEDS: NYSTATIN POWDER 100,000 UNITS/GM - 15 GM TOPICAL POWDER TP SCH (10:06)
[2022-11-27] MEDS: COLLAGENASE CLOSTRIDIUM HIST. 30 GRAMS TUBE TP SCH (10:06)
[2022-11-27 12:37] LABS: ARTERIAL BLD GAS O2 SATURATION 93.1 % (95-98); ARTERIAL BLOOD GAS BASE EXCESS -3.1 mmol/L (-2-2); ARTERIAL BLOOD GAS PO2 71.5 mmHg (80-100)
[2022-11-27 12:38] LABS: ALLENS TEST POSITIVE
[2022-11-27 15:17] VITALS: BP 140/73; PULSE 95; TEMP 98
[2022-11-27] MEDS: AMINO ACIDS/PROTEIN HYDROLYS 30 ML LIQUID.PKT PO SCH ×2 (16:49→16:50)
[2022-11-27] MEDS: traMADol HCL 50 MG TABLET PO PRN (18:01)
== END 2022-11-27 18:35 | disposition home or self-care (01) | DRG 312 ==
LOC: JER 18:18 → JERBED 22:20 → J4W 11-23 19:24
PROVIDERS: ADMIT Internal Medicine; ATTEND Internal Medicine
PROC: 5A1D70Z Performance of Urinary Filtration, Intermittent, Less than 6 Hours Per Day (ICD-10-PCS; principal; 2022-11-26)
PROC: 5A1D70Z Performance of Urinary Filtration, Intermittent, Less than 6 Hours Per Day (ICD-10-PCS; 2022-11-26)
DX: I95.3 Hypotension of hemodialysis (principal); N18.6 End stage renal disease; N39.0 Urinary tract infection, site not specified; I13.2 Hypertensive heart and chronic kidney disease with heart failure and with stage 5 chronic kidney disease, or end stage renal disease; I50.32 Chronic diastolic (congestive) heart failure; I50.30 Unspecified diastolic (congestive) heart failure; J81.1 Chronic pulmonary edema; J90 Pleural effusion, not elsewhere classified; L97.418 Non-pressure chronic ulcer of right heel and midfoot with other specified severity; D86.0 Sarcoidosis of lung; E11.621 Type 2 diabetes mellitus with foot ulcer; E11.22 Type 2 diabetes mellitus with diabetic chronic kidney disease; Z99.2 Dependence on renal dialysis; E66.01 Morbid (severe) obesity due to excess calories; D64.9 Anemia, unspecified; K21.9 Gastro-esophageal reflux disease without esophagitis; Z96.642 Presence of left artificial hip joint; K59.00 Constipation, unspecified; I45.81 Long QT syndrome; D57.3 Sickle-cell trait; K57.90 Diverticulosis of intestine, part unspecified, without perforation or abscess without bleeding; M54.59 Other low back pain; B96.20 Unspecified Escherichia coli [E. coli] as the cause of diseases classified elsewhere; B96.4 Proteus (mirabilis) (morganii) as the cause of diseases classified elsewhere; E87.5 Hyperkalemia; R80.9 Proteinuria, unspecified; I16.0 Hypertensive urgency; Z74.01 Bed confinement status
CPT/HCPCS: 36415; 36600; 71045-TC-FY; 73630-TC-RT-FY; 80048; 80053; 81003; 82803; 82962; 83690; 83735; 83880; 84100; 84484; 85025; 85027; 86803; 87040; 87081; 87086; 87186; 87340; 93005; 93010; 93306-TC; 94640; 94660; 97162-GP; 99285-25; C9803-CS; J1644; Q5106; U0003; U0005

== ENCOUNTER 2022-11-30 18:32 | Inpatient (IN) | payer OTHER ==
[2022-11-30 19:01] VITALS: BMI 45.6
[2022-11-30] MEDS ORDERED: LABETALOL HCL 5 MG/1 ML (100MG/20 ML VIAL) IVPUSH ONE (19:24)
[2022-11-30] MEDS ORDERED: MAGNESIUM SULF 50% (8.12 MEQ/2 ML-1 GM VIAL) IVPB ONE (20:10)
[2022-11-30] MEDS ORDERED: LORazepam 2 MG/ML SDV VIAL IVPUSH ONE (22:03)
[2022-11-30] MEDS ORDERED: LABETALOL HCL 20 MG/4 ML VIAL ONE ×2 (22:05→22:06)
[2022-11-30] MEDS ORDERED: MAGNESIUM SULFATE IN WATER 2 GM/50 ML IVPB IVPB ONE (22:06)
[2022-11-30 22:08] LABS: BASO % 0.6 % (0-2.0); EOS % 0.9 % (0-4.5); HEMATOCRIT 30.3 % (32.4-45.2); HEMOGLOBIN 9.9 GM/dL (10.7-15.3); LYMPH % 7.1 % (8-40); MCH 30.1 pg (25.7-33.7); MCHC 32.6 g/dl (32.0-36.0); MEAN CELL VOLUME 92.4 fl (80-96); MEAN PLT VOLUME 8.3 fl (7.5-11.1); MONO % 5.5 % (3.8-10.2); NEUT % 85.9 % (42.8-82.8); PLATELET COUNT 240 10^3/uL (134-434); RBC 3.28 M/mm3 (3.60-5.2); RDW 17.2 % (11.6-15.6); WHITE BLOOD COUNT 14.6 K/mm3 (4.0-10.0)
[2022-11-30 22:12] LABS: ARTERIAL BLOOD GAS BASE EXCESS -0.1 mmol/L (-2-2); ARTERIAL BLOOD GAS pH 7.338 (7.350-7.450)
[2022-11-30 22:30] LABS: INR 0.95 (0.83-1.09)
[2022-11-30 22:33] LABS: ACTIVATED PTT 27.7 SECONDS (25.2-36.5); CHLORIDE 99 mmol/L (98-107); SODIUM 137 mmol/L (136-145)
[2022-11-30 22:35] LABS: CALCIUM 7.9 mg/dL (8.5-10.1)
[2022-11-30 22:36] LABS: ALBUMIN 2.5 g/dl (3.4-5.0); CO2 27 mmol/L (21-32); GLUCOSE,RANDOM 369 mg/dL (74-106)
[2022-11-30 22:39] LABS: CREATININE 6.7 mg/dL (0.55-1.3); SGOT/AST 67 U/L (15-37); SGPT/ALT 41 U/L (13-61)
[2022-11-30 22:40] LABS: TOT PROT 7.6 g/dl (6.4-8.2)
[2022-11-30 22:41] LABS: BILIRUBIN,TOTAL 0.3 mg/dL (0.2-1)
[2022-11-30 22:42] LABS: ALK PHOS 130 U/L (45-117)
[2022-11-30 22:44] LABS: N-TERMINAL BNP 7768.7 pg/ml (5-125)
[2022-11-30 22:46] LABS: ANION GAP 11 MMOL/L (8-16); BLOOD UREA NITROGEN 79.4 mg/dL (7-18)
[2022-11-30] MEDS ORDERED: hydrALAZINE HCL 20 MG/ML VIAL IVPUSH ONE (22:54)
[2022-11-30] MEDS ORDERED: hydrALAZINE HCL 20 MG/ML VIAL ONE (23:36)
[2022-12-01 00:34] LABS: BLOOD UREA NITROGEN 81.2 mg/dL (7-18); CALCIUM 8.1 mg/dL (8.5-10.1)
[2022-12-01 00:38] LABS: CREATININE 6.8 mg/dL (0.55-1.3)
[2022-12-01] MEDS ORDERED: ACETAMINOPHEN 1000 MG/100 ML BAG IVPB ONE (02:02)
[2022-12-01] MEDS ORDERED: diphenhydrAMINE HCL 25 MG CAPSULE (FP) PO ONE ×2 (02:02→02:26)
[2022-12-01] MEDS ORDERED: ACETAMINOPHEN INJECTION 100 ML IVPB ONE (02:26)
[2022-12-01] MEDS ORDERED: ALBUTEROL SO4 HFA INHALER IH PRN (03:40)
[2022-12-01] MEDS ORDERED: LORazepam 0.5 MG TABLET PO PRN (03:40)
[2022-12-01] MEDS ORDERED: traMADol HCL 50 MG TABLET PO PRN ×2 (04:30→19:58)
[2022-12-01] MEDS ORDERED: hydrALAZINE HCL 20 MG/ML VIAL IM PRN (05:38)
[2022-12-01] MEDS ORDERED: hydrALAZINE HCL 25 MG TABLET (FP) ONE ×3 (06:10→23:28)
[2022-12-01] MEDS ORDERED: HEPARIN NA (PORCINE) 5,000 UNITS/ML 1ML VIAL ONE ×3 (06:10→23:29)
[2022-12-01] MEDS: hydrALAZINE HCL 25 MG TABLET (FP) PO SCH ×3 (06:27→23:55)
[2022-12-01] MEDS: HEPARIN NA (PORCINE) 5,000 UNITS/ML 1ML VIAL SQ SCH ×3 (06:27→23:55)
[2022-12-01 08:26] LABS: HEMOGLOBIN 9.8 GM/dL (10.7-15.3); MCH 29.8 pg (25.7-33.7); MCHC 32.5 g/dl (32.0-36.0); MEAN CELL VOLUME 91.6 fl (80-96); MEAN PLT VOLUME 7.5 fl (7.5-11.1); PLATELET COUNT 260 10^3/uL (134-434); RBC 3.27 M/mm3 (3.60-5.2); RDW 17.1 % (11.6-15.6)
[2022-12-01 09:04] LABS: BLOOD UREA NITROGEN 85.9 mg/dL (7-18); CALCIUM 8.3 mg/dL (8.5-10.1)
[2022-12-01 09:05] LABS: ALBUMIN 2.7 g/dl (3.4-5.0)
[2022-12-01 09:07] LABS: CREATININE 7.1 mg/dL (0.55-1.3)
[2022-12-01 09:09] LABS: BILIRUBIN,TOTAL 0.3 mg/dL (0.2-1); TOT PROT 7.3 g/dl (6.4-8.2)
[2022-12-01] MEDS ORDERED: SODIUM CHLORIDE 250 ML IV PRN (09:22)
[2022-12-01] MEDS ORDERED: PATIENT'S OWN MEDICATION (NON-FORMULARY) (Clobetasol Propionate/Emoll [Clobetasol Emollien TP SCH (10:00)
[2022-12-01] MEDS ORDERED: LOSARTAN POTASSIUM 50 MG TABLET PO SCH ×2 (10:00)
[2022-12-01] MEDS ORDERED: NIFEdipine E.R 60 MG TABLET PO SCH (10:00)
[2022-12-01] MEDS ORDERED: predniSONE 10 MG TABLET (UD) ONE (14:47)
[2022-12-01] MEDS ORDERED: PANTOPRAZOLE 40 MG TABLET PO ONE (14:47)
[2022-12-01] MEDS ORDERED: CHOLECALCIFEROL (VIT D3) 1,000 UNIT (25 MCG) TABLET ONE (14:48)
[2022-12-01] MEDS ORDERED: ASCORBIC ACID 500 MG TABLET (FP) ONE (14:48)
[2022-12-01] MEDS ORDERED: LOSARTAN POTASSIUM 50 MG TABLET ONE (14:48)
[2022-12-01] MEDS ORDERED: FOLIC ACID 1 MG TABLET (FP) ONE (14:48)
[2022-12-01] MEDS ORDERED: GABAPENTIN 100 MG CAPSULE ONE (14:48)
[2022-12-01] MEDS ORDERED: NIFEdipine E.R 60 MG TABLET PO ONE (14:49)
[2022-12-01] MEDS: GABAPENTIN 100 MG CAPSULE PO SCH ×2 (15:10→23:55)
[2022-12-01] MEDS: LOSARTAN POTASSIUM 50 MG TABLET PO SCH (15:10)
[2022-12-01] MEDS: FOLIC ACID 1 MG TABLET (FP) PO SCH (15:10)
[2022-12-01] MEDS: NYSTATIN POWDER 100,000 UNITS/GM - 15 GM TOPICAL POWDER TP SCH (15:10)
[2022-12-01] MEDS: predniSONE 10 MG TABLET (UD) PO SCH (15:10)
[2022-12-01] MEDS: VITAMIN B COMP W-C 1 EA TABLET (NEPHRO-VITE) PO SCH (15:10)
[2022-12-01] MEDS: PANTOPRAZOLE 40 MG TABLET PO SCH (15:11)
[2022-12-01] MEDS: INSULIN (LEVEMIR) 100 UNITS/ML UNITS SQ SCH (15:11)
[2022-12-01] MEDS: ASCORBIC ACID 250 MG TABLET (FP) PO SCH (15:11)
[2022-12-01] MEDS: NIFEdipine E.R 60 MG TABLET PO SCH (15:11)
[2022-12-01] MEDS: CHOLECALCIFEROL (VIT D3) 1,000 UNIT (25 MCG) TABLET PO SCH (15:11)
[2022-12-01] MEDS: SEVELAMER CARBONATE 800 MG TAB (FP) PO SCH ×3 (15:11→17:56)
[2022-12-01] MEDS: INSULIN SLIDING SCALE (NOVOLOG) 1 VIAL SQ SCH ×3 (17:48→17:52)
[2022-12-01] MEDS: INSULIN (NOVOLOG MIX 70/30) 100 UNITS/ML MDV SQ SCH ×2 (17:52→17:58)
[2022-12-01 20:13] LABS: CHLORIDE 100 mmol/L (98-107); SODIUM 138 mmol/L (136-145)
[2022-12-01 20:15] LABS: CALCIUM 7.9 mg/dL (8.5-10.1)
[2022-12-01 20:16] LABS: ALBUMIN 2.4 g/dl (3.4-5.0); ANION GAP 10 MMOL/L (8-16); CO2 28 mmol/L (21-32)
[2022-12-01 20:19] LABS: CREATININE 4.6 mg/dL (0.55-1.3); SGOT/AST 24 U/L (15-37); SGPT/ALT 39 U/L (13-61)
[2022-12-01 20:20] LABS: BILIRUBIN,TOTAL 0.2 mg/dL (0.2-1); TOT PROT 6.8 g/dl (6.4-8.2)
[2022-12-01 20:22] LABS: ALK PHOS 129 U/L (45-117)
[2022-12-01 20:26] LABS: BLOOD UREA NITROGEN 48.4 mg/dL (7-18); GLUCOSE,RANDOM 477 mg/dL (74-106)
[2022-12-01 20:26] LABS: EPI CELLS 25 /uL (0-25.1); HYALINE CASTS 0 /uL (0-3.1); PH,URINE 6.5 (5.0-8.0); URINE APPEARANCE CLOUDY; URINE BACTERIA >9,000 /uL (0-1359); URINE BILIRUBIN NEGATIVE (NEGATIVE); URINE COLOR YELLOW; URINE GLUCOSE (UA) 3+ (NEGATIVE); URINE KETONE NEGATIVE (NEGATIVE); URINE LEUK ESTERASE 3+ (NEGATIVE); URINE NITRITE NEGATIVE (NEGATIVE); URINE PROTEIN 3+ (NEGATIVE); URINE UROBILINOGEN 0.2 mg/dL (0.2-1.0); URINE WBC 1096 /uL (0-25.8)
[2022-12-01 20:29] LABS: URINE RBC 29.5 /uL (0-23.9)
[2022-12-01] MEDS ORDERED: traMADol HCL 50 MG TABLET ONE (20:44)
[2022-12-01] MEDS ORDERED: INSULIN (NOVOLOG) ASPART 100 UNITS/ML 10ML VIAL SQ ONE (20:56)
[2022-12-01] MEDS ORDERED: ATORVASTATIN CA 20 MG TABLET (FP) PO SCH (22:00)
[2022-12-01] MEDS ORDERED: INSULIN (LEVEMIR) 100 UNITS/ML UNITS SQ SCH (22:00)
[2022-12-01] MEDS ORDERED: MIRTAZAPINE 15 MG TABLET (FP) PO SCH (22:00)
[2022-12-01] MEDS ORDERED: SENNOSIDES 8.6MG TABLET (FP) PO SCH (22:00)
[2022-12-01] MEDS ORDERED: CARVEDILOL 25 MG TABLET (FP) PO SCH (22:00)
[2022-12-01] MEDS ORDERED: MIRTAZAPINE 15 MG TABLET (FP) ONE (23:28)
[2022-12-01] MEDS ORDERED: ATORVASTATIN CA 20 MG TABLET (FP) ONE (23:28)
[2022-12-01] MEDS ORDERED: SENNOSIDES 8.6MG TABLET (FP) PO ONE (23:28)
[2022-12-01] MEDS ORDERED: CARVEDILOL 25 MG TABLET (FP) ONE (23:29)
[2022-12-01] MEDS ORDERED: GABAPENTIN 300 MG CAPSULE ONE (23:29)
[2022-12-01] MEDS: CARVEDILOL 25 MG TABLET (FP) PO SCH (23:55)
[2022-12-02] MEDS ORDERED: INSULIN (LEVEMIR) 100 UNITS/ML UNITS SQ SCH ×2 (00:49→02:30)
[2022-12-02] MEDS: FAMOTIDINE 20 MG TABLET PO SCH ×2 (02:41→11:47)
[2022-12-02] MEDS: NYSTATIN POWDER 100,000 UNITS/GM - 15 GM TOPICAL POWDER TP SCH ×2 (04:08→11:49)
[2022-12-02] MEDS ORDERED: HEPARIN NA (PORCINE) 5,000 UNITS/ML 1ML VIAL ONE (06:26)
[2022-12-02] MEDS ORDERED: hydrALAZINE HCL 25 MG TABLET (FP) ONE ×2 (06:26→14:27)
[2022-12-02] MEDS: hydrALAZINE HCL 25 MG TABLET (FP) PO SCH ×2 (06:44→14:38)
[2022-12-02] MEDS: HEPARIN NA (PORCINE) 5,000 UNITS/ML 1ML VIAL SQ SCH ×2 (06:44→14:38)
[2022-12-02 07:19] LABS: HEMATOCRIT 28.5 % (32.4-45.2); HEMOGLOBIN 9.3 GM/dL (10.7-15.3); MCHC 32.7 g/dl (32.0-36.0); MEAN CELL VOLUME 91.8 fl (80-96); MEAN PLT VOLUME 7.8 fl (7.5-11.1); PLATELET COUNT 230 10^3/uL (134-434); RBC 3.11 M/mm3 (3.60-5.2); RDW 16.7 % (11.6-15.6); WHITE BLOOD COUNT 11.4 K/mm3 (4.0-10.0)
[2022-12-02 07:53] LABS: ALBUMIN 2.4 g/dl (3.4-5.0); MAGNESIUM 2.2 mg/dL (1.8-2.4)
[2022-12-02 07:54] LABS: BLOOD UREA NITROGEN 58.1 mg/dL (7-18)
[2022-12-02 07:56] LABS: CREATININE 5.2 mg/dL (0.55-1.3)
[2022-12-02 07:57] LABS: PHOSPHOROUS 4.8 mg/dL (2.5-4.9)
[2022-12-02 07:58] LABS: TOT PROT 6.9 g/dl (6.4-8.2)
[2022-12-02 08:18] LABS: BILIRUBIN,TOTAL 0.4 mg/dL (0.2-1)
[2022-12-02] MEDS: SEVELAMER CARBONATE 800 MG TAB (FP) PO SCH ×3 (11:25→17:10)
[2022-12-02] MEDS: INSULIN (NOVOLOG MIX 70/30) 100 UNITS/ML MDV SQ SCH ×3 (11:26→17:07)
[2022-12-02] MEDS: INSULIN SLIDING SCALE (NOVOLOG) 1 VIAL SQ SCH ×2 (11:27→17:09)
[2022-12-02] MEDS ORDERED: PANTOPRAZOLE 40 MG TABLET PO ONE (11:40)
[2022-12-02] MEDS ORDERED: LOSARTAN POTASSIUM 50 MG TABLET ONE (11:40)
[2022-12-02] MEDS ORDERED: FAMOTIDINE 20 MG TABLET ONE (11:40)
[2022-12-02] MEDS ORDERED: predniSONE 10 MG TABLET (UD) ONE (11:40)
[2022-12-02] MEDS ORDERED: FOLIC ACID 1 MG TABLET (FP) ONE (11:41)
[2022-12-02] MEDS ORDERED: CARVEDILOL 25 MG TABLET (FP) ONE (11:41)
[2022-12-02] MEDS ORDERED: NIFEdipine E.R 60 MG TABLET PO ONE (11:41)
[2022-12-02] MEDS ORDERED: ASCORBIC ACID 500 MG TABLET (FP) ONE (11:41)
[2022-12-02] MEDS ORDERED: GABAPENTIN 100 MG CAPSULE ONE (11:41)
[2022-12-02] MEDS: LOSARTAN POTASSIUM 50 MG TABLET PO SCH (11:46)
[2022-12-02] MEDS: CARVEDILOL 25 MG TABLET (FP) PO SCH (11:47)
[2022-12-02] MEDS: predniSONE 10 MG TABLET (UD) PO SCH (11:47)
[2022-12-02] MEDS: PANTOPRAZOLE 40 MG TABLET PO SCH (11:47)
[2022-12-02] MEDS: FOLIC ACID 1 MG TABLET (FP) PO SCH (11:47)
[2022-12-02] MEDS: NIFEdipine E.R 60 MG TABLET PO SCH (11:47)
[2022-12-02] MEDS: GABAPENTIN 100 MG CAPSULE PO SCH (11:47)
[2022-12-02] MEDS: INSULIN (LEVEMIR) 100 UNITS/ML UNITS SQ SCH (11:48)
[2022-12-02] MEDS: ASCORBIC ACID 250 MG TABLET (FP) PO SCH (11:48)
[2022-12-02] MEDS: VITAMIN B COMP W-C 1 EA TABLET (NEPHRO-VITE) PO SCH (11:48)
[2022-12-02] MEDS: CHOLECALCIFEROL (VIT D3) 1,000 UNIT (25 MCG) TABLET PO SCH (13:20)
[2022-12-02 14:51] VITALS: RESP 20
[2022-12-02] MEDS ORDERED: SODIUM CHLORIDE 250 ML IV PRN (15:39)
[2022-12-02 19:57] VITALS: BP 114/71; PULSE 93; TEMP 97.8
[2022-12-03] MEDS ORDERED: EPOETIN ALFA-EPBX 10,000 UNIT/ML VIAL SQ ONE (15:39)
== END 2022-12-02 23:53 | DRG 682 ==
LOC: JER 18:32 → JERBED 12-01 00:48
PROVIDERS: ADMIT Internal Medicine; ATTEND Internal Medicine
PROC: 5A1D70Z Performance of Urinary Filtration, Intermittent, Less than 6 Hours Per Day (ICD-10-PCS; principal; 2022-12-01)
DX: I12.0 Hypertensive chronic kidney disease with stage 5 chronic kidney disease or end stage renal disease (principal); N18.6 End stage renal disease; I16.1 Hypertensive emergency; Z68.42 Body mass index [BMI] 45.0-49.9, adult; I67.4 Hypertensive encephalopathy; R55 Syncope and collapse; D57.3 Sickle-cell trait; E78.00 Pure hypercholesterolemia, unspecified; D86.9 Sarcoidosis, unspecified; I45.10 Unspecified right bundle-branch block; E11.22 Type 2 diabetes mellitus with diabetic chronic kidney disease; E78.5 Hyperlipidemia, unspecified; G47.33 Obstructive sleep apnea (adult) (pediatric); K21.9 Gastro-esophageal reflux disease without esophagitis; D64.9 Anemia, unspecified; E87.5 Hyperkalemia; E11.65 Type 2 diabetes mellitus with hyperglycemia; E66.01 Morbid (severe) obesity due to excess calories; K57.90 Diverticulosis of intestine, part unspecified, without perforation or abscess without bleeding; E83.52 Hypercalcemia; M54.50 Low back pain, unspecified; Z96.642 Presence of left artificial hip joint; Z99.2 Dependence on renal dialysis
CPT/HCPCS: 0241U-QW; 36415; 36600; 70450-TC; 71045-TC-FY; 80048; 80053; 81003; 82010; 82803; 82962; 83735; 83880; 84100; 84484; 84703; 85025; 85027; 85610; 85730; 87086; 87186; 93005; 93010; 94660; 99285-25; J1644

== ENCOUNTER 2023-02-20 16:41 | Emergency (ER) | payer OTHER ==
[2023-02-20 17:07] VITALS: RESP 18; BMI 53.1
[2023-02-20 18:53] LABS: BASO % 0.7 % (0-2.0); EOS % 2.7 % (0-4.5); HEMATOCRIT 27.4 % (32.4-45.2); HEMOGLOBIN 8.6 GM/dL (10.7-15.3); LYMPH % 6.5 % (8-40); MCH 29.3 pg (25.7-33.7); MCHC 31.2 g/dl (32.0-36.0); MEAN CELL VOLUME 93.8 fl (80-96); MEAN PLT VOLUME 7.3 fl (7.5-11.1); NEUT % 84.1 % (42.8-82.8); PLATELET COUNT 417 10^3/uL (134-434); RBC 2.92 M/mm3 (3.60-5.2); RDW 16.8 % (11.6-15.6); WHITE BLOOD COUNT 15.8 K/mm3 (4.0-10.0)
[2023-02-20 19:19] LABS: POTASSIUM 4.8 mmol/L (3.5-5.1)
[2023-02-20 19:21] LABS: ALBUMIN 2.4 g/dl (3.4-5.0); BLOOD UREA NITROGEN 52.5 mg/dL (7-18); CALCIUM 9.7 mg/dL (8.5-10.1)
[2023-02-20 19:26] LABS: BILIRUBIN,TOTAL 0.2 mg/dL (0.2-1); TOT PROT 7.4 g/dl (6.4-8.2)
[2023-02-20] MEDS ORDERED: ACETAMINOPHEN 1000 MG/100 ML BAG IVPB ONE (19:43)
[2023-02-20] MEDS ORDERED: ACETAMINOPHEN INJECTION 100 ML IVPB ONE (20:09)
[2023-02-20] MEDS ORDERED: KETAMINE HCL 200 MG/20 ML VIAL IVPB ONE (21:28)
[2023-02-20] MEDS ORDERED: KETAMINE HCL 200 MG/20 ML VIAL ONE (21:36)
[2023-02-20] MEDS ORDERED: oxyCODONE HCL 5 MG TABLET PO ONE (23:12)
[2023-02-20] MEDS ORDERED: HYDROmorphone HCl 2 MG/ML VIAL IVPUSH ONE (23:23)
[2023-02-20] MEDS ORDERED: HYDROmorphone HCl 2 MG/ML VIAL ONE (23:48)
[2023-02-21 08:34] VITALS: BP 107/79; PULSE 98
[2023-02-21 08:50] VITALS: TEMP 97.8
== END 2023-02-21 08:51 | disposition home or self-care (01) ==
LOC: JER 16:41
PROC: 3E033GC Introduction of Other Therapeutic Substance into Peripheral Vein, Percutaneous Approach (ICD-10-PCS; principal; 2023-02-20)
PROC: 3E033GC Introduction of Other Therapeutic Substance into Peripheral Vein, Percutaneous Approach (ICD-10-PCS; 2023-02-20)
DX: R07.9 Chest pain, unspecified (principal); M79.604 Pain in right leg; M79.605 Pain in left leg
CPT/HCPCS: 36415; 71046-TC-FY; 80053; 83735; 84484; 85025; 93970-TC; 99285-25

== ENCOUNTER 2023-03-24 15:38 | Emergency (ER) | payer OTHER ==
[2023-03-24 16:04] VITALS: TEMP 98.8; BMI 47.4
[2023-03-24 19:10] LABS: BASO % 0.6 % (0-2.0); HEMATOCRIT 27.6 % (32.4-45.2); HEMOGLOBIN 9.1 GM/dL (10.7-15.3); LYMPH % 13.7 % (8-40); MCH 30.4 pg (25.7-33.7); MCHC 33.1 g/dl (32.0-36.0); MEAN CELL VOLUME 91.8 fl (80-96); MEAN PLT VOLUME 6.7 fl (7.5-11.1); MONO % 7.1 % (3.8-10.2); NEUT % 70.6 % (42.8-82.8); PLATELET COUNT 388 10^3/uL (134-434); RDW 16.8 % (11.6-15.6); WHITE BLOOD COUNT 9.6 K/mm3 (4.0-10.0)
[2023-03-24 19:29] LABS: POTASSIUM 4.1 mmol/L (3.5-5.1)
[2023-03-24 19:33] LABS: CALCIUM 10.1 mg/dL (8.5-10.1)
[2023-03-24 19:34] LABS: ALBUMIN 2.1 g/dl (3.4-5.0); BLOOD UREA NITROGEN 30.7 mg/dL (7-18); MAGNESIUM 2.4 mg/dL (1.8-2.4)
[2023-03-24 19:37] LABS: CREATININE 7.2 mg/dL (0.55-1.3)
[2023-03-24 19:38] LABS: BILIRUBIN,TOTAL 0.3 mg/dL (0.2-1); TOT PROT 6.8 g/dl (6.4-8.2)
[2023-03-24 19:40] LABS: INR 1.87 (0.83-1.09); PROTHROMBIN TIME (PATIENT) 21.6 SEC (9.7-13.0)
[2023-03-24] MEDS ORDERED: ACETAMINOPHEN 500 MG TABLET (FP) PO ONE (19:50)
[2023-03-24] MEDS ORDERED: ACETAMINOPHEN 325 MG TABLET (FP) ONE (20:07)
[2023-03-24 22:45] VITALS: BP 138/79; PULSE 94; RESP 18
== END 2023-03-24 23:20 | disposition left against medical advice (07) ==
LOC: JER 15:38
DX: R06.02 Shortness of breath (principal); R07.9 Chest pain, unspecified
CPT/HCPCS: 36415; 71045-TC-FY; 80053; 83735; 84484; 85025; 85610; 85730; 93005; 93010; 99285-25